=== PATIENT | female | born 1950 | race Caucasian/White ===

== ENCOUNTER → 2018-03-06 10:09 | Outpatient (CLI) | payer OTHER, SELFPAY ==
--- NOTE | 2018-03-06 | DI.RAD.S_ITS ---
This blank DEXA report has been sent in error by the PACS system. The correct and complete report will be forthcoming in 1-2 days. Thank you for your patience and understanding. Dictated by: Renetta Astudillo MD, PhD on 03/06/2018 at 12:45 Approved by: Renetta Astudillo MD, PhD on 03/06/2018 at 12:45
== END ==
PROVIDERS: PCP Family Medicine; Visit Provider Family Medicine
DX: M85.88 Other specified disorders of bone density and structure, other site (principal); Z78.0 Asymptomatic menopausal state; Z85.3 Personal history of malignant neoplasm of breast
CPT/HCPCS: 77080

== ENCOUNTER 2019-01-23 13:37 | Day surgery (SDC) | payer OTHER, SELFPAY ==
--- NOTE | 2019-01-23 | PATH_ITS ---
[facility] Accession Number: [id number] . 01 Material submitted: . PART A: colon - POLYP ASCENDING COLON X2 PART B: colon - TRANSVERSE COLON POLYP . 02 Diagnosis: A. Ascending Colon, Polyps x2, Biopsies: Tubular adenomas. . B. Transverse Colon, Polyp, Biopsy: Tubular adenoma. MRV/01/26/2019 . 02 Electronically signed: . Tejal Garcia MD, Pathologist NPI- [id number] . 01 Gross description: . Part A: POLYP ASCENDING COLON X2: Received in formalin are multiple fragment(s) of brooke, soft tissue measuring 1.5 x 0.8 x 0.5 cm in aggregate submitted entirely in 1 cassette(s) Part B: TRANSVERSE COLON POLYP: Received in formalin is 1 fragment(s) of brooke, soft tissue measuring 0.5 x 0.4 x 0.4 cm submitted entirely in 1 cassette(s) /CKI /CKI . 02 Pathologist provided ICD-10: D12.2, D12.3 . 02 CPT . 975226, [id number] Performed at: 01 [facility] [address], [place], [place] [id number] MD Geronimo Keller MD Phone: [phone] Performed at: 02 [facility] [address] [place], [place] [id number] MD Tejal Garcia MD Phone: [phone]
[2019-01-23] MEDS: HYOSCYAMINE 0.125 MG TABLET PO (14:03)
[2019-01-23 14:04] VITALS: BP 105/58; PULSE 73; RESP 17; TEMP 36.6; O2SAT 100; BMI 47.7
--- NOTE | 2019-01-23 15:00 | PM.OP.ENDO ---
Operative Date/Time/Diagnoses Date of procedure: 01/23/19 Time of procedure: 15:02 Pre-op diagnosis: 1. Screening for colon cancer 2. History of colon polyps 3. Diarrhea Post-op diagnosis: other (1. Ascending polyp x2, 2. Transverse polyp x1 ) Procedure & Clinicians Study performed: 1. Colonoscopy Same procedure as scheduled: Yes Indications: 1. Screening for colon cancer 2. History of colon polyps 3. Diarrhea Surgeon: Susu Conner Procedure Notes SCOAP/Timeout: 15:13 Procedure in detail: ENDOSCOPIST: Susu Conner MD ANESTHESIOLOGIST: Masoud Lora MD PROCEDURE: Colonoscopy with biopsy INDICATIONS: 1. Screening for colon cancer 2. Colon polyps, history of 3. Diarrhea MEDICATION: Levsin 0.125 mg sublingual, patient was then administered 2 mg of Versed and 50 mcg of fentanyl and became hypotensive, 90s/30s, 2 L of normal saline was bolused with little change in blood pressure. Dr. Lora was consulted and he graciously agreed to provide MD anesthesia. He gave 500 mcg of Lucio-Synephrine and 20 mg of ephedrine prior to start of procedure. Patient was sedated with a continuous infusion of propofol throughout, approximately 500 mg. ASA CLASS: 3 CECAL WITHDRAWAL TIME: 19 minutes TOTAL PROCEDURE TIME: 32 minutes COMPLICATIONS: None. EXTENT OF PROCEDURE: Cecum. QUALITY OF PREP: Good with portions of liquid stool. PROCEDURE: Prior to insertion of the colonoscope, a digital rectal examination was accomplished with circumferential palpation of the distal rectal mucosa without significant findings being noted. The high-definition pediatric colonoscope was passed into the rectum in the usual fashion and advanced over to the cecum without difficulty. The ileocecal valve, appendiceal stoma, and medial wall all could be inspected and no abnormalities were seen. ASCENDING COLON: As the colonoscope was withdrawn, care was taken to expose and inspect the haustral folds and 2 polyps were seen, the 1st was approximately 4 mm in size and removed with cold biopsy forceps. The 2nd was approximately 6-8 mm in size, lifted with methylene blue and removed with a 10 mm snare. Excellent hemostasis noted. HEPATIC FLEXURE: Normal no polyps, diverticula or other abnormalities. TRANSVERSE COLON: 2 mm polyp, removed with cold biopsy forceps. Otherwise, no diverticula or other abnormalities. DESCENDING COLON: Normal no polyps, diverticula or other abnormalities. SIGMOID COLON: Normal no polyps, diverticula or other abnormalities. RECTUM: Normal. J maneuver was produced. There was no significant perianal disease. The J maneuver was broken. The remainder of the rectum was inspected and there was no external hemorrhoid disease. The scope was withdrawn. IMPRESSION: 1. Ascending polyp x2, 4 mm, removed with cold biopsy forceps and 6-8 mm, lifted with methylene blue and removed with cold snare 2. Transverse polyp x1, 2 mm, removed with cold biopsy forceps PLAN: 1. Follow up in clinic status post pathology results. The possibility of a missed lesion including a malignancy has been discussed with the patient previously. Potential alarm symptoms have been discussed and should be reported immediately. Scope withdrawal time: 19 minutes Sedation minutes: 32 Findings: polyp Specimen(s): other Complications: none Impression: As above Recommendations: Will call with biopsy results Follow up: weeks (2) Disposition: PACU
[2019-01-23] MEDS: MIDAZOLAM 5 MG/5 ML VIAL IV (15:20)
[2019-01-23] MEDS: fentaNYL 250 MCG/5 ML INJ IV (15:50)
[2019-01-23] MEDS: SODIUM CHLORIDE 0.9% 1,000 ML 200 ML IV (15:51)
--- NOTE | 2019-01-23 16:14 | SUR.OPER ---
PROCEDURE CONVERTED TO MAC AT 1604.
[2019-01-23] MEDS: METHYLENE BLUE 50 MG/10 ML VIAL IV (16:34)
--- NOTE | 2019-01-23 16:45 | SUR.OPER ---
LEFT BUTTOCK , MIDDLE, BED SORE , QUARTER SIZE NOTED.
[2019-01-23 16:53] VITALS: BP 85/26; PULSE 90; RESP 16; TEMP 36.1; O2SAT 99
[2019-01-23 16:58] VITALS: BP 89/32; PULSE 84; RESP 14; O2SAT 100
[2019-01-23 17:04] VITALS: BP 88/51; PULSE 78; RESP 15; O2SAT 100
[2019-01-23 17:08] VITALS: BP 100/78; PULSE 80; RESP 14; O2SAT 100
[2019-01-23 17:12] VITALS: BP 112/51; PULSE 75; RESP 16; TEMP 35.7; O2SAT 100
== END 2019-01-23 17:35 | disposition home or self-care (01) ==
PROVIDERS: PCP Student in an Organized Health Care Education/Training Program; Visit Provider Student in an Organized Health Care Education/Training Program
PROC: 0DJD8ZZ Inspection of Lower Intestinal Tract, Via Natural or Artificial Opening Endoscopic (ICD-10-PCS; CPT 45378; principal; 2019-01-23 15:00)
DX: D12.2 Benign neoplasm of ascending colon (principal); D12.3 Benign neoplasm of transverse colon; Z86.010 Personal history of colon polyps; R19.7 Diarrhea, unspecified; J44.9 Chronic obstructive pulmonary disease, unspecified; E66.01 Morbid (severe) obesity due to excess calories; E78.5 Hyperlipidemia, unspecified; I50.9 Heart failure, unspecified; G47.33 Obstructive sleep apnea (adult) (pediatric); G89.29 Other chronic pain; F33.1 Major depressive disorder, recurrent, moderate; F41.0 Panic disorder [episodic paroxysmal anxiety]; Z68.42 Body mass index [BMI] 45.0-49.9, adult
CPT/HCPCS: 45385; 45381; 45380; J2250; J2704; J3010; Q9968

== ENCOUNTER → 2019-02-18 13:19 | Outpatient (CLI) | payer OTHER, SELFPAY ==
--- NOTE | 2019-02-18 | DI.RAD.S_ITS ---
PROCEDURE: XR CHEST 2V INDICATIONS: CHEST PAIN TECHNIQUE: 2 views of the chest were acquired. COMPARISON: [facility], , CHEST 2 VIEW, 03/14/2014, 10:52. FINDINGS: Surgical changes and devices: None. Lungs and pleura: Mild pulmonary vascular congestion is seen. No focal infiltrate. No pleural effusions or pneumothorax. Mediastinum: Mediastinal contours are normal. Heart size is enlarged. Bones and chest wall: No suspicious bony abnormalities. Soft tissues appear unremarkable. IMPRESSION: Cardiomegaly and mild congestion. No focal infiltrate. Dictated by: Isaias Hernandez M.D. on 02/18/2019 at 14:37 Approved by: Isaias Hernandez M.D. on 02/18/2019 at 14:40
== END ==
PROVIDERS: PCP Student in an Organized Health Care Education/Training Program; Visit Provider Student in an Organized Health Care Education/Training Program
DX: R07.9 Chest pain, unspecified (principal); I51.7 Cardiomegaly; R09.89 Other specified symptoms and signs involving the circulatory and respiratory systems
CPT/HCPCS: 71046

== ENCOUNTER → 2019-04-02 13:51 | Outpatient (CLI) | payer OTHER, SELFPAY ==
--- NOTE | 2019-04-02 | DI.NM.S_ITS ---
PROCEDURE: NM SKY PERF SPECT R&S PHARM Rest and pharmacological stress myocardial perfusion SPECT with gated imaging and ejection fraction RADIOPHARMACEUTICAL: 25.7 mCi Tc-99m tetrafosmin IV at rest and 24.8 mCi Tc-99m tetrafosmin IV at peak effect of pharmacological stress. Aup-[id number]-[id number] was performed. INDICATIONS: OTHER CHEST PAIN TECHNIQUE: Radiopharmaceutical was injected at peak stress test, and also at rest. SPECT images were obtained. SPECT myocardial perfusion images were displayed in short axis, horizontal long axis, and vertical long axis views. Gated images were reviewed using The RealReal software. COMPARISON: None. CARDIAC STRESS: A pharmacologic stress test was performed under the supervision of an attending staff, using an infusion of lexiscan 0.4 mg IV X1. Hemodynamic data: There is normal blood pressure and heart rate response to pharmacologic stress. Symptoms: The patient denied anginal chest pain. Aminophylline: none EKG: Resting ECG shows sinus rhythm with non-specific T wave changes. No diagnostic changes of ischemia with lexiscan; no ectopy. FINDINGS: Raw data: There is good myocardial uptake of radiotracer. No significant motion artifacts. Ohwc-fc-ydkpl ratio is 0.33 (normal is less than 0.38 for tetrafosmin tracer). Left ventricle function: Gated images demonstrate normal left ventricular wall thickening. No segmental wall motion abnormalities. No transient ischemic dilation; TID is 0.67 (normal less than 1.3). Left ventricle resting end diastolic volume is 91 mL. Left ventricle stress ejection fraction is 67%; normal range is above 45%. Myocardial perfusion: There is a fixed moderately intense inferior wall defect that could be prior non-transmural infarction or diaphragmatic attenuation. No ischemia. Prone images not done as the patient is unable to lay prone physically. 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 No ischemia. 1) Abnormal perfusion images. There is a fixed moderately intense inferior wall defect that could be prior non-transmural infarction or diaphragmatic attenuation. No ischemia. Prone images not done as the patient is unable to lay prone physically. 2) Normal left ventricular size, wall motion, and systolic function (EF post stress 67%). 3) No ECG evidence of ischemia with lexiscan. 4) No angina during the study. 5) No prior nuclear stress test available for comparison. Dictated by: Akiko Webb MD on 04/03/2019 at 15:21 Approved by: Akiko Webb MD on 04/03/2019 at 15:25
--- NOTE | 2019-04-02 14:58 | PM.TREADMILL ---
Cardiac Stress Test Report Referral & Results Date Patient Seen: 04/02/19 Requesting provider: Susu Conner Indication: Chest discomfort Rest ECG: Unremarkable Procedure Note: After both written and verbal informed consent the patient had an IV started by the diagnostic imaging RN, and then was hooked up to the treadmill monitoring system. The Lexiscan material, and then the Cardiolite tracer, were administered sequentially. An additional 3 min was spent monitoring the patient while supine on the gurney. The patient had a normal response to all infused materials. Impression: Normal response to infuse materials as above, please see perfusion imaging report for details regarding possible ischemia Please note: Actual ECG tracings can be found in the PACS system.
== END ==
PROVIDERS: PCP Student in an Organized Health Care Education/Training Program; Visit Provider Student in an Organized Health Care Education/Training Program
DX: R07.89 Other chest pain (principal); R94.39 Abnormal result of other cardiovascular function study
CPT/HCPCS: 78452; 93016; 93017; 93018; A9502; J2785

== ENCOUNTER → 2019-06-23 09:02 | Outpatient (CLI) | payer OTHER, SELFPAY ==
--- NOTE | 2019-06-23 | DI.ECHO.S_ITS ---
[facility] +---------+ : : [address] [place] [address] : : : : [id number] : : : : Phone: [phone]+ Echocardiogram Report + + :Name: KYLE ZAMORA Study Date: 06/23/2019 Height: 60 in : :[facility] Weight: 270 lb : : Gender: Female BSA: 2.1 m2 : :: 1950 Age: 69 yrs BP: 146/86 mmHg: :Reason For Study: Chest pain : :Ordering Physician: Kiah : :Pasquale Iqbal Performed By: Chad Romo : :Referring: KIAH GIORDANO : + + Interpretation Summary The study quality was technically difficult. The ejection fraction is estimated to be 60-65%. There is no significant valvular heart disease. Procedure: A two-dimensional transthoracic echocardiogram with color flow and Doppler was performed. The study quality was technically difficult. A contrast injection of Definity was performed to improve assessment of LV function. Prior echo performed on 03/08/17. The patient was in normal sinus rhythm during the exam. Left Ventricle: The left ventricle is normal in size. There is normal left ventricular wall thickness. Left ventricular systolic function is normal. The ejection fraction is estimated to be 60-65%. Left ventricular wall motion is normal. Right Ventricle: The right ventricle is not well visualized. Atria: The left atrium is not well visualized. Right atrium not well visualized. The interatrial septum is intact with no evidence for an atrial septal defect. Mitral Valve: The mitral valve is normal in structure and function. There is no mitral regurgitation noted. Aortic Valve: The aortic valve is trileaflet. The aortic valve opens well. No aortic regurgitation is present. Tricuspid Valve: The tricuspid valve is not well visualized. There is trace tricuspid regurgitation. Pulmonary artery pressures cannot be estimated because of the lack of a measurable TR jet velocity. Pulmonic Valve: The pulmonic valve is not well visualized. There is trace pulmonic regurgitation. Great Vessels: The aortic root is normal size. The dimensions of the ascending aorta are normal. The pulmonary artery is normal size. The inferior vena cava was not visualized. Pericardium/ Pleura There is no pericardial effusion. There is no pleural effusion. MMode/2D Measurements & Calculations LVIDd: 4.0 cm LVOT diam: 2.1 cm LVIDs: 3.0 cm Ao root diam: 3.4 cm FS: 22.9 % Aortic Jxn: 3.2 cm EPSS: 1.2 cm IVSd: 1.1 cm LVPWd: 0.88 cm LV singh. diameter/BSA (cm/m^2): 1.9 LV sys. diameter/BSA (cm/m^2): 1.4 Doppler Measurements & Calculations MV E max jermaine: 63.4 cm/sec MV A max jermaine: 84.3 cm/sec MV E/A: 0.75 Med Peak E' Jermaine: 4.7 cm/sec E/E' med: 13.3 Lat Peak E' Jermaine: 5.1 cm/sec E/E' lat: 12.4 E/e' average: 12.9 MV dec time: 0.26 sec Reading Physician:08:59 AM
== END ==
PROVIDERS: PCP Student in an Organized Health Care Education/Training Program; Visit Provider Internal Medicine Cardiovascular Disease
DX: R07.9 Chest pain, unspecified (principal)
CPT/HCPCS: 93306; Q9957

== ENCOUNTER → 2020-11-09 14:03 | Outpatient (CLI) | payer OTHER, SELFPAY ==
--- NOTE | 2020-11-09 14:04 | DI.MG.S_ITS ---
BILATERAL DIGITAL SCREENING MAMMOGRAM 3D/2D WITH CAD: 11/09/2020 CLINICAL: Routine screening. Comparison is made to exams dated: 01/29/2012 mammogram and 01/08/2005 mammogram - [facility]. The tissue of both breasts is heterogeneously dense. This may lower the sensitivity of mammography. Current study was also evaluated with a Computer Aided Detection (CAD) system. There is possible architectural distortion in the left breast central to the nipple in the retroareolar region. No other significant masses, calcifications, or other findings are seen in either breast. IMPRESSION: INCOMPLETE: NEEDS ADDITIONAL IMAGING EVALUATION The possible architectural distortion in the left breast is indeterminate. Additional views with possible ultrasound are recommended. This exam was interpreted at Station ID: [id number]. NOTE: For mammograms, a report in lay terms will be sent to the patient. Approximately 15% of breast malignancies will not be visualized mammographically. In the management of a palpable breast mass, a negative mammogram must not discourage biopsy of a clinically suspicious lesion. Electronically Signed By: Salo villasenor/carlos:11/09/2020 15:11:47 letter sent: Additional Imaging Needed ACR BI-RADS Category 0: Incomplete [id number]
== END ==
PROVIDERS: PCP Student in an Organized Health Care Education/Training Program; Referring Provider Student in an Organized Health Care Education/Training Program; Visit Provider Student in an Organized Health Care Education/Training Program
DX: Z12.31 Encounter for screening mammogram for malignant neoplasm of breast (principal)
CPT/HCPCS: 77063; 77067

== ENCOUNTER 2021-01-03 11:56 | Emergency (ER) | payer OTHER, SELFPAY ==
[2021-01-03] VITALS (19 sets, daily range): BP systolic 117–129; BP diastolic 51–76; PULSE 56–72; RESP 18–50; TEMP 36.9; O2SAT 93–100; BMI 50.4
[2021-01-03 13:48] LABS: Add Manual Diff / Slide Review NO; Basophils Absolute Auto 100 /uL (0-100); Basophils Percent Auto 0.7 % (0-2); Eosinophils Absolute Auto 100 /uL (0-450); Eosinophils Percent Auto 0.7 % (2-4); Hematocrit 38.2 % (36-46); Hemoglobin 12.6 g/dL (12.0-16.0); Lymphocytes Absolute Auto 1000 /uL (1100-4500); Lymphocytes Percent Auto 12.4 % (25-40); Mean Corpuscular HGB Conc 32.9 % (30-36); Mean Corpuscular Hemoglobin 29.8 PG (26-34); Mean Corpuscular Volume 90.4 fL (80-100); Monocytes Absolute Auto 300 /uL (0-900); Monocytes Percent Auto 3.6 % (3-14); Neutrophils Absolute Auto 6700 /uL (1500-7000); Neutrophils Percent Auto 82.6 % (50-75); Platelet Count 109 X10^3/uL (150-400); Red Blood Cell Count 4.23 X10^6/uL (4.0-5.2); Red Cell Distribution Width 14.6 % (11.6-14.8); White Blood Cell Count 8.1 X10^3/uL (4.5-11.0)
[2021-01-03] MEDS: ONDANSETRON 4 MG/2 ML INJ IV (13:49)
[2021-01-03] MEDS: KETOROLAC 30 MG/ML VIAL 15 MG IV (13:49)
[2021-01-03 14:00] LABS: Alanine Aminotransferase 18 IU/L (<35); Albumin 3.7 g/dL (3.5-5.0); Albumin Globulin Ratio 1.2 (1.0-2.8); Alkaline Phosphatase 140 U/L (38-126); Aspartate Aminotransferase 30 IU/L (14-36); BUN Creatinine Ratio 17.4 (6-22); Bilirubin Total 0.4 mg/dL (0.2-1.3); Blood Urea Nitrogen 19 mg/dL (7-17); Calcium 9.3 mg/dL (8.4-10.2); Carbon Dioxide 33 mmol/L (22-32); Chloride 99 mmol/L (98-107); Estimated Glomerular Filt Rate 49.8 mL/min (>60); Globulin 3.1 g/dL (1.7-4.1); Glucose 134 mg/dL (80-110); HEMOLYSIS < 15 (0-50); Lipase 60 U/L (23-300); Potassium 4.6 mmol/L (3.4-5.1); Sodium 137 mmol/L (137-145); Total Protein 6.8 g/dL (6.3-8.2)
--- NOTE | 2021-01-03 14:25 | DI.CT.S_ITS ---
PROCEDURE: CT KIDNEY URETER BLADDER (KUB) INDICATIONS: right flank pain TECHNIQUE: Axial sections were acquired from the lung bases to the pubic symphysis. Coronal and sagittal reformats were performed. For radiation dose reduction, the following was used: automated exposure control, adjustment of mA and/or kV according to patient size. COMPARISON:[facility], CR, XR CHEST 2V, 02/18/2019, 13:27. FINDINGS: Image quality: Excellent. Lung bases: Mild infiltrates or atelectasis at lung bases. Heart: Heart size is mildly increased. No pericardial effusion. URINARY: Right Kidney: There is moderate hydronephrosis and mild perinephric stranding. No stones. Right Ureter: There is a 0.8 cm stone in the proximal right ureter. Mild hydroureter proximal to the stone. Left Kidney: No stones or hydronephrosis. Left Ureter: No hydroureter. Bladder: Normal wall thickness. No stones. ABDOMEN: Liver: Unremarkable. Gallbladder: Surgically absent Biliary ducts: Unremarkable. Pancreas: Unremarkable. Spleen: Unremarkable. Adrenal Glands: Unremarkable. Stomach and Bowel: Stomach, small bowel loops, and colon are unremarkable. There is moderate amount of stool in colon. Appendix is not visualized no CT findings to suggest acute appendicitis. Peritoneum: No abnormal intraperitoneal fluid. No free air. Ventral Wall: Small fat containing umbilical hernia. Abdominal Nodes: No enlarged retroperitoneal or mesenteric lymph nodes. Vessels: Aorta and inferior vena cava are normal in size. PELVIS: Pelvic Organs: Unremarkable. Pelvic Nodes: Unremarkable. Miscellaneous: No inguinal hernias are seen. Bones: Mild scoliosis. Moderate degenerative changes in lumbar spine. Is sclerotic lesion in the left sacral ala, most likely a bone island. IMPRESSION: 1. A 0.8 cm stone is present in the proximal right ureter, causing moderate right hydronephrosis. 2. No other urinary stones are identified. 3. Bilateral lower lobe infiltrates or atelectasis. 4. Mild cardiomegaly. Dictated by: Melanie Canada M.D. on 01/03/2021 at 15:51 Approved by: Melanie Canada M.D. on 01/03/2021 at 16:04
--- NOTE | 2021-01-03 15:34 | PC.NURSE ---
cloudy urine collected from straight cath. Renetta BUCIO assisted.
[2021-01-03 15:45] LABS: Appearance Urine UA SL CLOUDY; Bilirubin Urine UA NEGATIVE (NEGATIVE); Color Urine UA YELLOW; Glucose Urine UA NEGATIVE (Negative); Ketones Urine UA TRACE (NEGATIVE); Leukocyte Esterase Urine UA 2+ (NEGATIVE); Nitrite Urine UA POSITIVE (Negative); Occult Blood Urine UA 3+ (Negative); Protein Urine UA 2+ (Negative); Urobilinogen Urine UA 0.2 E.U./dL (0.2)
[2021-01-03 15:48] LABS: Bacteria Urine Many (>30); Culture Indicated Urine Specimen Cultured; RBC Urine 30-100/HPF (0-5/HPF); Squamous Epithelial Cell Urine 0-1 /HPF (0-5/HPF); WBC Urine 30-100/HPF (0-5/HPF); pH Urine UA 8.5 (4.5-8.0)
--- NOTE | 2021-01-03 16:04 | ED_ITS ---
HPI - Female Genitourinary General Chief complaint: Urogenital-Female Stated complaint: ABD Flank pain Time Seen by Provider: 01/03/21 13:42 Source: patient Mode of arrival: EMS Limitations: no limitations History of Present Illness HPI Narrative: This is a 70-year-old female comes with complaint of right-sided flank pain that was fairly sudden onset. Patient woke up this morning and pain and then had significant increase in pain suddenly on the right flank that hit her like a ?boom?. Patient has not had fevers or chills. She has not been actively vomiting. She denies chest pain or new shortness of breath. She is normally on 2 L nasal cannula at home. She has had major changes to bowel movements. She has chronic urinary incontinence, she was having some difficulty with urine output earlier today. Patient does have a cardiac history with heart attack many years ago but ever since then has had a fair amount of debility and has minimal exercise capacity, she is on 2 L nasal cannula typically and states she does have some chronic kidney disease she does not know her baseline creatinine. Related Data Home Medications Medication Instructions Recorded Confirmed albuterol sulfate 0.63 mg/3 mL 0.63 mg INHALATION BID 01/23/19 01/23/19 solution for nebulization albuterol sulfate 90 mcg/actuation 2 puff INHALATION Q4-6H PRN 01/23/19 01/23/19 aerosol inhaler (Ventolin HFA) atorvastatin 10 mg tablet 10 mg PO DAILY 01/23/19 01/23/19 beclomethasone dipropionate 80 2 puff INHALATION BID 01/23/19 01/23/19 mcg/actuation HFA breath activated aerosol (Qvar RediHaler) furosemide 40 mg tablet 20 mg PO BID 01/23/19 01/23/19 potassium chloride 10 mEq 20 meq PO DAILY 01/23/19 01/23/19 capsule,extended release sertraline 25 mg tablet 10 mg PO DAILY 01/23/19 01/23/19 tiotropium bromide 18 mcg capsule 1 cap INHALATION DAILY 01/23/19 01/23/19 with inhalation device (Spiriva with HandiHaler) trospium 20 mg tablet 20 mg PO BID 01/23/19 01/23/19 Previous Rx's Medication Instructions Recorded oxycodone 5 mg tablet 5 mg PO Q6H PRN #10 tab 01/03/21 sulfamethoxazole 800 1 tab PO Q12H #20 tab 01/03/21 mg-trimethoprim 160 mg tablet (Bactrim DS) tamsulosin 0.4 mg capsule (Flomax) 0.4 mg PO DAILY #7 cap 01/03/21 Allergies Allergy/AdvReac Type Severity Reaction Status Date / Time promethazine Allergy Unknown HALLUCINATI Verified 01/23/19 14:01 ONS Review of Systems Review of Systems ROS Unobtainable: All systems reviewed & are unremarkable except as noted in HPI and below Exam Narrative Exam Narrative: GENERAL: Alert and oriented x three, female in mild distress on 2 L nasal cannula. HEENT: Head normocephalic, atraumatic, EOMI, pupils reactive, face symmetric, moist mucous membranes NECK: Supple, full range of motion CARDIOVASCULAR: Regular rate and rhythm without murmurs, rubs or gallops. RESPIRATORY: Breath sounds equal bilaterally, no wheezes rales or rhonchi. ABDOMEN: Soft, nontender. Nondistended. Normoactive bowel sounds all 4 quadrants. No guarding or rebound, rigidity, no mass : No CVA tenderness EXTREMITIES: Normal range of motion, no clubbing or edema. Neurovascularly intact NEUROLOGICAL: Cranial nerves II through XII grossly intact. Moving all extremities SKIN: Warm, dry, no petechiae, no rashes or lesions. Initial Vital Signs Initial Vital Signs: Vital Signs Temperature 98.4 F 01/03/21 12:09 Pulse Rate 59 L 01/03/21 12:09 Respiratory Rate 18 01/03/21 12:09 Blood Pressure 126/76 01/03/21 12:09 Pulse Oximetry 98 01/03/21 12:09 Course Orders Ordered: ED Orders 01/03/21 13:40 Complete Blood Count AUTO DIFF Stat Comprehensive Metabolic Panel Stat Lipase Stat 01/03/21 14:25 CT kidney ureter bladder (KUB) Stat 01/03/21 15:30 Urinalysis and Microscopic Stat Urine Culture Stat 01/03/21 16:24 COVID19 - ADMIT ([employer] swab/PCR) Stat 01/03/21 17:23 XR KUB Stat Discontinued Medications Ceftriaxone Sodium 2,000 mg/ (Sodium Chloride) 100 mls @ 200 mls/hr IV NOW ONE Stop: 01/03/21 16:05 Last Infusion: 01/03/21 17:57 Dose: 0 mls/hr Documented by: Admin: 01/03/21 16:45 Dose: 200 mls/hr Documented by: PATRICK Ketorolac Tromethamine (Ketorolac 30 Mg/Ml Vial) 15 mg IV NOW ONE Stop: 01/03/21 13:36 Last Admin: 01/03/21 13:49 Dose: 15 mg Documented by: KARISHMA Ondansetron HCl (Ondansetron 4 Mg/2 Ml Inj) 4 mg IV NOW ONE Stop: 01/03/21 13:20 Last Admin: 01/03/21 13:49 Dose: 4 mg Documented by: KARISHMA Tamsulosin HCl (Tamsulosin 0.4 Mg Capsule) 0.4 mg PO NOW ONE Stop: 01/03/21 17:39 Last Admin: 01/03/21 17:48 Dose: 0.4 mg Documented by: PATRICK Trimethoprim/Sulfamethoxazole (Trimeth/Sulfa 160/800 (Ds) Tablet) 1 tab PO NOW ONE Stop: 01/03/21 17:24 Last Admin: 01/03/21 17:48 Dose: 1 tab Documented by: PATRICK Consultations Consultation #1: Rosetta, will likely need intervention but does not need to be emergent at this time if renal function is at baseline, patient's pain is controlled and she does not appear to be septic. If discharged recommends Breanne CALERO by ID. And would appreciate follow-up with primary care for cardiac clearance. Patient is taking more than 81 mg aspirin daily he would ask her to stop her anticoagulation. And would find a KUB flat plate helpful for planning. Consultation #2: Dr. Conner, is happy to help facilitate short-term follow-up and cardiac clearance with the patient. 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 She states her normal creatinine is 1.1 at baseline, we also discussed that she does take an aspirin 81 mg daily but no stronger anticoagulants and this would be acceptable per Dr. Sargent. She is aware that the goal is for cardiac clearance for lithotripsy is patient is unlikely to pass her stone. Vital Signs Vital signs: Vital Signs - 8 hr 01/03/21 12:09 01/03/21 12:28 01/03/21 12:30 Temperature 98.4 F Pulse Rate 59 L 65 65 Respiratory Rate 18 Blood Pressure 126/76 Pulse Oximetry 98 99 99 01/03/21 13:00 01/03/21 13:32 01/03/21 13:52 Temperature Pulse Rate 60 59 L 60 Respiratory Rate Blood Pressure 117/57 L Pulse Oximetry 98 98 99 01/03/21 14:00 01/03/21 14:30 01/03/21 14:31 Temperature Pulse Rate 60 67 68 Respiratory Rate Blood Pressure 123/57 L 118/59 L Pulse Oximetry 99 99 100 01/03/21 15:00 01/03/21 15:01 01/03/21 15:30 Temperature Pulse Rate 70 69 64 Respiratory Rate Blood Pressure 129/58 L Pulse Oximetry 100 93 99 01/03/21 16:00 01/03/21 16:01 01/03/21 16:30 Temperature Pulse Rate 60 60 56 L Respiratory Rate 28 H 26 H 21 Blood Pressure 123/60 Pulse Oximetry 100 100 100 01/03/21 16:31 01/03/21 17:00 01/03/21 17:30 Temperature Pulse Rate 57 L 59 L 62 Respiratory Rate 22 26 H Blood Pressure 117/51 L Pulse Oximetry 100 100 100 01/03/21 18:09 Temperature Pulse Rate 72 Respiratory Rate 50 H Blood Pressure Pulse Oximetry 93 MDM - Female Genitourinary Lab Data Result diagrams: 01/03/21 13:40 01/03/21 13:40 Labs: Lab Results 01/03/21 01/03/21 01/03/21 Range/Units 13:40 13:40 15:30 WBC 8.1 (4.5-11.0) X10^3/uL RBC 4.23 (4.0-5.2) X10^6/uL Hgb 12.6 (12.0-16.0) g/dL Hct 38.2 (36-46) % MCV 90.4 (80-100) fL MCH 29.8 (26-34) PG MCHC 32.9 (30-36) % RDW 14.6 (11.6-14.8) % Plt Count 109 L (150-400) X10^3/uL Neut % (Auto) 82.6 H (50-75) % Lymph % (Auto) 12.4 L (25-40) % [place] % (Auto) 3.6 (3-14) % Eos % (Auto) 0.7 L (2-4) % Baso % (Auto) 0.7 (0-2) % Neut # (Auto) 6700 (3371-0007) /uL Lymph # (Auto) 1000 L (8281-3324) /uL [place] # (Auto) 300 (0-900) /uL Eos # (Auto) 100 (0-450) /uL Baso # (Auto) 100 (0-100) /uL Sodium 137 (137-145) mmol/L Potassium 4.6 (3.4-5.1) mmol/L Chloride 99 (98-107) mmol/L Carbon Dioxide 33 H (22-32) mmol/L BUN 19 H (7-17) mg/dL Creatinine 1.09 H (0.52-1.04) mg/dL Estimated GFR 49.8 L (>60) mL/min BUN/Creatinine Ratio 17.4 (6-22) Glucose 134 H (80-110) mg/dL Calcium 9.3 (8.4-10.2) mg/dL Total Bilirubin 0.4 (0.2-1.3) mg/dL AST 30 (14-36) IU/L ALT 18 (<35) IU/L Alkaline Phosphatase 140 H (38-126) U/L Total Protein 6.8 (6.3-8.2) g/dL Albumin 3.7 (3.5-5.0) g/dL Globulin 3.1 (1.7-4.1) g/dL Albumin/Globulin Ratio 1.2 (1.0-2.8) Lipase 60 (23-300) U/L Urine Color Yellow Urine Appearance Sl cloudy Urine pH 8.5 H (4.5-8.0) Ur Specific [place] 1.010 (1.000-1.035) Urine Protein 2+ H (Negative) Urine Glucose (UA) Negative (Negative) g/dL Urine Ketones Trace H (NEGATIVE) Urine Occult Blood 3+ H (Negative) Urine Nitrate Positive H (Negative) Urine Bilirubin Negative (NEGATIVE) Urine Urobilinogen 0.2 (0.2) E.U./dL Ur Leukocyte Esterase 2+ H (NEGATIVE) Urine RBC 30-100/hpf H (0-5/HPF) Urine WBC 30-100/hpf H (0-5/HPF) Ur Squamous Epith Cells 0-1 /hpf (0-5/HPF) Urine Bacteria Many (>30) H (None) Ur Culture Indicated? Specimen cultured SARS-CoV-2 (PCR) (Negative) 01/03/21 Range/Units 16:24 WBC (4.5-11.0) X10^3/uL RBC (4.0-5.2) X10^6/uL Hgb (12.0-16.0) g/dL Hct (36-46) % MCV (80-100) fL MCH (26-34) PG MCHC (30-36) % RDW (11.6-14.8) % Plt Count (150-400) X10^3/uL Neut % (Auto) (50-75) % Lymph % (Auto) (25-40) % [place] % (Auto) (3-14) % Eos % (Auto) (2-4) % Baso % (Auto) (0-2) % Neut # (Auto) (5021-5513) /uL Lymph # (Auto) (3514-9557) /uL [place] # (Auto) (0-900) /uL Eos # (Auto) (0-450) /uL Baso # (Auto) (0-100) /uL Sodium (137-145) mmol/L Potassium (3.4-5.1) mmol/L Chloride (98-107) mmol/L Carbon Dioxide (22-32) mmol/L BUN (7-17) mg/dL Creatinine (0.52-1.04) mg/dL Estimated GFR (>60) mL/min BUN/Creatinine Ratio (6-22) Glucose (80-110) mg/dL Calcium (8.4-10.2) mg/dL Total Bilirubin (0.2-1.3) mg/dL AST (14-36) IU/L ALT (<35) IU/L Alkaline Phosphatase (38-126) U/L Total Protein (6.3-8.2) g/dL Albumin (3.5-5.0) g/dL Globulin (1.7-4.1) g/dL Albumin/Globulin Ratio (1.0-2.8) Lipase (23-300) U/L Urine Color Urine Appearance Urine pH (4.5-8.0) Ur Specific [place] (1.000-1.035) Urine Protein (Negative) Urine Glucose (UA) (Negative) g/dL Urine Ketones (NEGATIVE) Urine Occult Blood (Negative) Urine Nitrate (Negative) Urine Bilirubin (NEGATIVE) Urine Urobilinogen (0.2) E.U./dL Ur Leukocyte Esterase (NEGATIVE) Urine RBC (0-5/HPF) Urine WBC (0-5/HPF) Ur Squamous Epith Cells (0-5/HPF) Urine Bacteria (None) Ur Culture Indicated? SARS-CoV-2 (PCR) Negative (Negative) Imaging Data CT scan - abdomen/pelvis: Radiologist's Impression: [address] [id number] Scan ReportSigned Patient: Maribel Narayanan [facility]#: [id number]: 1950cct:[id number]/Sex: 70 / FDate of Service: 01/03/21Loc: EDAccession Number: [id number] Procedure: CT kidney ureter bladder (KUB) Ordering Provider: Dyan Alston D.O. PROCEDURE: CT KIDNEY URETER BLADDER (KUB) INDICATIONS: right flank pain TECHNIQUE: Axial sections were acquired from the lung bases to the pubic symphysis. Coronal and sagittal reformats were performed. For radiation dose reduction, the following was used: automated exposure control, adjustment of mA and/or kV according to patient size. COMPARISON:[facility], [place], XR CHEST 2V, 02/18/2019, 13:27. FINDINGS: Image quality: Excellent. Lung bases: Mild infiltrates or atelectasis at lung bases. Heart: Heart size is mildly increased. No pericardial effusion. URINARY: Right Kidney: There is moderate hydronephrosis and mild perinephric stranding. No stones. Right Ureter: There is a 0.8 cm stone in the proximal right ureter. Mild hydroureter proximal to the stone. Left Kidney: No stones or hydronephrosis. Left Ureter: No hydroureter. Bladder: Normal wall thickness. No stones. ABDOMEN: Liver: Unremarkable. Gallbladder: Surgically absent Biliary ducts: Unremarkable. Pancreas: Unremarkable. Spleen: Unremarkable. Adrenal Glands: Unremarkable. Stomach and Bowel: Stomach, small bowel loops, and colon are unremarkable. There is moderate amount of stool in colon. Appendix is not visualized no CT findings to suggest acute appendicitis. Peritoneum: No abnormal intraperitoneal fluid. No free air. Ventral Wall: Small fat containing umbilical hernia. Abdominal Nodes: No enlarged retroperitoneal or mesenteric lymph nodes. Vessels: Aorta and inferior vena cava are normal in size. PELVIS: Pelvic Organs: Unremarkable. Pelvic Nodes: Unremarkable. Miscellaneous: No inguinal hernias are seen. Bones: Mild scoliosis. Moderate degenerative changes in lumbar spine. Is sclerotic lesion in the left sacral ala, most likely a bone island. IMPRESSION: 1. A 0.8 cm stone is present in the proximal right ureter, causing moderate right hydronephrosis. 2. No other urinary stones are identified. 3. Bilateral lower lobe infiltrates or atelectasis. 4. Mild cardiomegaly. Dictated by: Melanie Canada M.D. on 01/03/2021 at 15:51 Approved by: Melanie Canada M.D. on 01/03/2021 at 16:04 MDM Narrative Medical decision making narrative: Female comes in with symptoms that seem consistent with kidney stone. Patient is does have a chronic urinary incontinence, catheterized urine was obtained and does show UTI with nitrates as well as significant white blood cells and red blood cells. Patient has an 8 mm proximal kidney stone on the right. Patient's labs are somewhat reassuring as well as her vitals. Her pain was easily controlled with single dose of Toradol. After discussion with her primary care physician her renal function is at baseline with a creatinine 1.1 normally. Patient does multiple medical issues including O2 via nasal cannula regularly. After discussion with Urology they feel it would be most appropriate to help patient get cardiac clearance before lithotripsy particularly if she does not appears septic, and her pain is well controlled and her renal function is at baseline. Breanne CALERO b.i.d. was recommended, patient can continue with aspirin daily and they ask for assistance to get patient cardiac clearance. Dr. Conner patient's primary care physician is happy to assist with this and is in the process of helping the patient see Cardiology. Patient and daughter and I discussed that some patients can become septic if they have obstructive kidney stones with UTIs and so very strict return precautions with patient to come back to us if she is having worsening symptoms, fevers, intractable pain, vomiting or she is feeling generally more more unwell. Patient was given 1st dose of oral medication as well as Flomax here in the department with a plan for that prescription to go to skilled more, and pain medication for this [facility] Patient and daughter both at bedside for the entire conversation and return precautions as well as all questions were answered. Discharge Plan Departure Patient Disposition: Home Clinical Impression: Kidney stone on right side, Acute UTI Instructions: DI for Kidney Stones, DI for Urinary Tract Infection (UTI) Activity Restrictions/Additional Instructions: Follow up with Dr. Conner tomorrow. She is going to help facilitate cardiac clearance for a likely lithotripsy of your kidney stone. Your renal function today is at baseline after review of your labs and findings today with Dr. Conner. I also spoke with Dr. Sargent with urology, he would like to see you shortly. And is going to follow-up with you in regarding your kidney stone. You may continue your home medications as prescribed. Take antibiotics twice daily until gone. Take Flomax once daily until gone. May take Tylenol up to a 1000 mg every 8 hours as needed for pain. If this is an adequate you may take narcotic pain medication with it. You may take pain medication as prescribed. This medication can make you sleepy do not drive, perform hazardous activities or make any major decisions while taking it. This medication will make you constipated please take a stool softener once to twice daily until stools are soft and regular. Prescription sent to [place] for Flomax and Bactrim. He received her 1st dose of Bactrim here [facility]. [facility] Please return for fevers, rapidly worsening symptoms, persistent vomiting, wor sening back or flank pain, abdominal pain, if you are unable to urinate or other new or concerning symptoms. Prescriptions: New tamsulosin [Flomax] 0.4 mg capsule 0.4 mg PO DAILY Qty: 7 RF: 0 sulfamethoxazole-trimethoprim [Bactrim DS] 800-160 mg tablet 1 tab PO Q12H Qty: 20 RF: 0 oxycodone 5 mg tablet 5 mg PO Q6H PRN (Reason: pain) Qty: 10 RF: 0 No Action furosemide 40 mg Tablet 20 mg PO BID RF: 0 albuterol sulfate 0.63 mg/3 mL Solution For Nebulization 0.63 mg INHALATION BID RF: 0 potassium chloride 10 mEq Capsule, Extended Release 20 meq PO DAILY RF: 0 atorvastatin 10 mg Tablet 10 mg PO DAILY RF: 0 sertraline 25 mg Tablet 10 mg PO DAILY RF: 0 albuterol sulfate [Ventolin HFA] 90 mcg/actuation Hfa Aerosol Inhaler 2 puff INHALATION Q4-6H PRN (Reason: copd) RF: 0 Spiriva with HandiHaler 18 mcg Capsule, W/Inhalation Device 1 cap INHALATION DAILY RF: 0 trospium 20 mg Tablet 20 mg PO BID RF: 0 Qvar RediHaler 80 mcg/actuation Hfa Aerosol Breath Activated 2 puff INHALATION BID RF: 0 Referrals: Susu Conner MD [Primary Care Provider] - Shayna Sargent MD [Physician] -
[2021-01-03] MEDS: cefTRIAXone 2,000 MG in SODIUM CHLORIDE 0.9% 100 ML 200 ML IV (16:45)
--- NOTE | 2021-01-03 17:23 | DI.RAD.S_ITS ---
PROCEDURE: XR KUB INDICATIONS: dr. corona requested. TECHNIQUE: One view of the abdomen acquired. COMPARISON: [facility], CT, CT KIDNEY URETER BLADDER (KUB), 01/03/2021, 15:18. FINDINGS: Image quality limited secondary artifact related to multiple device leads. Surgical changes and devices: None. Bowel: Bowel gas pattern is normal. Soft tissues: 1.3 by 0.6 centimeter calcification projects over the right mid abdomen which may correspond to right ureteral stone.. Visualized solid organ contours appear normal in size. Bones: No suspicious bony lesions. IMPRESSION: 1.3 x 0.6 centimeter calcification projecting over the right mid abdomen possibly reflective of known right ureteral stone. Dictated by: Renetta Astudillo MD, PhD on 01/03/2021 at 18:02 Approved by: Renetta Astudillo MD, PhD on 01/03/2021 at 18:04
[2021-01-03 17:24] LABS: COVID19 - ADMIT (NP swab/PCR) Negative (Negative)
[2021-01-03] MEDS: TAMSULOSIN 0.4 MG CAPSULE PO (17:48)
[2021-01-03] MEDS: TRIMETH/SULFA 160/800 (DS) TABLET 1 TAB PO (17:48)
== END 2021-01-03 18:27 | disposition home or self-care (01) ==
PROVIDERS: Emergency Provider Emergency Medicine; PCP Student in an Organized Health Care Education/Training Program
DX: N20.0 Calculus of kidney (principal); N39.0 Urinary tract infection, site not specified; Z20.822 Contact with and (suspected) exposure to COVID-19
CPT/HCPCS: 36415; 51701; 74018; 74176; 80053; 81001; 83690; 85025; 87077; 87086; 87186; 87635; 96365; 96375; 99284; C9803; J0696; J1885; J2405

== ENCOUNTER 2021-01-09 18:06 | Inpatient (IN) | payer OTHER, SELFPAY ==
[2021-01-09] VITALS (12 sets, daily range): BP systolic 109–124; BP diastolic 53–80; PULSE 63–80; RESP 18; TEMP 36.2; O2SAT 97–100; BMI 52.0
--- NOTE | 2021-01-09 18:30 | ED_ITS ---
HPI - Altered Mental Status General Chief Complaint: Urogenital-Female Stated Complaint: Poss UTI/Hallucinations Time Seen by Provider: 01/09/21 18:08 History of Present Illness HPI narrative: This is a 70-year-old female on home oxygen 2 L, hypertension, hyperlipidemia presents with reports of hallucinations, altered mental status and generalized weakness with an inability to ambulate over the past few days. Patient diagnosed recently with an 8 mm proximal right ureter stone which then developed a urinary tract infection. She was initially placed on Bactrim but the culture and sensitivity returns suggesting resistance. The patient was called at home and a new prescription for Augmentin was called in which the patient had been taking. Per family the symptoms started after Augmentin was initiated. Patient is a very poor historian and is unclear why she is here. She denies any dizziness or lightheadedness. She denies chest pain or shortness of breath. She denies abdominal pain but does admit to some chills Related Data Home Medications Medication Instructions Recorded Confirmed albuterol sulfate 0.63 mg/3 mL 0.63 mg INHALATION BID 01/23/19 01/23/19 solution for nebulization albuterol sulfate 90 mcg/actuation 2 puff INHALATION Q4-6H PRN 01/23/19 01/23/19 aerosol inhaler (Ventolin HFA) atorvastatin 10 mg tablet 10 mg PO DAILY 01/23/19 01/10/21 beclomethasone dipropionate 80 2 puff INHALATION BID 01/23/19 01/23/19 mcg/actuation HFA breath activated aerosol (Qvar RediHaler) furosemide 40 mg tablet 20 mg PO BID 01/23/19 01/23/19 potassium chloride 10 mEq 20 meq PO DAILY 01/23/19 01/23/19 capsule,extended release sertraline 25 mg tablet 10 mg PO DAILY 01/23/19 01/23/19 tiotropium bromide 18 mcg capsule 1 cap INHALATION DAILY 01/23/19 01/23/19 with inhalation device (Spiriva with HandiHaler) trospium 20 mg tablet 20 mg PO BID 01/23/19 01/23/19 Previous Rx's Medication Instructions Recorded oxycodone 5 mg tablet 5 mg PO Q6H PRN #10 tab 01/03/21 sulfamethoxazole 800 1 tab PO Q12H #20 tab 01/03/21 mg-trimethoprim 160 mg tablet (Bactrim DS) tamsulosin 0.4 mg capsule (Flomax) 0.4 mg PO DAILY #7 cap 01/03/21 amoxicillin 875 mg-potassium 1 tab PO BID #20 tab 01/06/21 clavulanate 125 mg tablet (Augmentin) Allergies Allergy/AdvReac Type Severity Reaction Status Date / Time promethazine Allergy Unknown HALLUCINATI Verified 01/23/19 14:01 ONS Review of Systems Review of Systems Narrative: GENERAL: See HPI HEENT: Denies sinus pain, ear pain, sore throat, difficulty swallowing, dizziness. RESPIRATORY: Denies dyspnea, cough, wheezing, hemoptysis, sputum. CARDIOVASCULAR: Denies chest pain, palpitations, orthopnea, edema, GASTROINTESTINAL: Denies nausea, vomiting, abdominal pain, diarrhea, constipation, melena. : Denies dysuria, frequency, incontinence, hematuria, urinary retention. MUSCULOSKELETAL: See HPI SKIN: Denies rash, skin lesions, or other NEUROLOGIC: See HPI PSYCHIATRIC: No concerning psychosocial issues. 12 point review of systems is negative except for those stated above Patient History Medical History (Updated 01/10/21 @ 01:08 by Shannon Chang RN) Heart attack (~2013) Social History household members: spouse and friend(s) Smoking Status: Former smoker alcohol intake: never Exam Narrative Exam Narrative: GENERAL: [70] year old patient appears stated age. Well-d eveloped patient, in mild distress. Poor historian, GCS 14 (confusion) HEAD: Atraumatic. Normocephalic. EYES: Pupils equal round and reactive. Extraocular motions intact. No scleral icterus. No injection or drainage. ENT: Nose without bleeding, purulent drainage. Throat without erythema, tonsilla r hypertrophy or exudate. Airway patent. NECK: Trachea midline. Non tender CARDIOVASCULAR: Regular rate and rhythm without murmurs, gallops, or rubs. RESPIRATORY: Clear to auscultation. Breath sounds equal bilaterally. No wheezes, rales, or rhonchi. GASTROINTESTINAL: Abdomen soft, non-tender, nondistended. EXTREMITIES: No edema or joint tenderness. BACK: Nontender without deformity or crepitance. No flank tenderness. NEURO: AOx3. SKIN: No rash or erythema of visible areas Initial Vital Signs Initial Vital Signs: Vital Signs Temperature 97.2 F L 01/09/21 18:10 Pulse Rate 80 01/09/21 18:10 Respiratory Rate 18 01/09/21 18:10 Blood Pressure 124/80 01/09/21 18:10 Pulse Oximetry 98 01/09/21 18:10 Course Orders Ordered: ED Orders 01/09/21 19:01 Complete Blood Count AUTO DIFF Stat Comprehensive Metabolic Panel Stat Lactate (Lactic Acid) Stat Lipase Stat Partial Thromboplastin Time Stat Procalcitonin Stat Prothrombin Time INR Stat 01/09/21 19:11 Blood Culture Stat 01/09/21 20:48 CT kidney ureter bladder (KUB) Stat 01/09/21 22:25 Urinalysis and Microscopic Stat Urine Culture Stat Albuterol (Albuterol 1.25 Mg/3 Ml Neb (Pediatric)) 0.63 mg INH RTBID DARLENE Atorvastatin Calcium (Atorvastatin 20 Mg Tablet) 10 mg PO DAILY DARLENE Budesonide (Budesonide 0.5 Mg/2 Ml Neb) 0.5 mg INH RTBID DARLENE Sodium Chloride (Normal Saline 0.9%) 1,000 mls @ 125 mls/hr IV CONT DARLENE Ipratropium Terrell (Ipratropium 0.5 Mg/2.5 Ml Neb) 0.5 mg INH [id number] DARLENE Ipratropium Terrell (Ipratropium 0.5 Mg/2.5 Ml Neb) 0.5 mg INH Q2HR PRN PRN Reason: Shortness Of Breath Non-Formulary Medication (Sertraline) 10 mg PO DAILY DARLENE Oxycodone HCl (Oxycodone Ir 5 Mg Tablet) 5 mg PO Q6H PRN PRN Reason: pain Pantoprazole Sodium (Pantoprazole 40 Mg Vial) 20 mg IV DAILY DARLENE Discontinued Medications Sodium Chloride (Normal Saline 0.9%) 1,000 mls @ 1,000 mls/hr IV BOLUS ONE Stop: 01/09/21 23:52 Last Infusion: 01/10/21 00:07 Dose: 1,000 mls/hr Documented by: Admin: 01/09/21 23:01 Dose: 1,000 mls/hr Documented by: BLANK Ceftriaxone Sodium 2,000 mg/ (Sodium Chloride) 100 mls @ 200 mls/hr IV NOW ONE Stop: 01/09/21 23:09 Last Infusion: 01/10/21 03:05 Dose: 0 mls/hr Documented by: Infusion: 01/09/21 23:36 Dose: 200 mls/hr Documented by: Admin: 01/09/21 23:35 Dose: 200 mls/hr Documented by: BLANK Consultations Consultation #1: Dr. Sargent will see patient tomorrow, requests we keep her NPO, admit to medicine Consultation #2: Dr. Maria happy to have on her service Vital Signs Vital signs: Vital Signs - 8 hr 01/09/21 20:00 01/09/21 20:30 01/09/21 21:05 Pulse Rate 65 63 Blood Pressure 109/60 115/53 L Pulse Oximetry 98 98 99 MDM - Altered Mental Status Lab Data Result diagrams: 01/09/21 19:01 01/09/21 19:01 Labs: Lab Results 01/09/21 01/09/21 01/09/21 Range/Units 19:01 19:01 19:01 WBC 9.9 (4.5-11.0) X10^3/uL RBC 3.72 L (4.0-5.2) X10^6/uL Hgb 11.1 L (12.0-16.0) g/dL Hct 32.9 L (36-46) % MCV 88.5 (80-100) fL MCH 29.8 (26-34) PG MCHC 33.6 (30-36) % RDW 14.4 (11.6-14.8) % Plt Count 80 L (150-400) X10^3/uL Neut % (Auto) Not Reportable Lymph % (Auto) Not Reportable [place] % (Auto) Not Reportable Eos % (Auto) Not Reportable Baso % (Auto) Not Reportable Lymph # (Auto) Not Reportable [place] # (Auto) Not Reportable Baso # (Auto) Not Reportable Total Counted 100 Seg Neutrophils % 67.0 (38-70) % Lymphocytes % (Manual) 19.0 L (25-45) % Monocytes % (Manual) 11.0 (2-11) % Eosinophils % (Manual) 3.0 (2-4) % Neutrophils # (Manual) 6633 H (4167-8124) /uL Smudge Cells 1+ H RBC Morphology See below PT 10.9 (10.1-12.7) SECONDS INR 1.0 (0.9-1.3) APTT 28 (26.4-36.2) SECONDS Sodium 130 L (137-145) mmol/L Potassium 4.1 (3.4-5.1) mmol/L Chloride 92 L (98-107) mmol/L Carbon Dioxide 31 (22-32) mmol/L BUN 31 H (7-17) mg/dL Creatinine 2.12 H (0.52-1.04) mg/dL Estimated GFR 23.1 L (>60) mL/min BUN/Creatinine Ratio 14.6 (6-22) Glucose 104 (80-110) mg/dL Lactate (0.7-2.1) mmol/L Calcium 8.8 (8.4-10.2) mg/dL Total Bilirubin 0.6 (0.2-1.3) mg/dL AST 42 H (14-36) IU/L ALT 30 (<35) IU/L Alkaline Phosphatase 299 H D (38-126) U/L Total Protein 6.5 (6.3-8.2) g/dL Albumin 3.4 L (3.5-5.0) g/dL Globulin 3.1 (1.7-4.1) g/dL Albumin/Globulin Ratio 1.1 (1.0-2.8) Lipase 43 (23-300) U/L Procalcitonin 71.1 H (<0.5) ng/mL Urine Color Urine Appearance Urine pH (4.5-8.0) Ur Specific [place] (1.000-1.035) Urine Protein (Negative) Urine Glucose (UA) (Negative) g/dL Urine Ketones (NEGATIVE) Urine Occult Blood (Negative) Urine Nitrate (Negative) Urine Bilirubin (NEGATIVE) Urine Urobilinogen (0.2) E.U./dL Ur Leukocyte Esterase (NEGATIVE) Urine RBC (0-5/HPF) Urine WBC (0-5/HPF) Ur Squamous Epith Cells (0-5/HPF) Amorphous Sediment Urine Bacteria (None) Ur Culture Indicated? 01/09/21 01/09/21 Range/Units 19:01 22:25 WBC (4.5-11.0) X10^3/uL RBC (4.0-5.2) X10^6/uL Hgb (12.0-16.0) g/dL Hct (36-46) % MCV (80-100) fL MCH (26-34) PG MCHC (30-36) % RDW (11.6-14.8) % Plt Count (150-400) X10^3/uL Neut % (Auto) Lymph % (Auto) [place] % (Auto) Eos % (Auto) Baso % (Auto) Lymph # (Auto) [place] # (Auto) Baso # (Auto) Total Counted Seg Neutrophils % (38-70) % Lymphocytes % (Manual) (25-45) % Monocytes % (Manual) (2-11) % Eosinophils % (Manual) (2-4) % Neutrophils # (Manual) (8452-8671) /uL Smudge Cells RBC Morphology PT (10.1-12.7) SECONDS INR (0.9-1.3) APTT (26.4-36.2) SECONDS Sodium (137-145) mmol/L Potassium (3.4-5.1) mmol/L Chloride (98-107) mmol/L Carbon Dioxide (22-32) mmol/L BUN (7-17) mg/dL Creatinine (0.52-1.04) mg/dL Estimated GFR (>60) mL/min BUN/Creatinine Ratio (6-22) Glucose (80-110) mg/dL Lactate 1.0 (0.7-2.1) mmol/L Calcium (8.4-10.2) mg/dL Total Bilirubin (0.2-1.3) mg/dL AST (14-36) IU/L ALT (<35) IU/L Alkaline Phosphatase (38-126) U/L Total Protein (6.3-8.2) g/dL Albumin (3.5-5.0) g/dL Globulin (1.7-4.1) g/dL Albumin/Globulin Ratio (1.0-2.8) Lipase (23-300) U/L Procalcitonin (<0.5) ng/mL Urine Color Yellow Urine Appearance Clear Urine pH 5.5 (4.5-8.0) Ur Specific [place] <=1.005 (1.000-1.035) Urine Protein Negative (Negative) Urine Glucose (UA) Negative (Negative) g/dL Urine Ketones Negative (NEGATIVE) Urine Occult Blood 3+ H (Negative) Urine Nitrate Negative (Negative) Urine Bilirubin Negative (NEGATIVE) Urine Urobilinogen 0.2 (0.2) E.U./dL Ur Leukocyte Esterase 3+ H (NEGATIVE) Urine RBC 0-1/hpf D (0-5/HPF) Urine WBC 5-10/hpf H (0-5/HPF) Ur Squamous Epith Cells 0-1 /hpf (0-5/HPF) Amorphous Sediment 1+ Urine Bacteria Few (2-10) H (None) Ur Culture Indicated? Specimen cultured Imaging Data CT scan - abdomen/pelvis: Radiologist's Impression: Maribel Narayanan S 70 F [address] [address]YC Scan ReportSigned Patient: Maribel Narayanan SMR#: [id number]: 1950cct:[id number]/Sex: 70 / FDate of Service: 01/09/21Loc: EDAccession Number: [id number] Procedure: CT kidney ureter bladder (KUB) Ordering Provider: Eamon Dias D.O. PROCEDURE: CT KIDNEY URETER BLADDER (KUB) INDICATIONS: UTI, obstructing stone, renal failure TECHNIQUE: Axial sections were acquired from the lung bases to the pubic symphysis. Coronal and sagittal reformats were performed. For radiation dose reduction, the following was used: automated exposure control, adjustment of mA and/or kV according to patient size. COMPARISON:[facility], CT, CT KIDNEY URETER BLADDER (KUB), 01/03/2021, 15:18. FINDINGS: Image quality: Excellent. Lung bases: Mild dependent atelectasis. No pleural effusion.. Heart: No significant findings. URINARY: Right Kidney: No additional kidney stones. Mild hydronephrosis. Right Ureter: Moderate hydroureter, increased. Obstructing calculus in the distal right ureter near the UVJ measuring 0.8 x 0.6 cm, (). This stone has moved distally compared to 01/03/2021 where was located in the proximal ureter. Left Kidney: No stones or hydronephrosis. Left Ureter: No hydroureter. Bladder: Normal wall thickness. No stones. ABDOMEN: Liver: Unremarkable. Gallbladder: Surgically absent. Biliary ducts: Unremarkable. Pancreas: Unremarkable. Spleen: Unremarkable. Adrenal Glands: Unremarkable. Stomach and Bowel: Stomach, small bowel loops, and colon are unremarkable. Appendix is not seen. Peritoneum: No abnormal intraperitoneal fluid. No free air. Ventral Wall: Umbilical hernia. A small portion of transverse colon is herniated into the hernia sac. Abdominal Nodes: No enlarged retroperitoneal or mesenteric lymph nodes. Vessels: Aorta and inferior vena cava are normal in size. PELVIS: Pelvic Organs: Uterus is absent. Pelvic Nodes: Unremarkable. Miscellaneous: No inguinal hernias are seen. Bones: Mild scoliosis. DDD. IMPRESSION: 1. Obstructing calculus in the distal right ureter measuring at 0.8 x 0.6 cm has moved distally. There is mild to moderate right hydroureteronephrosis which is slightly increased. 2. No additional kidney stones. 3. Small umbilical hernia which now contains a small portion of transverse colon. Dictated by: Arturo Clark M.D. on 01/09/2021 at 21:38 Approved by: Arturo Clark M.D. on 01/09/2021 at 21:44 Discharge Plan Departure Patient Disposition: Admitted As Inpatient Clinical Impression: Acute unilateral obstructive uropathy, Acute UTI Acute renal failure Qualifiers: Acute renal failure type: unspecified Qualified Code(s): N17.9 - Acute kidney failure, unspecified Admit Date/Time: 01/09/21 23:08 Admit Provider: Susu Conner
--- NOTE | 2021-01-09 18:39 | DI.RAD.S_ITS ---
PROCEDURE: XR CHEST 1V INDICATIONS: suspected sepsis... TECHNIQUE: One view of the chest was acquired. COMPARISON: [facility], CT, CT KIDNEY URETER BLADDER (KUB), 01/03/2021, 15:18. [facility], CR, XR CHEST 2V, 02/18/2019, 13:27. FINDINGS: Patient is rotated. Surgical changes and devices: None. Lungs and pleura: No consolidation identified. No pleural effusions or pneumothorax. Mediastinum: Mediastinal contours are grossly normal. Heart size is within normal limits. Bones and chest wall: No suspicious bony lesions. Overlying soft tissues appear unremarkable. IMPRESSION: No consolidation identified. Dictated by: Arturo Clark M.D. on 01/09/2021 at 19:21 Approved by: Arturo Clark M.D. on 01/09/2021 at 19:22
--- NOTE | 2021-01-09 19:07 | PC.NURSE ---
Patient currently being treated for UTI, reports new hallucinations and increase weakness.
[2021-01-09 19:28] LABS: Hematocrit 32.9 % (36-46); Hemoglobin 11.1 g/dL (12.0-16.0); Mean Corpuscular HGB Conc 33.6 % (30-36); Mean Corpuscular Hemoglobin 29.8 PG (26-34); Mean Corpuscular Volume 88.5 fL (80-100); Platelet Count 80 X10^3/uL (150-400); Red Blood Cell Count 3.72 X10^6/uL (4.0-5.2); Red Cell Distribution Width 14.4 % (11.6-14.8); White Blood Cell Count 9.9 X10^3/uL (4.5-11.0)
[2021-01-09 19:31] LABS: Add Manual Diff / Slide Review YES
[2021-01-09 19:35] LABS: Prothrombin Time 10.9 SECONDS (10.1-12.7)
[2021-01-09 19:38] LABS: PTT Partial Thromboplastin Tim 28 SECONDS (26.4-36.2)
[2021-01-09 19:46] LABS: Alanine Aminotransferase 30 IU/L (<35); Albumin 3.4 g/dL (3.5-5.0); Albumin Globulin Ratio 1.1 (1.0-2.8); Alkaline Phosphatase 299 U/L (38-126); Aspartate Aminotransferase 42 IU/L (14-36); BUN Creatinine Ratio 14.6 (6-22); Bilirubin Total 0.6 mg/dL (0.2-1.3); Blood Urea Nitrogen 31 mg/dL (7-17); Calcium 8.8 mg/dL (8.4-10.2); Carbon Dioxide 31 mmol/L (22-32); Chloride 92 mmol/L (98-107); Estimated Glomerular Filt Rate 23.1 mL/min (>60); Globulin 3.1 g/dL (1.7-4.1); Glucose 104 mg/dL (80-110); HEMOLYSIS < 15 (0-50); Lipase 43 U/L (23-300); Potassium 4.1 mmol/L (3.4-5.1); Sodium 130 mmol/L (137-145); Total Protein 6.5 g/dL (6.3-8.2)
[2021-01-09 20:02] LABS: Procalcitonin 71.1 ng/mL (<0.5)
[2021-01-09 20:07] LABS: Neutrophils Absolute Manual 6633 /uL (3000-5900); Total Cells Counted 100
[2021-01-09 20:08] LABS: Smudge Cells 1+
--- NOTE | 2021-01-09 20:48 | DI.CT.S_ITS ---
PROCEDURE: CT KIDNEY URETER BLADDER (KUB) INDICATIONS: UTI, obstructing stone, renal failure TECHNIQUE: Axial sections were acquired from the lung bases to the pubic symphysis. Coronal and sagittal reformats were performed. For radiation dose reduction, the following was used: automated exposure control, adjustment of mA and/or kV according to patient size. COMPARISON:[facility], CT, CT KIDNEY URETER BLADDER (KUB), 01/03/2021, 15:18. FINDINGS: Image quality: Excellent. Lung bases: Mild dependent atelectasis. No pleural effusion.. Heart: No significant findings. URINARY: Right Kidney: No additional kidney stones. Mild hydronephrosis. Right Ureter: Moderate hydroureter, increased. Obstructing calculus in the distal right ureter near the UVJ measuring 0.8 x 0.6 cm, (). This stone has moved distally compared to 01/03/2021 where was located in the proximal ureter. Left Kidney: No stones or hydronephrosis. Left Ureter: No hydroureter. Bladder: Normal wall thickness. No stones. ABDOMEN: Liver: Unremarkable. Gallbladder: Surgically absent. Biliary ducts: Unremarkable. Pancreas: Unremarkable. Spleen: Unremarkable. Adrenal Glands: Unremarkable. Stomach and Bowel: Stomach, small bowel loops, and colon are unremarkable. Appendix is not seen. Peritoneum: No abnormal intraperitoneal fluid. No free air. Ventral Wall: Umbilical hernia. A small portion of transverse colon is herniated into the hernia sac. Abdominal Nodes: No enlarged retroperitoneal or mesenteric lymph nodes. Vessels: Aorta and inferior vena cava are normal in size. PELVIS: Pelvic Organs: Uterus is absent. Pelvic Nodes: Unremarkable. Miscellaneous: No inguinal hernias are seen. Bones: Mild scoliosis. DDD. IMPRESSION: 1. Obstructing calculus in the distal right ureter measuring at 0.8 x 0.6 cm has moved distally. There is mild to moderate right hydroureteronephrosis which is slightly increased. 2. No additional kidney stones. 3. Small umbilical hernia which now contains a small portion of transverse colon. Dictated by: Arturo Clark M.D. on 01/09/2021 at 21:38 Approved by: Arturo Clark M.D. on 01/09/2021 at 21:44
[2021-01-09 22:27] LABS: Appearance Urine UA CLEAR; Bilirubin Urine UA NEGATIVE (NEGATIVE); Color Urine UA YELLOW; Glucose Urine UA NEGATIVE (Negative); Ketones Urine UA NEGATIVE (NEGATIVE); Leukocyte Esterase Urine UA 3+ (NEGATIVE); Nitrite Urine UA NEGATIVE (Negative); Occult Blood Urine UA 3+ (Negative); Protein Urine UA NEGATIVE (Negative); Specific Gravity Urine UA <=1.005 (1.000-1.035); Urobilinogen Urine UA 0.2 E.U./dL (0.2)
[2021-01-09 22:37] LABS: RBC Urine 0-1/HPF (0-5/HPF); pH Urine UA 5.5 (4.5-8.0)
[2021-01-09 22:38] LABS: Amorphous Sediment Urine 1+; Bacteria Urine Few (2-10); WBC Urine 5-10/HPF (0-5/HPF)
[2021-01-09 22:39] LABS: Culture Indicated Urine Specimen Cultured; Squamous Epithelial Cell Urine 0-1 /HPF (0-5/HPF)
[2021-01-09] MEDS: SODIUM CHLORIDE 0.9% 1,000 ML 1000 ML IV (23:01)
[2021-01-09] MEDS: cefTRIAXone 2,000 MG in SODIUM CHLORIDE 0.9% 100 ML 200 ML IV (23:35)
[2021-01-10] VITALS (17 sets, daily range): BP systolic 110–135; BP diastolic 47–70; PULSE 61–85; RESP 14–18; TEMP 35.6–37.1; O2SAT 92–100; BMI 52.2
--- NOTE | 2021-01-10 | DI.RAD.S_ITS ---
PROCEDURE: XR ABDOMEN 1V INDICATIONS: CYSTOSCOPY RIGHT URETER TECHNIQUE: One view of the abdomen acquired. COMPARISON: [facility], CT, CT KIDNEY URETER BLADDER (KUB), 01/09/2021, 20:50. [facility], CR, ABDOMEN 2 VIEW, 09/23/2014, 20:31. FINDINGS: Single spot intra-procedural fluoroscopic image demonstrates contrast opacification of the right distal ureter. A short segment of focal narrowing is seen in the distal ureter. IMPRESSION: Opacification of the right distal ureter with contrast material. A short segment of narrowing is seen that is nonspecific and may be related to peristalsis, external compression, inflammation, chronic stenosis, or neoplasm, among other etiologies. Dictated by: Salo Harden M.D. on 01/10/2021 at 20:09 Approved by: Salo Harden M.D. on 01/10/2021 at 20:11
--- NOTE | 2021-01-10 01:29 | PC.NURSE ---
Pt to room 206 via stretcher from ER. Transferred Pt to bed via slider board-Pt's daughter is with her and states she has been chair/bed bound. Pt denies pain, nausea, or shortness of breath. IVF infusing as ordered. Pt is oriented x 3 and able to answer questions but is also aware that she is hallucinating. Daughter is rooming in and is seated beside the bed to assist with admission assessment. Pt reportedly wears hearing aids but does not have them with her. She does have her glasses. Skin is not in very good shape with redness, rashes, soft heels and balls of feet which the balls are white and spongy. Daughter states that Pt has been minimally mobile-a few steps from chair to bathroom to chair (Pt sleeps in her chair) and completely immobile since last week. Pt lives in an apartment [place] the [place] from the hospital with her Alessio. Daughter lives a few blocks away. Oriented Pt and daughter to room, call light, tv controls, and bed controls. Heels floated. Bed alarm on for safety. Pt agrees to call for assistance as needed and to not try to get up without assistance.
[2021-01-10] MEDS: SODIUM CHLORIDE 0.9% 1,000 ML 125 ML IV (04:43)
[2021-01-10 07:21] LABS: COVID19 -Nasal RAPID Negative (Negative)
--- NOTE | 2021-01-10 07:38 | PM.CN ---
History of Present Illness Consult details Date Patient Seen: 01/10/21 Time Patient Seen: 07:38 Chief complaint: Poss UTI/Hallucinations Requesting provider: Eamon Dias Narrative: Patient is a 70-year-old female presenting to the [facility] ED late last night with complain mental status changes and difficulty ambulating. She had presented to the [facility] ED on 01/03/2021 with complaint of acute onset of right flank and abdominal pain. CT KUB demonstrated a mild to moderately obstructing right proximal ureteral calculus. Pain was readily controlled with usual ED measures. Urinalysis showed no bacteria. Subsequent culture however, grew Proteus mirabilis. She had been prescribed Septra in the ED. The organism was resistant to the agent. She was re-contacted in was then prescribed amoxicillin. Last evening family members noted her to have mental status changes and difficulty ambulating. She presented again to the [facility] ED. Repeat CT KUB demonstrated interval migration of the stone and the distal right ureter. She had been referred to the urology clinic after her 1st presentation. Because of her cardiac history of having had previous MT preoperative cardiac clearance and office visit in the Urology Clinic or in progress. However, because of change in her clinical situation she was brought back to the ED last night. She is admitted for management of medical comorbidities and acute evaluation management of the obstructing, now distal right ureteral calculus. Meds Home Medications and Allergies Home Medications Medication Instructions Recorded Confirmed Type albuterol sulfate 0.63 mg/3 mL 0.63 mg INHALATION BID 01/23/19 01/23/19 History solution for nebulization albuterol sulfate 90 mcg/actuation 2 puff INHALATION Q4-6H PRN 01/23/19 01/23/19 History aerosol inhaler (Ventolin HFA) atorvastatin 10 mg tablet 10 mg PO DAILY 01/23/19 01/10/21 History beclomethasone dipropionate 80 2 puff INHALATION BID 01/23/19 01/23/19 History mcg/actuation HFA breath activated aerosol (Qvar RediHaler) furosemide 40 mg tablet 20 mg PO BID 01/23/19 01/23/19 History potassium chloride 10 mEq 20 meq PO DAILY 01/23/19 01/23/19 History capsule,extended release sertraline 25 mg tablet 10 mg PO DAILY 01/23/19 01/23/19 History tiotropium bromide 18 mcg capsule 1 cap INHALATION DAILY 01/23/19 01/23/19 History with inhalation device (Spiriva with HandiHaler) trospium 20 mg tablet 20 mg PO BID 01/23/19 01/23/19 History oxycodone 5 mg tablet 5 mg PO Q6H PRN #10 tab 01/03/21 Rx sulfamethoxazole 800 1 tab PO Q12H #20 tab 01/03/21 Rx mg-trimethoprim 160 mg tablet (Bactrim DS) tamsulosin 0.4 mg capsule (Flomax) 0.4 mg PO DAILY #7 cap 01/03/21 01/10/21 Rx amoxicillin 875 mg-potassium 1 tab PO BID #20 tab 01/06/21 Rx clavulanate 125 mg tablet (Augmentin) Allergies Allergy/AdvReac Type Severity Reaction Status Date / Time promethazine Allergy Unknown HALLUCINATI Verified 01/23/19 14:01 ONS Review of Systems Review of Systems ROS: Yes All systems reviewed with the patient and are negative except as otherwise documented Exam Vital Signs (past 8 hours): - 01/10/21 00:17 Temperature 97.4 F L Pulse Rate 66 Respiratory Rate 16 Blood Pressure 110/53 L Pulse Oximetry 99 Oxygen Delivery Method Room Air Oxygen Flow Rate 2 Narrative Exam Narrative: Well-developed, morbidly obese female currently resting comfortably in bed. Head/neck-sclera clear and pupils are round and equal bilaterally. No visible evidence of adenopathy or JVD. Chest-equal and unlabored expansion bilaterally. Heart-normal sinus rhythm. Abdomen obese rounded protuberant. There is a reducible and nontender umbilical hernia. Bowel tones are normal. Objective Labs Result Diagrams: 01/09/21 19:01 01/09/21 19:01 Labs: Laboratory Results - last 24 hr 01/09/21 01/09/21 01/09/21 19: 19: 19:01 WBC 9.9 RBC 3.72 L Hgb 11.1 L Hct 32.9 L MCV 88.5 MCH 29.8 MCHC 33.6 RDW 14.4 Plt Count 80 L Neut % (Auto) Not Reportable Lymph % (Auto) Not Reportable [place] % (Auto) Not Reportable Eos % (Auto) Not Reportable Baso % (Auto) Not Reportable Lymph # (Auto) Not Reportable [place] # (Auto) Not Reportable Baso # (Auto) Not Reportable Total Counted 100 Seg Neutrophils % 67.0 Lymphocytes % (Manual) 19.0 L Monocytes % (Manual) 11.0 Eosinophils % (Manual) 3.0 Neutrophils # (Manual) 6633 H Smudge Cells 1+ H RBC Morphology See below PT 10.9 INR 1.0 APTT 28 Sodium 130 L Potassium 4.1 Chloride 92 L Carbon Dioxide 31 BUN 31 H Creatinine 2.12 H Estimated GFR 23.1 L BUN/Creatinine Ratio 14.6 Glucose 104 Lactate Calcium 8.8 Total Bilirubin 0.6 AST 42 H ALT 30 Alkaline Phosphatase 299 H D Total Protein 6.5 Albumin 3.4 L Globulin 3.1 Albumin/Globulin Ratio 1.1 Lipase 43 Procalcitonin 71.1 H Urine Color Urine Appearance Urine pH Ur Specific [place] Urine Protein Urine Glucose (UA) Urine Ketones Urine Occult Blood Urine Nitrate Urine Bilirubin Urine Urobilinogen Ur Leukocyte Esterase Urine RBC Urine WBC Ur Squamous Epith Cells Amorphous Sediment Urine Bacteria Ur Culture Indicated? SARS-CoV-2 (PCR) 01/09/21 01/09/21 01/10/21 19:01 22:25 07:04 WBC RBC Hgb Hct MCV MCH MCHC RDW Plt Count Neut % (Auto) Lymph % (Auto) [place] % (Auto) Eos % (Auto) Baso % (Auto) Lymph # (Auto) [place] # (Auto) Baso # (Auto) Total Counted Seg Neutrophils % Lymphocytes % (Manual) Monocytes % (Manual) Eosinophils % (Manual) Neutrophils # (Manual) Smudge Cells RBC Morphology PT INR APTT Sodium Potassium Chloride Carbon Dioxide BUN Creatinine Estimated GFR BUN/Creatinine Ratio Glucose Lactate 1.0 Calcium Total Bilirubin AST ALT Alkaline Phosphatase Total Protein Albumin Globulin Albumin/Globulin Ratio Lipase Procalcitonin Urine Color Yellow Urine Appearance Clear Urine pH 5.5 Ur Specific [place] <=1.005 Urine Protein Negative Urine Glucose (UA) Negative Urine Ketones Negative Urine Occult Blood 3+ H Urine Nitrate Negative Urine Bilirubin Negative Urine Urobilinogen 0.2 Ur Leukocyte Esterase 3+ H Urine RBC 0-1/hpf D Urine WBC 5-10/hpf H Ur Squamous Epith Cells 0-1 /hpf Amorphous Sediment 1+ Urine Bacteria Few (2-10) H Ur Culture Indicated? Specimen cultured SARS-CoV-2 (PCR) Negative Assessment & Plan Assessment & Plan narrative: Assessment: 1. Obstructing 8 mm right distal ureteral calculus. 2. Positive urine culture for Proteus mirabilis. Plan: 1. Informed consent and scheduling for CYSTOSCOPY/PLACEMENT RIGHT URETERAL STENT. Reviewed findings and discussed impression. Explained rationale for temporizing measure of placing a stent until definitive therapy of underlying urinary tract infection completed. Explained the common side effects, possible complications, perioperative limitations/restrictions, and reasonable expectations of outcomes and recovery. She understands that a 2nd stage return to OR for laser lithotripsy will be planned and scheduled following stent placement and current hospitalization.
--- NOTE | 2021-01-10 07:45 | P.HP_ITS ---
History of Present Illness History of Present Illness Date Patient Seen: 01/10/21 Time Patient Seen: 07:45 Chief complaint: Poss UTI/Hallucinations Narrative: 70-year-old female is admitted from the ED secondary to obstructing 8 mm proximal right ureter stone in setting of acute urinary tract infection and acute renal failure. This is patient's 2nd visit to the emergency room for this same complaint in 1 week. Initially, she presented with right-sided flank pain that awoke her from sleep. CT KUB showed an 8 mm stone in the proximal right ureter with moderate right hydronephrosis. UA showed UTI. Creatinine was noted to be at her baseline, 1.09 and she was discharged to home on Bactrim 1 tab p.o. b.i.d., Flomax, and oxycodone. Strict return precautions for urosepis were given while preoperative cardiology clearance was sought for lithotripsy. Three days later, preliminary urine culture showed resistance to Bactrim and patient was switched to Augmentin. Yesterday evening, patient again presented with hallucinations, altered mental status, generalized weakness, and chills. Repeat CT KUB showed that the stone had moved and was obstructing the distal right ureter. Hydronephrosis was slightly increased, mild to moderate, and creatinine had essentially doubled to 2.12. Other remarkable labs included platelets of 80, hemoglobin/ hematocrit of 11.1/32.9, and 1+ smudge cells (new). She also had slightly elevated AST at 42 and an elevated alkaline phosphatase at 299. Notably, she is not febrile and does not have a white count but procalcitonin is elevated at 71.1. Vital signs upon admission to the emergency department included temperature of 97.2?, pulse 80, respirations 124/80, and O2 saturation 98% on room air. She was given 1 L of normal saline, 2 g of Rocephin and pain control. She was made NPO and has had an uneventful night, fluids are at 25 cc/hour. Denies any pain or nausea this morning, no longer confused. Bazan in place. Plan is to proceed with lithotripsy later today. Dr. Sargent, consulting. Past Medical History: Acute, severe renal failure, 2013 Elevated troponin of unclear cause, 2013 Traumatic hematoma of left foot HYPERLIPIDEMIA CONGESTIVE HEART FAILURE, systolic EDEMA, DEPENDENT HYPOKALEMIA COPD SLEEP APNEA, OBSTRUCTIVE SEIZURE CHRONIC PAIN INCONTINENCE, STRESS, FEMALE DEPRESSION, MAJOR, RECURRENT, MODERATE PANIC DISORDER ALOPECIA, UNSPECIFIED ALLERGIC RHINITIS VERTIGO, BENIGN PAROXYSMAL OSTEOPENIA OBESITY, MORBID (BMI 40+) COLON POLYPS, ADENOMATOUS, HX OF Past Surgical History: Tonsillectomy and Adenoidectomy (1954) Hysterectomy (1982) Appendectomy (1957) Family History: Father: age 63 - Heart Attack Mother: age 68 - Heart Attack Social History: Marital Status: - 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 (1941) - 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 Occupation: [employer] Patient History Medical History Heart attack (~2013) Family & Social History Social History: household members spouse,friend(s) Prior Living Arrangements Apartment/Condo Safety & Behavioral: Feels Safe in Current Yes Environment Been Physically Hurt or No Threatened By a Person Suicidal Ideation Description None Suicide Plan Description No Plan Tobacco & Substance use: Tobacco type cigarettes Smoking Status Former smoker alcohol intake never Substance Use Type does not use Meds Home Medications and Allergies Home Medications Medication Instructions Recorded Confirmed Type albuterol sulfate 0.63 mg/3 mL 0.63 mg INHALATION BID 01/23/19 01/23/19 History solution for nebulization albuterol sulfate 90 mcg/actuation 2 puff INHALATION Q4-6H PRN 01/23/19 01/23/19 History aerosol inhaler (Ventolin HFA) atorvastatin 10 mg tablet 10 mg PO DAILY 01/23/19 01/10/21 History beclomethasone dipropionate 80 2 puff INHALATION BID 01/23/19 01/23/19 History mcg/actuation HFA breath activated aerosol (Qvar RediHaler) furosemide 40 mg tablet 20 mg PO BID 01/23/19 01/23/19 History potassium chloride 10 mEq 20 meq PO DAILY 01/23/19 01/23/19 History capsule,extended release sertraline 25 mg tablet 100 mg PO DAILY 01/23/19 01/23/19 History tiotropium bromide 18 mcg capsule 1 cap INHALATION DAILY 01/23/19 01/23/19 History with inhalation device (Spiriva with HandiHaler) trospium 20 mg tablet 20 mg PO BID 01/23/19 01/23/19 History oxycodone 5 mg tablet 5 mg PO Q6H PRN #10 tab 01/03/21 Rx sulfamethoxazole 800 1 tab PO Q12H #20 tab 01/03/21 Rx mg-trimethoprim 160 mg tablet (Bactrim DS) tamsulosin 0.4 mg capsule (Flomax) 0.4 mg PO DAILY #7 cap 01/03/21 01/10/21 Rx amoxicillin 875 mg-potassium 1 tab PO BID #20 tab 01/06/21 Rx clavulanate 125 mg tablet (Augmentin) Allergies Allergy/AdvReac Type Severity Reaction Status Date / Time promethazine Allergy Unknown HALLUCINATI Verified 01/10/21 17:41 ONS Review of Systems Review of Systems Narrative: Please see HPI. Exam Vital Signs (past 8 hours): - 01/10/21 00:17 Temperature 97.4 F L Pulse Rate 66 Respiratory Rate 16 Blood Pressure 110/53 L Pulse Oximetry 99 Oxygen Delivery Method Room Air Oxygen Flow Rate 2 Narrative Exam Narrative: GENERAL: Alert and oriented, appearing stated age and in no acute distress. HEENT: Head normocephalic/atraumatic. LUNGS: Diminished inspiratory effort, oxygen cannula in place, no audibl wheezes, rhonchi or rales. CV: Normal S1 and S2 with regular rate and rhythm, no audible murmurs, rubs or gallops. ABDOMEN: Soft, non-tender, non-distended, no organomegaly. Positive bowel sounds. Denies CVA tenderness. EXTREMITIES: 1+ nonpitting edema to the level of bilateral knees. NEURO: Cranial nerves II through XII grossly intact, no focal deficits. PSYCH: Alert and oriented x 3. SKIN: No concerning lesions. Objective Labs Result Diagrams: 01/09/21 19:01 01/09/21 19:01 Labs: Laboratory Results - last 24 hr 01/09/21 01/09/21 01/09/21 19: 19:01 19:01 WBC 9.9 RBC 3.72 L Hgb 11.1 L Hct 32.9 L MCV 88.5 MCH 29.8 MCHC 33.6 RDW 14.4 Plt Count 80 L Neut % (Auto) Not Reportable Lymph % (Auto) Not Reportable [place] % (Auto) Not Reportable Eos % (Auto) Not Reportable Baso % (Auto) Not Reportable Lymph # (Auto) Not Reportable [place] # (Auto) Not Reportable Baso # (Auto) Not Reportable Total Counted 100 Seg Neutrophils % 67.0 Lymphocytes % (Manual) 19.0 L Monocytes % (Manual) 11.0 Eosinophils % (Manual) 3.0 Neutrophils # (Manual) 6633 H Smudge Cells 1+ H RBC Morphology See below PT 10.9 INR 1.0 APTT 28 Sodium 130 L Potassium 4.1 Chloride 92 L Carbon Dioxide 31 BUN 31 H Creatinine 2.12 H Estimated GFR 23.1 L BUN/Creatinine Ratio 14.6 Glucose 104 Lactate Calcium 8.8 Total Bilirubin 0.6 AST 42 H ALT 30 Alkaline Phosphatase 299 H D Total Protein 6.5 Albumin 3.4 L Globulin 3.1 Albumin/Globulin Ratio 1.1 Lipase 43 Procalcitonin 71.1 H Urine Color Urine Appearance Urine pH Ur Specific [place] Urine Protein Urine Glucose (UA) Urine Ketones Urine Occult Blood Urine Nitrate Urine Bilirubin Urine Urobilinogen Ur Leukocyte Esterase Urine RBC Urine WBC Ur Squamous Epith Cells Amorphous Sediment Urine Bacteria Ur Culture Indicated? SARS-CoV-2 (PCR) 01/09/21 01/09/21 01/10/21 19:01 22:25 07:04 WBC RBC Hgb Hct MCV MCH MCHC RDW Plt Count Neut % (Auto) Lymph % (Auto) [place] % (Auto) Eos % (Auto) Baso % (Auto) Lymph # (Auto) [place] # (Auto) Baso # (Auto) Total Counted Seg Neutrophils % Lymphocytes % (Manual) Monocytes % (Manual) Eosinophils % (Manual) Neutrophils # (Manual) Smudge Cells RBC Morphology PT INR APTT Sodium Potassium Chloride Carbon Dioxide BUN Creatinine Estimated GFR BUN/Creatinine Ratio Glucose Lactate 1.0 Calcium Total Bilirubin AST ALT Alkaline Phosphatase Total Protein Albumin Globulin Albumin/Globulin Ratio Lipase Procalcitonin Urine Color Yellow Urine Appearance Clear Urine pH 5.5 Ur Specific [place] <=1.005 Urine Protein Negative Urine Glucose (UA) Negative Urine Ketones Negative Urine Occult Blood 3+ H Urine Nitrate Negative Urine Bilirubin Negative Urine Urobilinogen 0.2 Ur Leukocyte Esterase 3+ H Urine RBC 0-1/hpf D Urine WBC 5-10/hpf H Ur Squamous Epith Cells 0-1 /hpf Amorphous Sediment 1+ Urine Bacteria Few (2-10) H Ur Culture Indicated? Specimen cultured SARS-CoV-2 (PCR) Negative Assessment & Plan Assessment & Plan narrative: 1. Acute unilateral obstructive uropathy, right Plan: Dr. Sargent consulting, plan for lithotripsy later this afternoon. 2. Urinary tract infection, acute, Proteus mirabilis Plan: Continue ceftriaxone 2 g IV q.day. will trend labs and watch clinical status closely, risk for urosepsis. 3. Acute renal failure Plan: Gentle rehydration in setting of obstructing urinary stone. Bazan is in place, will watch urine output closely. Trending labs. 4. Acute infectious encephalopathy Plan: Treating underlying urinary tract infection. 5. Anemia, thrombocytopenia, elevated ALP, and smudge cells, new Plan: Concerning for CLL, outpatient oncology consult. 6. Hyponatremia and hypochloremia, acute Plan: Will adjust maintenance fluids to help restore electrolytes to baseline. 7. Acute protein malnutrition Plan: Patient currently NPO, dietary consult thereafter. 8. COPD, oxygen dependent Plan: Continue home medications and oxygen per nasal cannula to maintain saturations between 88% and 94%. 9. Congestive heart failure, systolic, chronic Plan: Holding lasix for now as patient is on flomax. Holding metoprolol and imdur as blood pressures low. Will watch lower extremity edema and signs of pulmonary congestion closely and restart home meds when taking orals again. 10. Hypokalemia, chronic Plan: Secondary to Lasix, will replete as needed in IV fluids and transition to oral tablets when taking orals. 11. Stress incontinence, urinary, chronic Plan: Bazan. 12. Chronic pain syndrome Plan: Covered by IV pain medication for kidney stone. Will transition back to home oxycodone prior to discharge. 13. Hyperlipidemia, chronic Plan: Holding home atorvastatin, will restart when taking orals. 14. Depression/panic disorder, chronic Plan: Will restart sertraline when taking orals. 15. Obstructive sleep apnea, chronic Plan: Supportive therapy only. patient previously unable to tolerate sleep study, does not desire CPAP. 16. Obesity, BMI greater than 40 Plan: Patient is at increased risk of delayed and poor healing. Nutrition consult. Physical therapy consult. DVT prophylaxis: SCDs Code: Full COVID: Negative Disposition: Anticipate 2 nights. Quality VTE Deep Vein Thrombosis/Pulmonary Embolism Present on Admission: No
[2021-01-10] MEDS: IPRATROPIUM 0.5 MG/2.5 ML NEB INH ×3 (08:49→16:43)
[2021-01-10] MEDS: BUDESONIDE 0.5 MG/2 ML NEB INH (08:49)
[2021-01-10] MEDS: ALBUTEROL 1.25 MG/3 ML NEB (PEDIATRIC) 0.63 MG INH (08:52)
[2021-01-10] MEDS: PANTOPRAZOLE 40 MG VIAL 20 MG IV (09:55)
[2021-01-10] MEDS: LACTATED RINGERS 500 ML 25 ML IV (10:00)
--- NOTE | 2021-01-10 11:25 | PT.IIE ---
Surgery Performed Operation Date: 01/10/21 17:30 <No data on this case meets the specified criteria> Medical History (Last Reviewed 01/10/21 @ 07:42 by Shayna Sargent MD) Heart attack (~2013) Physical Therapy Inpatient Evaluation/Re-Eval M1 PT/OT-IP Prior Functional Status Start: 01/10/21 12:53 Freq: NEEDED Status: Active Protocol: Document 01/10/21 11:25 AB (Rec: 01/10/21 13:04 AB [email or web address]) Medical Review Prior Functional Status Medical History Reviewed Yes Communication able to make needs known Mobility and Gait pt stated that she is modified independent with all mobilities and ambulation using 4WW; uses O2 at 2L/min 24/7 at home Activities of Daily Living and IADL's stated that spouse assists her with her back for showers Social History Household Members spouse Living Arrangements Apartment/Condo Number of Floors (Floors) One Floor Number of Stairs To Enter/Railing? ramp to enter Home Environment High Toilet,Tub/Shower,Ramp Home Equipment Four Wheel Walker,Tub Transfer Bench,Hand Held Shower,Lift Recliner,Grab Bars Near Toilet ,Grab Bars In Shower Additional Social History Comment pt sleeps on a lift recliner M2 PT-IP Current Condition Start: 01/10/21 12:53 Freq: NEEDED Status: Active Protocol: Document 01/10/21 11:25 AB (Rec: 01/10/21 13:04 AB [email or web address]) Physical Therapy Current Condition Current Condition Evaluation Date 01/10/21 Treatment Diagnosis UTI; urethral calculus; difficulty in walking Onset Date 01/09/21 Precautions Other Precautions falls M3 PT-IP Subjective Start: 01/10/21 12:53 Freq: NEEDED Status: Active Protocol: Document 01/10/21 11:25 AB (Rec: 01/10/21 13:04 AB [email or web address]) Subjective Physical Therapy Visit Type Type Initial Evaluation Visit Start Time 11:25 Visit Stop Time 12:05 Total Visit Minutes 40 Number of DATA SYSTEMS MANAGER Visits 0 Physical Therapy Visit Comments Patient Comments agreeable to do PT M4 PT-IP Mobility and Gait Start: 01/10/21 12:53 Freq: NEEDED Status: Active Protocol: Document 01/10/21 11:25 AB (Rec: 01/10/21 13:04 AB [email or web address]) PT-Bed Mobility Assessment Supine to Sit Supine to Sit Maximum Assistance,1 Person Assistance,2 Person Assistance ,Bedrails Scooting Scooting to Edge of Bed Maximum Assistance PT-Transfer Assessment Sit to and From Stand Sit to and from Stand Maximum Assistance,1 Person Assistance,2 Person Assistance ,Use of Upper Extremities Equipment Transfer Assistive Device Front Wheeled Walker Transfers Transfer Destination Chair Transfer Technique Stand Step Pivot Transfer Ability Level of Assist Maximum Assistance,1 Person Assistance,2 Person Assistance ,Use of Upper Extremities Comments Mobility Comments pt completed supine to sit max A x 1-2 with HOB elevated. pt was able to sit on EOB min A with cues not to lean posteriorly. required max A x 1-2 for scooting to EOB. pt completed sit to stand from EOB max A x 1-2 and max cues. completed step transfer using FWW max A x 1-2 and max cues. pt refused ambulation and further activities but agreed to stay up on chair. positioned on chair. call light and table placed within reach. PT-Balance Assessment Sitting Balance and Reactions Static Sitting Balance Ability Fair Dynamic Sitting Balance Ability Poor Standing Balance and Reactions Static Standing Balance Ability Poor Dynamic Standing Balance Ability Poor Device Used FWW M5 PT-IP Objective Assessments Start: 01/10/21 12:53 Freq: NEEDED Status: Active Protocol: Document 01/10/21 11:25 AB (Rec: 01/10/21 13:04 [email or web address]) Orientation Orientation/Cognition Level of Alertness Confusional State Orientation Name,Month,Date Safety Awareness Decreased Safety Awareness Memory Description Short Term Impaired Comments pt is not consistent with answering questions Gross Range of Motion Lower Extremity ROM Assessment Within Functional Limits Strength Lower Extremity Strength Assessment Bilaterally Impaired Hip 3+/5 Knee 3+/5 Ankle 3+/5 Muscle Tone Muscle Tone WNL Yes M6 PT-IP Treatment Start: 01/10/21 12:53 Freq: NEEDED Status: Active Protocol: Document 01/10/21 11:25 AB (Rec: 01/10/21 13:04 [email or web address]) Physical Therapy Treatment Education Education Provided Safety M7 PT-IP Assessment and Plan Start: 01/10/21 12:53 Freq: NEEDED Status: Active Protocol: Document 01/10/21 11:25 AB (Rec: 01/10/21 13:04 [email or web address]) PT Summary Assessment and Plan Potential Rehabilitation Potential Fair Status of Condition at Evaluation Evolving Summary Impairments Pain,ROM,Strength,Balance, Coordination,Sensation,Tone, Cognition,Bed Mobility, Transfers,Gait,Activity Tolerance Assessment Summary per nurse: pt is scheduled for surgery later today for stent placement. pt currently requiring max A x 1-2 for mobility and did not tolerate much activity. pt also with confusion and not consistent with answering questing and following directions. will continue to assess progress but at this time, pt may require SNF rehab. Goals Bed Mobility Goal Standby Assistance Transfer Goal Standby Assistance,Front Wheeled Walker Gait Goal Standby Assistance,Front Wheel Walker Gait Distance 150 Other Goals improve ambulation using 4WW SBA 200 ft Days to Meet Goals 10 Frequency of Treatment Frequency Of Treatment Once a Day Treatment Plan Physical Therapy Treatment Plan Bed Mobility Training,Transfer Training,Gait Training, Therapeutic Exercise,Balance Retraining,Discharge Planning, Hot or Cold Pack,Neuromuscular Re-ed,Coordination Retraining Precautions Other Precautions falls Recommendations To Nursing Amount of Assist Needed 2 Person Assist Discharge Recommendations PT Discharge Recommendations SNF Rehab Transportation Needs at Discharge Wheelchair/Cabulance
--- NOTE | 2021-01-10 13:26 | CM.DANOTE ---
DCP/Brief Assessment: Reviewed chart. Patient is a 70yr old female admitted to [facility] for possible UTI. PCP listed is Dr. Conner. Primary payor is 1)[facility]. Reviewed chart. Attempted to meet with patient this AM briefly explained CM role. PT at bedside at time of visit. Patient reports that she is going for surgery today. Patient currently with obstructing kidney stone requiring attention. At this time CM team will follow closely and plan to f/u with patient after procedure. P: Pending d/c planning needs. KJS Discharge Planning/Care Management Advanced directive, confirm from FAMILY Start: 01/10/21 00:59 Freq: Q24H Status: Active Protocol: Document 01/10/21 00:59 CM (Rec: 01/10/21 00:59 CM [id number]) Advance Directive, confirm on record Time 00:59 Person contacted pt Copy received No CM Discharge Assessment Start: 01/10/21 12:20 Freq: Status: Active Protocol: Document 01/10/21 13:20 KJS (Rec: 01/10/21 13:26 KJS [id number]) Discharge Planning Assessment Assigned Chief Solution Architect BRISEYDA Saul Contact Information Tessy Ornelas (daughter) ph# [phone] Advance Directives? No Advance Directives on File No History Provided By Patient,Medical Record Prior Living Arrangements Apartment/Condo Household Members spouse Type of transporation used prior to Relies on Others admit Independent with ADL's Currently unknown Caregiver for Another No DME Already Rented / Owned Oxygen Comment 02 at night Barriers to Discharge No Transportation Arrangement Family to provide transport. Additional Comment Pending needs at time of d/c. PT evaluation ordered. Review Status In Process Next Review Type Continued Stay Review
[2021-01-10] MEDS: DEXTROSE 5%-0.45NS W/KCL 20MEQ 1,000 ML 100 MEQ IV (14:00)
[2021-01-10] MEDS: AMPICILLIN/SULBACTAM 3 GM 3 GM in SODIUM CHLORIDE 0.9% 100 ML IV (15:48)
--- NOTE | 2021-01-10 17:32 | PM.PREOP ---
Pre-operative Note Interval Note History & Physical reviewed/Exam performed by Physician: Yes Changes to H&P: No
[2021-01-10] MEDS: GENTAMICIN 160 MG in SODIUM CHLORIDE 0.9% 100 ML 104 ML IV (17:36)
[2021-01-10] MEDS: LACTATED RINGERS 1,000 ML 42 ML IV (17:37)
--- NOTE | 2021-01-10 18:18 | SUR.OPER ---
Lithotomy on padded OR bed, head on gel donut, torso on padded wedge, arms secured on padded arm boards at <90 degrees abduction. Legs secured in padded yellow fins stirrups.
[2021-01-10] MEDS: IOPAMIDOL 15 ML VIAL INJ (18:27)
--- NOTE | 2021-01-10 19:06 | P.OP_ITS ---
Operative Date/Time/Diagnoses Date of procedure: 01/10/21 Time of procedure: 19:06 Pre-op diagnosis: 1. Obstructing 8 mm distal right ureteral calculus. 2. Proteus mirabilis UTI Post-op diagnosis: same Procedure & Clinicians Procedure: 1. Cystoscopy/right retrograde pyelogram. 2. Cystoscopy right ureteroscopy./ Same procedure as scheduled: No (Could not negotiate ureteral guidewire proximal to stone) Indications: 1. Obstructing 8 mm right distal ureteral calculus. 2. Proteus mirabilis UTI. Surgeon: Shayna Sargent Click Yes if Unassisted: Yes Anesthesia Type: General Operative Notes Findings: 1. Bladder-mildly hyperemic. No significant dependent debris. Ureteral orifices in normal position bilaterally. Closure Type: not applicable Specimen(s): none sent Applied: catheter Estimated Blood Loss (mL): 0 Procedure in detail: Patient was positioned supine was administered general anesthesia. He was then repositioned semi lithotomy and the lower abdomen, genitalia, and groin were prepped and draped in sterile fashion. Twenty-two Mauritian panendoscope was then passed lower urinary tract with the findings as described above. A 0.45 hybrid guidewire was then advanced through the panendoscope within the lumen of a 5 Mauritian pollock catheter. The tip was then passed into the right ureteral orifice and hybrid guidewire was advanced proximally under direct and fluoroscopic guidance. He could not negotiated beyond the stone. Several attempts were made with coiling of the wire. The wire was then backloaded on the [place] catheter and retrograde pyelogram identified a extremely narrowed segment, perhaps ureteral spasm in the vicinity of the calculus. Some contrast did pass proximally and demonstrated a dilated proximal ureter. The [place] catheter was then advanced to the level of the calculus and 0.45 hybrid wire was advanced through the [place] and again careful manipulations and attempts were conducted, all failed. The hybrid guidewire was then positioned in the distal right ureter. Over this a 12 Mauritian by 6 cm balloon dilating catheter was positioned over to cross the right ureterovesical junction. The balloon is inflated 18 atmospheres for 5 minutes after which the stabilizing wire and balloon were removed. Now the semi rigid ureteral scope was introduced in lower urinary tract and then into the right ureteral orifice and advanced directly up to the index calculus. There was a great deal of surrounding edema and erythema. Under direct visualization, multiple attempts were made to negotiate the calculus in advanced the wire proximally for placement of ureteral stent. However a clear pathway could not be identified. The tip of the hybrid guidewire continually deflected and various directions without ability to access the dilated ureter on the opposite side of the calculus. Not wanting to run pressurized fluid on necessarily decision was made to abort further attempts. Ureteral scope was then removed. The patient was then repositioned and cyst supine. The patient was then awakened, transferred to [facility], and transferred to recovery in stable condition. Complications: none Post-operative Condition: stable Disposition: PACU Plan for aftercare: 1. Admit to acute care. 2. Patient will require transfer to nearby facility with interventional radiology capabilities and staff for right percutaneous ureteral stent placement. 3. Discussed case and intraoperative findings and recommended plan with her PCP, Dr. Conner.
[2021-01-10] MEDS: DEXTROSE 5%-0.9% NS 1,000 ML 125 ML IV (21:45)
--- NOTE | 2021-01-10 22:57 | PM.EVENT ---
Event Note Date Patient Seen: 01/10/21 Time Patient Seen: 22:57 Event Note: Coordinated care with Dr. Sargent after difficult right retrograde pyelogram and ureteroscopy. Dr. Sargent was unable to negotiate the ureteral guidewire proximal to the stone, recommended transfer to tertiary care center for IR placement of stent or nephrostomy tube. Risk of urosepsis in setting of obstructed stone. Greater than 3 hours and 22 minutes was spent in physician prolonged services from 19:11 to 22:37 attempting to find a transfer facility. Calls were made to [facility], [facility], [facility], [facility], [facility], [facility], and the [facility]. Due to the COVID pandemic, there are no beds in the [facility] and there may be none available for 24-48 hours, [facility] has a critical shortage. Patient is unable to be transferred. Will attempt to transport patient to/from regional facility with IR support via ambulance in the morning for an add-on, outpatient stent or nephrostomy tube placement. Will continue inpatient and urology care here in the meantime. Dr. Sargent updated and is in agreement with plan. Patient currently clinically stable, afebrile with normotension. Pain controlled. Will get 24 hour dose of rocephin tonight. IFV inufsing gently, urine output good.
[2021-01-11] VITALS (15 sets, daily range): BP systolic 100–136; BP diastolic 45–89; PULSE 67–87; RESP 16–20; TEMP 35.9–36.6; O2SAT 94–100
[2021-01-11] MEDS: cefTRIAXone 2,000 MG in SODIUM CHLORIDE 0.9% 100 ML 200 ML IV ×2 (00:21→22:39)
[2021-01-11] MEDS: DEXTROSE 5%-NS W/KCL 20MEQ 1,000 ML 50 MEQ IV (00:22)
[2021-01-11] MEDS: MORPHINE 2 MG/ML INJ IV (01:29)
--- NOTE | 2021-01-11 02:25 | PC.NURSE ---
Addendum entered by Moraima Brock R.N. 01/11/21 05:25: Waffle cushion placed under pt's buttocks with most recent turning and repositioning. Urine remains tea colored per woodard. No concerns or complaints verbalized by pt. Addendum entered by Moraima Brock R.N. 01/11/21 03:13: Pt reports pain has resolved. Reports able to sleep. Urine is cloudy when in graduate with small alan of clot; tea colored. Original Note: Mostly sleeping, but rouses easily to voice. Turned in bed side to side utilizing turning option. Allevyn gentle border dressing intact to buttocks. Buttocks is deep red in color and pt was turned onto left side. Foam heel boots in place BL. Inspected skin to posterior heels and skin is intact. Noted odor of yeast and visualized erythema under folds. Pt admits to RLQ pain 3/10 following repositioning in bed. Administered morphine as per emar. Woodard to gravity. 02 2L per NC with continuous monitor in place 96%. Pt able to make needs and wants known to staff members.
--- NOTE | 2021-01-11 06:52 | P.PN_ITS ---
Subjective Subjective Date Patient Seen: 01/11/21 Time Patient Seen: 06:52 Interval history: Patient had uneventful night. Denies pain this morning. Remains NPO and has an appetite. No nausea or vomiting. Bazan in place. Afebrile. Nursing reports no overnight concerns. Exam Vital Signs (past 8 hours): - 01/11/21 00:00 01/11/21 05:00 Temperature 97.2 F L 97.6 F Pulse Rate 67 69 Respiratory Rate 16 16 Blood Pressure 130/58 L 125/60 Pulse Oximetry 98 99 Oxygen Delivery Method Nasal Cannula Oxygen Flow Rate 2 Narrative Exam Narrative: GENERAL: Alert and oriented, appearing stated age and in no acute distress. HEENT: Head normocephalic/atraumatic. LUNGS: Diminished inspiratory effort, oxygen cannula in place, no audibl wheezes, rhonchi or rales. CV: Normal S1 and S2 with regular rate and rhythm, no audible murmurs, rubs or gallops. ABDOMEN: Soft, non-tender, non-distended, no organomegaly. Positive bowel sounds. Denies CVA tenderness. EXTREMITIES: 1+ nonpitting edema to the level of bilateral knees. NEURO: Cranial nerves II through XII grossly intact, no focal deficits. PSYCH: Alert and oriented x 3. SKIN: No concerning lesions. Objective Labs Result Diagrams: 01/11/21 06:49 01/11/21 06:49 Labs: Laboratory Results - last 24 hr 01/10/21 07:04 SARS-CoV-2 (PCR) Negative [facility] Medical History Heart attack (~2013) Social History household members: spouse Smoking Status: Former smoker alcohol intake: never Assessment & Plan Assessment & Plan narrative: 1. Acute unilateral obstructive uropathy, right Plan: Dr. Sargent consulting. Status post difficult right retrograde pyelogram and ureteroscopy yesterday evening. Dr. Sargent was unable to negotiate the ureteral guidewire proximal to the stone, recommended transfer to [facility] for IR placement of stent or nephrostomy tube. Unable to find placement due to statewide bed shortage due to pandemic. Will attempt ambulance transport to/from [facility] facility for IR stent placement or nephrostomy tube today. Patient will remain NPO this morning in anticipation of procedure, if unable to coordinate today, will allow for regular diet today. 2. Urinary tract infection, acute, Proteus mirabilis Plan: Continue ceftriaxone 2 g IV q.day. will trend labs and watch clinical status closely. At risk for urosepsis, currently afebrile with stable vital signs. Slight increase in platelets, positive trend but picture overall still worrisome. 3. Acute renal failure, improving -Cr: 2.12 --> 1.44 Plan: Continue gentle rehydration in setting of obstructing urinary stone. Bazan is in place, will watch urine output closely. Trending labs. 4. Acute infectious encephalopathy, improving Plan: Treating underlying urinary tract infection. 5. Anemia, thrombocytopenia, elevated ALP, and smudge cells, new Plan: Concerning for CLL, outpatient oncology consult. 6. Hyponatremia and hypochloremia, acute, resolved. 7. Acute protein malnutrition Plan: Patient currently NPO, dietary consult thereafter. Please see #1. 8. COPD, oxygen dependent Plan: Continue home medications and oxygen per nasal cannula to maintain saturations between 88% and 94%. 9. Congestive heart failure, systolic, chronic Plan: Holding lasix and flomax now due to obstructing stone and risk of worsening her hydronephrosis. Watching I/O carefully. Not clinically fluid overloaded, peripheral edema at baseline and lungs are not congested. Holding metoprolol and imdur as blood pressures low. Will watch lower extremity edema and signs of pulmonary congestion closely and restart home meds when taking orals again and stone has been removed. 10. Hypokalemia, chronic, secondary to lasix Plan: Will replete as needed with IV fluids and transition to PO tablets when taking orals. 11. Stress incontinence, urinary, chronic Plan: Bazan. 12. Chronic pain syndrome Plan: Covered by IV pain medication for kidney stone. Will transition back to home oxycodone prior to discharge. 13. Hyperlipidemia, chronic Plan: Holding home atorvastatin, will restart when taking orals. 14. Depression/panic disorder, chronic Plan: Will restart sertraline when taking orals. 15. Obstructive sleep apnea, chronic Plan: Supportive therapy only. Patient previously unable to tolerate sleep study, does not desire CPAP. 16. Obesity, BMI greater than 40 Plan: Patient is at increased risk of delayed and poor healing. Nutrition consult. Physical therapy consult. DVT prophylaxis: SCDs Code: Full COVID: Negative Quality VTE Deep Vein Thrombosis/Pulmonary Embolism Present on Admission: No
[2021-01-11 07:15] LABS: Add Manual Diff / Slide Review NO; Basophils Absolute Auto 100 /uL (0-100); Basophils Percent Auto 0.8 % (0-2); Eosinophils Absolute Auto 0 /uL (0-450); Eosinophils Percent Auto 0.1 % (2-4); Hematocrit 33.1 % (36-46); Hemoglobin 10.9 g/dL (12.0-16.0); Lymphocytes Absolute Auto 800 /uL (1100-4500); Lymphocytes Percent Auto 10.4 % (25-40); Mean Corpuscular HGB Conc 33.1 % (30-36); Mean Corpuscular Hemoglobin 29.6 PG (26-34); Mean Corpuscular Volume 89.5 fL (80-100); Monocytes Absolute Auto 300 /uL (0-900); Monocytes Percent Auto 4.1 % (3-14); Neutrophils Absolute Auto 6100 /uL (1500-7000); Neutrophils Percent Auto 84.6 % (50-75); Platelet Count 88 X10^3/uL (150-400); Red Cell Distribution Width 14.3 % (11.6-14.8); White Blood Cell Count 7.2 X10^3/uL (4.5-11.0)
[2021-01-11 07:27] LABS: BUN Creatinine Ratio 14.6 (6-22); Blood Urea Nitrogen 21 mg/dL (7-17); Calcium 8.3 mg/dL (8.4-10.2); Carbon Dioxide 29 mmol/L (22-32); Chloride 101 mmol/L (98-107); Estimated Glomerular Filt Rate 36.1 mL/min (>60); Glucose 146 mg/dL (80-110); HEMOLYSIS < 15 (0-50); Sodium 139 mmol/L (137-145)
--- NOTE | 2021-01-11 08:10 | P.PN_ITS ---
Subjective Subjective Date Patient Seen: 01/11/21 Time Patient Seen: 08:10 Interval history: Postoperative day 1. Status post cystoscopy and attempted right ureteral stent placement. See operative report for intraoperative findings and details. I spoke personally with Dr. Conner and summarized findings and challenges intraoperatively. Tentative plan is for ambulance transfer to local facility equipped for IR for placement of right percutaneous ureteral stent. Exam Vital Signs (past 8 hours): - 01/11/21 05:00 01/11/21 07:27 Temperature 97.6 F 97.0 F L Pulse Rate 69 77 Respiratory Rate 16 18 Blood Pressure 125/60 136/54 L Pulse Oximetry 99 98 Oxygen Delivery Method Nasal Cannula Oxygen Flow Rate 2 Narrative Exam Narrative: Lying in bed in no distress. Abdomen is obese, soft, and nontender. Objective Labs Result Diagrams: 01/11/21 06:49 01/11/21 06:49 Labs: Laboratory Results - last 24 hr 01/11/21 01/11/21 06:49 06:49 WBC 7.2 RBC 3.70 L Hgb 10.9 L Hct 33.1 L MCV 89.5 MCH 29.6 MCHC 33.1 RDW 14.3 Plt Count 88 L Neut % (Auto) 84.6 H Lymph % (Auto) 10.4 L Bailey % (Auto) 4.1 Eos % (Auto) 0.1 L Baso % (Auto) 0.8 Neut # (Auto) 6100 Lymph # (Auto) 800 L Bailey # (Auto) 300 Eos # (Auto) 0 Baso # (Auto) 100 Sodium 139 Potassium 4.0 Chloride 101 Carbon Dioxide 29 BUN 21 H Creatinine 1.44 H Estimated GFR 36.1 L BUN/Creatinine Ratio 14.6 Glucose 146 H Calcium 8.3 L PFSH Medical History Heart attack (~2013) Social History household members: spouse Smoking Status: Former smoker alcohol intake: never Assessment & Plan Assessment & Plan narrative: Assessment: 1. Stable postop day 1. Status post failed attempt at retrograde placement of ureteral stent for obstructing 8 mm right distal ureteral calculus. 2. Proteus mirabilis UTI. Plan: 1. Anticipate coordination for outside placement right percutaneous antegrade ureteral stent. 2. Agree with continued choice for antibiotic. Quality VTE Deep Vein Thrombosis/Pulmonary Embolism Present on Admission: No
--- NOTE | 2021-01-11 10:48 | PT.IPTN ---
Current Diagnoses Acute kidney failure, unspecified (01/09/21) Surgery Performed Operation Date: 01/10/21 17:30 Actual Procedures p Cystoscopy w/right ureteroscopy(Right) - Shayna Sargent MD Physical Therapy Treatment Note M2 PT-IP Current Condition Start: 01/10/21 12:53 Freq: NEEDED Status: Active Protocol: Document 01/10/21 11:25 AB (Rec: 01/10/21 13:04 AB [id number]) Physical Therapy Current Condition Current Condition Evaluation Date 01/10/21 Treatment Diagnosis UTI; urethral calculus; difficulty in walking Onset Date 01/09/21 Precautions Other Precautions falls M3 PT-IP Subjective Start: 01/10/21 12:53 Freq: NEEDED Status: Active Protocol: Document 01/11/21 10:48 AB (Rec: 01/11/21 12:10 AB [id number]) Subjective Physical Therapy Visit Type Type Treatment Note Visit Start Time 10:48 Visit Stop Time 11:15 Total Visit Minutes 27 Number of ELECTRICIAN Visits 0 Physical Therapy Visit Comments Patient Comments pt is agreeable to do PT M4 PT-IP Mobility and Gait Start: 01/10/21 12:53 Freq: NEEDED Status: Active Protocol: Document 01/11/21 10:48 AB (Rec: 01/11/21 12:10 AB [id number]) PT-Bed Mobility Assessment Supine to Sit Supine to Sit Maximum Assistance,Head of Bed Elevated,Bedrails Scooting Scooting to Edge of Bed Dependent PT-Transfer Assessment Sit to and From Stand Sit to and from Stand Maximum Assistance,1 Person Assistance,2 Person Assistance ,Use of Upper Extremities Equipment Transfer Assistive Device Gait Belt,Front Wheeled Walker Orthotic/Prosthetic Devices or Brace: No Transfers Transfer Destination Chair Transfer Technique Stand Step Pivot Transfer Ability Level of Assist Moderate Assistance,Maximum Assistance,1 Person Assistance ,Use of Upper Extremities Comments Mobility Comments completed supine to sit HOB elevated max A and max cues. pt sat on EOB max A for initial sitting with posterior trunk lean and cued for positioning and then requiring min to mod A afterward. completed sit to stand max A x 1-2 and step transfer to chair mod to max A and max cues. pt rested and agreed to ambulate. completed sit to stand from the chair max A x 1 -2 and max cues x 2 attempts. ambulated ~ 3 ft using FWW mod to max A and cues. positioned on chair. call light and table placed within reach. Gait Assessment Gait Gait Assistance Required: Moderate Assistance,Maximum Assistance,1 Person Assist Distance (Feet) 3 Assistive Devices Assistive Device Gait Belt,Front Wheeled Walker Orthotic/Prosthetic Devices or Brace: No Gait Deviations General Gait Pattern Decreased Stride Length, Decreased Feet Clearance,Step- to Gait Factors Limiting Gait Function Factors Limiting Gait Function Decreased Activity Tolerance, Decreased Strength,Difficulty Following Directions,Poor Balance,Poor Safety Awareness M5 PT-IP Objective Assessments Start: 01/10/21 12:53 Freq: NEEDED Status: Active Protocol: Document 01/10/21 11:25 AB (Rec: 01/10/21 13:04 AB [id number]) Orientation Orientation/Cognition Level of Alertness Confusional State Orientation Name,Month,Date Safety Awareness Decreased Safety Awareness Memory Description Short Term Impaired Comments pt is not consistent with answering questions Gross Range of Motion Lower Extremity ROM Assessment Within Functional Limits Strength Lower Extremity Strength Assessment Bilaterally Impaired Hip 3+/5 Knee 3+/5 Ankle 3+/5 Muscle Tone Muscle Tone WNL Yes M6 PT-IP Treatment Start: 01/10/21 12:53 Freq: NEEDED Status: Active Protocol: Document 01/11/21 10:48 AB (Rec: 01/11/21 12:10 AB [id number]) Physical Therapy Treatment Education Education Provided Safety M7 PT-IP Assessment and Plan Start: 01/10/21 12:53 Freq: NEEDED Status: Active Protocol: Document 01/11/21 10:48 AB (Rec: 01/11/21 12:10 AB [id number]) PT Summary Assessment and Plan Potential Rehabilitation Potential Fair Summary Impairments Pain,ROM,Strength,Balance, Cognition,Bed Mobility, Transfers,Gait,Activity Tolerance Progress Towards Goals Slow Progress due to Activity Tolerance,Slow Progress - Other Assessment Summary pt requiring max A x 1-2 with transfers and only able to ambulate ~ 3 ft using FWW mod to max A and max cues. pt will require SNF rehab to improve strength and mobility independence. Goals Bed Mobility Goal Standby Assistance Transfer Goal Standby Assistance,Front Wheeled Walker Gait Goal Standby Assistance,Front Wheel Walker Gait Distance 150 Other Goals improve ambulation using 4WW SBA 200 ft Days to Meet Goals 10 Frequency of Treatment Frequency Of Treatment Once a Day Treatment Plan Physical Therapy Treatment Plan Bed Mobility Training,Transfer Training,Gait Training, Therapeutic Exercise,Balance Retraining,Discharge Planning, Hot or Cold Pack,Neuromuscular Re-ed,Coordination Retraining Precautions Other Precautions falls Recommendations To Nursing Amount of Assist Needed 2 Person Assist Discharge Recommendations PT Discharge Recommendations SNF Rehab Transportation Needs at Discharge Wheelchair/Cabulance
--- NOTE | 2021-01-11 13:10 | CM.DPC ---
DCP/continued: Reviewed chart. Patient underwent cystocopy and right uretal stent placement on 01-10-21. Provider unable to place right ureteral stent. Therefore, current request is that patient be transferred to facility equipped for IR for proper placement of stent. RN/coordinator Catherine requesting CM team assistance with [place] transfer. Placed call to [facility] transfer and pumphouse operator Demetria Hernandez. VM left for [place] to call [facility] coordinator with next steps. Received call from RN/Catherine whom indicates that current plan is for patient to transfer to [facility] this afternoon to have procedure and return once completed. P: CM team following for d/c planning. BRISEYDA Saul
--- NOTE | 2021-01-11 13:13 | PC.NURSE ---
Medication list. I obtained a medication list from [facility] this AM. I went over the list with pt and updated her chart to reflect as so. She was taking amox/f clav at home and had about 6 more days remaining on the prescription.
[2021-01-11] MEDS: NYSTATIN POWDER 15GM 1 APPLIC TOP (13:54)
--- NOTE | 2021-01-11 14:45 | PC.NURSE ---
Pt transferred to [facility] with slider board with assistance as ambulance personnel and out to ambulance for transfer to [facility] with plans to return to [facility] post procedure.
--- NOTE | 2021-01-11 22:39 | PC.NURSE ---
pt arrived 191, nephrostomy had some bloody drainage, was last flushed around 1800. drain needs to be flushed q8hr with 10cc of saline for 24 hrs. dressing has gauze and tegader and will need to be change weekly. discharge instruction for her nephrostomy are in the yellow folder from [facility]. notified Dr. Conner. pt denies any pain. woodard has bright red talavera output. pt is now SL. pt had some pudding and crackers tonight.
[2021-01-12] VITALS (8 sets, daily range): BP systolic 114–152; BP diastolic 49–69; PULSE 75–90; RESP 16–17; TEMP 36.1–36.8; O2SAT 92–99
--- NOTE | 2021-01-12 07:19 | PM.PN.1 ---
Subjective Subjective Date Patient Seen: 01/12/21 Time Patient Seen: 07:19 Interval history: Patient is cheerful this morning, night was uneventful. Received her nephrostomy tube yesterday at [facility], procedure went well. Denies any pain. Nursing reports that they have been flushing her nephrostomy tube. There is blood in her Bazan bag. She has remained afebrile and normotensive. She has not required any blood pressure medications to date. Exam Vital Signs (past 8 hours): - 01/11/21 23:54 01/12/21 05:56 Temperature 97.2 F L 98.1 F Pulse Rate 80 82 Respiratory Rate 16 16 Blood Pressure 122/55 L 132/49 L Pulse Oximetry 96 92 Oxygen Delivery Method Nasal Cannula Oxygen Flow Rate 2 Narrative Exam Narrative: GENERAL: Alert and oriented, appearing stated age and in no acute distress. HEENT: Head normocephalic/atraumatic. LUNGS: Good inspiratory effort, oxygen cannula in place, no audible wheezes, rhonchi or rales. CV: Normal S1 and S2 with regular rate and rhythm, no audible murmurs, rubs or gallops. ABDOMEN: Soft, non-tender, non-distended, no organomegaly. Positive bowel sounds. Denies CVA tenderness. EXTREMITIES: 1+ nonpitting edema to the level of bilateral knees. NEURO: Cranial nerves II through XII grossly intact, no focal deficits. PSYCH: Alert and oriented x 3. SKIN: No concerning lesions. Objective Labs Result Diagrams: 01/12/21 07:06 01/12/21 07:06 Labs: Laboratory Results - last 24 hr 01/11/21 01/11/21 06:49 06:49 WBC 7.2 RBC 3.70 L Hgb 10.9 L Hct 33.1 L MCV 89.5 MCH 29.6 MCHC 33.1 RDW 14.3 Plt Count 88 L Neut % (Auto) 84.6 H Lymph % (Auto) 10.4 L Barton % (Auto) 4.1 Eos % (Auto) 0.1 L Baso % (Auto) 0.8 Neut # (Auto) 6100 Lymph # (Auto) 800 L Barton # (Auto) 300 Eos # (Auto) 0 Baso # (Auto) 100 Sodium 139 Potassium 4.0 Chloride 101 Carbon Dioxide 29 BUN 21 H Creatinine 1.44 H Estimated GFR 36.1 L BUN/Creatinine Ratio 14.6 Glucose 146 H Calcium 8.3 L [facility] Medical History Heart attack (~2013) Social History household members: spouse Smoking Status: Former smoker alcohol intake: never Assessment & Plan Assessment & Plan narrative: HD #2 1. Acute unilateral obstructive uropathy, right Plan: Dr. Sargent consulting. -01/11/12: Difficult right retrograde pyelogram and ureteroscopy, Dr. Sargent unable to negotiate the ureteral guidewire proximal to the stone, recommended transfer to tertiary care center for IR placement of stent or nephrostomy tube. -01/12/12: Right nephrostomy tube placement by IR at [facility]. Plan: Will await Dr. Sargent's recommendations. 2. Urinary tract infection, acute, complicated, Proteus mirabilis Plan: Continue ceftriaxone 2 g IV q.day. will trend labs and watch clinical status closely. 3. Acute renal failure, improving -Cr: 2.12 --> 1.44 --> 1.12 Plan: Now taking orals, IV TKO. Bazan is in place, will watch urine output closely. Trending labs. 4. Acute infectious encephalopathy, improving Plan: Treating underlying urinary tract infection. 5. Anemia, thrombocytopenia, elevated ALP, and smudge cells, new Plan: Concerning for CLL, outpatient oncology consult. 6. Hypokalemia, acute Plan: Will replete with 40 meq potassium and restart home potassium supplement. Will trend labs. 7. Acute protein malnutrition Plan: Have advanced diet. Nutrition consult. 8. COPD, oxygen dependent Plan: Continue home medications and oxygen per nasal cannula to maintain saturations between 88% and 94%. 9. Congestive heart failure, systolic, chronic Plan: Holding lasix and flomax now due to obstructing stone and risk of worsening her hydronephrosis. Watching I/O carefully. Not clinically fluid overloaded, peripheral edema at baseline and lungs are not congested. Holding metoprolol and imdur as blood pressures low. Will watch lower extremity edema and signs of pulmonary congestion closely and restart home meds when taking orals again and stone has been removed. 10. Stress incontinence, urinary, chronic Plan: Bazan. 11. Chronic pain syndrome Plan: Home oxycodone as needed. 12. Hyperlipidemia, chronic Plan: Will restart home atorvastatin. 13. Depression/panic disorder, chronic Plan: Will restart sertraline. 14. Obstructive sleep apnea, chronic Plan: Supportive therapy only. Patient previously unable to tolerate sleep study, does not desire CPAP. 15. Obesity, BMI greater than 40 Plan: Patient is at increased risk of delayed and poor healing. Nutrition/PT consulting. Quality VTE Deep Vein Thrombosis/Pulmonary Embolism Present on Admission: No
[2021-01-12] MEDS: IPRATROPIUM 0.5 MG/2.5 ML NEB INH (07:35)
[2021-01-12] MEDS: BUDESONIDE 0.5 MG/2 ML NEB INH ×2 (07:35→18:44)
--- NOTE | 2021-01-12 07:42 | P.PN_ITS ---
Subjective Subjective Date Patient Seen: 01/12/21 Time Patient Seen: 07:43 Interval history: The patient is postop day 2. Status post attempted retrograde placement right ureteral stent for obstructing 8 mm right distal ureteral calculus and Proteus mirabilis UTI/pyelonephritis. She is now postprocedural day 1. Status post right percutaneous nephrostomy. She denies complaints of pain following the procedure. Explain circumstances and overall treatment plan. Her questions were answered to her satisfaction at the bedside encountered today. Exam Vital Signs (past 8 hours): - 01/11/21 23:54 01/12/21 05:56 Temperature 97.2 F L 98.1 F Pulse Rate 80 82 Respiratory Rate 16 16 Blood Pressure 122/55 L 132/49 L Pulse Oximetry 96 92 Oxygen Delivery Method Nasal Cannula Oxygen Flow Rate 2 Narrative Exam Narrative: She is resting comfortably in bed in no acute distress. Abdomen-obese and soft. Nontender. Right flank-nephrostomy site is intact. Output is blood tinged without clots. Output last shift was 350 cc. Objective Labs Result Diagrams: 01/11/21 06:49 01/11/21 06:49 [facility] Medical History Heart attack (~2013) Social History household members: spouse Smoking Status: Former smoker alcohol intake: never Assessment & Plan Assessment & Plan narrative: Assessment: 1. Stable postoperative day 2. And procedure day 1. 2. Obstructing 8 mm right distal ureteral calculus. Stone is radiolucent and likely struvite composition. 3. Proteus mirabilis UTI/pyelonephritis. Plan: 1. Will discuss with Dr. Conner the need for return to IR for placement percutaneous right ureteral stent. May require ambulance transfer to nearby facility with IR capability verses making arrangements as outpatient. Ideally successful placement of percutaneous right ureteral stent would be preferred prior to current hospitalization discharge. 2. Patient will require 2 full weeks of appropriate antibiotic coverage for UTI. 3. Plan will then be to bring the patient back to [facility] for outpatient cystoscopy and right ureteroscopic laser lithotripsy. Quality VTE Deep Vein Thrombosis/Pulmonary Embolism Present on Admission: No
[2021-01-12 07:44] LABS: Hematocrit 33.3 % (36-46); Hemoglobin 11.3 g/dL (12.0-16.0); Mean Corpuscular Hemoglobin 30.1 PG (26-34); Mean Corpuscular Volume 88.6 fL (80-100); Platelet Count 89 X10^3/uL (150-400); Red Blood Cell Count 3.76 X10^6/uL (4.0-5.2); Red Cell Distribution Width 14.3 % (11.6-14.8); White Blood Cell Count 6.2 X10^3/uL (4.5-11.0)
[2021-01-12 07:47] LABS: Add Manual Diff / Slide Review YES
[2021-01-12 07:52] LABS: Alanine Aminotransferase 21 IU/L (<35); Albumin 2.8 g/dL (3.5-5.0); Albumin Globulin Ratio 0.9 (1.0-2.8); Alkaline Phosphatase 196 U/L (38-126); Aspartate Aminotransferase 35 IU/L (14-36); BUN Creatinine Ratio 12.5 (6-22); Bilirubin Total 0.3 mg/dL (0.2-1.3); Blood Urea Nitrogen 14 mg/dL (7-17); Calcium 8.5 mg/dL (8.4-10.2); Carbon Dioxide 33 mmol/L (22-32); Chloride 98 mmol/L (98-107); Estimated Glomerular Filt Rate 48.2 mL/min (>60); Globulin 3.1 g/dL (1.7-4.1); Glucose 105 mg/dL (80-110); HEMOLYSIS < 15 (0-50); Potassium 3.2 mmol/L (3.4-5.1); Sodium 137 mmol/L (137-145); Total Protein 5.9 g/dL (6.3-8.2)
[2021-01-12 08:12] LABS: Neutrophils Absolute Manual 4340 /uL (3000-5900); Total Cells Counted 100
[2021-01-12 08:13] LABS: RBC Morphology Normal Morphology
--- NOTE | 2021-01-12 08:48 | PT.IPTN ---
Current Diagnoses Acute kidney failure, unspecified (01/09/21) Surgery Performed Operation Date: 01/10/21 17:30 Actual Procedures p Cystoscopy w/right ureteroscopy(Right) - Shayna Sargent MD Physical Therapy Treatment Note M2 PT-IP Current Condition Start: 01/10/21 12:53 Freq: NEEDED Status: Active Protocol: Document 01/10/21 11:25 AB (Rec: 01/10/21 13:04 AB [id number]) Physical Therapy Current Condition Current Condition Evaluation Date 01/10/21 Treatment Diagnosis UTI; urethral calculus; difficulty in walking Onset Date 01/09/21 Precautions Other Precautions falls M3 PT-IP Subjective Start: 01/10/21 12:53 Freq: NEEDED Status: Active Protocol: Document 01/12/21 11:29 SP (Rec: 01/12/21 11:50 SP [id number]) Subjective Physical Therapy Visit Type Type Treatment Note Visit Start Time 08:15 Visit Stop Time 08:48 Total Visit Minutes 33 Notes PT aide assisted with 2nd person as needed during tx. Dr Conner arrived during tx to assess pt in supine. Vitals taken: supine: BP 152/ 56 HR 86. 96% on 2L seated at EOB: 123/ 65 HR 113 97% on 2L post transfer: 113/65 HR 147, + SOB ed slow relaxing breath After 3 min rest seated gait in room post: 165/75 HR 104 95 % on 2L. Number of BREWERY CELLAR WORKER Visits 1 Physical Therapy Visit Comments Patient Comments Pt willing to work with therapy. I want to move more , know will be tiring. Therapy Pain Assessment Pain Present Pain Present Pain Reported Location Left Shoulder Intensity 3 Scale Used Numeric (0 - 10) Description Aching Pain Behaviors Facial Grimacing Pain Management Techniques Re-positioning,Timing of Activity with Medications M4 PT-IP Mobility and Gait Start: 01/10/21 12:53 Freq: NEEDED Status: Active Protocol: Document 01/12/21 11:29 SP (Rec: 01/12/21 11:50 SP [id number]) PT-Bed Mobility Assessment Rolling Type of Rolling Log Rolling,Roll to Left Level of Assist Maximal Assistance,1 Person Assistance Supine to Sit Supine to Sit Minimal Assistance,Maximum Assistance,2 Person Assistance ,Head of Bed Elevated,Bedrails Scooting Scooting to Edge of Bed Minimal Assistance,Maximum Assistance PT-Transfer Assessment Sit to and From Stand Sit to and from Stand Contact Guard Assistance, Moderate Assistance,2 Person Assistance,Use of Upper Extremities Equipment Transfer Assistive Device Gait Belt,Front Wheeled Walker Orthotic/Prosthetic Devices or Brace: No Transfers Transfer Destination Chair Transfer Technique ambulated using FWW Transfer Ability Level of Assist Minimal Assistance,1 Person Assistance,Use of Upper Extremities Comments Mobility Comments LR L using L BR LUE, pull from therapist hand RUE, Max A x1 and Min A 2nd person to right trunk and scoot to EOB. Pt was able to sit at EOB w/ just BUE support. Assessed vitals throughout, see notes. Sit> Stand Mod A x1, CGA 2nd person for safety, SPT Min A x1 bed> chair with self fWW repositioning, cued for proper hand placement throughout tx, Min A x2 for slow descent into chair. Pt rested 3 min then agree to stand and walk further in room Min A to stand , using fWW ambulated 10 ft forward then pivot back to chair, totatl 20 ft CG-Min A step to patterning, BREWERY CELLAR WORKER managed O2 tubing. Pt returned to chair Min A to sit. BREWERY CELLAR WORKER elevated BLEs in chair per pt request and had call light, chair armed and all needs in reach before left. Gait Assessment Gait Gait Assistance Required: Minimum Assistance,1 Person Assist Distance (Feet) 20 Able to Maintain Weight Bearing Status Yes During Gait Assistive Devices Assistive Device Gait Belt,Front Wheeled Walker Orthotic/Prosthetic Devices or Brace: No Gait Deviations General Gait Pattern Antalgic,Decreased Stride Length,Decreased Feet Clearance,Lateral Trunk Lean, Step-to Gait Factors Limiting Gait Function Factors Limiting Gait Function Decreased Activity Tolerance, Decreased Strength,Difficulty Following Directions,Pain,Poor Balance,Poor Safety Awareness Comments Gait Comments see mobility comments Stair Climbing Assessment Comments Stair Climbing Comments not need to assess, has ramp to enter home and no stairs inside to assess. PT-Balance Assessment Sitting Balance and Reactions Static Sitting Balance Ability Good Dynamic Sitting Balance Ability Fair Standing Balance and Reactions Static Standing Balance Ability Fair Dynamic Standing Balance Ability Poor Device Used FWW M5 PT-IP Objective Assessments Start: 01/10/21 12:53 Freq: NEEDED Status: Active Protocol: Document 01/10/21 11:25 AB (Rec: 01/10/21 13:04 AB [id number]) Orientation Orientation/Cognition Level of Alertness Confusional State Orientation Name,Month,Date Safety Awareness Decreased Safety Awareness Memory Description Short Term Impaired Comments pt is not consistent with answering questions Gross Range of Motion Lower Extremity ROM Assessment Within Functional Limits Strength Lower Extremity Strength Assessment Bilaterally Impaired Hip 3+/5 Knee 3+/5 Ankle 3+/5 Muscle Tone Muscle Tone WNL Yes M6 PT-IP Treatment Start: 01/10/21 12:53 Freq: NEEDED Status: Active Protocol: Document 01/12/21 11:29 SP (Rec: 01/12/21 11:50 SP [id number]) Physical Therapy Treatment Education Education Provided Weight Bearing Status,Safety M7 PT-IP Assessment and Plan Start: 01/10/21 12:53 Freq: NEEDED Status: Active Protocol: Document 01/12/21 11:29 SP (Rec: 01/12/21 11:50 SP [id number]) PT Summary Assessment and Plan Potential Rehabilitation Potential Fair Status of Condition at Evaluation Evolving Summary Impairments Pain,ROM,Strength,Balance, Cognition,Bed Mobility, Transfers,Gait,Activity Tolerance Progress Towards Goals Progressing Toward Goals,Slow Progress due to Activity Tolerance,Slow Progress - Other Assessment Summary pt requiring max A x 1-2 with bed mobility, Min A x1 during transfers and gait in room 20 ft using fWW. pt recommending HHPT vs SNF rehab to improve strength and mobility independence. Will continue to assess progress. Goals Bed Mobility Goal Standby Assistance Transfer Goal Standby Assistance,Front Wheeled Walker Gait Goal Standby Assistance,Front Wheel Walker Gait Distance 150 Other Goals improve ambulation using 4WW SBA 200 ft Days to Meet Goals 10 Frequency of Treatment Frequency Of Treatment Once a Day Treatment Plan Physical Therapy Treatment Plan Bed Mobility Training,Transfer Training,Gait Training, Therapeutic Exercise,Balance Retraining,Discharge Planning, Hot or Cold Pack,Neuromuscular Re-ed,Coordination Retraining Other Recommendations and Next Treatment bed mob, transfers, gait FWW. Focus Precautions Other Precautions falls Recommendations To Nursing Amount of Assist Needed 2 Person Assist Discharge Recommendations PT Discharge Recommendations Home with 24/12 Assist Available,Home Health,SNF Rehab,Home vs SNF Other Discharge Recommendations FWW if unsafe with 4WW. Transportation Needs at Discharge Wheelchair/Cabulance
--- NOTE | 2021-01-12 14:28 | DIET.PN ---
Dietary Progress Note RD Note: Pt admitted c obstructing ureter stone referred to nutrition for poor skin integrity. Pt has BMI 52.2 c weight history showing 114-125kg weight over the past 3y. Kitchen sending ONS Tj bid for nutrient needs to support healthy skin tissue.
[2021-01-12] MEDS: POTASSIUM CHLORIDE 20 MEQ TAB 40 MEQ PO (16:29)
[2021-01-12] MEDS: cefTRIAXone 2,000 MG in SODIUM CHLORIDE 0.9% 100 ML 200 ML IV (22:47)
[2021-01-13] VITALS (33 sets, daily range): BP systolic 94–136; BP diastolic 43–69; PULSE 58–160; RESP 14–36; TEMP 36–37.3; O2SAT 95–99
--- NOTE | 2021-01-13 | DI.ECHO.S_ITS ---
[place] [facility]---------+ [facility] +---------+ : : [address] : : : : [id number] : : : : Phone: [phone]+ Echocardiogram Report + + :Name: KYLE ZAMORA Study Date: 01/13/2021 Height: 61 in : :[facility] ReadingLocation: Weight: 276 lb: : Gender: Female BSA: 2.2 m2 : :: 1950 Age: 70 yrs BP: 98/58 mmHg: :Reason For Study: SOB : :Ordering Physician: YO, : :AASHISH Performed By: Owen Rush : :Referring: AASHISH RAM : + + Interpretation Summary A. fib with controlled rate. Normal LV size; mild concentric LVH. There is mild global hypokinesis with mildly reduced LV systolic function. Ejection fraction is estimated at 45-50%. No significant valvular abnormalities. Compared to prior study June 23, 2019 cardiomyopathy is new and A. fib is new. Procedure: A two-dimensional transthoracic echocardiogram with color flow and Doppler was performed. The study quality was technically adequate. Comparison is made with the echocardiogram of 06/23/2019. The patient was in atrial fibrillation with heart rates between 101-143 bpm during the exam. Left Ventricle: The left ventricle is normal in size. There is mild concentric left ventricular hypertrophy. The ejection fraction is estimated to be 45-50%. There are no focal wall motion abnormalities. Diastolic function could not be accurately assessed due to atrial fibrillation. Right Ventricle: The right ventricle is normal in size and function. Atria: The left atrium is not well visualized. The right atrium grossly appears normal in size. Mitral Valve: The mitral valve is normal in structure and function. There is mild mitral regurgitation. Aortic Valve: The aortic valve is normal in structure and function. No aortic regurgitation is present. Tricuspid Valve: The tricuspid valve is normal in structure and function. There is mild tricuspid regurgitation. Right ventricular systolic pressure is estimated to be 41 mmHg plus the clinically estimated CVP which cannot be estimated on this exam. Pulmonic Valve: The pulmonic valve is normal in structure and function. There is trace pulmonic regurgitation. Great Vessels: The aortic root is normal size. The inferior vena cava was not visualized. Pericardium/ Pleura There is no pericardial effusion. MMode/2D Measurements & Calculations LVIDd: 4.8 cm LVOT diam: 2.1 cm LVIDs: 3.5 cm Ao root diam: 3.4 cm FS: 27.6 % IVSd: 1.1 cm LVPWd: 1.1 cm LV singh. diameter/BSA (cm/m^2): 2.2 LV sys. diameter/BSA (cm/m^2): 1.6 LA A4 area: 24.1 cm2 RA long axis: 3.8 cm LA length (vol): 6.0 cm RA area: 8.6 cm2 RA vol: 16.5 ml RA : 7.6 ml/m2 TAPSE: 1.8 cm Doppler Measurements & Calculations Ao V2 max: 92.1 cm/sec LVOT Max Jermaine: 79.5 cm/sec Ao V2 mean: 65.7 cm/sec LV V1 max P.5 mmHg Ao max P.4 mmHg LV V1 VTI: 11.8 cm Ao mean P.9 mmHg BETTY(I,D): 3.3 cm2 Ao V2 VTI: 12.6 cm BETTY(V,D): 3.1 cm2 sev ratio: 0.93 BETTY indexed to BSA (cm^2/m^2): 1.5 TR max jermaine: 318.8 cm/sec SV(LVOT): 41.8 ml TR max P.7 mmHg Electronically signed by: Sabine Garcia M.D. on Reading Physician:01/13/2021 03:13 PM
[2021-01-13] MEDS: SODIUM CHLORIDE 0.9% 500 ML 250 ML IV (05:48)
[2021-01-13 06:02] LABS: Hematocrit 36.3 % (36-46); Hemoglobin 11.9 g/dL (12.0-16.0); Mean Corpuscular HGB Conc 32.8 % (30-36); Mean Corpuscular Hemoglobin 29.4 PG (26-34); Mean Corpuscular Volume 89.8 fL (80-100); Platelet Count 85 X10^3/uL (150-400); Red Blood Cell Count 4.05 X10^6/uL (4.0-5.2); Red Cell Distribution Width 14.6 % (11.6-14.8); White Blood Cell Count 7.8 X10^3/uL (4.5-11.0)
[2021-01-13 06:04] LABS: Add Manual Diff / Slide Review YES
[2021-01-13] MEDS: ASPIRIN 325 MG TABLET PO (06:09)
[2021-01-13 06:19] LABS: Alanine Aminotransferase 21 IU/L (<35); Albumin 2.9 g/dL (3.5-5.0); Albumin Globulin Ratio 0.9 (1.0-2.8); Alkaline Phosphatase 186 U/L (38-126); Aspartate Aminotransferase 35 IU/L (14-36); BUN Creatinine Ratio 11.9 (6-22); Bilirubin Total 0.4 mg/dL (0.2-1.3); Blood Urea Nitrogen 13 mg/dL (7-17); Calcium 8.7 mg/dL (8.4-10.2); Carbon Dioxide 34 mmol/L (22-32); Chloride 96 mmol/L (98-107); Estimated Glomerular Filt Rate 49.8 mL/min (>60); Globulin 3.1 g/dL (1.7-4.1); Glucose 100 mg/dL (80-110); HEMOLYSIS < 15 (0-50); Potassium 3.9 mmol/L (3.4-5.1); Sodium 136 mmol/L (137-145)
[2021-01-13 06:20] LABS: Creatine Kinase 73 U/L (30-135); Magnesium 1.8 mg/dL (1.6-2.3); Phosphorous 3.3 mg/dL (2.8-4.1)
[2021-01-13 06:30] LABS: Troponin I 0.026 ng/mL (0.01-0.034)
[2021-01-13] MEDS: ASPIRIN 81 MG CHEW TAB 162 MG PO (06:35)
--- NOTE | 2021-01-13 06:45 | PM.PN.1 ---
Subjective Subjective Date Patient Seen: 01/13/21 Time Patient Seen: 06:46 Interval history: Nursing called this morning at 05:26 reporting new onset atrial fibrillation with RVR. [address] abnormality in the inferior leads. Patient was asymptomatic at the time with a HR in the 140s and a BP of 105/56. Patient denied chest pain or change in dyspnea, she remains on 2 L of oxygen for her COPD. Urine output in the last 6 hours was appoximately 205 cc from the woodard and 175 cc from the nephrostomy tube. Aspirin administered, diltiazem bolus infusing now. Stat labs showed normal troponin, potassium (3.9), magnesium (1.8), and phosphorus (3.3). Echo reviewed from 06/23/19 which showed an EF of 60-65%, no valvular abnormalities. Left atrium was not well visualized. She has had a 500 cc bolus of NS. At the bedside, patient is feeling at baseline, denies any SOB or chest pain. Reports that she slept well overnight. No nausea or vomiting. No diaphoresis. No abdominal pain. Has appetite. Exam Vital Signs (past 8 hours): - 01/12/21 23:45 01/13/21 05:29 Temperature 98.2 F 99.1 F Pulse Rate 83 115 H Respiratory Rate 16 16 Blood Pressure 114/53 L 105/56 L Pulse Oximetry 98 98 Oxygen Delivery Method Nasal Cannula Oxygen Flow Rate 2 Narrative Exam Narrative: GENERAL: Alert and oriented, appearing stated age and in no acute distress. HEENT: Head normocephalic/atraumatic. LUNGS: Good inspiratory effort, oxygen cannula in place, no audible wheezes, rhonchi or rales. CV: Normal S1 and S2 with regular rate and rhythm, no audible murmurs, rubs or gallops. ABDOMEN: Soft, non-tender, non-distended, no organomegaly. Positive bowel sounds. Denies CVA tenderness. EXTREMITIES: 1+ nonpitting edema to the level of bilateral knees. NEURO: Cranial nerves II through XII grossly intact, no focal deficits. PSYCH: Alert and oriented x 3. SKIN: Some bruising, upper arms. Objective Labs Result Diagrams: 01/13/21 12:13 01/13/21 05:45 Labs: Laboratory Results - last 24 hr 01/12/21 01/12/21 01/13/21 07:06 07:06 05:45 WBC 6.2 RBC 3.76 L Hgb 11.3 L Hct 33.3 L MCV 88.6 MCH 30.1 MCHC 34.0 RDW 14.3 Plt Count 89 L Neut % (Auto) Not Reportable Lymph % (Auto) Not Reportable [place] % (Auto) Not Reportable Eos % (Auto) Not Reportable Baso % (Auto) Not Reportable Lymph # (Auto) Not Reportable [place] # (Auto) Not Reportable Baso # (Auto) Not Reportable Total Counted 100 Seg Neutrophils % 68.0 Band Neutrophils % 2.0 L Lymphocytes % (Manual) 19.0 L Atypical Lymphs % 2.0 H Monocytes % (Manual) 8.0 Eosinophils % (Manual) 1.0 L Neutrophils # (Manual) 4340 RBC Morphology Normal morphology Sodium 137 Potassium 3.2 L Chloride 98 Carbon Dioxide 33 H BUN 14 Creatinine 1.12 H Estimated GFR 48.2 L BUN/Creatinine Ratio 12.5 Glucose 105 Calcium 8.5 Phosphorus 3.3 Magnesium 1.8 Total Bilirubin 0.3 AST 35 ALT 21 Alkaline Phosphatase 196 H Total Creatine Kinase CK-MB (CK-2) CK-MB (CK-2) Rel Index Troponin I Total Protein 5.9 L Albumin 2.8 L Globulin 3.1 Albumin/Globulin Ratio 0.9 L 01/13/21 01/13/21 01/13/21 05:45 05:45 05:45 WBC 7.8 RBC 4.05 Hgb 11.9 L Hct 36.3 MCV 89.8 MCH 29.4 MCHC 32.8 RDW 14.6 Plt Count 85 L Neut % (Auto) Not Reportable Lymph % (Auto) Not Reportable [place] % (Auto) Not Reportable Eos % (Auto) Not Reportable Baso % (Auto) Not Reportable Lymph # (Auto) Not Reportable [place] # (Auto) Not Reportable Baso # (Auto) Not Reportable Total Counted Seg Neutrophils % Band Neutrophils % Lymphocytes % (Manual) Atypical Lymphs % Monocytes % (Manual) Eosinophils % (Manual) Neutrophils # (Manual) RBC Morphology Sodium 136 L Potassium 3.9 Chloride 96 L Carbon Dioxide 34 H BUN 13 Creatinine 1.09 H Estimated GFR 49.8 L BUN/Creatinine Ratio 11.9 Glucose 100 Calcium 8.7 Phosphorus Magnesium Total Bilirubin 0.4 AST 35 ALT 21 Alkaline Phosphatase 186 H Total Creatine Kinase 73 CK-MB (CK-2) TNP CK-MB (CK-2) Rel Index TNP Troponin I 0.026 Total Protein 6.0 L Albumin 2.9 L Globulin 3.1 Albumin/Globulin Ratio 0.9 L [facility] Medical History Heart attack (~2013) Social History household members: spouse Smoking Status: Former smoker alcohol intake: never Assessment & Plan Assessment & Plan narrative: 1. Atrial fibrillation with RVR, new Plan: Dr. Barker consulted. Patient now has a controlled rate but is still in fibrillation. Dr. Barker recommended attempting cardioversion with amiodarone infusion followed by drip and heparin infusion/drip, both ordered. Patient does have new-onset thrombocytopenia during this admission, hovering in the 80s. Risk of HIT discussed with Pharmacy; plan will be to proceed with heparin drip with close monitoring of platelets. Will also give 2 g of magnesium and 40 meq of potassium to keep magnesium greater than 2 and potassium greater than 4. 2. ST abnormality, inferior leads, rule out AL, new Plan: Initial troponin normal, will continue to trend cardiac enzymes. Per cardiology, patient is not a candidate for a cardiac stent. Plan as noted in #1. Patient does have a history previous AL. Will update echo. 3. Acute unilateral obstructive uropathy, right Plan: Dr. Sargent consulting. -01/11/12: Difficult right retrograde pyelogram and ureteroscopy, Dr. Sargent unable to negotiate the ureteral guidewire proximal to the stone, recommended transfer to tertiary [facility] center for IR placement of stent or nephrostomy tube. -01/12/12: Right nephrostomy tube placement by IR at [facility]. Plan: Have consulted with Dr. Sargent this morning. He recommends 14 days of antibiotics and stent placement prior to re-attempting lithotripsy. Nephrostomy tube draining well at this point, Dr. Sargent managing orders for tube. If patient remains inpatient due to cardiac instability, she will need repeat ambulance transport to/from [facility] for IR placement of ureteral stent prior to lithotripsy. Dr. Sargent has kindly agreed to manage that transport if needed as an inpatient. 4. Urinary tract infection, acute, complicated, Proteus mirabilis Plan: Continue ceftriaxone 2 g IV q.day, on day 3/14. will trend labs and watch clinical status closely. 5. Acute renal failure, resolved -Cr: 2.12 --> 1.44 --> 1.12 --> 1.09 Plan: Now taking orals, IV TKO. Woodard is in place, will watch urine output closely. Trending labs. 6. Acute infectious encephalopathy, resolved Plan: Treating underlying urinary tract infection. 7. Anemia, thrombocytopenia, elevated ALP, and smudge cells, new Plan: Concerning for CLL, outpatient oncology consult. 8. Hypokalemia, improved Plan: Will continue to replete and trend labs. Please see #1. 9. Acute protein malnutrition Plan: Have advanced diet. Nutrition consult. 10. COPD, oxygen dependent Plan: Continue home medications and oxygen per nasal cannula to maintain saturations between 88% and 94%. 11. Congestive heart failure, systolic, chronic Plan: Updating echo today and checking BNP. Watching I/O carefully. Not clinically fluid overloaded, peripheral edema at baseline and lungs are not congested. Holding metoprolol and imdur as patient will now be on amiodorone and heparin. If successfully cardioverted, will transition back to home medications. 12. Stress incontinence, urinary, chronic Plan: Woodard. 13. Chronic pain syndrome Plan: Home oxycodone as needed. 14. Hyperlipidemia, chronic Plan: Continue home atorvastatin. 15. Depression/panic disorder, chronic Plan: Continue home sertraline. 16. Obstructive sleep apnea, chronic Plan: Supportive therapy only. Patient previously unable to tolerate sleep study, does not desire CPAP. 17. Obesity, BMI greater than 40 Plan: Patient is at increased risk of delayed and poor healing. Nutrition/PT consulting. Greater than 120 minutes was spent in physician prolonged services from 07:43 to 09:46. This included evaluating the status of the patient, communicating with the patient, consulting with specialists, and directing the team attending the patient. Quality VTE Deep Vein Thrombosis/Pulmonary Embolism Present on Admission: No
[2021-01-13] MEDS: dilTIAZem 5 MG/ML SDV 25 MG IV (06:52)
--- NOTE | 2021-01-13 06:57 | DI.US.S_ITS ---
PROCEDURE: US RENAL COMPLETE INDICATIONS: RIGHT HYDRONEPHROSIS TECHNIQUE: Real-time scanning was performed of the kidneys and bladder, with image documentation. COMPARISON: [facility], CT, CT KIDNEY URETER BLADDER (KUB), 01/09/2021, 20:50. FINDINGS: Kidneys: Kidneys are normal in size. Right kidney measures 10.8 cm long; left kidney measures 10.7 cm long. Right renal cortical thickness is 1.2 cm; left renal cortical thickness is 0.9 cm. Renal cortical echotexture is normal. Mild right-sided hydronephrosis noted. No left-sided hydronephrosis. Bladder: Decompressed by Bazan catheter. Miscellaneous: No free pelvic fluid. IMPRESSION: 1. Mild right-sided hydronephrosis likely related to distal right ureteral stone identified by prior CT KUB obtained January 09, 2021. Dictated by: Renetta Astudillo MD, PhD on 01/13/2021 at 11:56 Approved by: Renetta Astudillo MD, PhD on 01/13/2021 at 11:59
[2021-01-13 07:23] LABS: NT-proBNP (BNP-Adult 18+) 3990 pg/mL (<125)
[2021-01-13 07:28] LABS: Neutrophils Absolute Manual 4524 /uL (3000-5900); RBC Morphology Normal Morphology; Total Cells Counted 100
--- NOTE | 2021-01-13 07:44 | PC.NURSE ---
At approx 0530, this RN noted pt had elevated HR on pulse ox that was irregular. Pt assessed- asymptomatic, no complaints of headache, chest pain, chest tightness, nausea, dizziness. Patient not diaphoretic & skin pink in coloration. Pt AOx4. Pt on 2L NC (baseline home O2) sats 97%. Heart rhythm auscultated and palpated as irregular. Breaths equal even unlabored. RT called for 12 lead EKG. BP low 105/56, HR between 90s and 130s. Lower output in nephrostomy and woodard cath (205 and 175 mL respectively over 8 hour period, tinged with blood). Provider financial services professional contacted. Ordered EKG and 500 cc NS bolus at 250 mL/hr, 325 mg aspirin, morning labs drawn stat. EKG returned abnormal afib rvr @ 143. Provider contacted again, pt placed on tele, given 162 mg chewable aspirin, additional labs ordered, and diltiazem (25 mg final order) administered carefully monitoring BP. Hypotensive and tachycardic. Post diltiazem administration, BP remain low (10 min after diltiazem completion but continues to rise, HR afib between 80-120.
[2021-01-13] MEDS: BUDESONIDE 0.5 MG/2 ML NEB INH ×2 (08:27→18:16)
[2021-01-13] MEDS: IPRATROPIUM 0.5 MG/2.5 ML NEB INH ×2 (08:27→18:16)
[2021-01-13] MEDS: HEPARIN 5,000 UNIT/ML VIAL 5000 UNIT IV (09:33)
[2021-01-13] MEDS: PANTOPRAZOLE DR 20 MG TABLET PO (09:33)
[2021-01-13] MEDS: ATORVASTATIN 20 MG TABLET 10 MG PO (09:34)
[2021-01-13] MEDS: MAGNESIUM SULFATE 2 GM/50 ML PIGGYBACK IV (10:08)
[2021-01-13] MEDS: POTASSIUM CHLORIDE 20 MEQ/15 ML UDC 40 MEQ PO (10:08)
[2021-01-13 10:39] LABS: PTT Partial Thromboplastin Tim 185 SECONDS (26.4-36.2)
[2021-01-13] MEDS: AMIODARONE 150 MG/100 ML PIGGYBACK 600 MG IV (10:44)
--- NOTE | 2021-01-13 11:01 | CM.DPC ---
DCP Cont: Per MD, pt on IV-Abx for gallstone and infection with possible plan of surgical intervention for gallstone in a couple days. Per RN, pt with AFIB and abnormal EKG so moving to ICU status for hep drip today. Per PT, recommending SNF vs HH pending progress. SW met bedside with pt and explained role and pt states that MD discussed pt likely being in the hospital for IV-abx and surgery through early next week. SW discussed possible d/c recommendations and she confirms that her spouse is home and retired but almost 10 years older than herself with some back pain issues so limited with physical assist but pt anticipates progressing prior to d/c for safe plan of home (no steps) with HH. Pt has no hx of HH and SW discussed HH services and frequency and provided HH Choice list. Pt has no preference for HH so SW made HH referral based on Vendor Calendar to [facility] to review but unclear if SNF vs HH needed at d/c therefore F2F for HH completed but placed in pt chart for MD to sign closer to d/c pending pt progress. Pt also discussed that her Dtr has been encouraging them to begin the process of getting a PP CG in the home soon for likely ongoing care needs and pt has been considering this for more prison assist. Plan: SW to follow closely for pt progress towards determining d/c planning needs of SNF vs home with HH. No SNF referrals made yet at this time. BRISEYDA Arenas
[2021-01-13 11:21] LABS: PTT Partial Thromboplastin Tim 104 SECONDS (26.4-36.2)
[2021-01-13] MEDS: AMIODARONE 360 MG/200 ML PIGGYBACK 33.333 MG IV (11:51)
--- NOTE | 2021-01-13 12:36 | PT-IP ANOTE ---
Pt moved to ICU due to Afib. Nurse recommends holding on PT for today until more tests are completed and pt is feeling better.
[2021-01-13 12:39] LABS: Add Manual Diff / Slide Review NO; Basophils Absolute Auto 100 /uL (0-100); Basophils Percent Auto 1.1 % (0-2); Eosinophils Absolute Auto 100 /uL (0-450); Eosinophils Percent Auto 1.4 % (2-4); Hematocrit 37.4 % (36-46); Hemoglobin 12.2 g/dL (12.0-16.0); Lymphocytes Absolute Auto 2200 /uL (1100-4500); Lymphocytes Percent Auto 24.3 % (25-40); Mean Corpuscular HGB Conc 32.5 % (30-36); Mean Corpuscular Hemoglobin 29.2 PG (26-34); Mean Corpuscular Volume 89.7 fL (80-100); Monocytes Absolute Auto 400 /uL (0-900); Monocytes Percent Auto 4.9 % (3-14); Neutrophils Absolute Auto 6100 /uL (1500-7000); Neutrophils Percent Auto 68.3 % (50-75); Platelet Count 98 X10^3/uL (150-400); Red Blood Cell Count 4.17 X10^6/uL (4.0-5.2); Red Cell Distribution Width 14.4 % (11.6-14.8)
[2021-01-13 12:48] LABS: INR 1.2 (0.9-1.3); Prothrombin Time 13.3 SECONDS (10.1-12.7)
[2021-01-13 12:49] LABS: Fibrinogen 446 mg/dL (211-428)
[2021-01-13] MEDS: METOPROLOL IR 25 MG TABLET PO ×2 (12:49→19:26)
--- NOTE | 2021-01-13 12:58 | CM.MNRNOTE ---
Addendum entered by Mally Mejia R.N. 01/13/21 14:03: 1334-Pt has converted to NSR. HR is in the 90's. Pt notices no changes Original Note: Pt arrived from room 206, transfer started on Amioderone prior to arriving in room 229 HR sustaining at 150's, Pt reports no s/sx, no chest pain no dizziness, no SOB. Pt unaware of HR until updated by this RN. Pt requesting to use BSC. Explained rationale for bedrest and bedpan with current HR. Pt is frustrated by this but understands. Mag infusing, amioderone infusing at 33.3mls/hr. 2L of o2 in place for spo2 98% Call light in reach. Denies needs at present. 1230-Call from Dr Conner stop heparin, restart Metprolol PO q6 Update on current HR. Update to Pt.
[2021-01-13 12:59] LABS: D Dimer 876 ng/mL (<230)
--- NOTE | 2021-01-13 13:30 | P.PN_ITS ---
Subjective Subjective Date Patient Seen: 01/13/21 Time Patient Seen: 13:30 Interval history: Postop day 3. Status post cystoscopy and attempted right ureteral stent placement and procedure day 2. Status post successful placement of right percutaneous nephrostomy. She denies interval complaints. She denies pain. Earlier this morning she developed apparent AFib with rapid ventricular response. Labs and studies are pending. I spoke with her PCP and we had a lengthy discussion regarding coordination care in management of her chronic and current issues. The patient is temporized currently with the right nephrostomy pending further cardiac evaluation and interventions as indicated. Exam Vital Signs (past 8 hours): - 01/13/21 06:52 01/13/21 07:06 01/13/21 07:10 Temperature Pulse Rate 147 H Respiratory Rate Blood Pressure 116/61 94/63 105/56 L Pulse Oximetry 01/13/21 07:15 01/13/21 07:23 01/13/21 07:25 Temperature Pulse Rate 88 Respiratory Rate Blood Pressure 135/60 107/55 L 107/55 L Pulse Oximetry 01/13/21 07:30 01/13/21 07:38 01/13/21 08:07 Temperature Pulse Rate Respiratory Rate Blood Pressure 108/45 L 121/53 L 98/58 L Pulse Oximetry 01/13/21 08:22 01/13/21 08:35 01/13/21 11:41 Temperature 97.0 F L 97.2 F L Pulse Rate 58 L 89 106 H Respiratory Rate 16 16 20 Blood Pressure 133/69 106/43 L Pulse Oximetry 95 99 98 01/13/21 12:00 01/13/21 13:00 Temperature 98.0 F 97.7 F Pulse Rate 160 H 128 H Respiratory Rate 21 20 Blood Pressure 132/64 136/58 L Pulse Oximetry 98 96 Oxygen Delivery Method Nasal Cannula Oxygen Flow Rate 2 Narrative Exam Narrative: She is sitting comfortably upright in bed no acute distress chatting with a family member under phone. Abdomen is soft bowel tones are normal and his no tenderness. Right nephrostomy intact with blood-tinged urine and no clots. Bazan indwelling also with blind blood-tinged urine without clot. Objective Labs Result Diagrams: 01/13/21 12:13 01/13/21 05:45 Labs: Laboratory Results - last 24 hr 01/13/21 01/13/21 01/13/21 05:45 05:45 05:45 WBC 7.8 RBC 4.05 Hgb 11.9 L Hct 36.3 MCV 89.8 MCH 29.4 MCHC 32.8 RDW 14.6 Plt Count 85 L Neut % (Auto) Not Reportable Lymph % (Auto) Not Reportable [place] % (Auto) Not Reportable Eos % (Auto) Not Reportable Baso % (Auto) Not Reportable Neut # (Auto) Lymph # (Auto) Not Reportable [place] # (Auto) Not Reportable Eos # (Auto) Baso # (Auto) Not Reportable Total Counted 100 Seg Neutrophils % 57.0 Band Neutrophils % 1.0 L Lymphocytes % (Manual) 29.0 Atypical Lymphs % 4.0 H Monocytes % (Manual) 4.0 Eosinophils % (Manual) 4.0 Metamyelocytes % 1.0 H Neutrophils # (Manual) 4524 RBC Morphology Normal morphology PT INR APTT Fibrinogen D-Dimer Sodium 136 L Potassium 3.9 Chloride 96 L Carbon Dioxide 34 H BUN 13 Creatinine 1.09 H Estimated GFR 49.8 L BUN/Creatinine Ratio 11.9 Glucose 100 Calcium 8.7 Phosphorus 3.3 Magnesium 1.8 Total Bilirubin 0.4 AST 35 ALT 21 Alkaline Phosphatase 186 H Total Creatine Kinase CK-MB (CK-2) CK-MB (CK-2) Rel Index Troponin I NT-Pro-B Natriuret Pep Total Protein 6.0 L Albumin 2.9 L Globulin 3.1 Albumin/Globulin Ratio 0.9 L TSH 01/13/21 01/13/21 01/13/21 05:45 05:45 05:45 WBC RBC Hgb Hct MCV MCH MCHC RDW Plt Count Neut % (Auto) Lymph % (Auto) [place] % (Auto) Eos % (Auto) Baso % (Auto) Neut # (Auto) Lymph # (Auto) [place] # (Auto) Eos # (Auto) Baso # (Auto) Total Counted Seg Neutrophils % Band Neutrophils % Lymphocytes % (Manual) Atypical Lymphs % Monocytes % (Manual) Eosinophils % (Manual) Metamyelocytes % Neutrophils # (Manual) RBC Morphology PT INR APTT Fibrinogen D-Dimer Sodium Potassium Chloride Carbon Dioxide BUN Creatinine Estimated GFR BUN/Creatinine Ratio Glucose Calcium Phosphorus Magnesium Total Bilirubin AST ALT Alkaline Phosphatase Total Creatine Kinase 73 CK-MB (CK-2) TNP CK-MB (CK-2) Rel Index TNP Troponin I 0.026 NT-Pro-B Natriuret Pep 3990 H Total Protein Albumin Globulin Albumin/Globulin Ratio TSH 4.90 H 01/13/21 01/13/21 01/13/21 10:05 11:00 12:13 WBC RBC Hgb Hct MCV MCH MCHC RDW Plt Count Neut % (Auto) Lymph % (Auto) [place] % (Auto) Eos % (Auto) Baso % (Auto) Neut # (Auto) Lymph # (Auto) [place] # (Auto) Eos # (Auto) Baso # (Auto) Total Counted Seg Neutrophils % Band Neutrophils % Lymphocytes % (Manual) Atypical Lymphs % Monocytes % (Manual) Eosinophils % (Manual) Metamyelocytes % Neutrophils # (Manual) RBC Morphology PT 13.3 H INR 1.2 APTT 185 H* D 104 H* D Fibrinogen D-Dimer 876 H Sodium Potassium Chloride Carbon Dioxide BUN Creatinine Estimated GFR BUN/Creatinine Ratio Glucose Calcium Phosphorus Magnesium Total Bilirubin AST ALT Alkaline Phosphatase Total Creatine Kinase CK-MB (CK-2) CK-MB (CK-2) Rel Index Troponin I NT-Pro-B Natriuret Pep Total Protein Albumin Globulin Albumin/Globulin Ratio TSH 01/13/21 01/13/21 12:13 12:13 WBC 9.0 RBC 4.17 Hgb 12.2 Hct 37.4 MCV 89.7 MCH 29.2 MCHC 32.5 RDW 14.4 Plt Count 98 L Neut % (Auto) 68.3 Lymph % (Auto) 24.3 L [place] % (Auto) 4.9 Eos % (Auto) 1.4 L Baso % (Auto) 1.1 Neut # (Auto) 6100 Lymph # (Auto) 2200 [place] # (Auto) 400 Eos # (Auto) 100 Baso # (Auto) 100 Total Counted Seg Neutrophils % Band Neutrophils % Lymphocytes % (Manual) Atypical Lymphs % Monocytes % (Manual) Eosinophils % (Manual) Metamyelocytes % Neutrophils # (Manual) RBC Morphology PT INR APTT Fibrinogen 446 H D-Dimer Sodium Potassium Chloride Carbon Dioxide BUN Creatinine Estimated GFR BUN/Creatinine Ratio Glucose Calcium Phosphorus Magnesium Total Bilirubin AST ALT Alkaline Phosphatase Total Creatine Kinase CK-MB (CK-2) CK-MB (CK-2) Rel Index Troponin I NT-Pro-B Natriuret Pep Total Protein Albumin Globulin Albumin/Globulin Ratio TSH [facility] Medical History Heart attack (~2013) Social History household members: spouse Smoking Status: Former smoker alcohol intake: never Assessment & Plan Assessment & Plan narrative: Assessment: 1. Stable postop day 3. And procedural day 2. For obstructing, 8 mm right distal ureteral calculus. 2. Right percutaneous nephrostomy. 3. Proteus mirabilis UTI/right pyelonephritis. Plan: 1. Patient will require conversion to right ureteral stent (see previous progress notes), either as inpatient or as outpatient. 2. Recommend 2 full weeks of appropriate antibiotic coverage for Proteus mirabilis. 3. We will schedule future cystoscopy and right ureteroscopic laser lithotripsy after above and after cardiac evaluation interventions in clearance provided. Quality VTE Deep Vein Thrombosis/Pulmonary Embolism Present on Admission: No
[2021-01-13 15:26] LABS: Troponin I 0.051 ng/mL (0.01-0.034)
[2021-01-13] MEDS: SODIUM CHLORIDE 0.9% 1,000 ML 120 ML IV (21:03)
--- NOTE | 2021-01-13 22:22 | PC.NURSE ---
Nephrostomy draining blood tinged urine, Bazan not draining urine. Bladder scan done, 1ml in bladder, Dr. Rosen notified, orders received for NS 120ml/hr x 12 hr. Pt denies pain or discomfort, monitor continues to show NSR rate 60-70s.
[2021-01-14] VITALS (9 sets, daily range): BP systolic 108–168; BP diastolic 53–72; PULSE 59–76; RESP 16–25; TEMP 36.1–37.1; O2SAT 97–100
[2021-01-14] MEDS: cefTRIAXone 2,000 MG in SODIUM CHLORIDE 0.9% 100 ML 200 ML IV ×2 (00:06→22:48)
[2021-01-14] MEDS: METOPROLOL IR 25 MG TABLET PO ×2 (00:06→11:51)
[2021-01-14 04:49] LABS: Hematocrit 32.9 % (36-46); Hemoglobin 10.8 g/dL (12.0-16.0); Mean Corpuscular HGB Conc 32.7 % (30-36); Mean Corpuscular Hemoglobin 29.5 PG (26-34); Mean Corpuscular Volume 90.2 fL (80-100); Platelet Count 89 X10^3/uL (150-400); Red Blood Cell Count 3.65 X10^6/uL (4.0-5.2); Red Cell Distribution Width 14.5 % (11.6-14.8); White Blood Cell Count 8.9 X10^3/uL (4.5-11.0)
[2021-01-14 04:51] LABS: Add Manual Diff / Slide Review YES
[2021-01-14 04:52] LABS: INR 1.1 (0.9-1.3); Prothrombin Time 12.4 SECONDS (10.1-12.7)
[2021-01-14 04:55] LABS: D Dimer 742 ng/mL (<230); PTT Partial Thromboplastin Tim 35 SECONDS (26.4-36.2)
[2021-01-14 05:04] LABS: Fibrinogen 426 mg/dL (211-428)
[2021-01-14 05:15] LABS: Alanine Aminotransferase 19 IU/L (<35); Albumin 2.6 g/dL (3.5-5.0); Alkaline Phosphatase 141 U/L (38-126); Aspartate Aminotransferase 31 IU/L (14-36); BUN Creatinine Ratio 14.4 (6-22); Bilirubin Total 0.2 mg/dL (0.2-1.3); Blood Urea Nitrogen 15 mg/dL (7-17); Calcium 8.3 mg/dL (8.4-10.2); Carbon Dioxide 32 mmol/L (22-32); Chloride 100 mmol/L (98-107); Estimated Glomerular Filt Rate 52.5 mL/min (>60); Globulin 2.7 g/dL (1.7-4.1); Glucose 109 mg/dL (80-110); HEMOLYSIS < 15 (0-50); Potassium 3.7 mmol/L (3.4-5.1); Sodium 135 mmol/L (137-145); Total Protein 5.3 g/dL (6.3-8.2)
[2021-01-14 05:16] LABS: Magnesium 2.2 mg/dL (1.6-2.3); Phosphorous 3.7 mg/dL (2.8-4.1)
[2021-01-14 05:23] LABS: Troponin I 0.042 ng/mL (0.01-0.034)
[2021-01-14] MEDS: SODIUM CHLORIDE 0.9% 1,000 ML 120 ML IV (05:49)
[2021-01-14 06:05] LABS: Neutrophils Absolute Manual 5251 /uL (3000-5900); RBC Morphology Normal Morphology; Total Cells Counted 100
--- NOTE | 2021-01-14 07:26 | P.PN_ITS ---
Subjective Subjective Date Patient Seen: 01/14/21 Time Patient Seen: 07:26 Interval history: Patient doing well this morning no complaints of pain. Vital signs are stable afebrile. Patient has had no further episodes of atrial fibrillation. Some mild bradycardia. Blood pressures are low but not significantly hypotensive. There is decreased output from her Bazan catheter. Good output from the nephrostomy receiving some gentle IV fluids yesterday evening. Exam Vital Signs (past 8 hours): - 01/13/21 23:35 01/14/21 04:45 Temperature 97.9 F 98.7 F Pulse Rate 74 68 Respiratory Rate 24 21 Blood Pressure 114/57 L 128/61 Pulse Oximetry 96 97 Oxygen Delivery Method Nasal Cannula Oxygen Flow Rate 2 Narrative Exam Narrative: Gen.: Alert good historian no apparent distress HEENT: Pupils equal round and reactive or mucosa is moist neck is supple Cardio: S1-S2 regular rate and rhythm Respiratory: Lungs are clear no wheezes or crackles Abdomen: Soft nontender. No rebound or guarding Extremities: Full range of motion some edema Drains: Bazan catheter in place. Right nephrostomy in place both draining Objective Labs Result Diagrams: 01/14/21 04:30 01/14/21 04:30 Labs: Laboratory Results - last 24 hr 01/13/21 01/13/21 01/13/21 05:45 10:05 11:00 WBC RBC Hgb Hct MCV MCH MCHC RDW Plt Count Neut % (Auto) Lymph % (Auto) [place] % (Auto) Eos % (Auto) Baso % (Auto) Neut # (Auto) Lymph # (Auto) [place] # (Auto) Eos # (Auto) Baso # (Auto) Total Counted 100 Seg Neutrophils % 57.0 Band Neutrophils % 1.0 L Lymphocytes % (Manual) 29.0 Atypical Lymphs % 4.0 H Monocytes % (Manual) 4.0 Eosinophils % (Manual) 4.0 Metamyelocytes % 1.0 H Myelocytes % Neutrophils # (Manual) 4524 RBC Morphology Normal morphology PT INR APTT 185 H* D 104 H* D Fibrinogen D-Dimer Sodium Potassium Chloride Carbon Dioxide BUN Creatinine Estimated GFR BUN/Creatinine Ratio Glucose Calcium Phosphorus Magnesium Total Bilirubin AST ALT Alkaline Phosphatase Troponin I Total Protein Albumin Globulin Albumin/Globulin Ratio Nasal Screen MRSA (PCR) 01/13/21 01/13/21 01/13/21 12:05 12:13 12:13 WBC RBC Hgb Hct MCV MCH MCHC RDW Plt Count Neut % (Auto) Lymph % (Auto) [place] % (Auto) Eos % (Auto) Baso % (Auto) Neut # (Auto) Lymph # (Auto) [place] # (Auto) Eos # (Auto) Baso # (Auto) Total Counted Seg Neutrophils % Band Neutrophils % Lymphocytes % (Manual) Atypical Lymphs % Monocytes % (Manual) Eosinophils % (Manual) Metamyelocytes % Myelocytes % Neutrophils # (Manual) RBC Morphology PT 13.3 H INR 1.2 APTT Fibrinogen 446 H D-Dimer 876 H Sodium Potassium Chloride Carbon Dioxide BUN Creatinine Estimated GFR BUN/Creatinine Ratio Glucose Calcium Phosphorus Magnesium Total Bilirubin AST ALT Alkaline Phosphatase Troponin I Total Protein Albumin Globulin Albumin/Globulin Ratio Nasal Screen MRSA (PCR) Negative for mrsa 01/13/21 01/13/21 01/14/21 12:13 14:45 04:30 WBC 9.0 RBC 4.17 Hgb 12.2 Hct 37.4 MCV 89.7 MCH 29.2 MCHC 32.5 RDW 14.4 Plt Count 98 L Neut % (Auto) 68.3 Lymph % (Auto) 24.3 L [place] % (Auto) 4.9 Eos % (Auto) 1.4 L Baso % (Auto) 1.1 Neut # (Auto) 6100 Lymph # (Auto) 2200 [place] # (Auto) 400 Eos # (Auto) 100 Baso # (Auto) 100 Total Counted Seg Neutrophils % Band Neutrophils % Lymphocytes % (Manual) Atypical Lymphs % Monocytes % (Manual) Eosinophils % (Manual) Metamyelocytes % Myelocytes % Neutrophils # (Manual) RBC Morphology PT INR APTT Fibrinogen D-Dimer Sodium Potassium Chloride Carbon Dioxide BUN Creatinine Estimated GFR BUN/Creatinine Ratio Glucose Calcium Phosphorus 3.7 Magnesium 2.2 Total Bilirubin AST ALT Alkaline Phosphatase Troponin I 0.051 H Total Protein Albumin Globulin Albumin/Globulin Ratio Nasal Screen MRSA (PCR) 01/14/21 01/14/21 01/14/21 04:30 04:30 04:30 WBC RBC Hgb Hct MCV MCH MCHC RDW Plt Count Neut % (Auto) Lymph % (Auto) [place] % (Auto) Eos % (Auto) Baso % (Auto) Neut # (Auto) Lymph # (Auto) [place] # (Auto) Eos # (Auto) Baso # (Auto) Total Counted Seg Neutrophils % Band Neutrophils % Lymphocytes % (Manual) Atypical Lymphs % Monocytes % (Manual) Eosinophils % (Manual) Metamyelocytes % Myelocytes % Neutrophils # (Manual) RBC Morphology PT 12.4 INR 1.1 APTT 35 D Fibrinogen 426 D-Dimer 742 H Sodium Potassium Chloride Carbon Dioxide BUN Creatinine Estimated GFR BUN/Creatinine Ratio Glucose Calcium Phosphorus Magnesium Total Bilirubin AST ALT Alkaline Phosphatase Troponin I 0.042 H Total Protein Albumin Globulin Albumin/Globulin Ratio Nasal Screen MRSA (PCR) 01/14/21 01/14/21 04:30 04:30 WBC 8.9 RBC 3.65 L Hgb 10.8 L Hct 32.9 L MCV 90.2 MCH 29.5 MCHC 32.7 RDW 14.5 Plt Count 89 L Neut % (Auto) Not Reportable Lymph % (Auto) Not Reportable [place] % (Auto) Not Reportable Eos % (Auto) Not Reportable Baso % (Auto) Not Reportable Neut # (Auto) Lymph # (Auto) Not Reportable [place] # (Auto) Not Reportable Eos # (Auto) Baso # (Auto) Not Reportable Total Counted 100 Seg Neutrophils % 55.0 Band Neutrophils % 4.0 Lymphocytes % (Manual) 38.0 Atypical Lymphs % Monocytes % (Manual) 2.0 Eosinophils % (Manual) Metamyelocytes % Myelocytes % 1.0 H Neutrophils # (Manual) 5251 RBC Morphology Normal morphology PT INR APTT Fibrinogen D-Dimer Sodium 135 L Potassium 3.7 Chloride 100 Carbon Dioxide 32 BUN 15 Creatinine 1.04 Estimated GFR 52.5 L BUN/Creatinine Ratio 14.4 Glucose 109 Calcium 8.3 L Phosphorus Magnesium Total Bilirubin 0.2 AST 31 ALT 19 Alkaline Phosphatase 141 H Troponin I Total Protein 5.3 L Albumin 2.6 L Globulin 2.7 Albumin/Globulin Ratio 1.0 Nasal Screen MRSA (PCR) [facility] Medical History Heart attack (~2013) Social History household members: spouse Smoking Status: Former smoker alcohol intake: never Assessment & Plan Assessment & Plan narrative: Right unilateral obstructive uropathy due to 8 mm kidney stone. Being managed by Dr. Sargent urology. Unsuccessful removal of stone with lithotripsy and or stenting. Patient transferred to [facility] where she underwent right-sided paracutaneous nephrostomy tube placement. Will need further surgical/interventional procedures for removal of stone. This will be arranged by Dr. Sargent. Atrial fibrillation with rapid ventricular response patient now in normal sinus rhythm. Patient's pulse is a little bit low at times she is running some mildly low blood pressures. Will make arrangements to adjust her beta-gabriella for good heart rate control prevention of Reoccurrence of atrial fibrillation. Not a good candidate for anticoagulation at this time due to ongoing surgical intervention procedures as well as concern with the elevated PT INR and low platelets. Type [address] myocardial [address] with ST abnormalities during episode of AFib with rapid ventricular response cardiac troponin elevated and is now starting to trend down. Continue with beta-gabriella as per Cardiology not a candidate for interventional procedures on heart at this time and we will proceed with continue medical management. Sepsis due to Pyelonephritis urinary tract infection and infected kidney stone continue with the current antibiotic orders cultures growing Proteus susceptible to the Rocephin which she is on. White blood cell count stable afebrile. Acute kidney injury with resolution monitor closely electrolytes. Creatinine is stable Encephalopathy due to underlying infection resolved Anemia thrombocytopenia. Question infectious etiology versus myeloproliferative disorder. COPD chronic and stable patient is oxygen dependent at home. Obstructive sleep apnea Obesity BMI greater than 40 Quality VTE Deep Vein Thrombosis/Pulmonary Embolism Present on Admission: No
[2021-01-14] MEDS: BUDESONIDE 0.5 MG/2 ML NEB INH ×2 (07:55→19:25)
[2021-01-14] MEDS: IPRATROPIUM 0.5 MG/2.5 ML NEB INH ×2 (07:55→19:25)
[2021-01-14] MEDS: ATORVASTATIN 20 MG TABLET 10 MG PO (09:30)
[2021-01-14] MEDS: PANTOPRAZOLE DR 20 MG TABLET PO (09:30)
--- NOTE | 2021-01-14 11:31 | RT ---
Patient currently wears 2L oxygen all the time at home her provider is Na[facility]
--- NOTE | 2021-01-14 11:44 | PT.IPTN ---
Current Diagnoses Acute kidney failure, unspecified (01/09/21) Surgery Performed Operation Date: 01/10/21 17:30 Actual Procedures p Cystoscopy w/right ureteroscopy(Right) - Shayna Sargent MD Physical Therapy Treatment Note M2 PT-IP Current Condition Start: 01/10/21 12:53 Freq: NEEDED Status: Active Protocol: Document 01/10/21 11:25 AB (Rec: 01/10/21 13:04 AB [id number]) Physical Therapy Current Condition Current Condition Evaluation Date 01/10/21 Treatment Diagnosis UTI; urethral calculus; difficulty in walking Onset Date 01/09/21 Precautions Other Precautions falls M3 PT-IP Subjective Start: 01/10/21 12:53 Freq: NEEDED Status: Active Protocol: Document 01/14/21 11:04 SP (Rec: 01/14/21 13:45 SP [id number]) Subjective Physical Therapy Visit Type Type Treatment Note Visit Start Time 11:04 Visit Stop Time 11:44 Total Visit Minutes 40 Notes Vitals taken: elevated supine: BP 154/68, HR 67, SaO2 99% on 2L. seated at EOB: 159/98 HR mid 70s, SaO2 89-96% on 2L, improved with cues for breath. ANIMAL ECOLOGIST in room intermittently changing bedding. Number of FIRMWARE ENGINEER Visits 2 Physical Therapy Visit Comments Patient Comments Pt motivated to working with therapy. Therapy Pain Assessment Pain Present Pain Present Denied Pain M4 PT-IP Mobility and Gait Start: 01/10/21 12:53 Freq: NEEDED Status: Active Protocol: Document 01/14/21 11:04 SP (Rec: 01/14/21 13:45 SP [id number]) PT-Bed Mobility Assessment Supine to Sit Supine to Sit Moderate Assistance,1 Person Assistance,Head of Bed Elevated,Bedrails Scooting Scooting to Edge of Bed Moderate Assistance PT-Transfer Assessment Sit to and From Stand Sit to and from Stand Minimal Assistance,1 Person Assistance,Use of Upper Extremities Equipment Transfer Assistive Device Gait Belt,Front Wheeled Walker Orthotic/Prosthetic Devices or Brace: No Transfers Transfer Destination Chair Transfer Technique Stand Step Pivot Transfer Ability Level of Assist Minimal Assistance,1 Person Assistance,Use of Upper Extremities Comments Mobility Comments Pt completed elevated supine to sitting, scoot to EOB with use of R bed rail and therapist hand to pull from, Mod A x1. Sit>stand Min A x1, SPT bed>chair and slow descent using BUE CGA using fWW. rested in chair for 3 min sit> stand, ambulated 20 ft using FWW CGA with FIRMWARE ENGINEER managing O2 and cardiac tubing, catheter and nephrostomy bag secured on FWW. Pt returned to chair CGA . Pt had call light and all needs in reach before left. Gait Assessment Gait Gait Assistance Required: Contact Guard Assist,1 Person Assist Distance (Feet) 20 Able to Maintain Weight Bearing Status Yes During Gait Assistive Devices Assistive Device Gait Belt,Front Wheeled Walker Orthotic/Prosthetic Devices or Brace: No Gait Deviations General Gait Pattern Antalgic,Decreased Stride Length,Decreased Feet Clearance Factors Limiting Gait Function Factors Limiting Gait Function Decreased Activity Tolerance, Decreased Strength,Pain,Poor Balance Comments Gait Comments See mobility comments. Stair Climbing Assessment Comments Stair Climbing Comments not need to assess, has ramp to enter home and no stairs inside to assess. PT-Balance Assessment Sitting Balance and Reactions Static Sitting Balance Ability Good Dynamic Sitting Balance Ability Good Standing Balance and Reactions Static Standing Balance Ability Good Dynamic Standing Balance Ability Fair Device Used FWW M5 PT-IP Objective Assessments Start: 01/10/21 12:53 Freq: NEEDED Status: Active Protocol: Document 01/10/21 11:25 AB (Rec: 01/10/21 13:04 AB [email or web address]) Orientation Orientation/Cognition Level of Alertness Confusional State Orientation Name,Month,Date Safety Awareness Decreased Safety Awareness Memory Description Short Term Impaired Comments pt is not consistent with answering questions Gross Range of Motion Lower Extremity ROM Assessment Within Functional Limits Strength Lower Extremity Strength Assessment Bilaterally Impaired Hip 3+/5 Knee 3+/5 Ankle 3+/5 Muscle Tone Muscle Tone WNL Yes M6 PT-IP Treatment Start: 01/10/21 12:53 Freq: NEEDED Status: Active Protocol: Document 01/14/21 11:04 SP (Rec: 01/14/21 13:45 SP [id number]) Physical Therapy Treatment Education Education Provided Weight Bearing Status,Safety Other Treatments Other Treatment Performed Reviewed breath for O2 absorption with improvement in saturation during mobiltiy. Education provided for elevated recliner at home only find height need get in/ out and leave alone to allow UE/ LE strength sit<> stands with verbalized understanding. M7 PT-IP Assessment and Plan Start: 01/10/21 12:53 Freq: NEEDED Status: Active Protocol: Document 01/14/21 11:04 SP (Rec: 01/14/21 13:45 SP [id number]) PT Summary Assessment and Plan Potential Rehabilitation Potential Fair Status of Condition at Evaluation Evolving Summary Impairments Pain,ROM,Strength,Balance, Cognition,Bed Mobility, Transfers,Gait,Activity Tolerance Progress Towards Goals Progressing Toward Goals,Slow Progress due to Medical Issues ,Slow Progress due to Activity Tolerance Assessment Summary Pt improving in mobility, Mod A x1 for bed mob, Min A x1 sit <>stand, CGA during short distance gait 20 ft thus far. Pt would benefit from continued acute PT to progress strength and functional independence. Will continue to assess progress. Goals Bed Mobility Goal Standby Assistance Transfer Goal Standby Assistance,Front Wheeled Walker Gait Goal Standby Assistance,Front Wheel Walker Gait Distance 150 Other Goals improve ambulation using 4WW SBA 200 ft Days to Meet Goals 10 Frequency of Treatment Frequency Of Treatment Once a Day Treatment Plan Physical Therapy Treatment Plan Bed Mobility Training,Transfer Training,Gait Training, Therapeutic Exercise,Balance Retraining,Discharge Planning, Hot or Cold Pack,Neuromuscular Re-ed,Coordination Retraining Other Recommendations and Next Treatment bed mob, transfers, gait fww Focus vs 4WW, caregiver training with spouse when closer to [place] if safe to go home vs SNF. Precautions Other Precautions falls Recommendations To Nursing Amount of Assist Needed 1 Person Assist Discharge Recommendations PT Discharge Recommendations Home with / Assist Available,Home Health,SNF Rehab,Home vs SNF Other Discharge Recommendations FWW if unsafe with 4WW. Transportation Needs at Discharge Wheelchair/Cabulance
[2021-01-14] MEDS: POTASSIUM CHLORIDE 10 MEQ TAB 20 MEQ PO (11:50)
--- NOTE | 2021-01-14 12:01 | PC.NURSE ---
pt up in chair with 1 person assist with gait belt and pt using walker. pt now floor care with Tele. pt denies pain. nephostomy tube flushed with 5ml NS. 2 saline locks, both flushed.
--- NOTE | 2021-01-14 13:42 | CM.DPC ---
DCP Home vs SNF planning: Per Urologist, still recommending surgical intervention for removal of her large stone but will need higher level of care for the surgery and unclear at this time if pt will require hospital transfer for procedure or scheduled as outpt. Recommendation for 2 weeks of appropriate antibiotics for pt's Proteus mirabilis, but unclear with RN and SW if this could be oral or needs to be IV-Abx. Pt currently on IV Ceftriaxone Q24. SW attempted to contact the rounding MD today and left msg regarding antibiotics needs at d/c. Per HARDWARE DEVELOPER, pt improved today and ambulated mostly CGA and anticipate she will continue to progress for safe d/c home with HH. [facility] referral made yesterday and F2F completed but still needs MD signature and copy in the chart for MD to sign as well. Per RN, pt has converted to sinus rhythm and now can be moved out of ICU to acute care floor status. SW met bedside with pt and explained role again and discussed possible plan of home with HH and spouse in [place] (pt states she lives in the [facility] [place] dept) and she is very agreeable with this plan. SW also discussed possible need for IV-Abx at d/c and possible options of home infusion vs SNF. SW provided the SNF Choice list to review and pt states her preference would be home if possible but agreeable if SNF is the option needed. Plan: SW to follow closely with either Urologist or rounding tomorrow towards determining orals vs IV-Abx to finalize discharge plan of home with HH vs home infusion vs SNF. Pt has [facility] and would have coverage but if SNF then auth would be needed. BRISEYDA Arenas
[2021-01-14] MEDS: METOPROLOL ER 50 MG TABLET PO (20:52)
[2021-01-15] VITALS (10 sets, daily range): BP systolic 106–122; BP diastolic 51–63; PULSE 65–78; RESP 16–20; TEMP 36.2–36.5; O2SAT 96–99
[2021-01-15 04:44] LABS: Hematocrit 31.1 % (36-46); Hemoglobin 10.3 g/dL (12.0-16.0); Mean Corpuscular Hemoglobin 29.6 PG (26-34); Mean Corpuscular Volume 89.7 fL (80-100); Platelet Count 100 X10^3/uL (150-400); Red Blood Cell Count 3.47 X10^6/uL (4.0-5.2); Red Cell Distribution Width 14.6 % (11.6-14.8); White Blood Cell Count 8.6 X10^3/uL (4.5-11.0)
[2021-01-15 04:46] LABS: Add Manual Diff / Slide Review YES
[2021-01-15 05:02] LABS: Magnesium 1.9 mg/dL (1.6-2.3); Phosphorous 3.2 mg/dL (2.8-4.1)
[2021-01-15 05:03] LABS: Alanine Aminotransferase 18 IU/L (<35); Albumin 2.5 g/dL (3.5-5.0); Albumin Globulin Ratio 0.9 (1.0-2.8); Alkaline Phosphatase 123 U/L (38-126); Aspartate Aminotransferase 29 IU/L (14-36); BUN Creatinine Ratio 19.4 (6-22); Bilirubin Total < 0.1 mg/dL (0.2-1.3); Blood Urea Nitrogen 18 mg/dL (7-17); Calcium 8.5 mg/dL (8.4-10.2); Carbon Dioxide 32 mmol/L (22-32); Chloride 100 mmol/L (98-107); Estimated Glomerular Filt Rate 59.8 mL/min (>60); Globulin 2.7 g/dL (1.7-4.1); Glucose 100 mg/dL (80-110); HEMOLYSIS 17 (0-50); Potassium 3.8 mmol/L (3.4-5.1); Sodium 135 mmol/L (137-145); Total Protein 5.2 g/dL (6.3-8.2)
[2021-01-15 08:09] LABS: Neutrophils Absolute Manual 5418 /uL (3000-5900); Total Cells Counted 100
[2021-01-15] MEDS: SODIUM CHLORIDE 0.9% FLUSH 10 ML IV ×2 (08:42→21:14)
[2021-01-15] MEDS: PANTOPRAZOLE DR 20 MG TABLET PO (08:42)
[2021-01-15] MEDS: POTASSIUM CHLORIDE 10 MEQ TAB 20 MEQ PO (08:42)
[2021-01-15] MEDS: METOPROLOL ER 50 MG TABLET PO ×2 (08:42→21:13)
[2021-01-15] MEDS: BUDESONIDE 0.5 MG/2 ML NEB INH ×2 (09:18→23:16)
[2021-01-15] MEDS: IPRATROPIUM 0.5 MG/2.5 ML NEB INH ×2 (09:19→23:16)
--- NOTE | 2021-01-15 09:48 | PT.IPTN ---
Current Diagnoses Acute kidney failure, unspecified (01/09/21) Surgery Performed Operation Date: 01/10/21 17:30 Actual Procedures p Cystoscopy w/right ureteroscopy(Right) - Shayna Sargent MD Physical Therapy Treatment Note M2 PT-IP Current Condition Start: 01/10/21 12:53 Freq: NEEDED Status: Active Protocol: Document 01/10/21 11:25 AB (Rec: 01/10/21 13:04 AB [email or web address]) Physical Therapy Current Condition Current Condition Evaluation Date 01/10/21 Treatment Diagnosis UTI; urethral calculus; difficulty in walking Onset Date 01/09/21 Precautions Other Precautions falls M3 PT-IP Subjective Start: 01/10/21 12:53 Freq: NEEDED Status: Active Protocol: Document 01/15/21 09:22 SP (Rec: 01/15/21 13:14 SP [id number]) Subjective Physical Therapy Visit Type Type Treatment Note Visit Start Time 09:22 Visit Stop Time 09:48 Total Visit Minutes 26 Notes Vital taken during tx: supine: BP 138/64 HR SaO2 mid 90s on 2L, Post mobility seated in chair: BP 147/66, HR 67, SaO2 93%on 2L quickly recovered 98% in seconds with breath Number of CHEESE PANCAKE ROLLER Visits 3 Physical Therapy Visit Comments Patient Comments Pt motivated to working with therapy. Therapy Pain Assessment Pain Present Pain Present Denied Pain M4 PT-IP Mobility and Gait Start: 01/10/21 12:53 Freq: NEEDED Status: Active Protocol: Document 01/15/21 09:22 SP (Rec: 01/15/21 13:14 SP [id number]) PT-Bed Mobility Assessment Rolling Type of Rolling Log Rolling,Roll to Right Level of Assist Moderate Assistance,1 Person Assistance Supine to Sit Supine to Sit Maximum Assistance,1 Person Assistance,Head of Bed Elevated,Bedrails Scooting Scooting to Edge of Bed Moderate Assistance PT-Transfer Assessment Sit to and From Stand Sit to and from Stand Contact Guard Assistance, Minimal Assistance,1 Person Assistance,Use of Upper Extremities Equipment Transfer Assistive Device Gait Belt,Front Wheeled Walker Orthotic/Prosthetic Devices or Brace: No Transfers Transfer Destination Chair Transfer Technique Stand Step Pivot Transfer Ability Level of Assist Contact Guard Assistance,1 Person Assistance,Use of Upper Extremities Comments Mobility Comments Pt completed LR R Mod A w/ use of bed rail, 20% elevated supine>sit Max A x1, Mod A for scoot to EOB with support each pelvis/ LE repositioning with R bed rail and L bed handle self assist. Sit>Stand Min 15% A cued 1 UE push from bed to stand. SPT using fWW CGA, CHEESE PANCAKE ROLLER managed cardiac and O2 tubing. 5% A slow descent into chair usign BUE self support on chair arms. Sit> stand walked 2x 10 ft laps to chair and sink total 40 ft total using FWW CGA. CGA to sit back in chair, noted +SOB but maintained >90 % on 2L. See vital assessment. Pt had call light and all needs in reach before left. Gait Assessment Gait Gait Assistance Required: Contact Guard Assist,1 Person Assist Distance (Feet) 40 Able to Maintain Weight Bearing Status Yes During Gait Assistive Devices Assistive Device Gait Belt,Front Wheeled Walker Orthotic/Prosthetic Devices or Brace: No Gait Deviations General Gait Pattern Antalgic,Decreased Stride Length,Decreased Feet Clearance Factors Limiting Gait Function Factors Limiting Gait Function Decreased Activity Tolerance, Decreased Strength,Poor Balance,Poor Safety Awareness, Respiratory Distress Comments Gait Comments See mobility comments Stair Climbing Assessment Comments Stair Climbing Comments not need to assess, has ramp to enter home and no stairs inside to assess. PT-Balance Assessment Sitting Balance and Reactions Static Sitting Balance Ability Good Dynamic Sitting Balance Ability Good Standing Balance and Reactions Static Standing Balance Ability Good Dynamic Standing Balance Ability Fair Device Used FWW M5 PT-IP Objective Assessments Start: 01/10/21 12:53 Freq: NEEDED Status: Active Protocol: Document 01/10/21 11:25 AB (Rec: 01/10/21 13:04 AB [email or web address]) Orientation Orientation/Cognition Level of Alertness Confusional State Orientation Name,Month,Date Safety Awareness Decreased Safety Awareness Memory Description Short Term Impaired Comments pt is not consistent with answering questions Gross Range of Motion Lower Extremity ROM Assessment Within Functional Limits Strength Lower Extremity Strength Assessment Bilaterally Impaired Hip 3+/5 Knee 3+/5 Ankle 3+/5 Muscle Tone Muscle Tone WNL Yes M6 PT-IP Treatment Start: 01/10/21 12:53 Freq: NEEDED Status: Active Protocol: Document 01/15/21 09:22 SP (Rec: 01/15/21 13:14 SP [id number]) Physical Therapy Treatment Education Education Provided Weight Bearing Status,Safety Other Treatments Other Treatment Performed Reviewed breath for O2 absorption with improvement in saturation during mobiltiy. M7 PT-IP Assessment and Plan Start: 01/10/21 12:53 Freq: NEEDED Status: Active Protocol: Document 01/15/21 09:22 SP (Rec: 01/15/21 13:14 SP [id number]) PT Summary Assessment and Plan Potential Rehabilitation Potential Fair Status of Condition at Evaluation Evolving Summary Impairments Pain,ROM,Strength,Balance, Cognition,Bed Mobility, Transfers,Gait,Activity Tolerance Progress Towards Goals Progressing Toward Goals,Slow Progress due to Activity Tolerance Assessment Summary Pt improving in mobility, Mod A x1 for bed mob, CG-Min A x1 sit<>stand, CGA during short distance gait 40 ft in room chair to sink and back 2 laps. Pt would benefit from continued acute PT to progress strength and functional independence. Will continue to assess progress. Goals Bed Mobility Goal Standby Assistance Transfer Goal Standby Assistance,Front Wheeled Walker Gait Goal Standby Assistance,Front Wheel Walker Gait Distance 150 Other Goals improve ambulation using 4WW SBA 200 ft Days to Meet Goals 10 Frequency of Treatment Frequency Of Treatment Once a Day Treatment Plan Physical Therapy Treatment Plan Bed Mobility Training,Transfer Training,Gait Training, Therapeutic Exercise,Balance Retraining,Discharge Planning, Hot or Cold Pack,Neuromuscular Re-ed,Coordination Retraining Other Recommendations and Next Treatment bed mob, transfers, gait fww Focus vs 4WW, caregiver training with spouse when closer to [place] if safe to go home vs SNF. Precautions Other Precautions falls Recommendations To Nursing Amount of Assist Needed 1 Person Assist Discharge Recommendations PT Discharge Recommendations Home with 24/7 Assist Available,Home Health,SNF Rehab,Home vs SNF Other Discharge Recommendations FWW if unsafe with 4WW. Transportation Needs at Discharge Wheelchair/Cabulance
--- NOTE | 2021-01-15 10:30 | P.PN_ITS ---
Subjective Subjective Date Patient Seen: 01/15/21 Time Patient Seen: 10:30 Interval history: Patient states feeling much better today. Up ambulating out of bed which is great. With assistance. Eating better. Vital signs have been stable. A little bit hypotensive. No further episodes of atrial fibrillation on telemetry monitoring.. No chest pain. No kidney or flank pain. Urine output is adequate. Will DC IV fluids continue with IV antibiotics. Anticipate IV antibiotics for a number of days will need PICC line. Exam Vital Signs (past 8 hours): - 01/15/21 04:34 01/15/21 08:30 01/15/21 09:25 Temperature 97.7 F 97.2 F L Pulse Rate 65 69 Respiratory Rate 17 20 16 Blood Pressure 113/51 L 122/57 L Pulse Oximetry 98 99 96 Oxygen Delivery Method Nasal Cannula Oxygen Flow Rate 2 Narrative Exam Narrative: Gen.: Alert good historian. HEENT: Pupils equal round reactive or mucosa is moist Cardio: S1-S2 regular rate and rhythm Respiratory: Lungs are clear to auscultation no wheezes or crackles normal respiratory effort. Abdomen: Soft obese nontender Extremities: Full range of motion Neurologic: Grossly intact. Objective Labs Result Diagrams: 01/15/21 04:15 01/15/21 04:15 Labs: Laboratory Results - last 24 hr 01/15/21 01/15/21 01/15/21 04:15 04:15 04:15 WBC 8.6 RBC 3.47 L Hgb 10.3 L Hct 31.1 L MCV 89.7 MCH 29.6 MCHC 33.0 RDW 14.6 Plt Count 100 L Neut % (Auto) Not Reportable Lymph % (Auto) Not Reportable [place] % (Auto) Not Reportable Eos % (Auto) Not Reportable Baso % (Auto) Not Reportable Lymph # (Auto) Not Reportable [place] # (Auto) Not Reportable Baso # (Auto) Not Reportable Total Counted 100 Seg Neutrophils % 57.0 Band Neutrophils % 6.0 Lymphocytes % (Manual) 30.0 Atypical Lymphs % 3.0 H Monocytes % (Manual) 3.0 Eosinophils % (Manual) 1.0 L Neutrophils # (Manual) 5418 RBC Morphology Not Reportable Sodium 135 L Potassium 3.8 Chloride 100 Carbon Dioxide 32 BUN 18 H Creatinine 0.93 Estimated GFR 59.8 L BUN/Creatinine Ratio 19.4 Glucose 100 Calcium 8.5 Phosphorus 3.2 Magnesium 1.9 Total Bilirubin < 0.1 L AST 29 ALT 18 Alkaline Phosphatase 123 Total Protein 5.2 L Albumin 2.5 L Globulin 2.7 Albumin/Globulin Ratio 0.9 L [facility] Medical History Heart attack (~2014) Social History household members: spouse Smoking Status: Former smoker alcohol intake: never Assessment & Plan Assessment & Plan narrative: Right unilateral obstructive uropathy due to 8 mm kidney stone. Being managed by Dr. Sargent urology. Unsuccessful removal of stone with lithotripsy and or stenting. Patient transferred to [facility] where she underwent right-sided paracutaneous nephrostomy tube placement. Will need further surgical/interventional procedures for removal of stone. This will be arranged by Dr. Sargent. Atrial fibrillation with rapid ventricular response patient now in normal sinus rhythm. Patient now on twice a day stented release metoprolol. No atrial for fibrillation on telemetry monitoring. Echocardiogram shows cardiomyopathy with decreased ejection fraction. Possibly due to underlying infection stress and myocardial ischemia. Type [address] with [address] abnormalities during episode of AFib with rapid ventricular response cardiac troponin elevated and is now starting to trend down. Continue with beta-gabriella as per Cardiology not a candidate for interventional procedures on heart at this time and we will proceed with continue medical management. Sepsis due to Pyelonephritis urinary tract infection and infected kidney stone due to Proteus. Continue with Rocephin Acute kidney injury with resolution monitor closely electrolytes. Creatinine is improved and stabilized at this point Encephalopathy due to underlying infection resolved Anemia thrombocytopenia. Possible infectious etiology. Laboratory testing has improved and stable at this point. COPD chronic and stable patient is oxygen dependent at home. Obstructive sleep apnea Obesity BMI greater than 40 Disposition and plan. Medically patient is improving. Next steps are in regards to removal of impacted stone. Quality VTE Deep Vein Thrombosis/Pulmonary Embolism Present on Admission: No
--- NOTE | 2021-01-15 14:18 | DI.RAD.S_ITS ---
PROCEDURE: XR CHEST FOR PICC 1V INDICATIONS: verify PICC placement COMPARISON: [facility], CR, XR CHEST 2V, 02/18/2019, 13:27. [facility], CR, XR CHEST 1V, 01/09/2021, 18:47. FINDINGS: PICC was placed by the intravenous therapy team from the left side. Fluoroscopic spot film demonstrates the tip of PICC projecting to the mid to inferior aspect of the superior vena cava, approximately 1.5 cm above the cavoatrial junction. There is [id number] cardiomegaly. Mild generalized interstitial prominence can be seen. Cholecystectomy clips are seen. Age-appropriate bony degenerative changes are seen. IMPRESSION: Tip of PICC projects to the area of mid to inferior aspect of the superior vena cava. Dictated by: Larry Sandy M.D. on 01/15/2021 at 14:16 Approved by: Larry Sandy M.D. on 01/15/2021 at 14:17
--- NOTE | 2021-01-15 14:21 | PC.NURSE ---
Pt has been in hospital for some time. Has had numerous IV sticks. Also has an elevated body mass and veins are hard to find, she has multi bruises on the lower and upper arms. One IV has and the other IV is positional and sluggish. made aware of pt's limited options for IV access. PIC line is in the process of being placed.
[2021-01-15] MEDS: ATORVASTATIN 20 MG TABLET 10 MG PO (21:13)
[2021-01-15] MEDS: cefTRIAXone 2,000 MG in SODIUM CHLORIDE 0.9% 100 ML 200 ML IV (22:46)
[2021-01-16] VITALS (10 sets, daily range): BP systolic 92–132; BP diastolic 42–58; PULSE 63–99; RESP 16–20; TEMP 35.9–36.4; O2SAT 96–99
--- NOTE | 2021-01-16 05:34 | PC.NURSE ---
Addendum entered by Shabnam Leyva R.N. 01/16/21 06:49: Spoke with Dr. Maria at 0629 and okay was given for PRN Heparin. Labs drawn at 0640. Original Note: Patient has 0500 labs ordered which need to be drawn from the PICC. Patient did not have Heparin ordered but Platelets are low at 100. This RN will verify with the doctor at 0600 if Heparin can be ordered to flush.
[2021-01-16] MEDS: IPRATROPIUM 0.5 MG/2.5 ML NEB INH ×2 (06:23→21:40)
[2021-01-16] MEDS: BUDESONIDE 0.5 MG/2 ML NEB INH ×2 (06:23→21:40)
[2021-01-16 07:07] LABS: Magnesium 1.8 mg/dL (1.6-2.3); Phosphorous 3.7 mg/dL (2.8-4.1)
[2021-01-16 07:08] LABS: Alanine Aminotransferase 20 IU/L (<35); Albumin 2.6 g/dL (3.5-5.0); Alkaline Phosphatase 119 U/L (38-126); Aspartate Aminotransferase 33 IU/L (14-36); BUN Creatinine Ratio 14.5 (6-22); Blood Urea Nitrogen 12 mg/dL (7-17); Calcium 8.5 mg/dL (8.4-10.2); Carbon Dioxide 35 mmol/L (22-32); Chloride 101 mmol/L (98-107); Estimated Glomerular Filt Rate > 60.0 mL/min (>60); Globulin 2.7 g/dL (1.7-4.1); Glucose 113 mg/dL (80-110); HEMOLYSIS < 15 (0-50); Potassium 3.9 mmol/L (3.4-5.1); Sodium 135 mmol/L (137-145); Total Protein 5.3 g/dL (6.3-8.2)
[2021-01-16 07:13] LABS: Bilirubin Total < 0.1 mg/dL (0.2-1.3)
[2021-01-16 07:14] LABS: Add Manual Diff / Slide Review YES; Hematocrit 31.6 % (36-46); Hemoglobin 10.3 g/dL (12.0-16.0); Mean Corpuscular HGB Conc 32.8 % (30-36); Mean Corpuscular Hemoglobin 29.5 PG (26-34); Mean Corpuscular Volume 89.9 fL (80-100); Platelet Count 107 X10^3/uL (150-400); Red Blood Cell Count 3.51 X10^6/uL (4.0-5.2); Red Cell Distribution Width 14.9 % (11.6-14.8); White Blood Cell Count 7.9 X10^3/uL (4.5-11.0)
[2021-01-16 07:53] LABS: Neutrophils Absolute Manual 5214 /uL (3000-5900); Total Cells Counted 100
[2021-01-16 07:54] LABS: Anisocytosis 1+
--- NOTE | 2021-01-16 08:15 | PT.IPTN ---
Current Diagnoses Acute kidney failure, unspecified (01/09/21) Surgery Performed Operation Date: 01/10/21 17:30 Actual Procedures p Cystoscopy w/right ureteroscopy(Right) - Shayna Sargent MD Physical Therapy Treatment Note M2 PT-IP Current Condition Start: 01/10/21 12:53 Freq: NEEDED Status: Active Protocol: Document 01/10/21 11:25 AB (Rec: 01/10/21 13:04 AB [id number]) Physical Therapy Current Condition Current Condition Evaluation Date 01/10/21 Treatment Diagnosis UTI; urethral calculus; difficulty in walking Onset Date 01/09/21 Precautions Other Precautions falls M3 PT-IP Subjective Start: 01/10/21 12:53 Freq: NEEDED Status: Active Protocol: Document 01/16/21 07:37 SP (Rec: 01/16/21 12:18 SP [id number]) Subjective Physical Therapy Visit Type Type Treatment Note Visit Start Time 07:37 Visit Stop Time 08:15 Total Visit Minutes 38 Notes Vitals taken during tx: elevated supine: BP 132/58, HR 69, SaO2 99% on 2L seated EOB: 106/67 HR 86, 100% on 2L (non-symptomatic) post gait to toilet: 64/47 HR 86, 99% 2L seated on toilet 5 min: 99/52 HR 89 post gait seated in chair: 50/ 40 HR 73 3 min rest in chair feet reclined: 112/58 HR 70 (all mobility non symptomatic, felt find, little tired) Physical Therapy Visit Comments Patient Comments Pt motivated to working with therapy. Patient Goals Use the toilet Therapy Pain Assessment Pain Present Pain Present Denied Pain M4 PT-IP Mobility and Gait Start: 01/10/21 12:53 Freq: NEEDED Status: Active Protocol: Document 01/16/21 07:37 SP (Rec: 01/16/21 12:18 SP [id number]) PT-Bed Mobility Assessment Supine to Sit Supine to Sit Moderate Assistance,1 Person Assistance,Head of Bed Elevated,Bedrails Scooting Scooting to Edge of Bed Moderate Assistance PT-Transfer Assessment Sit to and From Stand Sit to and from Stand Contact Guard Assistance, Minimal Assistance,1 Person Assistance,Use of Upper Extremities Equipment Transfer Assistive Device Gait Belt,Front Wheeled Walker Orthotic/Prosthetic Devices or Brace: No Transfers Transfer Destination Chair,Toilet Transfer Technique ambulated w/ FWW Transfer Ability Level of Assist Contact Guard Assistance,1 Person Assistance,Use of Upper Extremities Comments Mobility Comments Elevated (44deg) Supine >sit self LE repositioning using gait belt INJECTION MOLDING MACHINE SETTER place on foot for self locomotion, Min A for trunk righting using R HR and pulling from therapist hand, scoot each Le to EOB Mod A. Sit>stand CGA, ambulated to toilet approx 15 ft using fWW , INJECTION MOLDING MACHINE SETTER managed O2 tubing, SPT and Min Afor slow descent to toilet. Pt fluating BP, maintained >90% 2L O2, stated felt fine. SBA seated on toilet, total assist for BM pericare, SitS>stand usuing grab bar Min A, ambualted to chair 12 ft CGA using FWW, SBA descent into chair. STRUCTURAL METAL WORKER took over care. Pt had call light and all needs in reach with LEs reclined in chair when left. Gait Assessment Gait Gait Assistance Required: Contact Guard Assist,1 Person Assist Distance (Feet) 15 Able to Maintain Weight Bearing Status Yes During Gait Assistive Devices Assistive Device Gait Belt,Front Wheeled Walker Orthotic/Prosthetic Devices or Brace: No Gait Deviations General Gait Pattern Antalgic,Decreased Stride Length,Decreased Feet Clearance Factors Limiting Gait Function Factors Limiting Gait Function Decreased Activity Tolerance, Decreased Strength,Poor Balance,Poor Safety Awareness, Respiratory Distress Comments Gait Comments see mobility comments Stair Climbing Assessment Comments Stair Climbing Comments not need to assess, has ramp to enter home and no stairs inside to assess. PT-Balance Assessment Sitting Balance and Reactions Static Sitting Balance Ability Good Dynamic Sitting Balance Ability Good Standing Balance and Reactions Static Standing Balance Ability Good Dynamic Standing Balance Ability Fair Device Used FWW M5 PT-IP Objective Assessments Start: 01/10/21 12:53 Freq: NEEDED Status: Active Protocol: Document 01/10/21 11:25 AB (Rec: 01/10/21 13:04 AB [id number]) Orientation Orientation/Cognition Level of Alertness Confusional State Orientation Name,Month,Date Safety Awareness Decreased Safety Awareness Memory Description Short Term Impaired Comments pt is not consistent with answering questions Gross Range of Motion Lower Extremity ROM Assessment Within Functional Limits Strength Lower Extremity Strength Assessment Bilaterally Impaired Hip 3+/5 Knee 3+/5 Ankle 3+/5 Muscle Tone Muscle Tone WNL Yes M6 PT-IP Treatment Start: 01/10/21 12:53 Freq: NEEDED Status: Active Protocol: Document 01/16/21 07:37 SP (Rec: 01/16/21 12:18 SP [id number]) Physical Therapy Treatment Education Education Provided Weight Bearing Status,Safety M7 PT-IP Assessment and Plan Start: 01/10/21 12:53 Freq: NEEDED Status: Active Protocol: Document 01/16/21 07:37 SP (Rec: 01/16/21 12:18 SP [id number]) PT Summary Assessment and Plan Potential Rehabilitation Potential Fair Status of Condition at Evaluation Evolving Summary Impairments Pain,ROM,Strength,Balance, Cognition,Bed Mobility, Transfers,Gait,Activity Tolerance Progress Towards Goals Progressing Toward Goals,Slow Progress due to Activity Tolerance Assessment Summary Pt improving in mobility, min- Mod A x1 for bed mob, CG-Min A x1 sit<>stand, CGA gait 15 ft to/from bathroom. Pt would benefit from continued acute PT to progress strength and functional independence. Will continue to assess progress. Goals Bed Mobility Goal Standby Assistance Transfer Goal Standby Assistance,Front Wheeled Walker Gait Goal Standby Assistance,Front Wheel Walker Gait Distance 150 Other Goals improve ambulation using 4WW SBA 200 ft Days to Meet Goals 10 Frequency of Treatment Frequency Of Treatment Once a Day Treatment Plan Physical Therapy Treatment Plan Bed Mobility Training,Transfer Training,Gait Training, Therapeutic Exercise,Balance Retraining,Discharge Planning, Hot or Cold Pack,Neuromuscular Re-ed,Coordination Retraining Other Recommendations and Next Treatment bed mob, transfers, gait fww Focus vs 4WW, caregiver training with spouse when closer to [place] if safe to go home vs SNF. Precautions Other Precautions falls Recommendations To Nursing Amount of Assist Needed 1 Person Assist Discharge Recommendations PT Discharge Recommendations Home with 24/7 Assist Available,Home Health,SNF Rehab,Home vs SNF Other Discharge Recommendations FWW if unsafe with 4WW. Transportation Needs at Discharge Wheelchair/Cabulance
--- NOTE | 2021-01-16 08:33 | P.PN_ITS ---
Subjective Subjective Date Patient Seen: 01/16/21 Time Patient Seen: 08:33 Interval history: Reviewed patient's chart and met with patient discussed with nursing. Patient had episode of hypotension today when she got up to have a bowel movement but she denies any symptoms. She is feeling well without any other concerns. She is not having any pain. She is not having any shortness of breath. She is on chronic oxygen at home for believe COPD secondary to 2nd hand smoke, likely complicated by obesity Over the weekend she has maintained a normal sinus rhythm but did have new onset atrial fibrillation with rapid ventricular rate. She was treated with IV amiod arone. Currently is on metoprolol 50 mg twice daily and this was increased I believe yesterday. From 50 mg once a day. Patient is having bowel movements daily She denies any abdominal pain 900 cc out of her nephrostomy tube today and 50 cc in her Bazan catheter Exam Vital Signs (past 8 hours): - 01/16/21 04:00 01/16/21 06:29 01/16/21 06:34 Temperature 97.6 F Pulse Rate 73 73 67 Respiratory Rate 18 18 17 Blood Pressure 116/46 L Pulse Oximetry 98 96 96 Oxygen Delivery Method Nasal Cannula Oxygen Flow Rate 2 Narrative Exam Narrative: Patient is afebrile vital signs are stable Patient appears older than stated age HEENT shows mucous membranes moist and pink, poor dentition Neck: Supple Chest: Clear to auscultation without wheezes rhonchi or crackles but decreased breath sounds bilateral bases Cor: Distant S1-S2 but regular rate and rhythm with a well-controlled rate Abdomen: Obese, positive bowel sounds Extremities: No edema, pulses intact Objective Labs Result Diagrams: 01/16/21 06:40 01/16/21 06:40 Labs: Laboratory Results - last 24 hr 01/16/21 01/16/21 01/16/21 06:40 06:40 06:40 WBC 7.9 RBC 3.51 L Hgb 10.3 L Hct 31.6 L MCV 89.9 MCH 29.5 MCHC 32.8 RDW 14.9 H Plt Count 107 L Neut % (Auto) Not Reportable Lymph % (Auto) Not Reportable [place] % (Auto) Not Reportable Eos % (Auto) Not Reportable Baso % (Auto) Not Reportable Lymph # (Auto) Not Reportable [place] # (Auto) Not Reportable Baso # (Auto) Not Reportable Total Counted 100 Seg Neutrophils % 66.0 Lymphocytes % (Manual) 23.0 L Atypical Lymphs % 1.0 H Monocytes % (Manual) 6.0 Eosinophils % (Manual) 2.0 Myelocytes % 2.0 H Neutrophils # (Manual) 5214 RBC Morphology See below Anisocytosis 1+ H Sodium 135 L Potassium 3.9 Chloride 101 Carbon Dioxide 35 H BUN 12 Creatinine 0.83 Estimated GFR > 60.0 BUN/Creatinine Ratio 14.5 Glucose 113 H Calcium 8.5 Phosphorus 3.7 Magnesium 1.8 Total Bilirubin < 0.1 L AST 33 ALT 20 Alkaline Phosphatase 119 Total Protein 5.3 L Albumin 2.6 L Globulin 2.7 Albumin/Globulin Ratio 1.0 PFSH Medical History Heart attack (~2013) Social History household members: spouse Smoking Status: Former smoker alcohol intake: never Assessment & Plan Assessment & Plan narrative: 70-year-old female Assessment 1. Pyelonephritis with impacted kidney stone that they were unable to stent now with functioning nephrostomy tube. Reviewed Dr. Sargent is notes. Plan is to have patient treated for 2 weeks with antibiotics appropriate for Proteus mirabilis organism. Patient is on Rocephin. We will continue the same. Patient seems to be responding clinically. Will discuss with Dr. Sargent. Assessment 2. Atrial fibrillation with rapid ventricular rate now in sinus with some withdrawal controlled rate Plan: Will continue with metoprolol 50 mg twice daily. This may end up pain too much metoprolol we may need to decrease back down to 50 mg. We will continue to monitor. We will get an echo We will recheck coags is these were elevated there was concern for DIC At this point anticoagulation contraindicated due to thrombocytopenia and coagulopathy Assessment 3. COPD currently stable on chronic oxygen at home Plan: Continue the same Assessment 4. Elevated CK and troponin previously suspect multifactorial and rate related ischemia possible Plan: Will re check enzymes Will do an echo Pending these results will discuss with Cardiology and need for stress testing Assessment 5. Obesity Assessment 6. GI prophylaxis Plan: Continue on a PPI Quality VTE Deep Vein Thrombosis/Pulmonary Embolism Present on Admission: No
[2021-01-16] MEDS: PANTOPRAZOLE DR 20 MG TABLET PO (08:42)
[2021-01-16] MEDS: POTASSIUM CHLORIDE 10 MEQ TAB 20 MEQ PO (08:42)
[2021-01-16] MEDS: SODIUM CHLORIDE 0.9% FLUSH 10 ML IV ×2 (08:42→21:27)
[2021-01-16 08:57] LABS: Creatine Kinase 75 U/L (30-135)
[2021-01-16 09:10] LABS: Troponin I 0.023 ng/mL (0.01-0.034)
--- NOTE | 2021-01-16 10:53 | DIET.PN ---
Dietary Progress Note RD Note: Pts POs 75-100% Heart Healthy meals including ONS Tj to support skin breakdown on coccyx this hospital stay.
--- NOTE | 2021-01-16 15:25 | PC.NURSE ---
A&Ox4. BP low today, 92/50. Held BP meds. Bazan patent but only drained 35 cc this shift, nephrostomy draining 285cc pink urine. Called Dr. Maria to alert her of this. Bladder scan found only 45 cc. Denies pain. Up in her chair for meals and most of this shift. Call light within reach, bed low.
[2021-01-16] MEDS: ATORVASTATIN 20 MG TABLET 10 MG PO (21:26)
[2021-01-16] MEDS: cefTRIAXone 2,000 MG in SODIUM CHLORIDE 0.9% 100 ML 200 ML IV (22:49)
[2021-01-17] VITALS (12 sets, daily range): BP systolic 91–119; BP diastolic 45–72; PULSE 68–83; RESP 14–20; TEMP 36.2–36.4; O2SAT 96–100
[2021-01-17 05:00] LABS: Add Manual Diff / Slide Review NO; Basophils Absolute Auto 100 /uL (0-100); Basophils Percent Auto 0.9 % (0-2); Eosinophils Absolute Auto 200 /uL (0-450); Eosinophils Percent Auto 3.1 % (2-4); Hemoglobin 9.8 g/dL (12.0-16.0); Lymphocytes Absolute Auto 1900 /uL (1100-4500); Lymphocytes Percent Auto 25.4 % (25-40); Mean Corpuscular HGB Conc 32.8 % (30-36); Mean Corpuscular Hemoglobin 29.4 PG (26-34); Mean Corpuscular Volume 89.5 fL (80-100); Monocytes Absolute Auto 400 /uL (0-900); Monocytes Percent Auto 5.8 % (3-14); Neutrophils Absolute Auto 4800 /uL (1500-7000); Neutrophils Percent Auto 64.8 % (50-75); Platelet Count 107 X10^3/uL (150-400); Red Blood Cell Count 3.35 X10^6/uL (4.0-5.2); Red Cell Distribution Width 14.3 % (11.6-14.8); White Blood Cell Count 7.3 X10^3/uL (4.5-11.0)
[2021-01-17 05:04] LABS: Prothrombin Time 11.1 SECONDS (10.1-12.7)
[2021-01-17 05:06] LABS: PTT Partial Thromboplastin Tim 29 SECONDS (26.4-36.2)
[2021-01-17 05:09] LABS: Alanine Aminotransferase 23 IU/L (<35); Albumin 2.6 g/dL (3.5-5.0); Alkaline Phosphatase 116 U/L (38-126); Aspartate Aminotransferase 37 IU/L (14-36); BUN Creatinine Ratio 12.3 (6-22); Bilirubin Total 0.1 mg/dL (0.2-1.3); Blood Urea Nitrogen 10 mg/dL (7-17); Calcium 8.5 mg/dL (8.4-10.2); Carbon Dioxide 35 mmol/L (22-32); Chloride 99 mmol/L (98-107); Estimated Glomerular Filt Rate > 60.0 mL/min (>60); Globulin 2.6 g/dL (1.7-4.1); Glucose 109 mg/dL (80-110); HEMOLYSIS < 15 (0-50); Sodium 136 mmol/L (137-145); Total Protein 5.2 g/dL (6.3-8.2)
[2021-01-17 05:22] LABS: Magnesium 1.7 mg/dL (1.6-2.3); Phosphorous 3.6 mg/dL (2.8-4.1)
[2021-01-17] MEDS: SODIUM CHLORIDE 0.9% FLUSH 10 ML IV ×2 (07:49→21:07)
[2021-01-17] MEDS: POTASSIUM CHLORIDE 10 MEQ TAB 20 MEQ PO (07:50)
[2021-01-17] MEDS: PANTOPRAZOLE DR 20 MG TABLET PO (07:50)
[2021-01-17] MEDS: METOPROLOL ER 50 MG TABLET PO (07:50)
--- NOTE | 2021-01-17 07:55 | PM.PN.1 ---
Subjective Subjective Date Patient Seen: 01/17/21 Time Patient Seen: 07:55 Interval history: Patient is the post operative day 7. Status post attempted right ureteral stent placement and postprocedural day 6. Status post placement right antegrade nephroureteral stent. The patient denies new complaints. As expected most of her urine output is via the right nephrostomy. She has remained afebrile, is having bowel is, is tolerating p.o. diet. Exam Vital Signs (past 8 hours): - 01/17/21 04:40 01/17/21 07:50 Temperature 97.1 F L Pulse Rate 83 81 Respiratory Rate 20 Blood Pressure 112/51 L 116/59 L Pulse Oximetry 100 Oxygen Delivery Method Nasal Cannula Oxygen Flow Rate 2 Narrative Exam Narrative: Laying comfortably event no acute distress. Chest-equal and unlabored expansion bilaterally. Abdomen soft and obese and nontender. Right nephrostomy intact with nearly clear urine. No clots. Objective Labs Result Diagrams: 01/17/21 04:46 01/17/21 04:46 Labs: Laboratory Results - last 24 hr 01/16/21 01/17/21 01/17/21 06:40 04:46 04:46 WBC 7.3 RBC 3.35 L Hgb 9.8 L Hct 30.0 L MCV 89.5 MCH 29.4 MCHC 32.8 RDW 14.3 Plt Count 107 L Neut % (Auto) 64.8 Lymph % (Auto) 25.4 [place] % (Auto) 5.8 Eos % (Auto) 3.1 Baso % (Auto) 0.9 Neut # (Auto) 4800 Lymph # (Auto) 1900 [place] # (Auto) 400 Eos # (Auto) 200 Baso # (Auto) 100 PT INR APTT Sodium Potassium Chloride Carbon Dioxide BUN Creatinine Estimated GFR BUN/Creatinine Ratio Glucose Calcium Phosphorus 3.6 Magnesium 1.7 Total Bilirubin AST ALT Alkaline Phosphatase Total Creatine Kinase 75 CK-MB (CK-2) TNP CK-MB (CK-2) Rel Index TNP Troponin I 0.023 Total Protein Albumin Globulin Albumin/Globulin Ratio 01/17/21 01/17/21 04:46 04:46 WBC RBC Hgb Hct MCV MCH MCHC RDW Plt Count Neut % (Auto) Lymph % (Auto) [place] % (Auto) Eos % (Auto) Baso % (Auto) Neut # (Auto) Lymph # (Auto) [place] # (Auto) Eos # (Auto) Baso # (Auto) PT 11.1 INR 1.0 APTT 29 D Sodium 136 L Potassium 4.0 Chloride 99 Carbon Dioxide 35 H BUN 10 Creatinine 0.81 Estimated GFR > 60.0 BUN/Creatinine Ratio 12.3 Glucose 109 Calcium 8.5 Phosphorus Magnesium Total Bilirubin 0.1 L AST 37 H ALT 23 Alkaline Phosphatase 116 Total Creatine Kinase CK-MB (CK-2) CK-MB (CK-2) Rel Index Troponin I Total Protein 5.2 L Albumin 2.6 L Globulin 2.6 Albumin/Globulin Ratio 1.0 PFSH Medical History Heart attack (~2013) Social History household members: spouse Smoking Status: Former smoker alcohol intake: never Assessment & Plan Assessment & Plan narrative: Assessment: 1. Stable status post successful antegrade drainage for 8 mm obstructing right distal ureteral calculus and Proteus mirabilis UTI/right pyelonephritis. Plan: 1. Patient is stable for discharge from standpoint. 2. Will coordinate scheduling for follow-up in Urology Clinic within the week. 3. Will coordinate and schedule definitive laser lithotripsy for likely struvite calculus in the coming 1-2 weeks. Quality VTE Deep Vein Thrombosis/Pulmonary Embolism Present on Admission: No
[2021-01-17] MEDS: BUDESONIDE 0.5 MG/2 ML NEB INH ×2 (08:46→21:30)
[2021-01-17] MEDS: IPRATROPIUM 0.5 MG/2.5 ML NEB INH ×2 (08:46→21:30)
--- NOTE | 2021-01-17 08:59 | P.PN_ITS ---
Subjective Subjective Date Patient Seen: 01/17/21 Time Patient Seen: 08:59 Interval history: Patient had an uneventful night. Continues to deny pain. Oxygen cannula in place, 2 L, denies shortness of breath. No chest pain. Nursing reports that her nephrostomy tube is now draining more than her Woodard catheter. She is due for a dressing change tomorrow of her nephrostomy placement dressing. Compliant with physical therapy. Tolerating full diet, no nausea or vomiting. Exam Vital Signs (past 8 hours): - 01/17/21 04:40 01/17/21 07:50 01/17/21 08:52 Temperature 97.1 F L Pulse Rate 83 81 72 Respiratory Rate 20 16 Blood Pressure 112/51 L 116/59 L Pulse Oximetry 100 99 Oxygen Delivery Method Nasal Cannula Oxygen Flow Rate 2 Narrative Exam Narrative: GENERAL: Alert and oriented, appearing stated age and in no acute distress. HEENT: Head normocephalic/atraumatic. LUNGS: Clear to ausculation bilaterally, no wheezes, rhonchi or rales. CV: Normal S1 and S2 with regular rate and rhythm, no audible murmurs, rubs or gallops. ABDOMEN: Soft, non-tender, non-distended, no organomegaly. Positive bowel sounds. EXTREMITIES: 1+ nonpitting edema to level of bilateral knees. NEURO: Cranial nerves II through XII grossly intact, no focal deficits. PSYCH: Alert and oriented x 3. SKIN: Contusion, violaceous, right upper extremity. Objective Labs Result Diagrams: 01/17/21 04:46 01/17/21 04:46 Labs: Laboratory Results - last 24 hr 01/16/21 01/17/21 01/17/21 06:40 04:46 04:46 WBC 7.3 RBC 3.35 L Hgb 9.8 L Hct 30.0 L MCV 89.5 MCH 29.4 MCHC 32.8 RDW 14.3 Plt Count 107 L Neut % (Auto) 64.8 Lymph % (Auto) 25.4 [place] % (Auto) 5.8 Eos % (Auto) 3.1 Baso % (Auto) 0.9 Neut # (Auto) 4800 Lymph # (Auto) 1900 [place] # (Auto) 400 Eos # (Auto) 200 Baso # (Auto) 100 PT INR APTT Sodium Potassium Chloride Carbon Dioxide BUN Creatinine Estimated GFR BUN/Creatinine Ratio Glucose Calcium Phosphorus 3.6 Magnesium 1.7 Total Bilirubin AST ALT Alkaline Phosphatase Troponin I 0.023 Total Protein Albumin Globulin Albumin/Globulin Ratio 01/17/21 01/17/21 04:46 04:46 WBC RBC Hgb Hct MCV MCH MCHC RDW Plt Count Neut % (Auto) Lymph % (Auto) [place] % (Auto) Eos % (Auto) Baso % (Auto) Neut # (Auto) Lymph # (Auto) [place] # (Auto) Eos # (Auto) Baso # (Auto) PT 11.1 INR 1.0 APTT 29 D Sodium 136 L Potassium 4.0 Chloride 99 Carbon Dioxide 35 H BUN 10 Creatinine 0.81 Estimated GFR > 60.0 BUN/Creatinine Ratio 12.3 Glucose 109 Calcium 8.5 Phosphorus Magnesium Total Bilirubin 0.1 L AST 37 H ALT 23 Alkaline Phosphatase 116 Troponin I Total Protein 5.2 L Albumin 2.6 L Globulin 2.6 Albumin/Globulin Ratio 1.0 [facility] Medical History Heart attack (~2013) Social History household members: spouse Smoking Status: Former smoker alcohol intake: never Assessment & Plan Assessment and plan (1) Acute unilateral obstructive uropathy: Status: Acute Assessment & Plan narrative: 1. Acute unilateral obstructive uropathy, right -01/11/12: Difficult right retrograde pyelogram and ureteroscopy, Dr. Sargent unable to negotiate the ureteral guidewire proximal to the stone, recommended transfer to tertiary care center for IR placement of stent or nephrostomy tube. -01/12/12: Right nephrostomy tube placement by IR at [facility]. Plan: Dr. Sargent consulting. He has recommended 14 days of antibiotics and stent placement prior to re-attempting lithotripsy. Patient on day 7/14 of antibiotics, PICC line in place. Plan will be for discharge to SNF with close follow up with Dr. Sargent this week in outpatient clinic. Definitive lith otripsy in the next 1-2 weeks. Will need to clarify if stent is needed prior to lithotripsy. 2. Urosepsis secondary to Proteus mirabilis, acute, resolving Plan: Continue ceftriaxone 2 g IV q.day, on day 7/14. will continue to trend labs and watch clinical status closely. 3. Atrial fibrillation with RVR, resolved -Status post successful medical cardioversion with diltiazem and metoprolol. -Not a candidate for anticoagulation secondary to thrombocytopenia. Plan: Dr. Barker consulting. Patient has been hypotensive and rate-controlled over the weekend, will transition back to home metoprol 50 mg ER PO qd, imdur 60 mg PO BID, and lasix 20 mg PO BID. Will keep magnesium greater than 2 and potassium greater than 4. 4. IL, type 2, during episode of atrial fibrillation with RVR -Echo on 01/13/21 showed EF of 40-45%, new cardiomyopathy and atrial fibrillation. Plan: Cardiac enzymes have returned to normal. Will continue with medical managment as patient is not a candidate for a cardiac stent. Plan as noted in #3. Will keep magnesium greater than 2 and potassium greater than 4. Per conversation between Dr. Maria and Dr. Barker, patient will not require stress test prior to lithotripsy. 5. Acute renal failure, resolved -Cr: 2.12 --> 1.44 --> 1.12 --> 1.09 --> 0.81 Plan: Continue nephrostomy tube and woodard. 6. Acute infectious encephalopathy, resolved Plan: Treating underlying urosepsis. 7. Anemia, thrombocytopenia, elevated ALP, and smudge cells, new Plan: Concerning for CLL, outpatient oncology consult. 8. Hypokalemia, resolved Plan: Will continue to replete and trend labs. Please see #1. 9. Acute protein malnutrition Plan: Have advanced diet. Nutrition consult. 10. COPD, oxygen dependent Plan: Continue home medications and oxygen per nasal cannula to maintain saturations between 88% and 94%. 11. Congestive heart failure, systolic, chronic Plan: Will transition back to home medications today including metoprolol, imdur, and lasix. 12. Stress incontinence, urinary, chronic Plan: Woodard. 13. Chronic pain syndrome Plan: Home oxycodone as needed. 14. Hyperlipidemia, chronic Plan: Continue home atorvastatin. 15. Depression/panic disorder, chronic Plan: Continue home sertraline. 16. Obstructive sleep apnea, chronic Plan: Supportive therapy only. Patient previously unable to tolerate sleep study, does not desire CPAP. 17. Obesity, BMI greater than 40 Plan: Patient is at increased risk of delayed and poor healing. Nutrition/PT consulting. Disposition: Will arrange discharge to SNF; hopefully tomorrow, if transition back to oral home medications goes well. Quality VTE Deep Vein Thrombosis/Pulmonary Embolism Present on Admission: No
--- NOTE | 2021-01-17 10:20 | PT.IPTN ---
Current Diagnoses Acute kidney failure, unspecified (01/09/21) Surgery Performed Operation Date: 01/10/21 17:30 Actual Procedures p Cystoscopy w/right ureteroscopy(Right) - Shayna Sargent MD Physical Therapy Treatment Note M2 PT-IP Current Condition Start: 01/10/21 12:53 Freq: NEEDED Status: Active Protocol: Document 01/10/21 11:25 AB (Rec: 01/10/21 13:04 AB [id number]) Physical Therapy Current Condition Current Condition Evaluation Date 01/10/21 Treatment Diagnosis UTI; urethral calculus; difficulty in walking Onset Date 01/09/21 Precautions Other Precautions falls M3 PT-IP Subjective Start: 01/10/21 12:53 Freq: NEEDED Status: Active Protocol: Document 01/17/21 10:20 AB (Rec: 01/17/21 12:13 AB [id number]) Subjective Physical Therapy Visit Type Type Treatment Note Visit Start Time 10:20 Visit Stop Time 11:00 Total Visit Minutes 40 Number of PHARMACOVIGILANCE SPECIALIST Visits 0 Physical Therapy Visit Comments Patient Comments pt is agreeable to do PT M4 PT-IP Mobility and Gait Start: 01/10/21 12:53 Freq: NEEDED Status: Active Protocol: Document 01/17/21 10:20 AB (Rec: 01/17/21 12:13 AB [id number]) PT-Bed Mobility Assessment Supine to Sit Supine to Sit Maximum Assistance,Bedrails PT-Transfer Assessment Sit to and From Stand Sit to and from Stand Contact Guard Assistance,1 Person Assistance,Use of Upper Extremities Equipment Transfer Assistive Device Gait Belt,Front Wheeled Walker Orthotic/Prosthetic Devices or Brace: No Transfers Transfer Destination Chair Transfer Technique ambulated using fWW Transfer Ability Level of Assist Contact Guard Assistance,1 Person Assistance,Use of Upper Extremities Comments Mobility Comments pt requiring max A with bed mobility supine to sit x 2 attempts and pt used bed rail to assist. pt tends to lean posteriorly and cued and assisted to keep trunk forwards. completed sit to stand CGA and cues and ambulated ~ 20 ft using FWW CGA and cues. c/o feeling tired and stated that she just wants to rest. encouraged to sit up and chair and agreed. completed sit to stand from EOB CGA and ambulated towards the chair ~ 12 ft using FWW CGA. positioned pt on chair. call light and table placed within reach. daughter in room during PT session and stated that her dad is the main person that will assist pt at home. educated pt regarding d/c plans and that pt is making slow progress but at this time , may still need to go to SNF due to decrease activity tolerance and unable to do much more after only 20 ft of ambulation. Pt and daughter understood. O2 during tx session: 94-96% with O2 on Gait Assessment Gait Gait Assistance Required: Contact Guard Assist Distance (Feet) 20 Able to Maintain Weight Bearing Status Yes During Gait Assistive Devices Assistive Device Gait Belt,Front Wheeled Walker Orthotic/Prosthetic Devices or Brace: No Gait Deviations General Gait Pattern Antalgic,Decreased Stride Length,Decreased Feet Clearance,Flexed Trunk,Step-to Gait Factors Limiting Gait Function Factors Limiting Gait Function Decreased Activity Tolerance, Decreased Strength,Difficulty Following Directions,Poor Balance,Respiratory Distress M5 PT-IP Objective Assessments Start: 01/10/21 12:53 Freq: NEEDED Status: Active Protocol: Document 01/10/21 11:25 AB (Rec: 01/10/21 13:04 AB [id number]) Orientation Orientation/Cognition Level of Alertness Confusional State Orientation Name,Month,Date Safety Awareness Decreased Safety Awareness Memory Description Short Term Impaired Comments pt is not consistent with answering questions Gross Range of Motion Lower Extremity ROM Assessment Within Functional Limits Strength Lower Extremity Strength Assessment Bilaterally Impaired Hip 3+/5 Knee 3+/5 Ankle 3+/5 Muscle Tone Muscle Tone WNL Yes M6 PT-IP Treatment Start: 01/10/21 12:53 Freq: NEEDED Status: Active Protocol: Document 01/17/21 10:20 AB (Rec: 01/17/21 12:13 AB [email or web address]) Physical Therapy Treatment Education Education Provided Safety M7 PT-IP Assessment and Plan Start: 01/10/21 12:53 Freq: NEEDED Status: Active Protocol: Document 01/17/21 10:20 AB (Rec: 01/17/21 12:13 AB [email or web address]) PT Summary Assessment and Plan Potential Rehabilitation Potential Good Summary Impairments Pain,ROM,Strength,Balance, Coordination,Sensation,Tone, Cognition,Bed Mobility, Transfers,Gait,Activity Tolerance Progress Towards Goals Slow Progress due to Activity Tolerance Assessment Summary pt requiring CGA with transfers and ambulation using fWW but was only able to tolerate 20 ft of ambulation using FWW and c/o fatigue afterwards. at this time, pt may require SNF rehab to improve overall strength and activity tolerance to improve mobility independent and safety. If pt goes home, will require HHPT. will continue to assess progress. Goals Bed Mobility Goal Standby Assistance Transfer Goal Independent,Front Wheeled Walker Gait Goal Independent,Front Wheel Walker Gait Distance 150 Other Goals improve ambulation using 4WW SBA 200 ft Days to Meet Goals 10 Frequency of Treatment Frequency Of Treatment Once a Day Treatment Plan Physical Therapy Treatment Plan Bed Mobility Training,Transfer Training,Gait Training, Therapeutic Exercise,Balance Retraining,Discharge Planning, Hot or Cold Pack,Neuromuscular Re-ed,Coordination Retraining Precautions Other Precautions falls Recommendations To Nursing Amount of Assist Needed 1 Person Assist Discharge Recommendations PT Discharge Recommendations Home with / Assist Available,Home Health,SNF Rehab,Home vs SNF Other Discharge Recommendations FWW if unsafe with 4WW. Transportation Needs at Discharge Wheelchair/Cabulance
--- NOTE | 2021-01-17 15:07 | CM.DPC ---
DCP Cont: DEYVI called MD back on for today Dr. Conner (Pt's PCP) to inquire about POC and Dr. Conner awaiting consultation and recommendations from Urologist Dr. Sargent to determine if outpt vs inpt needed for pt's stone and nephrostomy tube and then Dr. Conner plans to meet bedside with pt around lunch time. Per Dr. Sargent prog note, pt is stable for d/c per Urology stand point and outpt follow up with in the next week for ongoing urology needs and procedure. DEYVI called Dr. Conner and discussed above and that F2F for [facility] on chart and needs signature and she is agreeable and plans to sign when she rounds on pt this evening after clinic. SW discussed [facility] for one more week of IV-Abx and she is agreeable and states that she also needs to consult with Cardiology as pt may need stress test and Dr. Conner feels best for pt to d/c tomorrow after discussion with Cardiology and her colleagues who rounded on pt the last 3 days to confirm all set up for successful d/c with reduced risk of re-admit. DEYVI called [facility] and [facility] and updated on likely plan of d/c home tomorrow. Plan: SW to follow for MD to sign F2F for HH and write orders for home IV-Abx and faxing PICC insertion note and final d/c orders to [facility] and [facility]. Jaqueline Dickey, CLINICAL DOCUMENTATION MANAGER
[2021-01-17] MEDS: OXYCODONE/ACETAMINOPHEN 5/325 TABLET 1 TAB PO (15:48)
[2021-01-17] MEDS: MAGNESIUM SULFATE 2 GM/50 ML PIGGYBACK IV (21:06)
[2021-01-17] MEDS: FUROSEMIDE 40 MG TABLET 20 MG PO (21:06)
[2021-01-17] MEDS: ATORVASTATIN 20 MG TABLET 10 MG PO (21:07)
[2021-01-17] MEDS: ISOSORBIDE MONONITRATE ER 30 MG TABLET 60 MG PO (21:07)
[2021-01-17] MEDS: NYSTATIN POWDER 15GM 1 APPLIC TOP (21:17)
[2021-01-17] MEDS: cefTRIAXone 2,000 MG in SODIUM CHLORIDE 0.9% 100 ML 200 ML IV (23:22)
--- NOTE | 2021-01-17 23:22 | PC.NURSE ---
flushed pt's nephrostomy around 1830.
[2021-01-18 04:29] VITALS: BP 110/44; PULSE 79; RESP 20; TEMP 36.6; O2SAT 100
[2021-01-18] MEDS: SODIUM CHLORIDE 0.9% FLUSH 10 ML IV ×2 (06:12→07:59)
[2021-01-18 06:24] LABS: Add Manual Diff / Slide Review NO; Basophils Absolute Auto 100 /uL (0-100); Basophils Percent Auto 1.1 % (0-2); Eosinophils Absolute Auto 200 /uL (0-450); Eosinophils Percent Auto 2.8 % (2-4); Hematocrit 29.6 % (36-46); Hemoglobin 9.8 g/dL (12.0-16.0); Lymphocytes Absolute Auto 1800 /uL (1100-4500); Lymphocytes Percent Auto 23.4 % (25-40); Mean Corpuscular HGB Conc 33.1 % (30-36); Mean Corpuscular Hemoglobin 29.6 PG (26-34); Mean Corpuscular Volume 89.6 fL (80-100); Monocytes Absolute Auto 500 /uL (0-900); Monocytes Percent Auto 6.5 % (3-14); Neutrophils Absolute Auto 5100 /uL (1500-7000); Neutrophils Percent Auto 66.2 % (50-75); Platelet Count 113 X10^3/uL (150-400); Red Cell Distribution Width 14.4 % (11.6-14.8); White Blood Cell Count 7.7 X10^3/uL (4.5-11.0)
[2021-01-18 06:29] LABS: Alanine Aminotransferase 25 IU/L (<35); Albumin 2.7 g/dL (3.5-5.0); Alkaline Phosphatase 120 U/L (38-126); Aspartate Aminotransferase 38 IU/L (14-36); BUN Creatinine Ratio 14.7 (6-22); Bilirubin Total 0.1 mg/dL (0.2-1.3); Blood Urea Nitrogen 14 mg/dL (7-17); Calcium 8.4 mg/dL (8.4-10.2); Carbon Dioxide 38 mmol/L (22-32); Chloride 98 mmol/L (98-107); Estimated Glomerular Filt Rate 58.3 mL/min (>60); Globulin 2.7 g/dL (1.7-4.1); Glucose 117 mg/dL (80-110); HEMOLYSIS < 15 (0-50); Magnesium 2.3 mg/dL (1.6-2.3); Phosphorous 4.8 mg/dL (2.8-4.1); Sodium 136 mmol/L (137-145); Total Protein 5.4 g/dL (6.3-8.2)
[2021-01-18] MEDS: BUDESONIDE 0.5 MG/2 ML NEB INH (07:41)
[2021-01-18] MEDS: IPRATROPIUM 0.5 MG/2.5 ML NEB INH (07:41)
[2021-01-18 07:42] VITALS: PULSE 70; RESP 18; O2SAT 98
[2021-01-18 07:46] VITALS: PULSE 72; RESP 18; O2SAT 98
[2021-01-18] MEDS: FUROSEMIDE 40 MG TABLET 20 MG PO (07:59)
[2021-01-18] MEDS: PANTOPRAZOLE DR 20 MG TABLET PO (07:59)
[2021-01-18] MEDS: ISOSORBIDE MONONITRATE ER 30 MG TABLET 60 MG PO (07:59)
[2021-01-18 08:00] VITALS: BP 110/50; PULSE 74; RESP 17; TEMP 36.1; O2SAT 100
[2021-01-18] MEDS: POTASSIUM CHLORIDE 10 MEQ TAB 20 MEQ PO (08:00)
[2021-01-18] MEDS: METOPROLOL ER 50 MG TABLET PO (08:01)
--- NOTE | 2021-01-18 08:45 | CM.DPNOTE ---
DCP Cont Call from Dr Conner; asking about SNF option? Patient and family agreeable, request [facility] (local option). Patient medically stable today, will attempt SNF option, patient has [facility], needs approx 6 addtl. days of IV abx, will DC w/nephrostomy tube and woodard cath according to physician. JADE
--- NOTE | 2021-01-18 08:58 | CM.DPNOTE ---
Faxed referral packet to [facility] on 01/18/21 at Ambar's request. Received fax conf. Ana Gee CM Asst.
--- NOTE | 2021-01-18 11:52 | OT.IP.EVAL ---
Current Diagnoses Obstructive and reflux uropathy, unspecified (01/09/21) Acute kidney failure, unspecified (01/09/21) Surgery Performed Operation Date: 01/10/21 17:30 Actual Procedures p Cystoscopy w/right ureteroscopy(Right) - Shayna Sargent MD Past Medical History (Last Reviewed 01/13/21 @ 13:33 by Shayna Sargent MD) Heart attack (~2013) Occupational Therapy Inpatient Evaluation/Re-Eval M1 PT/OT-IP Prior Functional Status Start: 01/10/21 12:53 Freq: NEEDED Status: Active Protocol: Document 01/18/21 10:25 [facility] (Rec: 01/18/21 13:01 [facility] [id number]) Medical Review Prior Functional Status Medical History Reviewed Yes Communication able to make needs known Mobility and Gait pt stated that she is modified independent with all mobilities and ambulation using 4WW; uses O2 at 2L/min 24/7 at home Activities of Daily Living and IADL's stated that spouse assists her with her back for showers. Pt states prior was independent for ADl's , paid the bills and took her own medications. Social History Household Members spouse Living Arrangements Apartment/Condo Number of Floors (Floors) One Floor Number of Stairs To Enter/Railing? ramp to enter Home Environment High Toilet Home Equipment Tub Transfer Bench,Lift Recliner,Grab Bars Near Toilet ,Grab Bars In Shower M2 OT-IP Current Condition Start: 01/18/21 12:30 Freq: Status: Active Protocol: Document 01/18/21 10:25 [facility] (Rec: 01/18/21 13:01 [facility] [id number]) Occupational Therapy Current Condition Current Condition Evaluation Date 01/18/21 Treatment Diagnosis UTI, urethra calculus, WI type 2, weakness Diagnosis Onset Date 01/09/21 Post Operative Precautions Abdominal Surgery Precautions Log Roll,Lifting Restrictions, Gait Belt above Incisional Area M3 OT- IP Subjective and Pain Start: 01/18/21 12:30 Freq: Status: Active Protocol: Document 01/18/21 10:25 [facility] (Rec: 01/18/21 13:01 [facility] [id number]) OT- Subjective Occupational Therapy Visit Comments Patient Comments Pt agreed to work with OT and wanting to use the BSC. Patient/Caregiver Goals To go home. OT Pain Assessment Pain When Pain Assessed At Rest Pain Present Pain Present Denied Pain M4 OT- IP ADL's Start: 01/18/21 12:30 Freq: Status: Active Protocol: Document 01/18/21 10:25 [facility] (Rec: 01/18/21 13:01 [facility] [id number]) OT ADL-Grooming Comments OT Grooming Comments NOt performed. OT ADL-Oral Care Comments Oral Care Comments NOt performed. OT ADL-Dressing General Eval Lower Body Dressing Ability Standby Assistance,Maximum Assistance Comments OT Dressing Comments Due to recent surgery pt needing assist for all LB dressing needs. Pt issued LB dressing equipment and now able to do more for herself. Pt's and friend to assist as needed. OT ADL-Toileting General Evaluation Areas Needing Assistance Manage Clothing,Perform Perineal Hygiene Comments OT Toileting Comments MODA for completeness. Educated on information for toilet paper aid or bidet to help increase her independence with hygiene needs. OT ADL-Bathing Comments OT Bathing Comments Pt states showered yesterday, M5 OT- IP IADL's Start: 01/18/21 12:30 Freq: Status: Active Protocol: Document 01/18/21 10:25 [facility] (Rec: 01/18/21 13:01 [facility] [id number]) OT-Instrumental Activities of Daily Living Home Safety Awareness Home Safety Comments Pt a bit confused and having difficulty with short term memory and problem solving at this time. Medication Management Medication Management Comments Pt would benefit from assist at this time due to safety concerns. Money Management Money Management Comments Pt would benefit from assist at this time due to safety concerns. Meal Preparation Meal Preparation Comments Pt would benefit from assist at this time due to safety concerns. Adult Psychiatrist Adult Psychiatrist Comments Pt would benefit from assist at this time due to safety concerns. M6 OT- IP Functional Cognition Start: 01/18/21 12:30 Freq: Status: Active Protocol: Document 01/18/21 10:25 [facility] (Rec: 01/18/21 13:01 [facility] [id number]) Cognitive Factors Limiting Selfcare Function Cognitive Ability Level of Alertness Alert,Confusional State Patient Orientation Name,Age,Birthday,Month,Date, Year,Day of Week,Place, Situation Attention Span Ability Capable of Focused Attention, Capable of Sustained Attention Ability to Follow Commands Able to Follow One Step Commands with Increased Time, Able to Follow One Step Commands with Repetition Memory Description Short Term Impaired,Working Impaired Problem Solving Ability Unable to Identify Errors, Needs Assist to Identify Solutions Executive Function Ability Unable to Filter Distractions, Unable to Make Plans,Unable to Organize Plans,Unable to Remember Details Cognitive Tests SLUMS Pt scored 18/30 which implies cognitive deficits. Pt not able to subtract 23 from 100, able to recall 4/5 objects after time passed, and not able to recall any of the information after paragraph read to be able to answer any of the 4 questions correctly. Pt states has noticed in the past month on at times having difficulty to recall if she had taken the right medicaitions even though she uses a pill organizer. Cognitive Comments Cognitive Assessment Comments Pt has UTI which may also affect her thinking abilities. Continue to assess cognitive needs while here in the hospital. OT- Vision and Hearing OT- Hearing Assessment OT- Hearing Assessment Hearing Impaired OT- Vision Assessment Visual Acuity Glasses All The Time Occular Pursuits WFL Visual Lopez Impaired Vision Assessment Comments Pt left eye lid droops down which affect her peripheral vision to the left. M7 OT- IP Mobility and Balance Start: 01/18/21 12:30 Freq: Status: Active Protocol: Document 01/18/21 10:25 [facility] (Rec: 01/18/21 13:01 [facility] [id number]) OT- Bed Mobility Assessment Supine to Sit Supine to Sit Assist Maximum Assistance,Head of Bed Elevated,Bedrails OT-Transfer Assessment Sit to and From Stand Sit to and from Stand Minimal Assistance,Moderate Assistance Transfers Transfer Ability Contact Guard Assistance Technique Transfer Destination Bed,Bedside Commode,Chair Transfer Technique Stand Step Pivot Devices Transfer Assistive Devices Gait Belt,Front Wheeled Walker Comments Mobility Comments Pt usually sleeps in her lift chair, therefore MAXA to help with her legs heavy use of green pad to get to the edge of the bed. ISABELLA to MODA x1 to stand pending on level of surface standing from . CGA for transfer. OT- Balance Assessment Sitting Balance and Reactions Static Sitting Balance Ability Good Dynamic Sitting Balance Ability Fair Standing Balance and Reactions Static Standing Balance Ability Poor M8 OT- IP Objective Assessments Start: 01/18/21 12:30 Freq: Status: Active Protocol: Document 01/18/21 10:25 [facility] (Rec: 01/18/21 13:01 [facility] [id number]) OT Gross Range of Motion Upper Extremity Range of Motion Assessment Left Impaired OT Strength Upper Extremity Strength Assessment Left Impaired Comments Strength Comments LUE form proxiaml to distal 3- /5 to 3+/5. Pt states has been week for the past month. OT- Coordination Assessment Comments Coordination Comments Increased time for left hand finger to nose. OT-Muscle Tone Assessment Muscle Tone WNL Yes OT Sensation Assessment Comments Summary Comments Pt states having more difficulty to feel on left side for light touch. Pt also having a harder time to tell for proprioception and kinesthesia for left side as well. M9 OT- IP Assessment and Plan Start: 01/18/21 12:30 Freq: Status: Active Protocol: Document 01/18/21 10:25 [facility] (Rec: 01/18/21 13:01 [facility] [id number]) OT Summary Assessment and Plan Potential Rehabilitation Potential Good Analytic Complexity at Evaluation High Summary OT Impairments Range of Motion,Strength, Balance,Functional Cognition, Functional Mobility,Grooming, Dressing,Toileting,Bathing, Toilet Transfers,Shower Transfers,Activity Tolerance Progress Towards Goals Slow Progress due to Medical Issues,Slow Progress due to Activity Tolerance,Slow Progress due to Cognition Assessment Summary Pt MAX complexity and main barriers are decreased activity tolerance, decreased independence with ADl needs, decreased STM and problem solving and if going home would be best to have 24/7 assist. Pt also havinf LUE weakness and some decreased sensation for LUE. Pt has a UTI which may also be affecting her thinking skills. Otherwise pt would greatly benefit form skilled rehab stay. Pt however does present with left UE weakness, decreased vision of left side and decreased sensation for LUE. Nursing notified. Goals Grooming Goal Independent Dressing Goal Independent Toileting Goal Independent Bathing Goal Minimal Assistance Toilet Transfer Goal Independent Shower Transfer Goal Independent Days to Meet Goals 15 Frequency of Treatment Frequency Of Treatment Once a Day Treatment Plan OT Treatment Plan ADL Training,Functional Cognition Training,Functional Mobility,Vision Retraining, Patient/Family Education, Discharge Planning Other Treatment Recommendations and Next shower Treatment Focus Discharge Recommendations OT Discharge Recommendations Home with 24/7 Assist Available,Home Health,SNF Rehab,Home vs SNF Transportation Needs at Discharge Private Vehicle
[2021-01-18 12:00] VITALS: BP 104/53; PULSE 84; RESP 18; TEMP 36.4; O2SAT 95
--- NOTE | 2021-01-18 12:41 | P.DS_ITS ---
History of Present Illness History of Present Illness Date Patient Seen: 01/18/21 Time Patient Seen: 12:41 Chief complaint: Poss UTI/Hallucinations Narrative: 70-year-old female is admitted from the ED secondary to an obstructing 8 mm proximal right ureter stone in setting of acute urinary tract infection and acute renal failure. This is patient's 2nd visit to the emergency room for this same complaint in 1 week. Initially, she presented with right-sided flank pain that awoke her from sleep. CT KUB showed an 8 mm stone in the proximal right ureter with moderate right hydronephrosis. UA showed UTI. Creatinine was noted to be at her baseline, 1.09 and she was discharged to home on Bactrim 1 tab p.o. b.i.d., Flomax, and oxycodone. Strict return precautions for urosepis were given while preoperative cardiology clearance was sought for lithotripsy. Three days later, preliminary urine culture showed resistance to Bactrim and patient was switched to Augmentin. Yesterday evening, patient again presented with hallucinations, altered mental status, generalized weakness, and chills. Repeat CT KUB showed that the stone had moved and was obstructing the distal right ureter. Hydronephrosis was slightly increased, mild to moderate, and creatinine had essentially doubled to 2.12. Other remarkable labs included platelets of 80, hemoglobin/ hematocrit of 11.1/32.9, and 1+ smudge cells (new). She also had slightly elevated AST at 42 and an elevated alkaline phosphatase at 299. Notably, she is not febrile and does not have a white count but procalcitonin is elevated at 71.1. Vital signs upon admission to the emergency department included temperature of 97.2?, pulse 80, respirations 124/80, and O2 saturation 98% on room air. She was given 1 L of normal saline, 2 g of Rocephin and pain control. She was made NPO and has had an uneventful night, fluids are at 25 cc/hour. Denies any pain or nausea this morning, no longer confused. Woodard in place. Plan is to proceed with lithotripsy later today. Dr. Sargent, consulting. Discharge Providers Provider Date of admission: 01/09/21 23:08 Discharge Date: 01/18/21 Primary care physician: Susu Conner MD Consults: 01/10/21 00:17 Consult to Urology Routine Comment: Consulting Provider: Shayna Sargent Reason for consultation: obstructvie uropathy, kidney injury Has provider been notified: Yes 01/10/21 00:58 Consult to Dietitian, Adult Routine Comment: Reason For Exam: 17# weight loss over past 2 months, poor skin cond 01/10/21 07:52 Consult to Discharge Planning Routine Comment: Consult to Physical Therapy Evaluate & Treat Comment: Physician Instructions: Evaluate and Treat 01/18/21 08:42 Consult to Occupational Therapy Evaluate & Treat Comment: Physician Instructions: Need for SNF, [place] [employer] Discharge provider: Susu Conner MD Summary Hospital Course Discharge Diagnosis: 1. Acute unilateral obstructive uropathy, right 2. Urosepsis secondary to Proteus mirabilis, acute, resolving 3. Atrial fibrillation with RVR, resolved 4. KY, type 2, during episode of atrial fibrillation with RVR 5. Acute renal failure, resolved 6. Acute infectious encephalopathy, resolved 7. Anemia, thrombocytopenia, elevated ALP, and smudge cells, new 8. Hypokalemia, resolved 9. Acute protein malnutrition 10. COPD, oxygen dependent 11. Congestive heart failure, systolic, chronic 12. Stress incontinence, urinary, chronic 13. Chronic pain syndrome 14. Hyperlipidemia, chronic 15. Depression/panic disorder, chronic 16. Obstructive sleep apnea, chronic 17. Obesity, BMI greater than 40 Hospital Course: 01/11/12: Difficult right retrograde pyelogram and ureteroscopy, Dr. Sargent unable to negotiate the ureteral guidewire proximal to the stone, recommended transfer to tertiary care center for IR placement of stent or nephrostomy tube, not possible due to bed scarcity from pandemic. Urine culture showed Proteus mirabilis. Procalcitonin elevated at 77. Rocephin 2 g IV q.day started. 01/12/12: Right nephrostomy tube placement by IR at [facility], successful. 01/13/21: Patient developed new onset atrial fibrillation with rapid ventricular rate. Suffered completely asymptomatic type [address] abnormalities[address] Cardiology was consulted and patient was chemically cardioverted with diltiazem and metoprolol and remained rate controlled throughout the rest of her stay. Heparin drip held secondary to thrombocytopenia. Patient was not deemed to be a candidate for cardiac catheterization and was medically managed. Echo revealed an ejection fraction of 40-45% and new cardiomyopathy. Patient develops urosepsis and was transferred to ICU. 01/15/21: PICC line placed. 01/17/21: Dr. Sargent advised 14 day course of antibiotics prior to repeat trial of lithotripsy in 1-2 weeks. 01/18/21: On day of discharge, patient is afebrile with stable vital signs throughout. On day 8/14 of rocephin. Discharge with infusion therapy and home health has been arranged. Nursing has provided teaching to patient's regarding nephrostomy tube flushing and woodard/nephrostomy drainage. Infusion therapy has provided teaching on antibiotic administration. Follow up needed: 1. Dr. Sargent in 1 week. Goals for that visit: arrange lithotripsy (and stent if needed). 2. Dr. Conner in 1 week. Goals for that visit: recheck CBC to trend platelets, CMP to check potassium and Cr, and phosporus. Referral to hematology/oncolgy due to smudge cells. Repeat EKG to check rhythm. Check blood pressure, if low, lower lasix to 10 mg PO qd or just as needed. Ensure follow up with cardiology to review new onset atrial fibrillation and cardiomyopathy. Ensure follow up with urology/IR. Exam Vital Signs (past 8 hours): - 01/18/21 07:42 01/18/21 07:46 01/18/21 08:00 Temperature 97.0 F L Pulse Rate 70 72 74 Respiratory Rate 18 18 17 Blood Pressure 110/50 L Pulse Oximetry 98 98 100 01/18/21 12:00 Temperature 97.6 F Pulse Rate 84 Respiratory Rate 18 Blood Pressure 104/53 L Pulse Oximetry 95 Oxygen Delivery Method Nasal Cannula Oxygen Flow Rate 2 Narrative Exam Narrative: GENERAL: Alert and oriented, appearing stated age and in no acute distress. HEENT: Head normocephalic/atraumatic. LUNGS: Clear to ausculation bilaterally, no wheezes, rhonchi or rales. CV: Normal S1 and S2 with regular rate and rhythm, no audible murmurs, rubs or gallops. ABDOMEN: Soft, non-tender, non-distended, no organomegaly. Positive bowel sounds. EXTREMITIES: 1+ nonpitting edema to level of bilateral knees. NEURO: Cranial nerves II through XII grossly intact, no focal deficits. PSYCH: Alert and oriented x 3. SKIN: Contusion, violaceous, right upper extremity. Objective Labs Result Diagrams: 01/18/21 06:05 01/18/21 06:05 Labs: Laboratory Results - last 24 hr 01/18/21 01/18/21 06:05 06:05 WBC 7.7 RBC 3.30 L Hgb 9.8 L Hct 29.6 L MCV 89.6 MCH 29.6 MCHC 33.1 RDW 14.4 Plt Count 113 L Neut % (Auto) 66.2 Lymph % (Auto) 23.4 L [place] % (Auto) 6.5 Eos % (Auto) 2.8 Baso % (Auto) 1.1 Neut # (Auto) 5100 Lymph # (Auto) 1800 [place] # (Auto) 500 Eos # (Auto) 200 Baso # (Auto) 100 Sodium 136 L Potassium 4.0 Chloride 98 Carbon Dioxide 38 H BUN 14 Creatinine 0.95 Estimated GFR 58.3 L BUN/Creatinine Ratio 14.7 Glucose 117 H Calcium 8.4 Phosphorus 4.8 H D Magnesium 2.3 Total Bilirubin 0.1 L AST 38 H ALT 25 Alkaline Phosphatase 120 Total Protein 5.4 L Albumin 2.7 L Globulin 2.7 Albumin/Globulin Ratio 1.0 [facility] Medical History Heart attack (~2013) Social History household members: spouse Smoking Status: Former smoker alcohol intake: never Discharge Plan Discharge Plan Patient Disposition: Home Health Service Transfer to: [facility] Provider Discharge Comment: 1. Flush nephrostomy tube daily with 10 cc of sterile water. ICU nurse will teach you how to do this. Keep flushing tube until Dr. Sargent tells you to stop. 2. Empty woodard bag and nephrostomy bag 2x/day or as needed, record output. ICU nurse will teach you how to do this. 3. Inject antibiotic daily into PICC line for 6 more days. Infusion nurse will teach you how to do this. 4. Take medications as prescribed. 5. Call with any worsening fever, abdominal pain, surgical site infection, infusion difficulties, or any other concerns. 6. Home health will call you to set up appointments at home for therapy support. Discharge orders & Medications Prescriptions: New nitroglycerin [Nitrostat] 0.4 mg Tablet, Sublingual 0.4 mg sublingual [id number] PRN (Reason: Chest Pain) Qty: 10 RF: 3 ceftriaxone 2 gram Recon Soln 2,000 mg IV Q24H 6 Days Qty: 1200 RF: 0 sodium chloride 0.9 % (flush) [Normal Saline Flush] Syringe 10 ml IV BID 6 Days Qty: 120 RF: 1 water for injection, sterile [Sterile Water for Injection] Solution 10 ml .Route DAILY Qty: 250 RF: 1 Continued potassium chloride 10 mEq Capsule, Extended Release 20 meq PO DAILY RF: 0 atorvastatin 10 mg Tablet 10 mg PO DAILY RF: 0 sertraline 25 mg Tablet 100 mg PO DAILY RF: 0 albuterol sulfate [Ventolin HFA] 90 mcg/actuation Hfa Aerosol Inhaler 2 puff INHALATION Q4-6H PRN (Reason: copd) RF: 0 Alvesco 160 mcg/actuation HFA aerosol inhaler 160 mcg INHALATION BID RF: 0 isosorbide mononitrate 30 mg tablet extended release 24 hr 60 mg PO BID RF: 0 meclizine 25 mg tablet 25 mg PO Q8HR PRN (Reason: for dizziness) RF: 0 metoprolol succinate 50 mg tablet extended release 24 hr 50 mg PO DAILY RF: 0 omeprazole 20 mg capsule,delayed release(DR/EC) 20 mg PO DAILY RF: 0 oxycodone-acetaminophen 5-325 mg tablet 5 - 325 tab Q6-8H PRN (Reason: Pain, Moderate) RF: 0 Spiriva Respimat 2.5 mcg/actuation mist See Rx Instructions .ROUTE .COMPLEX RF: 0 Changed albuterol sulfate 0.63 mg/3 mL Solution For Nebulization 0.083 mg INHALATION BID PRN (Reason: dypsnea) Qty: 0 RF: 0 nystatin [Nyamyc] 100,000 unit/gram powder 100,000 applic TOPICAL BID PRN (Reason: rash) Qty: 0 RF: 0 furosemide 40 mg Tablet 20 mg PO DAILY Qty: 0 RF: 0 Discontinued Spiriva with HandiHaler 18 mcg Capsule, W/Inhalation Device 1 cap INHALATION DAILY RF: 0 tamsulosin [Flomax] 0.4 mg capsule 0.4 mg PO DAILY Qty: 7 RF: 0 amoxicillin-pot clavulanate [Augmentin] 875-125 mg tablet 1 tab PO BID Qty: 20 RF: 0 Follow up/Referrals: Susu Conner MD [Primary Care Provider] - 1 Week Shayna Sargent MD [Physician] - 01/19/21 Diet/Activity/Treatments Diet: Low-sodium Activity: Wheelchair/walker. Home health with PT/OT/retirement. Skin/Wound/Dressing Care Dressing: Nephrostomy dressing change once per week, next due 01/25/21. Visit Report/Discharge Packet Instructions: DI for Cystoscopy, DI for Nephrostomy Discharge Data Primary Care Provider: Susu Conner Quality VTE Deep Vein Thrombosis/Pulmonary Embolism Present on Admission: No
--- NOTE | 2021-01-18 13:20 | PT.IPTN ---
Current Diagnoses Obstructive and reflux uropathy, unspecified (01/09/21) Acute kidney failure, unspecified (01/09/21) Surgery Performed Operation Date: 01/10/21 17:30 Actual Procedures p Cystoscopy w/right ureteroscopy(Right) - Shayna Sargent MD Physical Therapy Treatment Note M2 PT-IP Current Condition Start: 01/10/21 12:53 Freq: NEEDED Status: Active Protocol: Document 01/10/21 11:25 AB (Rec: 01/10/21 13:04 AB [id number]) Physical Therapy Current Condition Current Condition Evaluation Date 01/10/21 Treatment Diagnosis UTI; urethral calculus; difficulty in walking Onset Date 01/09/21 Precautions Other Precautions falls M3 PT-IP Subjective Start: 01/10/21 12:53 Freq: NEEDED Status: Active Protocol: Document 01/18/21 12:10 SP (Rec: 01/18/21 16:24 SP [id number]) Subjective Physical Therapy Visit Type Type Treatment Note Visit Start Time 12:45 Visit Stop Time 13:20 Total Visit Minutes 45 Notes DIE GRINDER scheduled caregiver training at 1130, when returned OT working with pt and noted not in attendance. DIE GRINDER called spouse to come and attend if possible for him to assist pt at 1245, and willing to come in but was unsure is physically able. Pt required split treatment, need for other therapists and physician to see pt. [phone] , [phone]. Number of DIE GRINDER Visits 1 Physical Therapy Visit Comments Patient Comments pt is agreeable to do PT Patient Goals to get stronger to be able to return home with Therapy Pain Assessment Pain Present Pain Present Denied Pain M4 PT-IP Mobility and Gait Start: 01/10/21 12:53 Freq: NEEDED Status: Active Protocol: Document 01/18/21 12:10 SP (Rec: 01/18/21 16:24 SP [id number]) PT-Bed Mobility Assessment Sit to Supine Sit to Supine Minimal Assistance,1 Person Assistance Scooting Scooting Up and Down in Bed Contact Guard Assistance PT-Transfer Assessment Sit to and From Stand Sit to and from Stand Contact Guard Assistance,1 Person Assistance,Use of Upper Extremities Equipment Transfer Assistive Device Gait Belt,Front Wheeled Walker Orthotic/Prosthetic Devices or Brace: No Transfers Transfer Destination Chair Transfer Technique ambulated using fWW Transfer Ability Level of Assist Contact Guard Assistance,1 Person Assistance,Use of Upper Extremities Comments Mobility Comments stated didn't want to complete caregiver training but watch how mobilizes with therapy due to has own back problems and was very difficult to assist her in past, she was weak and had falls couldn't help her with. Pt stated didn't remember falling and didn't realize how much help he needed to give her. Sit>stand from chair CGA- 5% A, pt walked 2 laps across room and back approx 60 ft ( shorter than distance has to walk from car to sit inside appt including ramp) with 2nd lap increased Min BUE WB on FWW to Heavy UE on FWW with cues for increase foot clearance and breath due to noted increae breath rate SaO2 >90% on 2L. Pt side step EOB, cued for reaching back CGA to sit on EOB. Pt required Min A for donning gait belt to each LE for self repositioning into bed with added assist required. Pt was able to lateral scoot to center self in bed HOB flat, BLE bent wB on bed and use of bed rails. Pt was able to scoot up in bed with bed positioned into trendelenburg positioning and bed rail use. Pt had call light and all needs in reach with bed alarmed. Pt and both agreed she tires quickly and doesn't have the endurance to return home at this time, would prefer to go to skilled rehab facilitiy to improve strength and DIE GRINDER in agreement. DIE GRINDER discussed with nursing and case mgt our recommendation. Gait Assessment Gait Gait Assistance Required: Contact Guard Assist Distance (Feet) 60 Able to Maintain Weight Bearing Status Yes During Gait Assistive Devices Assistive Device Gait Belt,Front Wheeled Walker Orthotic/Prosthetic Devices or Brace: No Gait Deviations General Gait Pattern Antalgic,Decreased Stride Length,Decreased Feet Clearance,Flexed Trunk,Step-to Gait Factors Limiting Gait Function Factors Limiting Gait Function Decreased Activity Tolerance, Decreased Strength,Difficulty Following Directions,Poor Balance,Respiratory Distress Comments Gait Comments see mobility comments Stair Climbing Assessment Comments Stair Climbing Comments not need to assess, has ramp to enter home and no stairs inside to assess. PT-Balance Assessment Sitting Balance and Reactions Static Sitting Balance Ability Good Dynamic Sitting Balance Ability Fair Standing Balance and Reactions Static Standing Balance Ability Good Dynamic Standing Balance Ability Fair Device Used FWW M5 PT-IP Objective Assessments Start: 01/10/21 12:53 Freq: NEEDED Status: Active Protocol: Document 01/10/21 11:25 AB (Rec: 01/10/21 13:04 AB [id number]) Orientation Orientation/Cognition Level of Alertness Confusional State Orientation Name,Month,Date Safety Awareness Decreased Safety Awareness Memory Description Short Term Impaired Comments pt is not consistent with answering questions Gross Range of Motion Lower Extremity ROM Assessment Within Functional Limits Strength Lower Extremity Strength Assessment Bilaterally Impaired Hip 3+/5 Knee 3+/5 Ankle 3+/5 Muscle Tone Muscle Tone WNL Yes M6 PT-IP Treatment Start: 01/10/21 12:53 Freq: NEEDED Status: Active Protocol: Document 01/18/21 12:10 SP (Rec: 01/18/21 16:24 SP [id number]) Physical Therapy Treatment Education Education Provided Safety M7 PT-IP Assessment and Plan Start: 01/10/21 12:53 Freq: NEEDED Status: Active Protocol: Document 01/18/21 12:10 SP (Rec: 01/18/21 16:24 SP [id number]) PT Summary Assessment and Plan Potential Rehabilitation Potential Good Status of Condition at Evaluation Evolving Summary Impairments Pain,ROM,Strength,Balance, Coordination,Sensation,Tone, Cognition,Bed Mobility, Transfers,Gait,Activity Tolerance Progress Towards Goals Slow Progress due to Activity Tolerance Assessment Summary Pt required CGA with transfers and gait in room approx 60 ft ( 2laps in room) with increased BUE WB on FWW and decrease LE foot clearance. Pt stated even though will sleep in recliner she still feel to weak to go home and her to assist her once attended tx and stated still is tomuch for home to help at this time. Therapy recommending SNF for progression in strength and functional mobility for safe DC home. Goals Bed Mobility Goal Standby Assistance Transfer Goal Independent,Front Wheeled Walker Gait Goal Independent,Front Wheel Walker Gait Distance 150 Other Goals improve ambulation using 4WW SBA 200 ft Days to Meet Goals 10 Frequency of Treatment Frequency Of Treatment Once a Day Treatment Plan Physical Therapy Treatment Plan Bed Mobility Training,Transfer Training,Gait Training, Therapeutic Exercise,Balance Retraining,Discharge Planning, Hot or Cold Pack,Neuromuscular Re-ed,Coordination Retraining Other Recommendations and Next Treatment bed mob, transfers, gait. Focus Precautions Other Precautions falls Recommendations To Nursing Amount of Assist Needed 1 Person Assist Discharge Recommendations PT Discharge Recommendations SNF Rehab Other Discharge Recommendations FWW needed before DC home. Transportation Needs at Discharge Private Vehicle,Wheelchair/ Cabulance
--- NOTE | 2021-01-18 14:30 | CM.DPNOTE ---
Faxed HH referral packet to [facility] per Ambar on 01/18/21. Received fax conf. Called Crys to let her know fax is coming. She said their nurse could see them Saturday or no later than Saturday. I relayed this information to Ambar. Ana Gee CM Asst.
--- NOTE | 2021-01-18 14:37 | PC.NURSE ---
Discharge Teaching At bedside with pt and pt's Alessio along with Ambar RAIN to discuss discharge planning. At the time of this conversation orders have been entered by Dr. Conner to d/c pt to home. Some time spent with pt and pt's discussing the best options for discharge. Transport to be done by the who will bring pt's wheelchair to the hospital and will wheel her home across the street - this is preferred method of transport for pt and as has difficulty transferring pt in and out of car. agreeable to empty and record both nephrostomy and woodard catheter bags stating I can do that. Daily flushing of nephrostomy tube reviewed and pt did a return demonstration and states she will do this daily. [facility] to meet pt at their house tomorrow and pt to receive dose of ceftriaxone here at hospital prior to d/c. Ok to give at [address] Conner. called and made aware of d/c time and is agreeable to plan.
[2021-01-18 16:22] VITALS: BP 104/58; PULSE 74; RESP 18; TEMP 36.2; O2SAT 98
[2021-01-18] MEDS: cefTRIAXone 2,000 MG in SODIUM CHLORIDE 0.9% 100 ML 200 ML IV (16:29)
--- NOTE | 2021-01-18 19:43 | PC.NURSE ---
discharge instruction given by day shift nurse and reviewed again to patient by this RN. family brought their own wheelchair, pt dc home with their own oxygen tank.
--- NOTE | 2021-01-19 09:33 | CM.DPNOTE ---
Addendum entered by BRISEYDA Puente 01/19/21 11:08: Of note: Spouse Alessio working with [facility] to secure JONO care giving for patient, just not in place yet. Original Note: DC Note Late Entry Worked on DCP throughout the day yesterday. JORGE Perez, kindly faxed the clinical packet yesterday morning to [facility] for SNF auth request . Attempted multiple SNFs and unfortunately, this is a particularly challenging time to secure SNF beds d/t the COVID-19 pandemic and critically low staffing at many facilities, no bed secured. Updated Dr Conner and patient/spouse. Updated [facility], who had originally planned to see patient yesterday afternoon at but gave away the spot when team had decided to search for SNF option. Jeff Hardwick was able to reschedule an RN to complete the teaching at patient's home for today 01.19.21 for approx 1530. Patient/spouse aware and agreeable. Dr Conner had decided that home would be a viable DC plan if spouse could be taught to assist patient w/the care of the nephrostomy tube and woodard catheter...until patient followed up with Dr Sargent, Urology, to get these tubes removed. This [employer] entered room w/RN Marta yesterday. Reviewed DCP. Spouse Alessio was hesitant about managing patient's medical needs, however, with education from PABLO Lozano on emptying and measuring the nephrostomy bag and woodard bag, spouse's anxiousness appeared to diminish. In addition, patient was able to flush her own nephrostomy tube, which she understood had to be done daily. Patient was also agreeable to administering her own IV abx after the teaching could be done from [facility] 01.19.21. Spouse agreed to assist patient when needed when hooking up either the fluid for the daily flush and hooking up the IV abx every evening. Placed call to norberto DELANEY and Nancy explained an RN would not be available until next Saturday01.26.21. JORGE Perez, kindly agreed to place call to Crys at [facility], and was able to secure an RN start of care for 01.20.21, clinical and orders/F2F faxed; updated patient/spouse and they were agreeable to this. Plan: DC 01.18.21 home w/spouse via wheelchair (patient and spouse live across the [address] in the [facility]) [facility]/PT/OT (RN to assist w/care of tubes), [facility] to follow for home IV abx infusion and PICC dressing changes, Dr Conner available by phone to answer any questions from patient/spouse that might arise once home. New Rx sent to [facility] for spouse to p/u. Spoke w/ Nicolas at [facility]; requested he disregard the Rx for IV abx- placed in error from Dr Conner's clinic computer. BRISEYDA Hollis
== END 2021-01-18 19:40 | disposition home health service (06) | DRG 871 ==
LOC: ED 18:51 → AC 23:09 → ICU 01-13 12:02 → AC 01-15 18:09
PROVIDERS: Family Medicine; Specialist; Admitting Provider Student in an Organized Health Care Education/Training Program; Emergency Provider Emergency Medicine; PCP Student in an Organized Health Care Education/Training Program; Referring Provider Emergency Medicine; Visit Provider Student in an Organized Health Care Education/Training Program
PROC: 0TJ98ZZ Inspection of Ureter, Via Natural or Artificial Opening Endoscopic (ICD-10-PCS; principal; 2021-01-10 17:30)
DX: A41.59 Other Gram-negative sepsis (principal); I21.A1 Myocardial infarction type 2; N13.6 Pyonephrosis; N20.1 Calculus of ureter; Z68.43 Body mass index [BMI] 50.0-59.9, adult; I50.22 Chronic systolic (congestive) heart failure; G93.49 Other encephalopathy; E46 Unspecified protein-calorie malnutrition; N39.0 Urinary tract infection, site not specified; N17.9 Acute kidney failure, unspecified; R65.20 Severe sepsis without septic shock; E66.01 Morbid (severe) obesity due to excess calories; D69.6 Thrombocytopenia, unspecified; I48.91 Unspecified atrial fibrillation; D64.9 Anemia, unspecified; J44.9 Chronic obstructive pulmonary disease, unspecified; B96.4 Proteus (mirabilis) (morganii) as the cause of diseases classified elsewhere; I11.0 Hypertensive heart disease with heart failure; E78.5 Hyperlipidemia, unspecified; E87.8 Other disorders of electrolyte and fluid balance, not elsewhere classified; E87.6 Hypokalemia; G89.4 Chronic pain syndrome; G47.33 Obstructive sleep apnea (adult) (pediatric); Z99.81 Dependence on supplemental oxygen; Z20.822 Contact with and (suspected) exposure to COVID-19; Z87.891 Personal history of nicotine dependence; Z71.3 Dietary counseling and surveillance
CPT/HCPCS: 36415; 36569; 36592; 51702; 52330; 71045; 74018; 74176; 76000; 76770; 80048; 80053; 81001; 82550; 82962; 83605; 83690; 83735; 83880; 84100; 84145; 84443; 84484; 85007; 85025; 85379; 85384; 85610; 85730; 87040; 87086; 87635; 87797; 93005; 94640; 94760; 96361; 96365; 97116; 97162; 97167; 97530; 97535; 99231; 99232; 99233; 99284; C9803; A9270; C8929; C9113; J0282; J0295; J0696; J1100; J1642; J1644; J1815; J2270; J2405; J2704; J3010; J3475; J7613; Q9957

== ENCOUNTER 2021-01-22 19:42 | Emergency (ER) | payer OTHER, SELFPAY ==
[2021-01-20 14:57] VITALS: BMI 52.0
[2021-01-22] VITALS (9 sets, daily range): BP systolic 111–156; BP diastolic 50–67; PULSE 62–75; RESP 18–20; TEMP 36.1; O2SAT 94–100; BMI 49.8
--- NOTE | 2021-01-22 20:23 | ED_ITS ---
HPI - Female Genitourinary General Chief complaint: Urogenital-Female Stated complaint: No urine with catheter Time Seen by Provider: 01/22/21 19:49 Source: patient and EMS Mode of arrival: EMS Limitations: no limitations History of Present Illness HPI Narrative: Patient here for malfunction of indwelling Bazan catheter. Patient had surgery January 10, [address] Sargent, urologist. Has nephrostomy tubing drain as well as a Bazan catheter. Patient states no problems with nephrostomy tube. However 1045 this morning her original Bazan catheter bag was emptied at least half full. However since then has had very little output. Bladder scan showed 78 mL. No fever or chills. Patient is on antibiotics currently after procedure. No nausea vomiting or abdominal pain. Related Data Home Medications Medication Instructions Recorded Confirmed albuterol sulfate 90 mcg/actuation 2 puff INHALATION Q4-6H PRN 01/23/19 01/11/21 aerosol inhaler (Ventolin HFA) atorvastatin 10 mg tablet 10 mg PO DAILY 01/23/19 01/11/21 potassium chloride 10 mEq 20 meq PO DAILY 01/23/19 01/11/21 capsule,extended release sertraline 25 mg tablet 100 mg PO DAILY 01/23/19 01/11/21 ciclesonide 160 mcg/actuation 160 mcg INHALATION BID 01/11/21 01/11/21 aerosol inhaler (Alvesco) isosorbide mononitrate 30 mg 60 mg PO BID 01/11/21 01/11/21 tablet,extended release 24 hr meclizine 25 mg tablet 25 mg PO Q8HR PRN 01/11/21 01/11/21 metoprolol succinate 50 mg 50 mg PO DAILY 01/11/21 01/11/21 tablet,extended release 24 hr omeprazole 20 mg capsule,delayed 20 mg PO DAILY 01/11/21 01/11/21 release oxycodone-acetaminophen 5 mg-325 5 - 325 tab Q6-8H PRN 01/11/21 01/11/21 mg tablet tiotropium bromide 2.5 See Rx Instructions .ROUTE .COMPLEX 01/11/21 01/11/21 mcg/actuation mist for inhalation (Spiriva Respimat) Previous Rx's Medication Instructions Recorded albuterol sulfate 0.63 mg/3 mL 0.083 mg INHALATION BID PRN #0 ml 01/18/21 solution for nebulization ceftriaxone 2 gram solution for 2,000 mg IV Q24H 6 Days #1200 mg 01/18/21 injection furosemide 40 mg tablet 20 mg PO DAILY #0 tab 01/18/21 nitroglycerin 0.4 mg sublingual 0.4 mg SUBLINGUAL [id number] PRN #10 01/18/21 tablet (Nitrostat) tab nystatin 100,000 unit/gram topical 100,000 applic TOPICAL BID PRN #0 g 01/18/21 powder (Nyamyc) sodium chloride 0.9 % (flush) 10 ml IV BID 6 Days #120 ml 01/18/21 (Normal Saline Flush) water for injection, sterile 10 ml .ROUTE DAILY #250 ml 01/18/21 (Sterile Water for Injection) Allergies Allergy/AdvReac Type Severity Reaction Status Date / Time promethazine Allergy Unknown HALLUCINATI Verified 01/10/21 17:41 ONS Review of Systems Review of Systems Narrative: GENERAL: Denies chills, fatigue, malaise, fever, sweats. HEENT: Denies sinus pain, ear pain, sore throat RESPIRATORY: Denies dyspnea, cough CARDIOVASCULAR: Denies chest pain, palpitations GASTROINTESTINAL: Denies nausea, vomiting, abdominal pain : Denies dysuria, frequency, hematuria, complaints decreased urine output MUSCULOSKELETAL: denies muscle or bony pain SKIN: Denies rash, skin lesions NEUROLOGIC: Denies weakness, numbness ROS Unobtainable: All systems reviewed & are unremarkable except as noted in HPI and below Patient History Medical History Heart attack (~2013) Substance Use Type: does not use Exam Narrative Exam Narrative: GENERAL: in no distress, not toxic not dyspneic HEAD: Normocephalic. NECK: Trachea midline. CARDIOVASCULAR: Regular rate and rhythm without murmurs RESPIRATORY: Clear to auscultation. Breath sounds equal bilaterally. No wheezes, rales, or rhonchi. GASTROINTESTINAL: Abdomen soft, non-tender, no peritoneal signs, nephrostomy drain with serosanguineous fluid. Bazan catheter bag does show dark urine but small amount. Nurse at bedside to flush Bazan catheter with some return of normal saline. We will try to change out the original Bazan bag/catheter EXTREMITIES: No gross deformities. NEURO: AOx4. SKIN: Warm and dry PSYCH: Not anxious, is cooperative Initial Vital Signs Initial Vital Signs: Vital Signs Temperature 96.9 F L 01/22/21 19:45 Pulse Rate 68 01/22/21 19:45 Respiratory Rate 20 01/22/21 19:45 Blood Pressure 126/56 L 01/22/21 19:45 Pulse Oximetry 94 01/22/21 19:45 Course Course Course Narrative: No new issues during course of stay Orders Ordered: ED Orders 01/22/21 22:42 CT kidney ureter bladder (KUB) Stat 01/22/21 22:46 Complete Blood Count AUTO DIFF Stat Comprehensive Metabolic Panel Stat 01/22/21 23:20 COVID19 - ADMIT (PRODUCTION GENERALIST swab/PCR) Stat Discontinued Medications Furosemide (Furosemide 40 Mg/4 Ml Vial) 20 mg IV NOW ONE Stop: 01/23/21 00:44 Last Admin: 01/23/21 00:47 Dose: 20 mg Documented by: KGALLAG Sodium Chloride (Normal Saline 0.9%) 500 mls @ 1,000 mls/hr IV BOLUS ONE Stop: 01/22/21 21:04 Last Infusion: 01/22/21 21:21 Dose: 0 mls/hr Documented by: Admin: 01/22/21 20:40 Dose: 1,000 mls/hr Documented by: KGALLAG Sodium Chloride (Normal Saline 0.9%) 500 mls @ 1,000 mls/hr IV BOLUS ONE Stop: 01/23/21 00:20 Last Infusion: 01/23/21 00:42 Dose: 0 mls/hr Documented by: Admin: 01/23/21 00:03 Dose: 1,000 mls/hr Documented by: KGALLAG Sodium Chloride (Normal Saline 0.9%) 1,000 mls @ 1,000 mls/hr IV BOLUS ONE Stop: 01/23/21 02:25 Last Infusion: 01/23/21 02:32 Dose: 0 mls/hr Documented by: Admin: 01/23/21 01:29 Dose: 1,000 mls/hr Documented by: KGALLAG Reevaluation(s) Reevaluation #1: Reviewed results with patient and daughter at bedside. They agree with treatment plan here. Reevaluation #2: Patient did respond small amount of urine after Lasix. About 150 mL. At this time will give 1 more L of IV fluids. No history of CHF. Daughter at bedside and agrees with plan Time: 01:36 Reevaluation #3: 650 mL of urine in Bazan bag after total of 2 L of normal saline. Reviewed with daughter and agrees for discharge home and encouraging for oral hydration at home Time: 02:57 Consultations Consultation #1: Spoke with Dr. Donovan, urologist. Recommends giving more IV fluids. Likely pre renal/hypovolemia, give Lasix 20 mg IV if needed to stimulate kidneys. Time: 00:30 Vital Signs Vital signs: Vital Signs - 8 hr 01/22/21 19:45 01/22/21 19:59 01/22/21 20:00 Temperature 96.9 F L Pulse Rate 68 64 62 Respiratory Rate 20 Blood Pressure 126/56 L Pulse Oximetry 94 100 100 01/22/21 20:30 01/22/21 21:01 01/22/21 21:31 Temperature Pulse Rate 75 65 71 Respiratory Rate 20 20 Blood Pressure 116/50 L 156/67 H 127/65 Pulse Oximetry 99 100 99 01/22/21 22:30 01/22/21 23:05 01/22/21 23:30 Temperature Pulse Rate 68 69 68 Respiratory Rate 18 Blood Pressure 122/56 L 130/52 L 111/56 L Pulse Oximetry 99 97 99 01/23/21 00:00 01/23/21 00:30 01/23/21 01:00 Temperature Pulse Rate 69 75 58 L Respiratory Rate Blood Pressure 110/53 L 114/55 L 100/49 L Pulse Oximetry 98 97 97 01/23/21 01:30 Temperature Pulse Rate 71 Respiratory Rate 20 Blood Pressure 114/57 L Pulse Oximetry 96 MDM - Female Genitourinary Differential Diagnosis Differential diagnosis: Likely urinary tract infection, cystitis and other (Bazan catheter malfunction/urinary obstruction) Lab Data Result diagrams: 01/22/21 22:46 01/22/21 22:46 Labs: Lab Results 01/22/21 01/22/21 01/22/21 Range/Units 22:46 22:46 23:20 WBC 7.2 (4.5-11.0) X10^3/uL RBC 3.17 L (4.0-5.2) X10^6/uL Hgb 9.4 L (12.0-16.0) g/dL Hct 28.5 L (36-46) % MCV 89.9 (80-100) fL MCH 29.8 (26-34) PG MCHC 33.2 (30-36) % RDW 15.0 H (11.6-14.8) % Plt Count 115 L (150-400) X10^3/uL Neut % (Auto) 65.8 (50-75) % Lymph % (Auto) 25.0 (25-40) % [place] % (Auto) 4.4 (3-14) % Eos % (Auto) 3.0 (2-4) % Baso % (Auto) 1.8 (0-2) % Neut # (Auto) 4700 (1291-2174) /uL Lymph # (Auto) 1800 (7831-7462) /uL [place] # (Auto) 300 (0-900) /uL Eos # (Auto) 200 (0-450) /uL Baso # (Auto) 100 (0-100) /uL Sodium 131 L (137-145) mmol/L Potassium 3.7 (3.4-5.1) mmol/L Chloride 96 L (98-107) mmol/L Carbon Dioxide 31 (22-32) mmol/L BUN 13 (7-17) mg/dL Creatinine 1.16 H (0.52-1.04) mg/dL Estimated GFR 46.3 L (>60) mL/min BUN/Creatinine Ratio 11.2 (6-22) Glucose 98 (80-110) mg/dL Calcium 8.1 L (8.4-10.2) mg/dL Total Bilirubin 0.3 (0.2-1.3) mg/dL AST 36 (14-36) IU/L ALT 20 (<35) IU/L Alkaline Phosphatase 116 (38-126) U/L Total Protein 5.7 L (6.3-8.2) g/dL Albumin 2.9 L (3.5-5.0) g/dL Globulin 2.8 (1.7-4.1) g/dL Albumin/Globulin Ratio 1.0 (1.0-2.8) SARS-CoV-2 (PCR) Negative (Negative) Imaging Data CT scan - abdomen/pelvis: Radiologist's Impression: [address] [id number] Scan ReportSigned Patient: Maribel Narayanan [facility]#: [id number]: 1950cct:[id number]/Sex: 70 / FDate of Service: 01/22/21Loc: EDAccession Number: [id number] Procedure: CT kidney ureter bladder (KUB) Ordering Provider: Soham Hebert MD PROCEDURE: CT KIDNEY URETER BLADDER (KUB) INDICATIONS: flank pain TECHNIQUE: Axial sections were acquired from the lung bases to the pubic symphysis. Coronal and sagittal reformats were performed. For radiation dose reduction, the following was used: automated exposure control, adjustment of mA and/or kV according to patient size. COMPARISON:[facility], CT, CT KIDNEY URETER BLADDER (KUB), 01/09/2021, 20:50. [facility], CT, CT KIDNEY URETER BLADDER (KUB), 01/03/2021, 15:18. FINDINGS: Image quality: Excellent. Lung bases: Persistent patchy bibasilar opacities more pronounced on the left. Heart: Heart size is mildly enlarged as before. No pericardial effusion. URINARY: Right Kidney: Interval placement of percutaneous right nephrostomy tube with distal tip noted in the right renal pelvis. There is also interval placement of right sided ureteral stent with proximal and noted within the right renal pelvis and the distal end noted within the urinary bladder. Previously seen right hydroureteronephrosis has resolved. No significant periureteral or perinephric stranding. Right Ureter: No hydroureter. Previously described 8 mm distal right ureteral stone is again noted. It is situated adjacent to the ureteral stent. Left Kidney: No stones or hydronephrosis. Left Ureter: No hydroureter. Bladder: Urinary bladder is decompressed by Bazan catheter. A few locules of air in the anti dependent portions of the bladder likely related to Bazan catheter placement. No stones. ABDOMEN: Liver: Unremarkable. Gallbladder: Status post cholecystectomy. Biliary ducts: Unremarkable. Pancreas: Unremarkable. Spleen: Unremarkable. Adrenal Glands: Unremarkable. Stomach and Bowel: Stomach, small bowel loops, and colon are unremarkable. The appendix is not definitively visualized. However, no secondary findings of acute inflammation are noted in the right lower quadrant. Moderate amount of fecal material seen throughout the colon. Peritoneum: No abnormal intraperitoneal fluid. No free air. Ventral Wall: Fat containing umbilical hernia without acute inflammation. Abdominal Nodes: No enlarged retroperitoneal or mesenteric lymph nodes. Vessels: Scattered atherosclerotic calcifications of the abdominal aorta and iliac vessels without aneurysmal dilatation. Possible small splenic arterial aneurysm measuring approximately 14 mm in diameter (axial image 29, series 4). PELVIS: Pelvic Organs: Unremarkable. Pelvic Nodes: Unremarkable. Miscellaneous: No inguinal hernias are seen. Bones: No acute vertebral body compression fractures. Multilevel spondylitic changes throughout the imaged spine. No suspicious osseous lesions. Diffuse osteopenia. IMPRESSION: 1. Interval placement of right-sided percutaneous nephrostomy tube which appears adequate in positioning. Interval placement of right ureteral stent with interval resolution of right-sided hydroureteronephrosis. Previously described 8 mm distal right ureteral stone is again noted. 2. No left-sided hydronephrosis, hydroureter, or uroliths. 3. Redemonstration of patchy bibasilar opacities likely representing atelectasis. Developing airspace disease not excluded if clinically appropriate. 4. Mild cardiomegaly. 5. Atherosclerosis. Possible small 1.4 cm splenic artery aneurysm. Dictated by: Shakir Matias M.D. on 01/22/2021 at 23:28 Approved by: Shakir Matias M.D. on 01/22/2021 at 23:41 MDM Narrative Medical decision making narrative: Appropriate for discharge home. Patient able to provide urine in the Bazan bag. 650 mL. Required 2 L normal saline. Likely pre renal source of creatinine changes. Reviewed with urologist and agrees with treatment plan. Otherwise exam and imaging reassuring. Patient and daughter agree with treatment plan and return precautions reviewed with them Discharge Plan Departure Patient Disposition: Home Clinical Impression: Hypovolemia dehydration Instructions: DI for Dehydration -- Adult Activity Restrictions/Additional Instructions: Be sure to drink plenty of water/fluids. This with can be monitored by the urine output in the Bazan bag. Will need to increase oral hydration if you have decrease in urine output. See your urologist as scheduled. Return if worse if any questions or concerns. Continue home antibiotics and medications. Prescriptions: No Action potassium chloride 10 mEq Capsule, Extended Release 20 meq PO DAILY RF: 0 atorvastatin 10 mg Tablet 10 mg PO DAILY RF: 0 sertraline 25 mg Tablet 100 mg PO DAILY RF: 0 albuterol sulfate [Ventolin HFA] 90 mcg/actuation Hfa Aerosol Inhaler 2 puff INHALATION Q4-6H PRN (Reason: copd) RF: 0 Alvesco 160 mcg/actuation HFA aerosol inhaler 160 mcg INHALATION BID RF: 0 isosorbide mononitrate 30 mg tablet extended release 24 hr 60 mg PO BID RF: 0 meclizine 25 mg tablet 25 mg PO Q8HR PRN (Reason: for dizziness) RF: 0 metoprolol succinate 50 mg tablet extended release 24 hr 50 mg PO DAILY RF: 0 omeprazole 20 mg capsule,delayed release(DR/EC) 20 mg PO DAILY RF: 0 oxycodone-acetaminophen 5-325 mg tablet 5 - 325 tab Q6-8H PRN (Reason: Pain, Moderate) RF: 0 Spiriva Respimat 2.5 mcg/actuation mist See Rx Instructions .ROUTE .COMPLEX RF: 0 nitroglycerin [Nitrostat] 0.4 mg Tablet, Sublingual 0.4 mg sublingual [id number] PRN (Reason: Chest Pain) Qty: 10 RF: 3 ceftriaxone 2 gram Recon Soln 2,000 mg IV Q24H 6 Days Qty: 1200 RF: 0 sodium chloride 0.9 % (flush) [Normal Saline Flush] Syringe 10 ml IV BID 6 Days Qty: 120 RF: 1 water for injection, sterile [Sterile Water for Injection] Solution 10 ml .Route DAILY Qty: 250 RF: 1 albuterol sulfate 0.63 mg/3 mL Solution For Nebulization 0.083 mg INHALATION BID PRN (Reason: dypsnea) Qty: 0 RF: 0 nystatin [Nyamyc] 100,000 unit/gram powder 100,000 applic TOPICAL BID PRN (Reason: rash) Qty: 0 RF: 0 furosemide 40 mg Tablet 20 mg PO DAILY Qty: 0 RF: 0 Referrals: Susu Conner MD [Primary Care Provider] - Shayna Sargent MD [Physician] -
[2021-01-22] MEDS: SODIUM CHLORIDE 0.9% 500 ML 1000 ML IV (20:40)
--- NOTE | 2021-01-22 22:42 | DI.CT.S_ITS ---
PROCEDURE: CT KIDNEY URETER BLADDER (KUB) INDICATIONS: flank pain TECHNIQUE: Axial sections were acquired from the lung bases to the pubic symphysis. Coronal and sagittal reformats were performed. For radiation dose reduction, the following was used: automated exposure control, adjustment of mA and/or kV according to patient size. COMPARISON:[facility], CT, CT KIDNEY URETER BLADDER (KUB), 01/09/2021, 20:50. [facility], CT, CT KIDNEY URETER BLADDER (KUB), 01/03/2021, 15:18. FINDINGS: Image quality: Excellent. Lung bases: Persistent patchy bibasilar opacities more pronounced on the left. Heart: Heart size is mildly enlarged as before. No pericardial effusion. URINARY: Right Kidney: Interval placement of percutaneous right nephrostomy tube with distal tip noted in the right renal pelvis. There is also interval placement of right sided ureteral stent with proximal and noted within the right renal pelvis and the distal end noted within the urinary bladder. Previously seen right hydroureteronephrosis has resolved. No significant periureteral or perinephric stranding. Right Ureter: No hydroureter. Previously described 8 mm distal right ureteral stone is again noted. It is situated adjacent to the ureteral stent. Left Kidney: No stones or hydronephrosis. Left Ureter: No hydroureter. Bladder: Urinary bladder is decompressed by Bazan catheter. A few locules of air in the anti dependent portions of the bladder likely related to Bazan catheter placement. No stones. ABDOMEN: Liver: Unremarkable. Gallbladder: Status post cholecystectomy. Biliary ducts: Unremarkable. Pancreas: Unremarkable. Spleen: Unremarkable. Adrenal Glands: Unremarkable. Stomach and Bowel: Stomach, small bowel loops, and colon are unremarkable. The appendix is not definitively visualized. However, no secondary findings of acute inflammation are noted in the right lower quadrant. Moderate amount of fecal material seen throughout the colon. Peritoneum: No abnormal intraperitoneal fluid. No free air. Ventral Wall: Fat containing umbilical hernia without acute inflammation. Abdominal Nodes: No enlarged retroperitoneal or mesenteric lymph nodes. Vessels: Scattered atherosclerotic calcifications of the abdominal aorta and iliac vessels without aneurysmal dilatation. Possible small splenic arterial aneurysm measuring approximately 14 mm in diameter (axial image 29, series 4). PELVIS: Pelvic Organs: Unremarkable. Pelvic Nodes: Unremarkable. Miscellaneous: No inguinal hernias are seen. Bones: No acute vertebral body compression fractures. Multilevel spondylitic changes throughout the imaged spine. No suspicious osseous lesions. Diffuse osteopenia. IMPRESSION: 1. Interval placement of right-sided percutaneous nephrostomy tube which appears adequate in positioning. Interval placement of right ureteral stent with interval resolution of right-sided hydroureteronephrosis. Previously described 8 mm distal right ureteral stone is again noted. 2. No left-sided hydronephrosis, hydroureter, or uroliths. 3. Redemonstration of patchy bibasilar opacities likely representing atelectasis. Developing airspace disease not excluded if clinically appropriate. 4. Mild cardiomegaly. 5. Atherosclerosis. Possible small 1.4 cm splenic artery aneurysm. Dictated by: Shakir Matias M.D. on 01/22/2021 at 23:28 Approved by: Shakir Matias M.D. on 01/22/2021 at 23:41
[2021-01-22 22:59] LABS: Add Manual Diff / Slide Review NO; Basophils Absolute Auto 100 /uL (0-100); Basophils Percent Auto 1.8 % (0-2); Eosinophils Absolute Auto 200 /uL (0-450); Hematocrit 28.5 % (36-46); Hemoglobin 9.4 g/dL (12.0-16.0); Lymphocytes Absolute Auto 1800 /uL (1100-4500); Mean Corpuscular HGB Conc 33.2 % (30-36); Mean Corpuscular Hemoglobin 29.8 PG (26-34); Mean Corpuscular Volume 89.9 fL (80-100); Monocytes Absolute Auto 300 /uL (0-900); Monocytes Percent Auto 4.4 % (3-14); Neutrophils Absolute Auto 4700 /uL (1500-7000); Neutrophils Percent Auto 65.8 % (50-75); Platelet Count 115 X10^3/uL (150-400); Red Blood Cell Count 3.17 X10^6/uL (4.0-5.2); White Blood Cell Count 7.2 X10^3/uL (4.5-11.0)
[2021-01-22 23:07] LABS: Alanine Aminotransferase 20 IU/L (<35); Albumin 2.9 g/dL (3.5-5.0); Alkaline Phosphatase 116 U/L (38-126); Aspartate Aminotransferase 36 IU/L (14-36); BUN Creatinine Ratio 11.2 (6-22); Bilirubin Total 0.3 mg/dL (0.2-1.3); Blood Urea Nitrogen 13 mg/dL (7-17); Calcium 8.1 mg/dL (8.4-10.2); Carbon Dioxide 31 mmol/L (22-32); Chloride 96 mmol/L (98-107); Estimated Glomerular Filt Rate 46.3 mL/min (>60); Globulin 2.8 g/dL (1.7-4.1); Glucose 98 mg/dL (80-110); HEMOLYSIS < 15 (0-50); Potassium 3.7 mmol/L (3.4-5.1); Sodium 131 mmol/L (137-145); Total Protein 5.7 g/dL (6.3-8.2)
[2021-01-23] VITALS (7 sets, daily range): BP systolic 99–114; BP diastolic 49–59; PULSE 58–75; RESP 18–20; O2SAT 96–98
[2021-01-23] MEDS: SODIUM CHLORIDE 0.9% 500 ML 1000 ML IV (00:03)
[2021-01-23 00:37] LABS: COVID19 - ADMIT (NP swab/PCR) Negative (Negative)
[2021-01-23] MEDS: FUROSEMIDE 40 MG/4 ML VIAL 20 MG IV (00:47)
[2021-01-23] MEDS: SODIUM CHLORIDE 0.9% 1,000 ML 1000 ML IV (01:29)
== END 2021-01-23 03:36 | disposition home or self-care (01) ==
PROVIDERS: Emergency Provider Emergency Medicine; PCP Student in an Organized Health Care Education/Training Program
DX: E86.1 Hypovolemia (principal); E86.0 Dehydration; R10.9 Unspecified abdominal pain; Z20.822 Contact with and (suspected) exposure to COVID-19
CPT/HCPCS: 51702; 51798; 74176; 80053; 85025; 87635; 96361; 96374; 99285; C9803; J1940

== ENCOUNTER → 2021-01-23 14:06 | Outpatient (CLI) | payer OTHER, SELFPAY ==
[2021-01-20 14:57] VITALS: BMI 52.0
--- NOTE | 2021-01-23 14:07 | DI.RAD.S_ITS ---
PROCEDURE: XR KUB INDICATIONS: Kidney stone TECHNIQUE: One view of the abdomen acquired. COMPARISON: [facility], CR, XR KUB, 01/03/2021, 17:43. FINDINGS: Surgical changes and devices: Right-sided percutaneous nephrostomy and right ureteral stent is seen. Multiple surgical clips are also noted in right upper quadrant abdomen. Bowel: Bowel gas pattern is nonobstructive. No gross peritoneal free air is seen. Soft tissues: 1.5 x 0.7 cm calcification is noted in right pelvis near the right UVJ which may rep patient's known right distal ureteral stone.. Visualized solid organ contours appear normal in size. Bones: No suspicious bony lesions. IMPRESSION: Suggestion of a 1.5 x 0.7 cm right distal ureteral stone. Right-sided percutaneous nephrostomy tube and right-sided ureteral stent in place. No gross free air. Dictated by: Isaias Hernandez M.D. on 01/23/2021 at 15:04 Approved by: Isaias Hernandez M.D. on 01/23/2021 at 15:06
== END ==
PROVIDERS: PCP Student in an Organized Health Care Education/Training Program; Referring Provider Specialist; Visit Provider Specialist
DX: N20.1 Calculus of ureter (principal); Z93.6 Other artificial openings of urinary tract status
CPT/HCPCS: 74018

== ENCOUNTER 2021-01-27 07:42 | Day surgery (SDC) | payer OTHER, SELFPAY ==
[2021-01-20 14:57] VITALS: BMI 52.0
[2021-01-24 14:23] VITALS: BMI 50.1
--- NOTE | 2021-01-27 | DI.RAD.S_ITS ---
PROCEDURE: XR ABDOMEN MIN 2V INDICATIONS: RIGHT STENT PLACEMENT TECHNIQUE: 2 views of the abdomen were acquired. COMPARISON: [facility], , XR ABDOMEN 1V, 01/10/2021, 18:30. FINDINGS: 2 spot fluoroscopic intraoperative views demonstrating right ureteral stent. Dictated by: James Copeland M.D. on 01/27/2021 at 11:21 Approved by: James Copeland M.D. on 01/27/2021 at 11:21
[2021-01-27 08:15] LABS: COVID19 -Nasal RAPID Negative (Negative)
[2021-01-27 08:45] VITALS: BP 124/68; PULSE 71; RESP 22; TEMP 36.4; O2SAT 100; BMI 49.4
[2021-01-27] MEDS: LACTATED RINGERS 1,000 ML 42 ML IV (08:45)
--- NOTE | 2021-01-27 08:46 | PM.PREOP ---
Pre-operative Note Interval Note History & Physical reviewed/Exam performed by Physician: Yes Changes to H&P: No
[2021-01-27] MEDS: CEFAZOLIN 1 GM VIAL 3 GM IV (10:01)
--- NOTE | 2021-01-27 10:10 | SUR.OPER ---
Lithotomy on padded OR bed, head on pillow, arms secured on padded arm boards at <90 degrees abduction. Legs secured in padded yellow fins stirrups.
[2021-01-27] MEDS: BELLADONNA/OPIUM SUPPOSITORIES 1 EACH PR (10:44)
--- NOTE | 2021-01-27 10:45 | PM.OP.1 ---
Operative Date/Time/Diagnoses Date of procedure: 01/27/21 Time of procedure: 10:45 Pre-op diagnosis: 1. 8 mm obstructing right distal ureteral calculus 2. History of right pyelonephritis/sepsis (Proteus mirabilis) Post-op diagnosis: same Procedure & Clinicians Procedure: 1. Cystoscopy/right ureteroscopic laser lithotripsy. 2. Cystoscopy/ placement right ureteral stent (8 [place] by 22-32 cm multi-length). 3. Removal right percutaneous nephroureteral stent under fluoroscopic guidance. Same procedure as scheduled: Yes Indications: 1. Obstructing 8 mm right distal ureteral calculus. 2. History of Proteus mirabilis right pyelonephritis/sepsis. 3. Retained right nephroureteral stent. Surgeon: Shayna Sargent Click Yes if Unassisted: Yes Anesthesia Type: General Operative Notes Findings: 1. Urethra-patulous. No lesions. 2. Bladder-hyperemia in regions in contact with the distal coil of the ureteral stent, otherwise normal urothelium. 3. Right ureter-the index calculus was encountered as expected location. Closure Type: not applicable Specimen(s): none sent Applied: other (Eight [place]ian by 22-32 cm multi-length right ureteral stent) Estimated Blood Loss (mL): 0 Blood products transfused: none Procedure in detail: The patient was positioned in supine was administered general anesthesia. She was then repositioned semi lithotomy and the lower abdomen, genitalia, and groin were then prepped and draped in sterile fashion. The 22 [address] [place] panendoscope was then passed lower urinary tract with the findings as described above. Using a foreign body grasper the distal end of the indwelling right nephroureteral stent was engaged and brought out just beyond the urethral meatus. The scope was then repositioned in the bladder and a hybrid 0.35 guidewire was then advanced through the cystoscope and alongside the indwelling stent and advanced proximally under direct and fluoroscopic guidance. Next, a 18 [place] by 6 cm balloon dilating catheter was advanced over the hybrid guidewire. The balloon was then inflated to 18 atmospheres and held in position across the right ureterovesical junction for 5 minutes. The balloon was then deflated and backloaded off the guidewire. Now the semi rigid ureteral scope was prepared. The scope was then advanced and lower urinary tract and then into the right ureteral orifice and advanced proximally into the index calculus was encountered. A 365 micron laser fiber was then selected. The patient and operating room personnel were then fitted with laser safety eyewear. Laser lithotripsy was then commenced with excellent subsequent fragmentation and clearance of the soft likely struvite composition stone. The ureteral scope was then carefully withdrawn. Next attention was turned to the right flank where the dressing was taken down the skin suture was incised and the proximal coil of the nephroureteral stent was released at the hub of the device. Under fluoroscopic guidance the nephroureteral stent was then removed without incident. Now attention was again turned to the patient's perineum. This 0.35 hybrid guidewire was then backloaded into the 22 [address] [place] panendoscope. The scope was then advanced in the bladder. Next, a 8 [place] by 22-32 cm multi-length stent was selected and advanced over the hybrid guidewire under direct and fluoroscopic guidance. A RETRIEVAL LINE WAS LEFT ATTACHED. Bladder contents were then drained completely and the cystoscope was then removed. Patient was then repositioned in supine, was awakened, and then transported recovery awake and in stable condition. Complications: none Post-operative Condition: stable Plan for aftercare: Discharge home
[2021-01-27] MEDS: BACITRACIN OINT 0.9 GM PCKT 2 APPLIC TOP (10:47)
[2021-01-27 10:52] VITALS: BP 130/71; PULSE 78; RESP 11; TEMP 36.2; O2SAT 100
[2021-01-27 10:57] VITALS: BP 128/53; PULSE 78; RESP 15; O2SAT 99
[2021-01-27 11:03] VITALS: BP 115/92; PULSE 77; RESP 13; O2SAT 99
[2021-01-27 11:07] VITALS: BP 117/46; PULSE 76; RESP 13; O2SAT 100
[2021-01-27 11:22] VITALS: BP 135/64; PULSE 75; RESP 12; TEMP 36.3; O2SAT 99
--- NOTE | 2021-01-27 12:58 | SUR.OPER ---
Urinary catheter present prior to OR, removed per verbal order by Dr. Sargent. Pt was incontinent of bowel movement and had poor [place] hygiene. [place] care provided. Patient had open skin to right inner lower buttock near rectum, non draining. Multiple skin issues and bruises to in various areas of body. Hover yvette used for transfers. Bacitracin, gauze, and tegaderm placed over previous right Nephroureteral stent site per Dr. Sargent in PACU by this advertising writer.
== END 2021-01-27 11:55 | disposition home or self-care (01) ==
PROVIDERS: PCP Student in an Organized Health Care Education/Training Program; Referring Provider Specialist; Visit Provider Specialist
PROC: 0TF68ZZ Fragmentation in Right Ureter, Via Natural or Artificial Opening Endoscopic (ICD-10-PCS; CPT 52353; principal; 2021-01-27 09:15)
DX: N20.1 Calculus of ureter (principal); Z20.822 Contact with and (suspected) exposure to COVID-19; J44.9 Chronic obstructive pulmonary disease, unspecified; Z87.440 Personal history of urinary (tract) infections
CPT/HCPCS: 52356; 74019; 76000; 87635; 93005; 93010; J0690; J1100; J2405; J2704; J3010

== ENCOUNTER → 2021-02-08 09:06 | Outpatient (CLI) | payer OTHER, SELFPAY ==
[2021-01-20 14:57] VITALS: BMI 52.0
== END ==
PROVIDERS: PCP Student in an Organized Health Care Education/Training Program; Visit Provider Specialist
DX: N39.0 Urinary tract infection, site not specified (principal)
CPT/HCPCS: 87077; 87086

== ENCOUNTER → 2021-04-01 14:52 | Outpatient (CLI) | payer OTHER, SELFPAY ==
[2021-01-20 14:57] VITALS: BMI 52.0
--- NOTE | 2021-04-01 14:56 | DI.MRI.S_ITS ---
PROCEDURE: MR SHOULDER LT WO CON INDICATIONS: Pain in left shoulder TECHNIQUE: Noncontrast oblique coronal T2 fast spin echo with fat saturation, oblique sagittal T1 spin echo and T2 fast spin echo with fat saturation, axial T1 spin echo and T2 fast spin echo with fat saturation through the shoulder. COMPARISON: [facility], , SHOULDER MINIMUM 2 VIEW LEFT, 12/05/2015, 18:24. [facility], CR, XR SHOULDER MIN 2VW LT, 12/13/2015, 11:39. [facility], CR, XR SHOULDER MIN 2VW LT, 12/27/2015, 13:27. [facility], CR, XR SHOULDER MIN 2VW LT, 01/17/2016, 14:06. FINDINGS: Image quality: There are significant motion artifacts. Rotator cuff: There is full-thickness tear of the superior fibers of the subscapularis tendon with tendon retraction to the musculotendinous junction. The inferior fibers of the subscapularis tendon appears intact. There is high-grade partial-thickness tear of the supraspinatus tendon. There is also fzbp-wgspt-evxzcll-thickness tear of the infraspinatus tendon with severe tendinitis. There is moderate supraspinatus muscle atrophy and mild infraspinatus muscle atrophy. There is edema in the infraspinatus muscle. Bones and bursae: Old greater tuberosity fracture with deformity of the humeral head with deformity. There is pronounced bone marrow edema in the humeral head and neck, as well as glenoid. Severe glenohumeral joint degeneration with denudation of articular cartilage and large periarticular osteophytes. There is mild acromioclavicular joint degeneration. The acromion demonstrates conventional anatomy, without an os acromiale. There is moderate glenohumeral joint effusion. Capsule and soft tissues: There is inferior labral tear. Degenerative fraying of the superior labrum. There is chronic tear or scarring of the inferior glenohumeral ligament. The long head of the biceps tendon demonstrates normal location and morphology. The rotator interval appears normal, without fibrosis. The coracohumeral ligament is normal in thickness. IMPRESSION: 1. Full-thickness tear of the superior fibers of the subscapularis tendon. 2. High-grade partial thickness tear of the supraspinatus and infraspinatus tendons. There is moderate supraspinatus muscle atrophy and mild infraspinatus muscle atrophy. 3. Old humeral head fracture involving the greater tuberosity with deformity. There is bone marrow edema indicating contusions or microfractures of the humeral head and neck, as well as glenoid. 4. Severe glenohumeral joint degeneration. 5. Moderate glenohumeral joint effusion. 6. Inferior labral tear. 7. Degenerative fraying of the superior labrum. 8. Chronic tear/scarring of the inferior glenohumeral ligament. Dictated by: Melanie Canada M.D. on 04/03/2021 at 9:14 Approved by: Melanie Canada M.D. on 04/03/2021 at 9:42
== END ==
PROVIDERS: PCP Student in an Organized Health Care Education/Training Program; Referring Provider Student in an Organized Health Care Education/Training Program; Visit Provider Student in an Organized Health Care Education/Training Program
DX: M75.122 Complete rotator cuff tear or rupture of left shoulder, not specified as traumatic (principal); M25.512 Pain in left shoulder; M54.10 Radiculopathy, site unspecified; S43.492A Other sprain of left shoulder joint, initial encounter; M25.412 Effusion, left shoulder; M19.012 Primary osteoarthritis, left shoulder
CPT/HCPCS: 73221

== ENCOUNTER → 2021-06-23 14:07 | Outpatient (CLI) | payer OTHER, SELFPAY ==
[2021-01-20 14:57] VITALS: BMI 52.0
== END ==
PROVIDERS: PCP Student in an Organized Health Care Education/Training Program; Referring Provider Student in an Organized Health Care Education/Training Program; Visit Provider Student in an Organized Health Care Education/Training Program
DX: R92.2 Inconclusive mammogram (principal); Z53.8 Procedure and treatment not carried out for other reasons

== ENCOUNTER → 2021-10-02 12:08 | Outpatient (CLI) | payer OTHER, SELFPAY ==
[2021-01-20 14:57] VITALS: BMI 52.0
== END ==
PROVIDERS: PCP Student in an Organized Health Care Education/Training Program; Referring Provider Internal Medicine Hematology & Oncology; Visit Provider Internal Medicine Hematology & Oncology
DX: M85.89 Other specified disorders of bone density and structure, multiple sites (principal); Z78.0 Asymptomatic menopausal state; C50.812 Malignant neoplasm of overlapping sites of left female breast; Z17.0 Estrogen receptor positive status [ER+]
CPT/HCPCS: 77080

== ENCOUNTER 2022-04-02 19:56 | Inpatient (IN) | payer OTHER, MEDICAID, SELFPAY ==
[2021-01-20 14:57] VITALS: BMI 52.0
[2022-04-02] VITALS (7 sets, daily range): BP systolic 104–164; BP diastolic 59–103; PULSE 122–148; RESP 14–24; TEMP 36.5; O2SAT 91–99
--- NOTE | 2022-04-02 20:33 | DI.RAD.S_ITS ---
PROCEDURE: XR CHEST 1V INDICATIONS: confusion TECHNIQUE: One view of the chest was acquired. COMPARISON: [facility], CR, XR CHEST 2V, 02/18/2019, 13:27. [facility], CR, XR CHEST 1V, 01/09/2021, 18:47. [facility], CR, XR CHEST FOR PICC 1V, 01/15/2021, 14:40. FINDINGS: Surgical changes and devices: None. Lungs and pleura: Lungs demonstrate no acute consolidation. There is mild pulmonary vascular prominence suggestive of mild edema. No pleural effusions or pneumothorax. Mediastinum: Heart size is enlarged. The cardiac contours appear increased in size compared to the prior studies raising the possibility of a pericardial effusion. Bones and chest wall: No suspicious bony lesions. Overlying soft tissues appear unremarkable. IMPRESSION: 1.Cardiomegaly with enlargement of the cardiac contours raising the possibility of a pericardial effusion. 2. Mild pulmonary vascular prominence suggestive of mild pulmonary edema. Dictated by: Geronimo Cr M.D. on 04/02/2022 at 22:25 Approved by: Geronimo Cr M.D. on 04/02/2022 at 22:27
[2022-04-02 20:53] LABS: Add Manual Diff / Slide Review NO; Basophils Absolute Auto 0 /uL (0-100); Basophils Percent Auto 1.2 % (0-2); Eosinophils Absolute Auto 0 /uL (0-450); Eosinophils Percent Auto 0.9 % (2-4); Hematocrit 37.4 % (36-46); Lymphocytes Absolute Auto 1700 /uL (1100-4500); Lymphocytes Percent Auto 55.3 % (25-40); Mean Corpuscular Hemoglobin 30.6 PG (26-34); Mean Corpuscular Volume 95.6 fL (80-100); Monocytes Absolute Auto 100 /uL (0-900); Monocytes Percent Auto 3.2 % (3-14); Neutrophils Absolute Auto 1200 /uL (1500-7000); Neutrophils Percent Auto 39.4 % (50-75); Platelet Count 44 X10^3/uL (150-400); Red Blood Cell Count 3.91 X10^6/uL (4.0-5.2); Red Cell Distribution Width 19.7 % (11.6-14.8)
[2022-04-02 20:54] LABS: INR 1.2 (0.9-1.3)
[2022-04-02 20:57] LABS: PTT Partial Thromboplastin Tim 28 SECONDS (26-36)
[2022-04-02 21:01] LABS: Albumin 3.7 g/dL (3.5-5.0); Alkaline Phosphatase 220 U/L (38-126); Aspartate Aminotransferase 76 IU/L (14-36); BUN Creatinine Ratio 24.2 (6-22); Blood Urea Nitrogen 31 mg/dL (7-17); Calcium 8.8 mg/dL (8.4-10.2); Carbon Dioxide 29 mmol/L (22-32); Chloride 98 mmol/L (98-107); Estimated Glomerular Filt Rate 45 mL/min (>60); Globulin 3.6 g/dL (1.7-4.1); Glucose 153 mg/dL (80-110); HEMOLYSIS < 15 (0-50); Potassium 4.5 mmol/L (3.4-5.1); Total Protein 7.3 g/dL (6.3-8.2)
[2022-04-02 21:03] LABS: Alanine Aminotransferase 160 IU/L (<35); Sodium 138 mmol/L (137-145)
[2022-04-02] MEDS: SODIUM CHLORIDE 0.9% 1,000 ML 200 ML IV (21:03)
[2022-04-02 21:09] LABS: Creatine Kinase 88 U/L (30-135)
[2022-04-02 21:13] LABS: NT-proBNP (BNP-Adult 18+) 10400 pg/mL (<125); Troponin I 0.036 ng/mL (0.01-0.034)
[2022-04-02 21:16] LABS: COVID19 -Nasal RAPID Negative (Negative)
[2022-04-02 21:17] LABS: Procalcitonin 0.07 ng/mL (<0.5)
--- NOTE | 2022-04-02 21:20 | ED_ITS ---
HPI - Altered Mental Status General Chief Complaint: Altered Mental Status Stated Complaint: Confusion, Hallucinations, Not eating, Rash Time Seen by Provider: 04/02/22 20:23 Source: patient Mode of arrival: Ambulatory History of Present Illness HPI narrative: Patient is a 72-year-old female history of COPD on 2 L of oxygen, [place] congestive heart failure presenting today with confusion. Apparently she has been confused for the last 4 days. Seeing things and talking to people who are not there. She actually is not really able to give me any sort of history. She overall appears comfortable says that she fell at some point I do not see any evidence of trauma. She is not on anticoagulation but does take aspirin daily. According the she has been sleeping pretty continuous for the last 3 days. Hallucinations seem to be getting worse definitely seeing and talking to people that are not there. Related Data Home Medications Medication Instructions Recorded Confirmed albuterol sulfate 90 mcg/actuation 2 puff inhalation Q4-6H PRN copd 01/23/19 04/03/22 aerosol inhaler (Ventolin HFA) atorvastatin 10 mg tablet 10 mg PO DAILY infection 01/23/19 04/03/22 potassium chloride 10 mEq 20 meq PO DAILY 01/23/19 04/03/22 capsule,extended release sertraline 25 mg tablet 25 mg PO BID 01/23/19 04/03/22 ciclesonide 160 mcg/actuation 160 mcg inhalation BID resp 01/11/21 04/03/22 aerosol inhaler (Alvesco) isosorbide mononitrate 30 mg 60 mg PO BID 01/11/21 04/03/22 tablet,extended release 24 hr meclizine 25 mg tablet 25 mg PO Q8HR PRN for dizziness 01/11/21 04/03/22 metoprolol succinate 50 mg 50 mg PO DAILY 01/11/21 04/03/22 tablet,extended release 24 hr omeprazole 20 mg capsule,delayed 20 mg PO DAILY 01/11/21 04/03/22 release oxycodone-acetaminophen 5 mg-325 5 - 325 tab Q6-8H PRN Pain, 01/11/21 04/03/22 mg tablet Moderate tiotropium bromide 2.5 See Rx Instructions .Route .COMPLEX 01/11/21 04/03/22 mcg/actuation mist for inhalation (Spiriva Respimat) aspirin 81 mg tablet 81 mg PO DAILY 01/27/21 04/03/22 furosemide 40 mg tablet 20 mg PO Q OTHER DAY 01/27/21 04/03/22 Previous Rx's Medication Instructions Recorded albuterol sulfate 0.63 mg/3 mL 0.083 mg (0.3952 mL) inhalation 01/18/21 solution for nebulization BID PRN dypsnea #0 mL nitroglycerin 0.4 mg sublingual 0.4 mg sublingual [id number] PRN 01/18/21 tablet (Nitrostat) Chest Pain #10 tabs nystatin 100,000 unit/gram topical 100,000 applic topical BID PRN 01/18/21 powder (Nyamyc) rash #0 grams oxycodone 5 mg tablet 5 mg PO Q4H PRN pain #20 tabs 01/27/21 letrozole 2.5 mg tablet (Femara) 2.5 mg PO DAILY breast cancer 90 08/14/21 days #90 tabs palbociclib 125 mg tablet 125 mg PO DIRECTED #21 tabs 08/14/21 Allergies Allergy/AdvReac Type Severity Reaction Status Date / Time promethazine Allergy Unknown HALLUCINATI Verified 02/08/21 10:10 ONS Review of Systems Review of Systems ROS Unobtainable: Unobtainable due to medical condition Patient History Medical History Anemia Atrial fibrillation with RVR CHF (congestive heart failure) COPD (chronic obstructive pulmonary disease) Encephalopathy Heart attack (~2013) History of UTI HLD (hyperlipidemia) Hypokalemia Kidney stones Myocardial infarction (01/2021) Obesity, morbid, BMI 50 or higher SIDNEY (obstructive sleep apnea) Presence of device (01/15/21) Retained ureteral stent Right ureteral calculus Sepsis Thrombocytopenia Surgical History History of appendectomy History of breast biopsy History of cholecystectomy Hx of cystoscopy (01/10/21) Family History Mother Cancer Social History marital status: number of children: 2 household members: spouse Smoking Status: Former smoker alcohol intake: never substance use type: does not use caffeine: Yes Smoking Status: Former smoker Substance Use Type: does not use Exam Initial Vital Signs Initial Vital Signs: Vital Signs Temperature 97.7 F 04/02/22 20:14 Pulse Rate 148 H 04/02/22 20:14 Respiratory Rate 24 04/02/22 20:14 Blood Pressure 104/62 04/02/22 20:14 Pulse Oximetry 91 04/02/22 20:14 Oxygen Delivery Method 04/02/22 20:14 GENERAL: Alert 72-year-old confused female, BMI 51 HEENT: Head atraumatic,EOMI, pupils reactive, face symmetric, [moist] mucous membranes] CARDIOVASCULAR: Regular rate and rhythm without murmurs, rubs or gallops. RESPIRATORY: Breath sounds equal bilaterally, no wheezes rales or rhonchi. ABDOMEN: Soft, nontender. Normoactive bowel sounds all 4 quadrants. No g uarding or rebound. EXTREMITIES: Normal range of motion, no clubbing or edema. Neurovascularly inta ct NEUROLOGICAL: Alert oriented to name only moving all extremities no gross deficits SKIN: Yeast infection under breasts and pannus Course Orders Ordered: ED Orders 04/02/22 20:33 XR chest 1V Stat 04/02/22 20:35 Complete Blood Count AUTO DIFF Stat Comprehensive Metabolic Panel Stat Lactate (Lactic Acid) Stat NT-proBNP (BNP-Adult 18+) Stat Partial Thromboplastin Time Stat Procalcitonin Stat Prothrombin Time INR Stat Troponin & CK Cardiac Panel Stat 04/02/22 20:45 EKG-12 Lead Stat 04/02/22 20:53 COVID19 -Nasal RAPID/Pre-Proc Stat 04/02/22 21:18 Blood Culture Stat 04/02/22 22:30 Urinalysis and Microscopic Stat Urine Culture Stat 04/02/22 22:32 CT head/brain wo con Stat 04/02/22 23:39 Troponin & CK Cardiac Panel Stat Acetaminophen (Acetaminophen 325 Mg Tablet) 650 mg PO Q6H PRN PRN Reason: Fever/Mild Pain (1-3) Albuterol (Albuterol 2.5 Mg/3 Ml Neb (Adult)) 2.5 mg INH [id number] PRN PRN Reason: Shortness Of Breath Budesonide (Budesonide 0.5 Mg/2 Ml Neb) 0.5 mg INH RTBID DARLENE DILTIAZEM (Diltiazem 125 Mg/125 Ml-D5w) 125 mg in 125 mls @ 5 mls/hr IV TITRATE DARLENE; Protocol Last Titration: 04/03/22 02:44 Dose: 0 mg/hr, 0 mls/hr Documented By: Titration: 04/03/22 01:59 Dose: 5 mg/hr, 5 mls/hr Documented By: Titration: 04/03/22 00:03 Dose: 10 mg/hr, 10 mls/hr Documented By: Admin: 04/02/22 22:46 Dose: 5 mg/hr, 5 mls/hr Documented By: LILIAN Ipratropium [place] (Ipratropium 0.5 Mg/2.5 Ml Neb) 0.5 mg INH [id number] [facility] Oxycodone/Acetaminophen (Oxycodone/Acetaminophen 5/325 Tablet) 1 tab PO Q6HR PRN PRN Reason: Pain, Moderate (4-6) Discontinued Medications Diltiazem HCl (Diltiazem 5 Mg/Ml Sdv) 10 mg IV NOW ONE Stop: 04/02/22 21:21 Last Admin: 04/02/22 21:47 Dose: 10 mg Documented By: HUMBERTO Furosemide (Furosemide 40 Mg/4 Ml Vial) 40 mg IV NOW ONE Stop: 04/02/22 21:22 Last Admin: 04/02/22 21:47 Dose: 40 mg Documented By: HUMBERTO Sodium Chloride (Normal Saline 0.9%) 1,000 mls @ 200 mls/hr IV CONT DARLENE Last Infusion: 04/02/22 22:12 Dose: 0 mls/hr Documented By: Infusion: 04/02/22 21:57 Dose: 0 mls/hr Documented By: Admin: 04/02/22 21:03 Dose: 200 mls/hr Documented By: LILIAN Ceftriaxone Sodium 2,000 mg/ (Sodium Chloride) 100 mls @ 200 mls/hr IV NOW ONE Stop: 04/02/22 23:32 Last Infusion: 04/03/22 00:40 Dose: 0 mls/hr Documented By: Admin: 04/03/22 00:01 Dose: 200 mls/hr Documented By: LILIAN Metoprolol Succinate (Metoprolol Er 25 Mg Tablet) 25 mg PO NOW ONE Stop: 04/02/22 23:53 Last Admin: 04/03/22 00:27 Dose: 25 mg Documented By: LILIAN Metoprolol Tartrate (Metoprolol Tartrate 5 Mg/5 Ml Inj) 5 mg IV NOW ONE Stop: 04/02/22 23:32 Last Admin: 04/03/22 00:03 Dose: Not Given Documented By: LILIAN Vital Signs Vital signs: Vital Signs - 8 hr 04/02/22 21:00 04/02/22 21:47 04/02/22 22:32 Pulse Rate 144 H 145 H 122 H Respiratory Rate 16 14 Blood Pressure 164/103 H 109/84 123/59 L Pulse Oximetry 99 98 Oxygen Delivery Method Nasal Cannula Nasal Cannula Oxygen Flow Rate 2 2 04/02/22 22:49 04/03/22 00:27 04/03/22 00:33 Pulse Rate 131 H 83 Respiratory Rate 16 16 Blood Pressure 115/66 109/70 115/64 Pulse Oximetry 98 98 Oxygen Delivery Method Nasal Cannula Nasal Cannula Oxygen Flow Rate 2 2 04/02/22 23:51 04/03/22 00:00 04/03/22 00:29 Pulse Rate 125 H 110 H 100 H Respiratory Rate 23 16 28 H Blood Pressure Pulse Oximetry 94 100 100 Oxygen Delivery Method Oxygen Flow Rate 04/03/22 00:29 04/03/22 00:30 Pulse Rate 98 H Respiratory Rate 21 Blood Pressure 115/64 Pulse Oximetry 100 Oxygen Delivery Method Oxygen Flow Rate MDM - Altered Mental Status Lab Data Result diagrams: 04/02/22 20:35 04/02/22 20:35 Labs: Lab Results 04/02/22 04/02/22 04/02/22 Range/Units 20:35 20:35 20:35 WBC 3.0 L (4.5-11.0) X10^3/uL RBC 3.91 L (4.0-5.2) X10^6/uL Hgb 12.0 (12.0-16.0) g/dL Hct 37.4 (36-46) % MCV 95.6 (80-100) fL MCH 30.6 (26-34) PG MCHC 32.0 (30-36) % RDW 19.7 H (11.6-14.8) % Plt Count 44 L (150-400) X10^3/uL Neut % (Auto) 39.4 L (50-75) % Lymph % (Auto) 55.3 H (25-40) % Hernando % (Auto) 3.2 (3-14) % Eos % (Auto) 0.9 L (2-4) % Baso % (Auto) 1.2 (0-2) % Neut # (Auto) 1200 L (7332-9072) /uL Lymph # (Auto) 1700 (8199-7309) /uL Hernando # (Auto) 100 (0-900) /uL Eos # (Auto) 0 (0-450) /uL Baso # (Auto) 0 (0-100) /uL PT 14.0 H (10.1-12.7) SECONDS INR 1.2 (0.9-1.3) APTT 28 (26-36) SECONDS Sodium 138 (137-145) mmol/L Potassium 4.5 (3.4-5.1) mmol/L Chloride 98 (98-107) mmol/L Carbon Dioxide 29 (22-32) mmol/L BUN 31 H (7-17) mg/dL Creatinine 1.28 H (0.52-1.04) mg/dL Estimated GFR 45 L (>60) mL/min BUN/Creatinine Ratio 24.2 H (6-22) Glucose 153 H (80-110) mg/dL Lactate (0.7-2.1) mmol/L Calcium 8.8 (8.4-10.2) mg/dL Total Bilirubin 1.0 (0.2-1.3) mg/dL AST 76 H (14-36) IU/L ALT 160 H (<35) IU/L Alkaline Phosphatase 220 H (38-126) U/L Total Creatine Kinase 88 (30-135) U/L CK-MB (CK-2) TNP CK-MB (CK-2) Rel Index TNP Troponin I 0.036 H (0.01-0.034) ng/mL NT-Pro-B Natriuret Pep 47373 H (<125) pg/mL Total Protein 7.3 (6.3-8.2) g/dL Albumin 3.7 (3.5-5.0) g/dL Globulin 3.6 (1.7-4.1) g/dL Albumin/Globulin Ratio 1.0 (1.0-2.8) Procalcitonin 0.07 (<0.5) ng/mL Urine Color Urine Appearance Urine pH (4.5-8.0) Ur Specific Lawrence (1.000-1.035) Urine Protein (Negative) Urine Glucose (UA) (Negative) g/dL Urine Ketones (NEGATIVE) Urine Occult Blood (Negative) Urine Nitrate (Negative) Urine Bilirubin (NEGATIVE) Urine Urobilinogen (0.2) E.U./dL Ur Leukocyte Esterase (NEGATIVE) Urine RBC (0-5/HPF) Urine WBC (0-5/HPF) Ur Squamous Epith Cells (0-5/HPF) Urine Bacteria (None) Ur Culture Indicated? SARS-CoV-2 (PCR) (Negative) 04/02/22 04/02/22 04/02/22 Range/Units 20:35 20:53 22:30 WBC (4.5-11.0) X10^3/uL RBC (4.0-5.2) X10^6/uL Hgb (12.0-16.0) g/dL Hct (36-46) % MCV (80-100) fL MCH (26-34) PG MCHC (30-36) % RDW (11.6-14.8) % Plt Count (150-400) X10^3/uL Neut % (Auto) (50-75) % Lymph % (Auto) (25-40) % Hernando % (Auto) (3-14) % Eos % (Auto) (2-4) % Baso % (Auto) (0-2) % Neut # (Auto) (8553-1612) /uL Lymph # (Auto) (2267-4564) /uL Hernando # (Auto) (0-900) /uL Eos # (Auto) (0-450) /uL Baso # (Auto) (0-100) /uL PT (10.1-12.7) SECONDS INR (0.9-1.3) APTT (26-36) SECONDS Sodium (137-145) mmol/L Potassium (3.4-5.1) mmol/L Chloride (98-107) mmol/L Carbon Dioxide (22-32) mmol/L BUN (7-17) mg/dL Creatinine (0.52-1.04) mg/dL Estimated GFR (>60) mL/min BUN/Creatinine Ratio (6-22) Glucose (80-110) mg/dL Lactate 3.0 H (0.7-2.1) mmol/L Calcium (8.4-10.2) mg/dL Total Bilirubin (0.2-1.3) mg/dL AST (14-36) IU/L ALT (<35) IU/L Alkaline Phosphatase (38-126) U/L Total Creatine Kinase (30-135) U/L CK-MB (CK-2) CK-MB (CK-2) Rel Index Troponin I (0.01-0.034) ng/mL NT-Pro-B Natriuret Pep (<125) pg/mL Total Protein (6.3-8.2) g/dL Albumin (3.5-5.0) g/dL Globulin (1.7-4.1) g/dL Albumin/Globulin Ratio (1.0-2.8) Procalcitonin (<0.5) ng/mL Urine Color Yellow Urine Appearance Sl cloudy Urine pH 5.5 (4.5-8.0) Ur Specific Lawrence 1.025 (1.000-1.035) Urine Protein 2+ H (Negative) Urine Glucose (UA) Trace H (Negative) g/dL Urine Ketones Negative (NEGATIVE) Urine Occult Blood 3+ H (Negative) Urine Nitrate Positive H (Negative) Urine Bilirubin Negative (NEGATIVE) Urine Urobilinogen 0.2 (0.2) E.U./dL Ur Leukocyte Esterase Trace H (NEGATIVE) Urine RBC 10-30/hpf H (0-5/HPF) Urine WBC 5-10/hpf H (0-5/HPF) Ur Squamous Epith Cells 1-5 /hpf (0-5/HPF) Urine Bacteria Many (>30) H (None) Ur Culture Indicated? Specimen cultured SARS-CoV-2 (PCR) Negative (Negative) 04/02/22 04/02/22 Range/Units 22:58 23:39 WBC (4.5-11.0) X10^3/uL RBC (4.0-5.2) X10^6/uL Hgb (12.0-16.0) g/dL Hct (36-46) % MCV (80-100) fL MCH (26-34) PG MCHC (30-36) % RDW (11.6-14.8) % Plt Count (150-400) X10^3/uL Neut % (Auto) (50-75) % Lymph % (Auto) (25-40) % Hernando % (Auto) (3-14) % Eos % (Auto) (2-4) % Baso % (Auto) (0-2) % Neut # (Auto) (9138-1740) /uL Lymph # (Auto) (7707-5047) /uL Hernando # (Auto) (0-900) /uL Eos # (Auto) (0-450) /uL Baso # (Auto) (0-100) /uL PT (10.1-12.7) SECONDS INR (0.9-1.3) APTT (26-36) SECONDS Sodium (137-145) mmol/L Potassium (3.4-5.1) mmol/L Chloride (98-107) mmol/L Carbon Dioxide (22-32) mmol/L BUN (7-17) mg/dL Creatinine (0.52-1.04) mg/dL Estimated GFR (>60) mL/min BUN/Creatinine Ratio (6-22) Glucose (80-110) mg/dL Lactate 2.5 H (0.7-2.1) mmol/L Calcium (8.4-10.2) mg/dL Total Bilirubin (0.2-1.3) mg/dL AST (14-36) IU/L ALT (<35) IU/L Alkaline Phosphatase (38-126) U/L Total Creatine Kinase 74 (30-135) U/L CK-MB (CK-2) TNP CK-MB (CK-2) Rel Index TNP Troponin I 0.033 (0.01-0.034) ng/mL NT-Pro-B Natriuret Pep (<125) pg/mL Total Protein (6.3-8.2) g/dL Albumin (3.5-5.0) g/dL Globulin (1.7-4.1) g/dL Albumin/Globulin Ratio (1.0-2.8) Procalcitonin (<0.5) ng/mL Urine Color Urine Appearance Urine pH (4.5-8.0) Ur Specific Lawrence (1.000-1.035) Urine Protein (Negative) Urine Glucose (UA) (Negative) g/dL Urine Ketones (NEGATIVE) Urine Occult Blood (Negative) Urine Nitrate (Negative) Urine Bilirubin (NEGATIVE) Urine Urobilinogen (0.2) E.U./dL Ur Leukocyte Esterase (NEGATIVE) Urine RBC (0-5/HPF) Urine WBC (0-5/HPF) Ur Squamous Epith Cells (0-5/HPF) Urine Bacteria (None) Ur Culture Indicated? SARS-CoV-2 (PCR) (Negative) Imaging Data CT scan - head: Radiologist's Impression: ?Maribel Narayanan MR#: [id number] : 1950 Acct:[id number] Age/Sex: 72 / F Date of Service: 04/02/22 Loc: ED Accession Number: [id number] ?? Procedure: CT head/brain wo con Ordering Provider: Radha Melvin D.O. PROCEDURE:? CT HEAD/BRAIN WO CON ? INDICATIONS:? hallucinations ? TECHNIQUE:? Noncontrast 4.5 mm thick angled axial sections acquired from the foramen magnum to the vertex, with coronal and sagittal reformats.? For radiation dose reduction, the following was used:? automated exposure control, adjustment of mA and/or kV according to patient size.? ? COMPARISON:? [facility], CT, HEAD WITHOUT CONTRAST, 10/21/2012, 23:53. ? FINDINGS:? Image quality:? Excellent.? ? CSF spaces:? Basal cisterns are patent.? No extra-axial fluid collections.? There is moderate to severe cerebral volume loss, with resultant ventricular and sulcal prominence.? ? Brain:? No intracranial hemorrhage, mass, or mass effect.? There are subcortical, periventricular and deep white matter hypodensities consistent with mild chronic small vessel ischemic changes.? The clark-white matter junction appears preserved.? There is intracranial internal carotid artery atherosclerosis.? ? Skull and face:? Calvarium and visualized facial bones appear intact, without suspicious lesions.? ? Sinuses:? Visualized sinuses demonstrate partial mucosal opacification of the right maxillary sinus.? Mastoid air cells are clear.? ? IMPRESSION:? ? 1. No acute intracranial abnormality. ? 2. Moderate to severe cerebral volume loss and mild chronic white matter small vessel ischemic changes.? ? ? Dictated by: Geronimo Cr M.D. on 04/03/2022 at 0:11 ? ? Chest x-ray: Radiologist's Impression: XRay Report Signed Patient: Maribel Narayanan MR#: [id number] : 1950 Acct:[id number] Age/Sex: 72 / F Date of Service: 04/02/22 Loc: ED Accession Number: [id number] ?? Procedure: XR chest 1V Ordering Provider: Radha Melvin D.O. PROCEDURE:? XR CHEST 1V ? INDICATIONS:? confusion ? TECHNIQUE:? One view of the chest was acquired.? ? COMPARISON:? [facility], CR, XR CHEST 2V, 02/18/2019, 13:27.? [facility], CR, XR CHEST 1V, 01/09/2021, 18:47.? [facility], CR, XR CHEST FOR PICC 1V, 01/15/2021, 14:40. ? FINDINGS:? ? Surgical changes and devices:? None.? ? Lungs and pleura:? Lungs demonstrate no acute consolidation.? There is mild pulmonary vascular prominence suggestive of mild edema.? No pleural effusions or pneumothorax.? ? Mediastinum:? Heart size is enlarged.? The cardiac contours appear increased in size compared to the prior studies raising the possibility of a pericardial effusion. ? Bones and chest wall:? No suspicious bony lesions.? Overlying soft tissues appear unremarkable.? ? IMPRESSION:? ? 1.Cardiomegaly with enlargement of the cardiac contours raising the possibility of a pericardial effusion. ? 2. Mild pulmonary vascular prominence suggestive of mild pulmonary edema. ? Dictated by: Geronimo Cr M.D. on 04/02/2022 at 22:25? ECG Data Interpretation: Atrial flutter rate [address] changes previous EKG does show sinus rhythm MDM Narrative Medical decision making narrative: It appears that patient is in atrial flutter she does have a remote history of atrial fibrillation in 2020 when she was septic. Patient is extremely confused very difficult to get any history. He is have congestive heart failure with BNP of greater than 10,000. Heart rate initially responded to 10 mg of Cardizem however once placed on a diltiazem drip she actually did not respond. She is given Lasix she has urinated with that. Heart rate actually seems to be responding better to Lopressor. I suspect she has an atrial flutter secondary to sepsis and UTI. Recommend treating underlying condition. No indication for cardioversion is unknown how long she has been in this rhythm on there is likely an underlying condition. Lactate mildly elevated from 3-2.5 with a small amount normal saline and Lasix. She did put out quite of bit. She is responsive and awake but is obviously confused. No focal deficits. Head CT is negative. Dr. Maria updated patient's symptoms test results and accepts patient Discharge Plan Departure Patient Disposition: Admitted As Inpatient Clinical Impression: Acute UTI, Atrial flutter with rapid ventricular response Admit Date/Time: 04/03/22 00:45 Admit Provider: María Elena Maria
[2022-04-02] MEDS: FUROSEMIDE 40 MG/4 ML VIAL IV (21:47)
[2022-04-02] MEDS: dilTIAZem 5 MG/ML SDV 10 MG IV (21:47)
--- NOTE | 2022-04-02 22:32 | DI.CT.S_ITS ---
PROCEDURE: CT HEAD/BRAIN WO CON INDICATIONS: hallucinations TECHNIQUE: Noncontrast 4.5 mm thick angled axial sections acquired from the foramen magnum to the vertex, with coronal and sagittal reformats. For radiation dose reduction, the following was used: automated exposure control, adjustment of mA and/or kV according to patient size. COMPARISON: [facility], CT, HEAD WITHOUT CONTRAST, 10/21/2012, 23:53. FINDINGS: Image quality: Excellent. CSF spaces: Basal cisterns are patent. No extra-axial fluid collections. There is moderate to severe cerebral volume loss, with resultant ventricular and sulcal prominence. Brain: No intracranial hemorrhage, mass, or mass effect. There are subcortical, periventricular and deep white matter hypodensities consistent with mild chronic small vessel ischemic changes. The clark-white matter junction appears preserved. There is intracranial internal carotid artery atherosclerosis. Skull and face: Calvarium and visualized facial bones appear intact, without suspicious lesions. Sinuses: Visualized sinuses demonstrate partial mucosal opacification of the right maxillary sinus. Mastoid air cells are clear. IMPRESSION: 1. No acute intracranial abnormality. 2. Moderate to severe cerebral volume loss and mild chronic white matter small vessel ischemic changes. Dictated by: Geronimo Cr M.D. on 04/03/2022 at 0:11 Approved by: Geronimo Cr M.D. on 04/03/2022 at 0:14
[2022-04-02 22:36] LABS: Appearance Urine UA SL CLOUDY; Bilirubin Urine UA NEGATIVE (NEGATIVE); Color Urine UA YELLOW; Glucose Urine UA TRACE g/dL (Negative); Ketones Urine UA NEGATIVE (NEGATIVE); Leukocyte Esterase Urine UA TRACE (NEGATIVE); Nitrite Urine UA POSITIVE (Negative); Occult Blood Urine UA 3+ (Negative); Protein Urine UA 2+ (Negative); Specific Gravity Urine UA 1.025 (1.000-1.035); Urobilinogen Urine UA 0.2 E.U./dL (0.2)
[2022-04-02 22:41] LABS: pH Urine UA 5.5 (4.5-8.0)
[2022-04-02 22:42] LABS: Bacteria Urine Many (>30); Culture Indicated Urine Specimen Cultured; RBC Urine 10-30/HPF (0-5/HPF); Squamous Epithelial Cell Urine 1-5 /HPF (0-5/HPF); WBC Urine 5-10/HPF (0-5/HPF)
[2022-04-02 22:44] LABS: Reflexed Lactate in 2 Hours Y
[2022-04-02] MEDS: DILTIAZEM 125 MG/125 ML PIGGYBACK IV (22:46)
[2022-04-02 23:18] LABS: Lactate 2HR (Lactic Acid Rflx) 2.5 mmol/L (0.7-2.1)
[2022-04-03] VITALS (62 sets, daily range): BP systolic 79–132; BP diastolic 51–80; PULSE 61–138; RESP 15–45; TEMP 35.9–36.6; O2SAT 93–100; BMI 51.4
[2022-04-03] MEDS: cefTRIAXone 2,000 MG in SODIUM CHLORIDE 0.9% 100 ML 200 MG IV (00:01)
[2022-04-03 00:11] LABS: Creatine Kinase 74 U/L (30-135)
[2022-04-03 00:23] LABS: Troponin I 0.033 ng/mL (0.01-0.034)
[2022-04-03] MEDS: METOPROLOL ER 25 MG TABLET PO (00:27)
--- NOTE | 2022-04-03 01:30 | PC.NURSE ---
Patient admitted to ICU 230 for aflutter management. Patient arrived on a diltiazem ggt at 10 ml/hr, HR in 70's, was weaned to 5 ml/hr. Patient A&Ox3, able to answer most admission questions. She remains on 2L NC which is her baseline at home. She does endorse left shoulder pain from a previous fall she had. Rates it 4/10. Call light at bedside.
--- NOTE | 2022-04-03 02:13 | DI.ECHO.S_ITS ---
[facility] +---------+ : : [address] : : : : [id number] : : : : Phone: [phone]+ Echocardiogram Report + + :Name: KYLE ZAMORA Study Date: 04/03/2022 Height: 61 in : :[facility] ReadingLocation: Weight: 272 lb : : Gender: Female BSA: 2.2 m2 : :: 1950 Age: 72 yrs BP: 123/62 mmHg: :Reason For Study: ATRIAL FULTTER : :Ordering Physician: KARISSA, : :GIULIANO Performed By: Irma Em : :Referring: GIULIANO HANCOCK : + + Interpretation Summary The patient was in atrial flutter during the exam. The ejection fraction is estimated to be 25-30%. The left atrium is severely dilated. The interatrial septum bows toward left atrium consistent with elevated right atrial pressure. The right ventricle is not well visualized. In limited acoustic windows, the RV appears significantly dilated with decreased systolic function. There is a left pleural effusion. Procedure: A two-dimensional transthoracic echocardiogram with color flow and Doppler was performed in limited views only. The study quality was technically difficult. Comparison is made with the echocardiogram of 01/13/2021. A contrast injection of Definity was performed to improve assessment of LV function. The patient was in atrial flutter during the exam. Left Ventricle: The left ventricle is normal in size. Left ventricular wall thickness is at the upper limits of normal. The ejection fraction is estimated to be 25-30%. Right Ventricle: The right ventricle is not well visualized. In limited acoustic windows, the RV appears significantly dilated with decreased systolic function. Atria: The left atrium is severely dilated. Right atrium not well visualized. The interatrial septum bows toward left atrium consistent with elevated right atrial pressure. Mitral Valve: The mitral valve is normal. Pericardium/ Pleura There is no pericardial effusion. There is a left pleural effusion. MMode/2D Measurements & Calculations LVIDd: 4.3 cm LVIDs: 3.6 cm FS: 16.8 % EPSS: 1.3 cm IVSd: 1.0 cm LVPWd: 0.75 cm LV singh. diameter/BSA (cm/m^2): 2.0 LV sys. diameter/BSA (cm/m^2): 1.7 Reading Physician:03:08 PM
[2022-04-03 05:33] LABS: Add Manual Diff / Slide Review NO; Basophils Absolute Auto 0 /uL (0-100); Basophils Percent Auto 0.8 % (0-2); Eosinophils Absolute Auto 0 /uL (0-450); Eosinophils Percent Auto 1.5 % (2-4); Hematocrit 34.9 % (36-46); Hemoglobin 11.3 g/dL (12.0-16.0); Lymphocytes Absolute Auto 1500 /uL (1100-4500); Lymphocytes Percent Auto 54.2 % (25-40); Mean Corpuscular HGB Conc 32.4 % (30-36); Mean Corpuscular Volume 95.9 fL (80-100); Monocytes Absolute Auto 100 /uL (0-900); Monocytes Percent Auto 5.4 % (3-14); Neutrophils Absolute Auto 1000 /uL (1500-7000); Neutrophils Percent Auto 38.1 % (50-75); Red Blood Cell Count 3.64 X10^6/uL (4.0-5.2); Red Cell Distribution Width 19.7 % (11.6-14.8); White Blood Cell Count 2.7 X10^3/uL (4.5-11.0)
[2022-04-03 05:35] LABS: Alanine Aminotransferase 145 IU/L (<35); Albumin 3.4 g/dL (3.5-5.0); Albumin Globulin Ratio 1.1 (1.0-2.8); Alkaline Phosphatase 185 U/L (38-126); Aspartate Aminotransferase 61 IU/L (14-36); BUN Creatinine Ratio 22.6 (6-22); Bilirubin Total 0.7 mg/dL (0.2-1.3); Blood Urea Nitrogen 28 mg/dL (7-17); Calcium 8.7 mg/dL (8.4-10.2); Carbon Dioxide 35 mmol/L (22-32); Chloride 96 mmol/L (98-107); Creatine Kinase 63 U/L (30-135); Estimated Glomerular Filt Rate 47 mL/min (>60); Globulin 3.1 g/dL (1.7-4.1); Glucose 111 mg/dL (80-110); HEMOLYSIS < 15 (0-50); Magnesium 2.1 mg/dL (1.6-2.3); Sodium 140 mmol/L (137-145); Total Protein 6.5 g/dL (6.3-8.2)
[2022-04-03 05:46] LABS: Platelet Count 36 X10^3/uL (150-400)
[2022-04-03 05:47] LABS: NT-proBNP (BNP-Adult 18+) 9430 pg/mL (<125); Platelet Estimate Decreased on smear; RBC Morphology Normal Morphology; Troponin I 0.043 ng/mL (0.01-0.034)
[2022-04-03] MEDS: BUDESONIDE 0.5 MG/2 ML NEB INH ×2 (08:13→19:17)
[2022-04-03] MEDS: IPRATROPIUM 0.5 MG/2.5 ML NEB INH ×4 (08:13→22:20)
--- NOTE | 2022-04-03 08:58 | P.HP_ITS ---
History of Present Illness History of Present Illness Date Patient Seen: 04/03/22 Time Patient Seen: 08:58 Chief complaint: Confusion, Hallucinations, Not eating, Rash Narrative: 72-year-old female who was brought to the ER by her who is her caregiver with progressive decreased mentation and hallucinations. Patient is a very poor historian and the majority of history is obtained from ER physician and patient's . Patient has had decreased mobility. Patient overall has had a significant decline in her health with a diagnosis of metastatic cancer of unknown primary in June. Bone marrow pointed to breast or ovarian primary and so she is being treated by Dr. Copeland. During workup in the emergency department, Patient was found to have a flutter with RVR and metabolic encephalopathy secondary to UTI. Also noted to have acute kidney disease and suspected congestive heart failure exacerbation. She was admitted for the same. She was started on a diltiazem drip. She did convert to sinus rhythm in the ER but then returned to a flutter and is currently on 10 of a diltiazem drip in the ICU. She is a chronically ill patient with chronic oxygen dependence at 2 L nasal cannula an hour. She has systolic congestive heart failure, morbid obesity, chronic pain, seizure disorder, chronic kidney disease, COPD and nephrolithiasis. Patient also with a history of coronary artery disease and hypertension. Today patient feels she is doing better. Her states that she is mentating better. She was able to eat her food without difficulty. She is a Bazan catheter. She is complaining of left shoulder pain which has been a chronic issue. Past medical history: 1. Coronary artery disease 2. Systolic congestive heart failure 3. Chronic kidney disease, stage III 4. Morbid obesity 5. Thrombocytopenia 6. Metastatic carcinoma of unclear etiology with previous history of breast cancer in the 7. Hypokalemia 8. Hyperlipidemia 9. Obstructive sleep apnea 10. Depression 11. Panic disorder Allergies: Promethazine causes hallucinations Past surgical history: Patient is a very poor historian and the majority of history is obtained from ER physician 1. 1954 patient had a tonsillectomy 2. 1957 patient had appendectomy 3. 1982 patient had abdominal hysterectomy with bilateral salpingo-oophorectomy Family history: Paternal grandmother of bilateral breast cancer Mother had breast cancer Father of a heart attack at age 63 Mother of a heart attack at 68 Social history: Patient is and lives with her Alessio who is her caregiver. Health her to behavior: Patient does not drink alcohol and does not smoke Review of systems: No recent falls. No fevers or rashes or worsening breathing Patient is having left shoulder pain. This is unchanged. Has been chronic. Patient denies chest pain or palpitations or lightheadedness or dizziness Otherwise 12 point review of systems is negative Patient History Medical History Anemia Atrial fibrillation with RVR CHF (congestive heart failure) COPD (chronic obstructive pulmonary disease) Encephalopathy Heart attack (~2013) History of UTI HLD (hyperlipidemia) Hypokalemia Kidney stones Myocardial infarction (01/2021) Obesity, morbid, BMI 50 or higher SIDNEY (obstructive sleep apnea) Presence of device (01/15/21) Retained ureteral stent Right ureteral calculus Sepsis Thrombocytopenia Surgical History History of appendectomy History of breast biopsy History of cholecystectomy Hx of cystoscopy (01/10/21) Family & Social History Family History Mother Cancer Social History: household members spouse Prior Living Arrangements House Safety & Behavioral: Feels Safe in Current Yes Environment Been Physically Hurt or No Threatened By a Person Tobacco & Substance use: Tobacco type cigarettes Smoking Status Former smoker alcohol intake never Substance Use Type does not use Meds Home Medications and Allergies Home Medications Medication Instructions Recorded Confirmed Type albuterol sulfate 90 mcg/actuation 2 puff inhalation Q4-6H PRN copd 01/23/19 04/03/22 History aerosol inhaler (Ventolin HFA) atorvastatin 10 mg tablet 10 mg PO DAILY infection 01/23/19 04/03/22 History potassium chloride 10 mEq 20 meq PO DAILY 01/23/19 04/03/22 History capsule,extended release sertraline 25 mg tablet 25 mg PO BID 01/23/19 04/03/22 History ciclesonide 160 mcg/actuation 160 mcg inhalation BID resp 01/11/21 04/03/22 History aerosol inhaler (Alvesco) isosorbide mononitrate 30 mg 60 mg PO BID 01/11/21 04/03/22 History tablet,extended release 24 hr meclizine 25 mg tablet 25 mg PO Q8HR PRN for dizziness 01/11/21 04/03/22 History metoprolol succinate 50 mg 50 mg PO DAILY 01/11/21 04/03/22 History tablet,extended release 24 hr omeprazole 20 mg capsule,delayed 20 mg PO DAILY 01/11/21 04/03/22 History release oxycodone-acetaminophen 5 mg-325 5 - 325 tab Q6-8H PRN Pain, 01/11/21 04/03/22 History mg tablet Moderate tiotropium bromide 2.5 See Rx Instructions .Route .COMPLEX 01/11/21 04/03/22 History mcg/actuation mist for inhalation (Spiriva Respimat) albuterol sulfate 0.63 mg/3 mL 0.083 mg (0.3952 mL) inhalation 01/18/21 04/03/22 Rx solution for nebulization BID PRN dypsnea #0 mL nitroglycerin 0.4 mg sublingual 0.4 mg sublingual [id number] PRN 01/18/21 04/03/22 Rx tablet (Nitrostat) Chest Pain #10 tabs nystatin 100,000 unit/gram topical 100,000 applic topical BID PRN 01/18/21 04/03/22 Rx powder (Nyamyc) rash #0 grams aspirin 81 mg tablet 81 mg PO DAILY 01/27/21 04/03/22 History furosemide 40 mg tablet 20 mg PO Q OTHER DAY 01/27/21 04/03/22 History oxycodone 5 mg tablet 5 mg PO Q4H PRN pain #20 tabs 01/27/21 04/03/22 Rx letrozole 2.5 mg tablet (Femara) 2.5 mg PO DAILY breast cancer 90 08/14/21 04/03/22 Rx days #90 tabs palbociclib 125 mg tablet 125 mg PO DIRECTED #21 tabs 08/14/21 04/03/22 Rx Allergies Allergy/AdvReac Type Severity Reaction Status Date / Time promethazine Allergy Unknown HALLUCINATI Verified 02/08/21 10:10 ONS Exam Vital Signs (past 8 hours): - 04/03/22 01:04 04/03/22 01:30 04/03/22 01:58 Temperature Pulse Rate 84 Respiratory Rate 16 Blood Pressure 115/64 103/60 Pulse Oximetry 97 Oxygen Delivery Method Nasal Cannula Nasal Cannula Oxygen Flow Rate 04/03/22 01:00 04/03/22 01:23 04/03/22 01:23 Temperature Pulse Rate 94 H 73 Respiratory Rate 19 25 H Blood Pressure 103/60 Pulse Oximetry 100 Oxygen Delivery Method Oxygen Flow Rate 04/03/22 01:30 04/03/22 02:00 04/03/22 02:01 Temperature Pulse Rate 73 72 Respiratory Rate 21 27 H Blood Pressure 90/75 Pulse Oximetry 100 100 Oxygen Delivery Method Oxygen Flow Rate 04/03/22 01:15 04/03/22 02:01 04/03/22 02:30 Temperature 96.9 F L Pulse Rate 85 72 79 Respiratory Rate 29 H 34 H 31 H Blood Pressure 103/60 Pulse Oximetry 100 100 95 Oxygen Delivery Method Oxygen Flow Rate 0 04/03/22 02:34 04/03/22 02:34 04/03/22 02:39 Temperature Pulse Rate 72 Respiratory Rate 31 H Blood Pressure 89/52 L 79/55 L Pulse Oximetry 98 Oxygen Delivery Method Oxygen Flow Rate 04/03/22 02:39 04/03/22 02:41 04/03/22 02:41 Temperature Pulse Rate 72 74 Respiratory Rate 26 H 29 H Blood Pressure 121/66 Pulse Oximetry 100 98 Oxygen Delivery Method Oxygen Flow Rate 04/03/22 03:00 04/03/22 03:02 04/03/22 03:02 Temperature Pulse Rate 84 73 Respiratory Rate 36 H 18 Blood Pressure 107/56 L Pulse Oximetry 99 99 Oxygen Delivery Method Oxygen Flow Rate 04/03/22 03:30 04/03/22 04:00 04/03/22 04:00 Temperature Pulse Rate 81 84 Respiratory Rate 27 H 28 H Blood Pressure 116/78 Pulse Oximetry 99 99 Oxygen Delivery Method Oxygen Flow Rate 04/03/22 04:30 04/03/22 05:00 04/03/22 05:00 Temperature Pulse Rate 87 96 H Respiratory Rate 28 H 17 Blood Pressure 107/76 Pulse Oximetry 100 100 Oxygen Delivery Method Oxygen Flow Rate 04/03/22 05:30 04/03/22 06:00 04/03/22 06:00 Temperature Pulse Rate 89 96 H Respiratory Rate 18 17 Blood Pressure 117/57 L Pulse Oximetry 98 97 Oxygen Delivery Method Oxygen Flow Rate 04/03/22 06:30 04/03/22 07:00 04/03/22 07:00 Temperature Pulse Rate 96 H 120 H Respiratory Rate 19 19 Blood Pressure 125/75 Pulse Oximetry 100 97 Oxygen Delivery Method Oxygen Flow Rate 04/03/22 07:30 04/03/22 08:16 04/03/22 08:00 Temperature Pulse Rate 95 H Respiratory Rate 21 Blood Pressure 132/76 Pulse Oximetry 96 98 Oxygen Delivery Method Nasal Cannula Oxygen Flow Rate 2 04/03/22 08:00 04/03/22 08:30 Temperature Pulse Rate 84 73 Respiratory Rate 28 H 35 H Blood Pressure Pulse Oximetry 100 100 Oxygen Delivery Method Oxygen Flow Rate Oxygen Delivery Method Nasal Cannula Oxygen Flow Rate 2 Narrative Exam Narrative: Blood pressure in the 1 teens over 70s. Heart rate in the 80s with a flutter Patient is alert and oriented x4 and in no acute distress. Her O2 sat is 100% on 2 L nasal cannula. She is on 2 L nasal cannula at home. HEENT is remarkable for poor dentition and poor hygiene. There are no mucosal membrane abnormalities in the mouth. No lesions. No evidence of thrush. Neck is supple without adenopathy or thyromegaly, no clear jugular venous distention or bruits Chest: Shows crackles bibasilar with decreased breath sounds in the base. No wheezes or rhonchi and no egophony Cor: Irregularly irregular rhythm at a well-controlled rate currently but she does go up to the 120s 130s at times Abdomen: Positive bowel sounds, soft, nontender, obese Extremities: Chronic venous stasis changes with 1+ pitting edema which overall appears unchanged from when she was in the clinic. Skin: She has severe candidal infection under her left breast. This has been chronic. Diffusely excoriation and poor hygiene Neurologic exam shows no focal abnormalities Objective Labs Result Diagrams: 04/03/22 04:58 04/03/22 04:58 Labs: Laboratory Results - last 24 hr 04/02/22 04/02/22 04/02/22 20:35 20:35 20:35 WBC 3.0 L RBC 3.91 L Hgb 12.0 Hct 37.4 MCV 95.6 MCH 30.6 MCHC 32.0 RDW 19.7 H Plt Count 44 L Neut % (Auto) 39.4 L Lymph % (Auto) 55.3 H [place] % (Auto) 3.2 Eos % (Auto) 0.9 L Baso % (Auto) 1.2 Neut # (Auto) 1200 L Lymph # (Auto) 1700 [place] # (Auto) 100 Eos # (Auto) 0 Baso # (Auto) 0 Platelet Estimate RBC Morphology PT 14.0 H INR 1.2 APTT 28 Sodium 138 Potassium 4.5 Chloride 98 Carbon Dioxide 29 BUN 31 H Creatinine 1.28 H Estimated GFR 45 L BUN/Creatinine Ratio 24.2 H Glucose 153 H Lactate Calcium 8.8 Magnesium Total Bilirubin 1.0 AST 76 H ALT 160 H Alkaline Phosphatase 220 H Total Creatine Kinase 88 CK-MB (CK-2) TNP CK-MB (CK-2) Rel Index TNP Troponin I 0.036 H NT-Pro-B Natriuret Pep 23197 H Total Protein 7.3 Albumin 3.7 Globulin 3.6 Albumin/Globulin Ratio 1.0 Procalcitonin 0.07 Urine Color Urine Appearance Urine pH Ur Specific Shell Urine Protein Urine Glucose (UA) Urine Ketones Urine Occult Blood Urine Nitrate Urine Bilirubin Urine Urobilinogen Ur Leukocyte Esterase Urine RBC Urine WBC Ur Squamous Epith Cells Urine Bacteria Ur Culture Indicated? SARS-CoV-2 (PCR) 04/02/22 04/02/22 04/02/22 20:35 20:53 22:30 WBC RBC Hgb Hct MCV MCH MCHC RDW Plt Count Neut % (Auto) Lymph % (Auto) [place] % (Auto) Eos % (Auto) Baso % (Auto) Neut # (Auto) Lymph # (Auto) [place] # (Auto) Eos # (Auto) Baso # (Auto) Platelet Estimate RBC Morphology PT INR APTT Sodium Potassium Chloride Carbon Dioxide BUN Creatinine Estimated GFR BUN/Creatinine Ratio Glucose Lactate 3.0 H Calcium Magnesium Total Bilirubin AST ALT Alkaline Phosphatase Total Creatine Kinase CK-MB (CK-2) CK-MB (CK-2) Rel Index Troponin I NT-Pro-B Natriuret Pep Total Protein Albumin Globulin Albumin/Globulin Ratio Procalcitonin Urine Color Yellow Urine Appearance Sl cloudy Urine pH 5.5 Ur Specific Shell 1.025 Urine Protein 2+ H Urine Glucose (UA) Trace H Urine Ketones Negative Urine Occult Blood 3+ H Urine Nitrate Positive H Urine Bilirubin Negative Urine Urobilinogen 0.2 Ur Leukocyte Esterase Trace H Urine RBC 10-30/hpf H Urine WBC 5-10/hpf H Ur Squamous Epith Cells 1-5 /hpf Urine Bacteria Many (>30) H Ur Culture Indicated? Specimen cultured SARS-CoV-2 (PCR) Negative 04/02/22 04/02/22 04/03/22 22:58 23:39 04:58 WBC 2.7 L RBC 3.64 L Hgb 11.3 L Hct 34.9 L MCV 95.9 MCH 31.0 MCHC 32.4 RDW 19.7 H Plt Count 36 L* Neut % (Auto) 38.1 L Lymph % (Auto) 54.2 H [place] % (Auto) 5.4 Eos % (Auto) 1.5 L Baso % (Auto) 0.8 Neut # (Auto) 1000 L Lymph # (Auto) 1500 [place] # (Auto) 100 Eos # (Auto) 0 Baso # (Auto) 0 Platelet Estimate Decreased on smear RBC Morphology Normal morphology PT INR APTT Sodium Potassium Chloride Carbon Dioxide BUN Creatinine Estimated GFR BUN/Creatinine Ratio Glucose Lactate 2.5 H Calcium Magnesium Total Bilirubin AST ALT Alkaline Phosphatase Total Creatine Kinase 74 CK-MB (CK-2) TNP CK-MB (CK-2) Rel Index TNP Troponin I 0.033 NT-Pro-B Natriuret Pep Total Protein Albumin Globulin Albumin/Globulin Ratio Procalcitonin Urine Color Urine Appearance Urine pH Ur Specific Shell Urine Protein Urine Glucose (UA) Urine Ketones Urine Occult Blood Urine Nitrate Urine Bilirubin Urine Urobilinogen Ur Leukocyte Esterase Urine RBC Urine WBC Ur Squamous Epith Cells Urine Bacteria Ur Culture Indicated? SARS-CoV-2 (PCR) 04/03/22 04:58 WBC RBC Hgb Hct MCV MCH MCHC RDW Plt Count Neut % (Auto) Lymph % (Auto) [place] % (Auto) Eos % (Auto) Baso % (Auto) Neut # (Auto) Lymph # (Auto) [place] # (Auto) Eos # (Auto) Baso # (Auto) Platelet Estimate RBC Morphology PT INR APTT Sodium 140 Potassium 4.0 Chloride 96 L Carbon Dioxide 35 H BUN 28 H Creatinine 1.24 H Estimated GFR 47 L BUN/Creatinine Ratio 22.6 H Glucose 111 H Lactate Calcium 8.7 Magnesium 2.1 Total Bilirubin 0.7 AST 61 H ALT 145 H Alkaline Phosphatase 185 H Total Creatine Kinase 63 CK-MB (CK-2) TNP CK-MB (CK-2) Rel Index TNP Troponin I 0.043 H NT-Pro-B Natriuret Pep 9430 H Total Protein 6.5 Albumin 3.4 L Globulin 3.1 Albumin/Globulin Ratio 1.1 Procalcitonin Urine Color Urine Appearance Urine pH Ur Specific Shell Urine Protein Urine Glucose (UA) Urine Ketones Urine Occult Blood Urine Nitrate Urine Bilirubin Urine Urobilinogen Ur Leukocyte Esterase Urine RBC Urine WBC Ur Squamous Epith Cells Urine Bacteria Ur Culture Indicated? SARS-CoV-2 (PCR) Assessment & Plan Assessment & Plan narrative: 72-year-old female admitted to the hospital for metabolic encephalopathy secondary to UTI with sepsis and atrial flutter with rapid ventricular rate Assessment 1. Metabolic encephalopathy due to UTI. Patient seems to be improved. Plan: Will continue with Rocephin 1 g Q 24 hours until we receive urine cultures and blood cultures. Will consult PT and OT and discharge services. I think patient would benefit from skilled care facility on discharge but I am not sure she will be willing to do this. Assessment 2. Atrial flutter with rapid ventricular rate currently on diltiazem drip Plan: Due to multiple comorbidities I think it would be a bad idea and patient declines as well for anticoagulation. We will continue outpatient metoprolol 50 mg XL. We will continue with diltiazem drip and wean as we are able. We will add diltiazem immediate release 30 mg Q 6 hours. We will repeat echo. We will continue to trend CK and troponins. Suspect that she had this response due to her UTI and overall illness. Assessment 3. Acute on chronic kidney disease Plan: Will gently give IV fluids as we diurese and will continue to monitor. Will watch closely for fluid overload Assessment 4. Acute exacerbation of systolic heart failure Plan: Will give 40 mg of IV Lasix. Will reassess in a.m.. Oxygen level stable. Assessment 5. COPD on chronic oxygen without increased requirements Plan: Will continue the same. Continue Alvesco. Continue albuterol and RT is consulted. Assessment 6. Metastatic cancer of unknown primary Plan: Will hold her chemotherapy agents until her condition has improved. Assessment 7. Thrombocytopenia, worsened without evidence of bleeding Plan: We are unable to use Lovenox due to thrombocytopenia Assessment 8. Candidiasis, severe suspect related to hygiene Plan: Continue nystatin. Will check A1c to rule out diabetes X contributing factor. Will place her on probiotics Assessment 9. Hyperlipidemia Plan: Continue outpatient atorvastatin Assessment 10. Venous stasis changes, chronic with peripheral edema Plan: No evidence of wounds. Will give IV Lasix. Assessment 11. Troponinemia suspect related to a flutter with RVR Plan: Will treat RVR in a flutter. Will trend CK and troponin. Will do echo. Assessment 12. Depression Plan: Continue sertraline Assessment 13. History of coronary artery disease on isosorbide Plan: Continue the same. Assessment 14. Chronic pain syndrome Plan: Continue oxycodone. Will do x-ray of her left shoulder. Assessment 15. DVT prophylaxis. Lovenox contraindicated due to thrombocytopenia, severe Plan: SCDs Assessment 16. GI prophylaxis Plan: Continue Protonix Code status is DNR 75 minute spent with patient, discussing with physicians, nursing staff, [facility] chart and documenting and formulating a plan Time Spent With Patient Critical Care time: I spent a total of [] minutes of critical care time on this patient's care today; this time is exclusive of procedural time.
--- NOTE | 2022-04-03 09:10 | DI.RAD.S_ITS ---
PROCEDURE: XR SHOULDER LT MIN 2V INDICATIONS: fall and injury to left shoulder, r/t fx TECHNIQUE: 3 views of the shoulder were acquired. COMPARISON: [facility], , SHOULDER MINIMUM 2 VIEW LEFT, 12/05/2015, 18:24. FINDINGS: Bones: There is deformity from previous fracture. There is degenerative arthritis with large osteophyte off the humeral head. No obvious fracture. No dislocation. Soft tissues: No suspicious soft tissue calcifications. IMPRESSION: Remote fracture, degenerative arthritis. No obvious acute fracture. Comment: If clinically suspect acute fracture, consider CT. Dictated by: Deon Rouse M.D. on 04/03/2022 at 10:01 Approved by: Deon Rouse M.D. on 04/03/2022 at 10:04
[2022-04-03 09:29] LABS: Hemoglobin A1C% w Est Avg Glu 5.6 % (4.0-6.0)
[2022-04-03] MEDS: NYSTATIN POWDER 15GM 1 APPLIC TOP (09:33)
[2022-04-03] MEDS: PANTOPRAZOLE 40 MG VIAL IV (09:34)
[2022-04-03] MEDS: ISOSORBIDE MONONITRATE ER 30 MG TABLET 60 MG PO ×2 (09:34→17:31)
[2022-04-03] MEDS: FUROSEMIDE 40 MG/4 ML VIAL IV (09:34)
[2022-04-03] MEDS: POTASSIUM CHLORIDE 10 MEQ TAB 20 MEQ PO (09:34)
[2022-04-03] MEDS: METOPROLOL ER 50 MG TABLET PO (09:35)
[2022-04-03] MEDS: ERYTHROMYCIN OPHTH 1 GM OINT 1 APPLIC EYE-BOTH ×2 (09:35→21:07)
[2022-04-03] MEDS: SODIUM CHLORIDE 0.45% 1,000 ML 75 ML IV (10:03)
--- NOTE | 2022-04-03 10:26 | OT.IPNOTE ---
Per pt's nurse pt still a little short of breath and and agreed best to wait to do OT eval until tomorrow when more medically appropriate.
--- NOTE | 2022-04-03 12:20 | PT-IP ANOTE ---
PT alona received and EMR reviewed. pt is currently on active cardizem drip. talked with nurse and stated that she is starting to titrate pt down on the drip and possibly be off the drip this afternoon. Pt on hold for PT this morning and will f/u in the afternoon.
--- NOTE | 2022-04-03 12:47 | PC.NURSE ---
Addendum entered by Dianne Barker R.N. 04/03/22 17:52: I agree with all of Dory's assessments and interventions Original Note: Day shift note: A&Ox4, in atrial flutter HR 70's-120's with stable vital signs. Titrating diltiazem gtt per HR and provider order. Open area on sacrum with blanchable erythema. Barrier cream applied. PT/OT ordered; will work with patient once diltiazem gtt is discontinued. 2L NC O2. Able to make needs known and use call light. Bed alarm set, call like within reach. Will continue to monitor.
[2022-04-03] MEDS: dilTIAZem 30 MG TABLET PO ×2 (13:41→17:32)
--- NOTE | 2022-04-03 14:34 | CM.DANOTE ---
DCP Assessment Patient is 72 y/o female who presents to ED due to concern for confusion, hallucinations, lack of eating and rash. Patient was admitted to due to Acute UTI, Atrial flutter with rapid Ventricular response. Patient's labs show platlet count of 36. Patient currently prescribed diltiazem drip in ICU. Patient is inpatient status. Patient's PCP is Dr. Maria, patient also sees Oncologist Dr. Foreman at [facility]. Patient [facility] Advantage and Medicaid. Patient has hx of COPD, CHF, AFib, HLD and SIDNEY. Patient has 2 Liters of O2 at home. GRINDER SET UP OPERATOR UNIVERSAL enters room to meet with patient. Patient presents as A/O to self, person (at times). Patient presents as confused at times when responding to some of magazine writer questions and provides answers that are not related to the question. Patient endorses awareness that she was having hallucinations and seeing family members that have prior to coming to the ED. Patient endorses she is not having hallucinations currently. Per EMR Oncology notes, Oncologist does not believe hallucinations correlate with prescribed medication. Patient endorses her is her caregiver and that she has [facility]. Patient endorses she resides at home and endorses preference to return to home. Patient endorses that her assists her with cooking, cleaning and grocery shopping. Patient endorses her independence with toileting and hygiene. Patient provides consent for GRINDER SET UP OPERATOR [employer]IVERSAL to contact [facility] and patient's . GRINDER SET UP OPERATOR UNIVERSAL calls [facility] and leaves requesting return call. GRINDER SET UP OPERATOR UNIVERSAL calls patient's Alessio who reports that he is patient's caregiver and endorses he feeds her, assists her with getting into the bathtub, cleaning and shopping. confirms that patient has [facility] and receives RN and PT services. reports that patient only ambulates to get to the bathroom. GRINDER SET UP OPERATOR UNIVERSAL calls [facility] and confirms that patient has [facility] services with assigned dependency case manager Dory Nichols (Ph. # [phone]) it is reported that dependency case manager is on maternity leave and patient may have alternative SW in the meantime. [facility] reports that at last visit it was reported that they were looking for caregivers for patient. Plan: Patient pending OT/PT eval, Patient preference for Home with [facility] continued referral, f/u with [facility]. DCP to f/u with POC. MICHAEL Doe Discharge Planning/Care Management CM Discharge Assessment Start: 04/03/22 13:58 Freq: Status: Active Protocol: Document 04/03/22 13:58 LN (Rec: 04/03/22 14:34 LN [id number]) Discharge Planning Assessment Assigned Oracle Engineer MICHAEL Del Rio Advance Directives? Yes Advance Directives on File No History Provided By Patient,Medical Record Has Patient been admitted in last 30 No days? Prior Living Arrangements Apartment/Condo Comment [place] Household Members spouse Type of transporation used prior to Relies on Others admit Independent with ADL's No Is patient alert and oriented? Yes: A/O to self, others unclear Needs Assistance With Grooming,Meal Prep,Managing Medications,Home Chores / Shopping Community Services used prior to Oxygen Therapy,Home Health Aid admission: Comment Patient endorses she has [facility] services. GRINDER SET UP OPERATOR UNIVERSAL calls [facility] and leaves requesting return call. DME Already Rented / Owned Wheelchair,FWW / Walker,Oxygen Comment 02 at night Patient/Family Preference Home with Home Health Additional Comment Pending PT/OT eval Please Provide Date Initial DC 04/03/22 Assessment Was Performed
--- NOTE | 2022-04-03 16:10 | PT-IP ANOTE ---
checked with nurse and stated that pt is still on active diltiazem drip. PT on hold this afternoon. will f/u tomorrow.
[2022-04-03] MEDS: SERTRALINE 50 MG TABLET 25 MG PO (19:01)
[2022-04-03] MEDS: cefTRIAXone 1,000 MG in SODIUM CHLORIDE 0.9% 100 ML 200 MG IV (21:07)
[2022-04-04] VITALS (43 sets, daily range): BP systolic 88–134; BP diastolic 49–82; PULSE 62–139; RESP 16–32; TEMP 36.6–36.8; O2SAT 92–98
[2022-04-04] MEDS: dilTIAZem 30 MG TABLET PO ×2 (00:09→06:46)
[2022-04-04] MEDS: METOPROLOL ER 25 MG TABLET PO (02:19)
[2022-04-04 06:22] LABS: Add Manual Diff / Slide Review NO; Basophils Absolute Auto 0 /uL (0-100); Basophils Percent Auto 0.8 % (0-2); Eosinophils Absolute Auto 0 /uL (0-450); Hematocrit 29.8 % (36-46); Hemoglobin 9.7 g/dL (12.0-16.0); Lymphocytes Absolute Auto 1100 /uL (1100-4500); Lymphocytes Percent Auto 46.2 % (25-40); Mean Corpuscular HGB Conc 32.5 % (30-36); Mean Corpuscular Volume 95.2 fL (80-100); Monocytes Absolute Auto 100 /uL (0-900); Monocytes Percent Auto 5.9 % (3-14); Neutrophils Absolute Auto 1100 /uL (1500-7000); Neutrophils Percent Auto 46.1 % (50-75); Platelet Count 37 X10^3/uL (150-400); Red Blood Cell Count 3.13 X10^6/uL (4.0-5.2); Red Cell Distribution Width 21.2 % (11.6-14.8); White Blood Cell Count 2.5 X10^3/uL (4.5-11.0)
[2022-04-04 06:33] LABS: Creatine Kinase 43 U/L (30-135)
[2022-04-04 06:35] LABS: Alanine Aminotransferase 99 IU/L (<35); Albumin Globulin Ratio 1.1 (1.0-2.8); Alkaline Phosphatase 144 U/L (38-126); Aspartate Aminotransferase 37 IU/L (14-36); BUN Creatinine Ratio 20.7 (6-22); Bilirubin Total 0.5 mg/dL (0.2-1.3); Blood Urea Nitrogen 29 mg/dL (7-17); Calcium 8.1 mg/dL (8.4-10.2); Carbon Dioxide 35 mmol/L (22-32); Chloride 97 mmol/L (98-107); Estimated Glomerular Filt Rate 40 mL/min (>60); Globulin 2.7 g/dL (1.7-4.1); Glucose 130 mg/dL (80-110); HEMOLYSIS < 15 (0-50); Potassium 3.9 mmol/L (3.4-5.1); Sodium 138 mmol/L (137-145); Total Protein 5.7 g/dL (6.3-8.2)
[2022-04-04 06:42] LABS: NT-proBNP (BNP-Adult 18+) 8030 pg/mL (<125)
[2022-04-04 06:45] LABS: Troponin I 0.027 ng/mL (0.01-0.034)
[2022-04-04 06:55] LABS: Anisocytosis 2+
[2022-04-04 06:56] LABS: Platelet Estimate Decreased on smear
[2022-04-04] MEDS: IPRATROPIUM 0.5 MG/2.5 ML NEB INH ×4 (07:31→20:50)
[2022-04-04] MEDS: BUDESONIDE 0.5 MG/2 ML NEB INH ×2 (07:31→20:49)
[2022-04-04] MEDS: SERTRALINE 50 MG TABLET 25 MG PO ×2 (08:00→21:36)
[2022-04-04] MEDS: PANTOPRAZOLE 40 MG VIAL IV (08:00)
[2022-04-04] MEDS: ISOSORBIDE MONONITRATE ER 30 MG TABLET 60 MG PO ×2 (08:00→16:49)
[2022-04-04] MEDS: METOPROLOL ER 50 MG TABLET PO ×2 (08:01→21:35)
[2022-04-04] MEDS: ERYTHROMYCIN OPHTH 1 GM OINT 1 APPLIC EYE-BOTH ×2 (08:04→21:36)
[2022-04-04] MEDS: FUROSEMIDE 40 MG/4 ML VIAL IV (08:30)
[2022-04-04] MEDS: POTASSIUM CHLORIDE 10 MEQ TAB 20 MEQ PO (08:30)
--- NOTE | 2022-04-04 08:42 | P.PN_ITS ---
Subjective Subjective Date Patient Seen: 04/04/22 Time Patient Seen: 08:42 Interval history: Patient had an unremarkable night other than having elevated heart rate but really no significant symptoms. She did have blood pressures that were in the 90s to 120. She complains of some occasional dizziness and lightheadedness. She denies any chest pain. She denies any difficulty breathing. Her mentation is better but still not back to baseline. She has not had a bowel movement. She is a Bazan catheter in place. She is eating without any difficulty. She is overall feeling better. Twelve point review of systems is otherwise negative Exam Vital Signs (past 8 hours): - 04/04/22 01:00 04/04/22 01:00 04/04/22 02:00 Temperature Pulse Rate 137 H Respiratory Rate 26 H Blood Pressure 115/58 L 88/51 L Pulse Oximetry 95 Oxygen Delivery Method Oxygen Flow Rate 2 04/04/22 02:00 04/04/22 02:02 04/04/22 02:02 Temperature Pulse Rate 137 H 129 H Respiratory Rate 25 H 29 H Blood Pressure 95/52 L Pulse Oximetry 95 95 Oxygen Delivery Method Oxygen Flow Rate 2 04/04/22 02:19 04/04/22 02:20 04/04/22 02:20 Temperature Pulse Rate 124 H 125 H Respiratory Rate 21 Blood Pressure 102/58 L 102/58 L Pulse Oximetry 96 Oxygen Delivery Method Oxygen Flow Rate 04/04/22 03:00 04/04/22 03:00 04/04/22 04:00 Temperature Pulse Rate 124 H Respiratory Rate 22 Blood Pressure 106/57 L 100/58 L Pulse Oximetry 96 Oxygen Delivery Method Oxygen Flow Rate 2 04/04/22 04:00 04/04/22 05:00 04/04/22 05:00 Temperature 98.2 F Pulse Rate 128 H 127 H Respiratory Rate 23 26 H Blood Pressure 98/53 L Pulse Oximetry 96 93 Oxygen Delivery Method Oxygen Flow Rate 2 04/04/22 06:00 04/04/22 06:00 04/04/22 06:43 Temperature Pulse Rate 124 H 125 H Respiratory Rate 16 Blood Pressure 89/50 L 106/57 L Pulse Oximetry 96 Oxygen Delivery Method Oxygen Flow Rate 04/04/22 06:46 04/04/22 07:31 04/04/22 07:00 Temperature Pulse Rate 135 H 124 H 131 H Respiratory Rate 20 21 Blood Pressure 91/63 103/82 Pulse Oximetry 94 96 Oxygen Delivery Method Nasal Cannula Oxygen Flow Rate 1 2 04/04/22 08:01 04/04/22 07:36 04/04/22 07:00 Temperature Pulse Rate 125 H 116 H Respiratory Rate 20 Blood Pressure 117/55 L Pulse Oximetry 94 Oxygen Delivery Method Nasal Cannula Nasal Cannula Oxygen Flow Rate 1 04/04/22 08:00 04/04/22 08:35 Temperature Pulse Rate 119 H Respiratory Rate Blood Pressure 112/55 L Pulse Oximetry 95 Oxygen Delivery Method Nasal Cannula Oxygen Flow Rate 1 Oxygen Delivery Method Nasal Cannula Oxygen Flow Rate 1 Narrative Exam Narrative: Patient is alert and oriented x3. She is bright and interactive and talkative today. She is in no apparent distress. Neck: Supple Chest: Decreased breath sounds bibasilar but no wheezes rhonchi or crackles Cor: Irregularly irregular rhythm with a well-controlled rate in the 80s, distant S1-S2 Abdomen: Positive bowel sounds, obese, nontender Extremities: Decreased swelling trace to 1+ pitting edema bilateral lower extremities, pretibial Neurologic exam shows no focal abnormalities Skin exam shows excoriated plaques on her left anterior chest which are unchanged. Candidal rash under her left breast unchanged Objective Labs Result Diagrams: 04/04/22 05:54 04/04/22 05:54 Labs: Laboratory Results - last 24 hr 04/03/22 04/03/22 04/04/22 04:58 13:33 05:54 WBC 2.5 L RBC 3.13 L Hgb 9.7 L Hct 29.8 L MCV 95.2 MCH 31.0 MCHC 32.5 RDW 21.2 H Plt Count 37 L Neut % (Auto) 46.1 L Lymph % (Auto) 46.2 H Du[place] % (Auto) 5.9 Eos % (Auto) 1.0 L Baso % (Auto) 0.8 Neut # (Auto) 1100 L Lymph # (Auto) 1100 [place] # (Auto) 100 Eos # (Auto) 0 Baso # (Auto) 0 Platelet Estimate Decreased on smear RBC Morphology See below Anisocytosis 2+ H Sodium Potassium Chloride Carbon Dioxide BUN Creatinine Estimated GFR BUN/Creatinine Ratio Glucose Hemoglobin A1c 5.6 Calcium Total Bilirubin AST ALT Alkaline Phosphatase Total Creatine Kinase CK-MB (CK-2) CK-MB (CK-2) Rel Index Troponin I NT-Pro-B Natriuret Pep Total Protein Albumin Globulin Albumin/Globulin Ratio Nasal Screen MRSA (PCR) Negative for mrsa 04/04/22 04/04/22 04/04/22 05:54 05:54 05:54 WBC RBC Hgb Hct MCV MCH MCHC RDW Plt Count Neut % (Auto) Lymph % (Auto) Duval % (Auto) Eos % (Auto) Baso % (Auto) Neut # (Auto) Lymph # (Auto) Duval # (Auto) Eos # (Auto) Baso # (Auto) Platelet Estimate RBC Morphology Anisocytosis Sodium 138 Potassium 3.9 Chloride 97 L Carbon Dioxide 35 H BUN 29 H Creatinine 1.40 H Estimated GFR 40 L BUN/Creatinine Ratio 20.7 Glucose 130 H Hemoglobin A1c Calcium 8.1 L Total Bilirubin 0.5 AST 37 H ALT 99 H Alkaline Phosphatase 144 H Total Creatine Kinase 43 CK-MB (CK-2) TNP CK-MB (CK-2) Rel Index TNP Troponin I 0.027 NT-Pro-B Natriuret Pep 8030 H Total Protein 5.7 L Albumin 3.0 L Globulin 2.7 Albumin/Globulin Ratio 1.1 Nasal Screen MRSA (PCR) [facility] Medical History Anemia Atrial fibrillation with RVR CHF (congestive heart failure) COPD (chronic obstructive pulmonary disease) Encephalopathy Heart attack (~2013) History of UTI HLD (hyperlipidemia) Hypokalemia Kidney stones Myocardial infarction (01/2021) Obesity, morbid, BMI 50 or higher SIDNEY (obstructive sleep apnea) Presence of device (01/15/21) Retained ureteral stent Right ureteral calculus Sepsis Thrombocytopenia Surgical History History of appendectomy History of breast biopsy History of cholecystectomy Hx of cystoscopy (01/10/21) Family History Mother Cancer Social History marital status: number of children: 2 household members: spouse Smoking Status: Former smoker alcohol intake: never substance use type: does not use caffeine: Yes Assessment & Plan Assessment & Plan narrative: 72-year-old female admitted to the hospital for metabolic encephalopathy secondary to UTI with sepsis and atrial flutter with rapid ventricular rate Assessment 1. Metabolic encephalopathy due to UTI.? Patient seems to be improved. Plan:? Will continue with Rocephin 1 g Q 24 hours until we receive urine cultures and blood cultures. Will consult PT and OT and discharge services.? Assessment 2. Atrial flutter with rapid ventricular rate with recent echo that shows suppressed ejection fraction Plan:? Due to multiple comorbidities I think it would be a bad idea and patient declines as well for anticoagulation.? Diltiazem drip has been weaned. Reviewed echo which shows an EF of 25%. We will go ahead and stop diltiazem due to this. We will increase metoprolol to 50 mg XL b.i.d. and we will load with digoxin. Patient received 0.5 mg IV last night. We will do another 2 doses of digoxin 0.25 today and then start her on p.o. 0.125 tomorrow. We will check her digoxin level in 5 days. We will monitor her renal function closely. Assessment 3. Acute on chronic kidney disease with slight worsening Plan:? Will gently give IV fluids as we diurese and will continue to monitor.? Will watch closely for fluid overload Assessment 4.? Acute exacerbation of systolic heart failure. Reviewed the echo. Plan: Will give 40 mg of IV Lasix.? Will reassess in a.m..? Oxygen level stable. Assessment 5. COPD on chronic oxygen without increased requirements and actually oxygen requirement improved suspect this is in part treating her CHF exacerbation Plan:? Will continue the same.? Continue [place]ves[place].? Continue albuterol and RT is consulted. Assessment 6. Infiltrating lobular carcinoma of the breast, metastatic. Discussed with Dr. Copeland, her oncologist, and patient is currently being treated and apparently this type of cancer can be responsive to treatment and prognosis for the average functional person is 4-5 years. Agreed with holding chemoth erapy agents while she is in the hospital. Plan:? Will hold her chemotherapy agents until her condition has improved. Assessment 7. Thrombocytopenia, worsened without evidence of bleeding. Discussed with Dr. Copeland and he recommended giving platelets if her platelets fall below 20 or if she has bleeding associated with platelets under 50. Plan: We are unable to use Lovenox due to thrombocytopenia Will continue to monitor. Assessment 8. Candidiasis, severe suspect related to hygiene Plan:? Continue nystatin.? Will check A1c to rule out diabetes X contributing factor.? Will place her on probiotics Assessment 9. Hyperlipidemia Plan: Continue outpatient atorvastatin Assessment 10.? Venous stasis changes, chronic with peripheral edema Plan: No evidence of wounds.? Will give IV Lasix. Assessment 11. Troponinemia suspect related to a flutter with RVR, improved. Plan: Will treat RVR in a flutter.? Will trend CK and troponin.? Will do echo. Assessment 12. Depression Plan: Continue sertraline Assessment 13. History of coronary artery disease on isosorbide Plan:? Continue the same. Patient had mild elevation of her troponins which I think was related to a flutter with RVR and this has gone back to normal. Assessment 14. Chronic pain syndrome Plan: Continue oxycodone.? X-ray shows an old fracture does not show acute abnormality and shows or significant arthritis. Will continue with pain treatment and physical therapy. Assessment 15. DVT prophylaxis.? Lovenox contraindicated due to thrombocytopenia, severe Plan: SCDs Assessment 16.? GI prophylaxis Plan: Continue Protonix Disposition: Patient will require skilled care facility on discharge and she and her are in agreement. Code status is DNR 55 minute spent with patient, discussing with physicians, nursing staff, reviewing chart and documenting and formulating a plan Time Spent With Patient Critical Care time: I spent a total of [] minutes of critical care time on this patient's care today; this time is exclusive of procedural time. Time Spent With Patient Critical Care time: I spent a total of [] minutes of critical care time on this patient's care today; this time is exclusive of procedural time.
[2022-04-04] MEDS: DIGOXIN 500 MCG/2 ML AMPUL 250 MCG IV ×2 (09:21→15:42)
--- NOTE | 2022-04-04 12:00 | PT.IIE ---
Current Diagnoses Sepsis, unspecified organism (04/03/22) Surgical History (Last Reviewed 04/02/22 @ 23:39 by Radha Melvin DO) History of appendectomy History of breast biopsy History of cholecystectomy Hx of cystoscopy (01/10/21) Medical History (Last Reviewed 04/02/22 @ 23:39 by Radha Melvin DO) Anemia Atrial fibrillation with RVR CHF (congestive heart failure) COPD (chronic obstructive pulmonary disease) Encephalopathy Heart attack (~2013) History of UTI HLD (hyperlipidemia) Hypokalemia Kidney stones Myocardial infarction (01/2021) Obesity, morbid, BMI 50 or higher SDINEY (obstructive sleep apnea) Presence of device (01/15/21) Retained ureteral stent Right ureteral calculus Sepsis Thrombocytopenia Physical Therapy Inpatient Evaluation/Re-Eval M1 PT/OT-IP Prior Functional Status Start: 04/04/22 13:38 Freq: NEEDED Status: Active Protocol: Document 04/04/22 12:00 AB (Rec: 04/04/22 13:53 AB [id number]) Medical Review Prior Functional Status Medical History Reviewed Yes Communication able to make needs known; with confusion and ALUTIIQ Mobility and Gait pt stated that she is modified independent with all mobilities and ambulation indoors using 4WW but spouse provided SBA for safety; uses a manual w/c for outdoor mobility; uses O2 24/12 Social History Household Members spouse Living Arrangements Apartment/Condo Number of Floors (Floors) One Floor Number of Stairs To Enter/Railing? ramp to enter Home Environment High Toilet,Tub/Shower,Ramp, Bidet Home Equipment Four Wheel Walker,Manual Wheelchair,Tub Transfer Bench, Hand Held Shower,Lift Recliner ,Grab Bars Near Toilet,Grab Bars In Shower Additional Social History Comment pt sleeps on her lift chair recliner M2 PT-IP Current Condition Start: 04/04/22 13:38 Freq: NEEDED Status: Active Protocol: Document 04/04/22 12:00 AB (Rec: 04/04/22 13:53 AB [id number]) Physical Therapy Current Condition Current Condition Evaluation Date 04/04/22 Treatment Diagnosis UTI; A-fib; difficulty in walking Onset Date 04/03/22 M3 PT-IP Subjective Start: 04/04/22 13:38 Freq: NEEDED Status: Active Protocol: Document 04/04/22 12:00 AB (Rec: 04/04/22 13:53 [email or web address]) Subjective Physical Therapy Visit Type Type Initial Evaluation Visit Start Time 12:00 Visit Stop Time 12:40 Total Visit Minutes 40 Notes Talked with nurse and pt now off diltiazem drip and ok to do PT Number of AGER OPERATOR Visits 0 Physical Therapy Visit Comments Patient Comments pt is agreeable to do PT Therapy Pain Assessment Pain Present Pain Present Denied Pain M4 PT-IP Mobility and Gait Start: 04/04/22 13:38 Freq: NEEDED Status: Active Protocol: Document 04/04/22 12:00 AB (Rec: 04/04/22 13:53 [email or web address]) PT-Bed Mobility Assessment Supine to Sit Supine to Sit Maximum Assistance,2 Person Assistance,Head of Bed Elevated,Bedrails Scooting Scooting to Edge of Bed Dependent PT-Transfer Assessment Sit to and From Stand Sit to and from Stand Moderate Assistance,Maximum Assistance,1 Person Assistance ,Use of Upper Extremities Equipment Transfer Assistive Device Gait Belt,Front Wheeled Walker Orthotic/Prosthetic Devices or Brace: No Transfers Transfer Destination Chair Transfer Technique Stand Step Pivot Transfer Ability Level of Assist Moderate Assistance,Maximum Assistance,1 Person Assistance ,Use of Upper Extremities Comments Mobility Comments BP: 102/55 O2 sat 93%. completed supine to sit max A x 2 with HOB elevated and use of bed rail. able to sit on EOB CGA. total A x 2 for scooting to EOB. pt completed sit to stand mod to max A and max cues and step transfer to chair mod to max A using FWW. positioned pt on the chair. refused ambulation. set up for lunch. call light and table placed within reach. PT-Balance Assessment Sitting Balance and Reactions Static Sitting Balance Ability Good Dynamic Sitting Balance Ability Good Standing Balance and Reactions Static Standing Balance Ability Poor Dynamic Standing Balance Ability Poor Device Used FWW M5 PT-IP Objective Assessments Start: 04/04/22 13:38 Freq: NEEDED Status: Active Protocol: Document 04/04/22 12:00 AB (Rec: 04/04/22 13:53 [id number]) Orientation Orientation/Cognition Level of Alertness Confusional State Orientation Name,Situation Language Function Ability Hard of Hearing Safety Awareness Decreased Safety Awareness Memory Description Short Term Impaired Strength Lower Extremity Strength Assessment Bilaterally Impaired Hip 3-/5 Knee 3+/5 Muscle Tone Muscle Tone WNL Yes M6 PT-IP Treatment Start: 04/04/22 13:38 Freq: NEEDED Status: Active Protocol: Document 04/04/22 12:00 AB (Rec: 04/04/22 13:53 AB [id number]) Physical Therapy Treatment Education Education Provided Safety M7 PT-IP Assessment and Plan Start: 04/04/22 13:38 Freq: NEEDED Status: Active Protocol: Document 04/04/22 12:00 AB (Rec: 04/04/22 13:53 AB [id number]) PT Summary Assessment and Plan Potential Rehabilitation Potential Fair Status of Condition at Evaluation Evolving Summary Impairments Pain,ROM,Strength,Balance, Coordination,Sensation,Tone, Cognition,Bed Mobility, Transfers,Gait,Activity Tolerance Assessment Summary pt requiring mod to max A for transfers using FWW. unable to ambulate today and presents with decrease activity tolerance affecting mobility. pt needs to be more independent to safely go home and will require SNF rehab at this time. will continue to assess progress. Goals Transfer Goal Standby Assistance,Front Wheeled Walker,Four Wheeled Walker Gait Goal Standby Assistance,Front Wheel Walker,Four Wheel Walker Gait Distance 50 Other Goals improve ambulation using FWW/ 4WW SBA 100 ft Days to Meet Goals 10 Frequency of Treatment Frequency Of Treatment Once a Day Treatment Plan Physical Therapy Treatment Plan Bed Mobility Training,Transfer Training,Gait Training, Therapeutic Exercise,Balance Retraining,Discharge Planning, Neuromuscular Re-ed, Coordination Retraining Precautions Other Precautions [place], falls Recommendations To Nursing Amount of Assist Needed 1 Person Assist Discharge Recommendations PT Discharge Recommendations SNF Rehab Equipment Needed for Home Before FWW if pt goes home and not Discharge safe with 4WW Transportation Needs at Discharge Wheelchair/Cabulance
--- NOTE | 2022-04-04 14:43 | CM.DPC ---
DCP Cont: Attempted to meet with patient, but she is currently sleeping, some confusion. Dr. Maria had been in to see patient, in her notes, recommendation for [facility]. Attempted to reach spouse, Alessio, left him a message to call back, did not leave detailed message secondary to this being a generic voice mail. Wanted to discuss discharge planning for skilled facilities. It is noted by BRISEYDA Del Rio, who had seen patient yesterday, that she is currently under [facility] services, [facility], nursing, P.T, O.T. Did not yet get to discuss [facility] facility options with spouse, but left November a message to look at referral to start out. Patient does have [facility], and an auth will need to be obtained. Will need to discuss other skilled facility options with spouse as well, and it is unclear as to when she needs her chemo meds, as the cost can be the barrier. P: DCP to continue to follow. Have a message out to patient's spouse regarding skilled rehab facilities, have initiated first referral to November at [facility] to review. Other plan is home to resume [facility]. Viktoria Castellon RN/District Ranger
--- NOTE | 2022-04-04 15:59 | OT.IPNOTE ---
Pt getting a breathing treatment now and therefore to attempt to see pt for OT eval tomorrow.
[2022-04-04] MEDS: cefTRIAXone 1,000 MG in SODIUM CHLORIDE 0.9% 100 ML 200 MG IV (21:30)
[2022-04-04] MEDS: ATORVASTATIN 20 MG TABLET 10 MG PO (21:36)
[2022-04-04] MEDS: NYSTATIN POWDER 15GM 1 APPLIC TOP (21:49)
[2022-04-05] VITALS (14 sets, daily range): BP systolic 109–123; BP diastolic 48–60; PULSE 59–68; RESP 16–20; TEMP 36.2–37; O2SAT 95–98
[2022-04-05 05:56] LABS: Add Manual Diff / Slide Review NO; Basophils Absolute Auto 0 /uL (0-100); Basophils Percent Auto 0.7 % (0-2); Eosinophils Absolute Auto 0 /uL (0-450); Eosinophils Percent Auto 1.1 % (2-4); Hematocrit 30.4 % (36-46); Hemoglobin 9.8 g/dL (12.0-16.0); Lymphocytes Absolute Auto 1100 /uL (1100-4500); Lymphocytes Percent Auto 45.4 % (25-40); Mean Corpuscular HGB Conc 32.2 % (30-36); Monocytes Absolute Auto 100 /uL (0-900); Monocytes Percent Auto 6.1 % (3-14); Neutrophils Absolute Auto 1100 /uL (1500-7000); Neutrophils Percent Auto 46.7 % (50-75); Red Blood Cell Count 3.16 X10^6/uL (4.0-5.2); Red Cell Distribution Width 22.1 % (11.6-14.8); White Blood Cell Count 2.3 X10^3/uL (4.5-11.0)
[2022-04-05 05:57] LABS: Platelet Count 38 X10^3/uL (150-400)
[2022-04-05 06:03] LABS: Magnesium 1.8 mg/dL (1.6-2.3)
[2022-04-05 06:05] LABS: Alanine Aminotransferase 83 IU/L (<35); Albumin Globulin Ratio 1.1 (1.0-2.8); Alkaline Phosphatase 139 U/L (38-126); Aspartate Aminotransferase 31 IU/L (14-36); BUN Creatinine Ratio 21.2 (6-22); Bilirubin Total 0.4 mg/dL (0.2-1.3); Blood Urea Nitrogen 28 mg/dL (7-17); Carbon Dioxide 36 mmol/L (22-32); Chloride 96 mmol/L (98-107); Estimated Glomerular Filt Rate 43 mL/min (>60); Globulin 2.8 g/dL (1.7-4.1); Glucose 118 mg/dL (80-110); HEMOLYSIS < 15 (0-50); Potassium 3.8 mmol/L (3.4-5.1); Sodium 138 mmol/L (137-145); Total Protein 5.8 g/dL (6.3-8.2)
[2022-04-05 06:13] LABS: NT-proBNP (BNP-Adult 18+) 6050 pg/mL (<125)
[2022-04-05 06:18] LABS: Platelet Estimate Decreased on smear
[2022-04-05 06:19] LABS: Anisocytosis 2+
[2022-04-05] MEDS: DIGOXIN 0.125 MG TABLET PO ×2 (06:29→17:30)
[2022-04-05] MEDS: ISOSORBIDE MONONITRATE ER 30 MG TABLET 60 MG PO ×2 (06:30→17:30)
[2022-04-05] MEDS: BUDESONIDE 0.5 MG/2 ML NEB INH ×2 (07:53→17:38)
[2022-04-05] MEDS: IPRATROPIUM 0.5 MG/2.5 ML NEB INH ×2 (07:53→17:39)
[2022-04-05] MEDS: FAMOTIDINE 20 MG TABLET PO (09:30)
[2022-04-05] MEDS: SERTRALINE 50 MG TABLET 25 MG PO ×2 (09:30→21:17)
[2022-04-05] MEDS: METOPROLOL ER 50 MG TABLET PO ×2 (09:30→21:21)
[2022-04-05] MEDS: POTASSIUM CHLORIDE 10 MEQ TAB 20 MEQ PO (09:31)
[2022-04-05] MEDS: ERYTHROMYCIN OPHTH 1 GM OINT 1 APPLIC EYE-BOTH ×2 (09:31→21:16)
--- NOTE | 2022-04-05 09:45 | PM.PN.1 ---
Subjective Subjective Date Patient Seen: 04/05/22 Time Patient Seen: 09:45 Interval history: Patient seen for follow-up of UTI, encephalopathy, a flutter.Patient overall feeling better today. No other significant changes. Discussed with daughter. She feels as if her mom has had issues slow change in thinking over the last 6 months maybe longer. Unclear. Does not feel like there has been an acute change although she does feel was worse prior to her coming into the hospital. Patient herself is not complaining of any chest pain. Or other changes. Exam Vital Signs (past 8 hours): - 04/05/22 04:00 04/05/22 06:29 04/05/22 07:52 Temperature 97.2 F L Pulse Rate 62 62 64 Respiratory Rate 16 18 Blood Pressure 120/58 L 116/52 L Pulse Oximetry 97 95 Oxygen Delivery Method Nasal Cannula Oxygen Flow Rate 2 2 04/05/22 07:59 04/05/22 09:28 Temperature 97.9 F Pulse Rate 68 60 Respiratory Rate 20 18 Blood Pressure 123/60 Pulse Oximetry 96 Oxygen Delivery Method Nasal Cannula Oxygen Flow Rate 2 2 Oxygen Delivery Method Nasal Cannula Oxygen Flow Rate 2 Narrative Exam Narrative: Alert fatigued-appearing elderly female in no acute distress. Answering questions appropriately. Lungs are clear. Heart is regular rate and rhythm. Objective Labs Result Diagrams: 04/05/22 05:15 04/05/22 05:15 Labs: Laboratory Results - last 24 hr 04/05/22 04/05/22 04/05/22 05:15 05:15 05:15 WBC 2.3 L RBC 3.16 L Hgb 9.8 L Hct 30.4 L MCV 96.0 MCH 31.0 MCHC 32.2 RDW 22.1 H Plt Count 38 L Neut % (Auto) 46.7 L Lymph % (Auto) 45.4 H Atkinson % (Auto) 6.1 Eos % (Auto) 1.1 L Baso % (Auto) 0.7 Neut # (Auto) 1100 L Lymph # (Auto) 1100 Atkinson # (Auto) 100 Eos # (Auto) 0 Baso # (Auto) 0 Platelet Estimate Decreased on smear RBC Morphology See below Anisocytosis 2+ H Sodium 138 Potassium 3.8 Chloride 96 L Carbon Dioxide 36 H BUN 28 H Creatinine 1.32 H Estimated GFR 43 L BUN/Creatinine Ratio 21.2 Glucose 118 H Calcium 8.0 L Magnesium 1.8 Total Bilirubin 0.4 AST 31 ALT 83 H Alkaline Phosphatase 139 H NT-Pro-B Natriuret Pep 6050 H Total Protein 5.8 L Albumin 3.0 L Globulin 2.8 Albumin/Globulin Ratio 1.1 PFSH Medical History Anemia Atrial fibrillation with RVR CHF (congestive heart failure) COPD (chronic obstructive pulmonary disease) Encephalopathy Heart attack (~2013) History of UTI HLD (hyperlipidemia) Hypokalemia Kidney stones Myocardial infarction (01/2021) Obesity, morbid, BMI 50 or higher SIDNEY (obstructive sleep apnea) Presence of device (01/15/21) Retained ureteral stent Right ureteral calculus Sepsis Thrombocytopenia Surgical History History of appendectomy History of breast biopsy History of cholecystectomy Hx of cystoscopy (01/10/21) Family History Mother Cancer Social History marital status: number of children: 2 household members: spouse Smoking Status: Former smoker alcohol intake: never substance use type: does not use caffeine: Yes Assessment & Plan Assessment & Plan narrative: Atrial fibrillation. Converted last night 3:00 a.m.. Patient overall seems to be stable at this time. Will continue digoxin orally and beta-gabriella. Seems to be tolerating well. Will follow. Congestive heart failure. Systolic. Acute on chronic. Suspect potentially EF is affected by infection and atrial flutter. Unclear at this time. Will have to see how she responds over time. At this point will switch to oral Lasix for she seems to be doing well. Hopefully we can continue p.o. and follow completely. She seems to be doing pretty well. And hopefully will be able to transfer soon. Encephalopathy. Question whether it is acutely worse or whether she is had slow transition with possible dementia. CT scans reviewed. Shows no definitive abnormality. Could potentially in the future as an outpatient get an MRI. Will order B12 folate and TSH today. Will follow. See how things go. Will need workup as outpatient. Once we see how much resolves. But I suspect there is probably a more chronic part of this. Infectious disease. Positive culture. UTI. Question possible pneumonia. Seems to be improving clinically. Will continue IV Rocephin until discharge from hospital on then will discontinue antibiotics completely. Will follow. Acute on chronic renal failure. Probable combination of infection and dehydration. Congestive failure probably not helping. Will continue to follow. Re-evaluate with labs tomorrow. COPD. Longstanding chronic oxygen back down to 2 L which is her baseline. Seems to be trending in the right direction will follow. Infiltrating lobular carcinoma of the breast metastatic. Under treatment. Will be followed by oncologist once discharged from the hospital. Thrombocytopenia. Appears to be stable but will follow. Certainly unable to do Lovenox secondary to that. Will follow. No evidence of bleeding. Candidiasis. Continue nystatin. Hyperlipidemia. Continue atorvastatin. Venous stasis. Continue treatment for congestive heart failure and follow. Elevated troponin. Seems to be stable. Probably secondary to flutter. Depression. Continue sertraline. History of coronary artery disease appears to be stable. Do not believe that troponin elevation was acute NC. Probably more demand ischemia will follow. Patient really is not a candidate at this point for more aggressive therapy History of chronic pain issue. Continue oxycodone. DVT prophylaxis Lovenox contraindicated SCDs. GI prophylaxis on Protonix. Disposition. Discussed with family and with social service. Will work towards penitentiary placement. Not a candidate for home at this time. Hopefully we will work towards that. Patient understands questions answered. 38 minutes spent discussing with nursing social service examining and discussing with family notes and orders. Time Spent With Patient Critical Care time: I spent a total of [] minutes of critical care time on this patient's care today; this time is exclusive of procedural time.
--- NOTE | 2022-04-05 10:32 | PC.NURSE ---
Assess- Patient is alert and oriented x3 but has periods of forgetfulness. She has skin issues such as yeast under her folds, red bottom that is blanchable and she is being turned every couple of hours. She slept in this am, into see patient and changed her iv lasix to po. She takes her medications whole, one at a time. Patient bs cta, and she is on 2L of o2 in the high 90s. She is resting comfortably now with daugther in room.
--- NOTE | 2022-04-05 10:47 | PT.IPTN ---
Current Diagnoses Sepsis, unspecified organism (04/03/22) Physical Therapy Treatment Note M2 PT-IP Current Condition Start: 04/04/22 13:38 Freq: NEEDED Status: Active Protocol: Document 04/04/22 12:00 AB (Rec: 04/04/22 13:53 AB [id number]) Physical Therapy Current Condition Current Condition Evaluation Date 04/04/22 Treatment Diagnosis UTI; A-fib; difficulty in walking Onset Date 04/03/22 M3 PT-IP Subjective Start: 04/04/22 13:38 Freq: NEEDED Status: Active Protocol: Document 04/05/22 10:23 KS (Rec: 04/05/22 12:10 KS [id number]) Subjective Physical Therapy Visit Type Type Treatment Note Visit Start Time 10:23 Visit Stop Time 10:47 Total Visit Minutes 24 Notes Co-treat w/ OT Number of SPOOL MAKER Visits 1 Physical Therapy Visit Comments Patient Comments pt is agreeable to do PT, daughter present M4 PT-IP Mobility and Gait Start: 04/04/22 13:38 Freq: NEEDED Status: Active Protocol: Document 04/05/22 10:23 KS (Rec: 04/05/22 12:10 KS [id number]) PT-Bed Mobility Assessment Supine to Sit Supine to Sit Maximum Assistance,Total Assistance,2 Person Assistance ,Head of Bed Elevated,Bedrails Sit to Supine Sit to Supine Maximum Assistance,Total Assistance,2 Person Assistance Scooting Scooting to Edge of Bed Dependent PT-Transfer Assessment Sit to and From Stand Sit to and from Stand Minimal Assistance,1 Person Assistance,Use of Upper Extremities Equipment Transfer Assistive Device Gait Belt,Front Wheeled Walker Orthotic/Prosthetic Devices or Brace: No Transfers Transfer Destination Bed Transfer Technique Lateral steps w/ FWW Transfer Ability Level of Assist Maximum Assistance,2 Person Assistance,Use of Upper Extremities Comments Mobility Comments Pt in bed upon arrival and daughter in room. Pt agreeable to mobilizing with therapy - typically uses lift chair at home. She required Max to Total A x2 for sup<>Sit and scooting EOB. Mod A to maintain seated balance initially but improved to CGA w/ cues. Pt agreeable to try standing and required Min A from raised bed. She was then able to take 3 small lateral steps towards HOB and maintain standing balance w// FWW while nursing assessed skin. She then took seated rest break and performed additional sit<>stand w/ FWW Min A and took 3 more steps towards HOB for optimal positioning. She required Max-Total A x2 for sit<>sup for trunk control and LE elevation into bed. Pt left in bed w/ OT in room. Gait Assessment Gait Gait Assistance Required: Minimum Assistance,1 Person Assist Distance (Feet) 4 Assistive Devices Assistive Device Gait Belt,Front Wheeled Walker Orthotic/Prosthetic Devices or Brace: No Gait Deviations General Gait Pattern Antalgic,Decreased Stride Length,Decreased Feet Clearance,Flexed Trunk Factors Limiting Gait Function Factors Limiting Gait Function Decreased Activity Tolerance, Decreased Sensation,Decreased Strength,Incoordination, Limited Range of Motion,Poor Balance,Poor Safety Awareness Comments Gait Comments Lateral steps towards HOB w/ FWW only. Pt w/ quick approach to fatigue. PT-Balance Assessment Sitting Balance and Reactions Static Sitting Balance Ability Good Dynamic Sitting Balance Ability Fair Standing Balance and Reactions Static Standing Balance Ability Fair Dynamic Standing Balance Ability Poor Device Used FWW M5 PT-IP Objective Assessments Start: 04/04/22 13:38 Freq: NEEDED Status: Active Protocol: Document 04/04/22 12:00 AB (Rec: 04/04/22 13:53 AB [id number]) Orientation Orientation/Cognition Level of Alertness Confusional State Orientation Name,Situation Language Function Ability Hard of Hearing Safety Awareness Decreased Safety Awareness Memory Description Short Term Impaired Strength Lower Extremity Strength Assessment Bilaterally Impaired Hip 3-/5 Knee 3+/5 Muscle Tone Muscle Tone WNL Yes M6 PT-IP Treatment Start: 04/04/22 13:38 Freq: NEEDED Status: Active Protocol: Document 04/05/22 10:23 KS (Rec: 04/05/22 12:10 KS [id number]) Physical Therapy Treatment Education Education Provided Safety M7 PT-IP Assessment and Plan Start: 04/04/22 13:38 Freq: NEEDED Status: Active Protocol: Document 04/05/22 10:23 KS (Rec: 04/05/22 12:10 KS [id number]) PT Summary Assessment and Plan Potential Rehabilitation Potential Fair Summary Impairments Pain,ROM,Strength,Balance, Coordination,Sensation,Tone, Cognition,Bed Mobility, Transfers,Gait,Activity Tolerance Progress Towards Goals Slow Progress due to Medical Issues,Slow Progress due to Activity Tolerance Assessment Summary Pt still requires Max to Total A x2 for bed mobility, but was able to perform sit<>stand and take small lateral steps towards HOB w/ FWW Min A. She has low tolerance for activity and poor balance. At this time, she will require SNF to improve strength and functional mobility independence. Goals Transfer Goal Standby Assistance,Front Wheeled Walker,Four Wheeled Walker Gait Goal Standby Assistance,Front Wheel Walker,Four Wheel Walker Gait Distance 50 Other Goals improve ambulation using FWW/ 4WW SBA 100 ft Days to Meet Goals 10 Frequency of Treatment Frequency Of Treatment Once a Day Treatment Plan Physical Therapy Treatment Plan Bed Mobility Training,Transfer Training,Gait Training, Therapeutic Exercise,Balance Retraining,Discharge Planning, Neuromuscular Re-ed, Coordination Retraining Precautions Other Precautions [place], falls Recommendations To Nursing Amount of Assist Needed 1 Person Assist Discharge Recommendations PT Discharge Recommendations SNF Rehab Equipment Needed for Home Before FWW if pt goes home and not Discharge safe with 4WW Transportation Needs at Discharge Wheelchair/Cabulance
[2022-04-05] MEDS: FUROSEMIDE 40 MG TABLET PO (10:49)
--- NOTE | 2022-04-05 10:51 | CM.DPC ---
Addendum entered by Meg Kaufman R.N. 04/05/22 15:14: Spoke with [facility] and per November, they can accept the patient either tomorrow or saturday. DCP will know if they can take the patient tomorrow in the morning. DCP to continue to follow. ADJ Addendum entered by Meg Kaufman R.N. 04/05/22 13:54: DCP spoke to November. November requesting more information on pt home medications. Dr. Padilla was contacted by DCP and he states that the MD can address that in the morning. DCP also spoke with pt regarding the need to quarantine for 10 days at and pt agreeable. Pt also agreeable to providing her own cancer medications. All information provided to [facility]. Awaiting final decision. ADJ Addendum entered by Meg Kaufman R.N. 04/05/22 12:48: [facility] Auth# [id number] approved. Awaiting decision from [facility]. ADJ Original Note: DCP cont: DCP spoke with Dr. Padilla and pt is agreeable to [facility]. DCP spoke with pt and daughter and [facility] was agreed upon. DCP verbalized to provided two other options for backup. Daughter needs to talk with pt spouse. DCP contacted [facility] and it was made aware that pt is not covid vaccinated. November to look into isolation room. Clinicals faxed to [facility] for SNF auth. Celina @ [facility] made aware. DCP to continue to follow. Meg Kaufman RN/MARQUITA
--- NOTE | 2022-04-05 11:33 | OT.IP.EVAL ---
Current Diagnoses Sepsis, unspecified organism (04/03/22) Past Medical History (Last Reviewed 04/02/22 @ 23:39 by Radha Melvin DO) Anemia Atrial fibrillation with RVR CHF (congestive heart failure) COPD (chronic obstructive pulmonary disease) Encephalopathy Heart attack (~2013) History of UTI HLD (hyperlipidemia) Hypokalemia Kidney stones Myocardial infarction (01/2021) Obesity, morbid, BMI 50 or higher SIDNEY (obstructive sleep apnea) Presence of device (01/15/21) Retained ureteral stent Right ureteral calculus Sepsis Thrombocytopenia Surgical History (Last Reviewed 04/02/22 @ 23:39 by Radha Melvin DO) History of appendectomy History of breast biopsy History of cholecystectomy Hx of cystoscopy (01/10/21) Occupational Therapy Inpatient Evaluation/Re-Eval M1 PT/OT-IP Prior Functional Status Start: 04/04/22 13:38 Freq: NEEDED Status: Active Protocol: Document 04/05/22 10:23 [facility] (Rec: 04/05/22 12:29 [facility] [id number]) Medical Review Prior Functional Status Medical History Reviewed Yes Communication able to make needs known; with confusion and UPPER [place] Mobility and Gait pt stated that she is modified independent with all mobilities and ambulation indoors using 4WW but spouse provided SBA for safety; uses a manual w/c for outdoor mobility; uses O2 24/7 Activities of Daily Living and IADL's Pt states able to do her gown, grooming and oral care needs, toilets with use of bidet, and did her own medications prior. Social History Household Members spouse Living Arrangements Apartment/Condo Number of Floors (Floors) One Floor Number of Stairs To Enter/Railing? 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 Pt 's daughter has heart condition but able to provide supervision if needed 24/7. M2 OT-IP Current Condition Start: 04/05/22 12:05 Freq: Status: Active Protocol: Document 04/05/22 10:23 [facility] (Rec: 04/05/22 12:29 [facility] [id number]) Occupational Therapy Current Condition Current Condition Evaluation Date 04/05/22 Treatment Diagnosis Metabolic encephalopathy, UTI, sepsis Diagnosis Onset Date 04/03/22 M3 OT- IP Subjective and Pain Start: 04/05/22 12:05 Freq: Status: Active Protocol: Document 04/05/22 10:23 [facility] (Rec: 04/05/22 12:29 [facility] [id number]) OT- Subjective Occupational Therapy Visit Type Type Initial Evaluation Visit Start Time 10:23 Visit Stop Time 11:33 Total Visit Minutes 70 Occupational Therapy Visit Comments Patient Comments BUNDLE CLERK, OT, and nursing aid present for mobility needs. Pt 's initially in the room and pt's daughter present for the session. Patient/Caregiver Goals To go to skilled rehab. OT Pain Assessment Pain When Pain Assessed At Rest Pain Present Pain Present Pain Reported Location Left Shoulder Intensity 4 Scale Used Numeric (0 - 10) M4 OT- IP ADL's Start: 04/05/22 12:05 Freq: Status: Active Protocol: Document 04/05/22 10:23 [facility] (Rec: 04/05/22 12:29 [facility] [id number]) OT [id number] Comments OT Self-Feeding Comments Not at meal time. Noted coughing after brushing her teeth. Nursing notified and suggested pt to have a SCIENCE EDUCATION PROFESSOR eval. OT ADL-Grooming General Evaluation Grooming Ability Standby Assistance Comments OT Grooming Comments Pt able to wash her face after set-up of wash cloth. OT ADL-Oral Care General Eval Oral Care Ability Standby Assistance Areas of Assistance Retrieving/Set-Up of Items Comments Oral Care Comments Set-up assist while in bed. OT ADL-Dressing General Eval Lower Body Dressing Ability Total Assistance Comments OT Dressing Comments Total assist for brief and socks. OT ADL-Toileting General Evaluation Toileting Ability Total Assistance Comments OT Toileting Comments Bazan in place. Pt states has a bidet at home to use. OT ADL-Bathing Comments OT Bathing Comments Not performed, pt has a tub bench she uses with assist from home health OT for showers recently. M5 OT- IP IADL's Start: 04/05/22 12:05 Freq: Status: Active Protocol: Document 04/05/22 10:23 [facility] (Rec: 04/05/22 12:29 [facility] [id number]) OT-Instrumental Activities of Daily Living Deficits IADL Deficits Identified Deficits Home Safety Awareness Awareness of Need for Assistance at Home Decreased Awareness Ability to Problem Solve Emergency Unable to Problem Solve Situations Home Safety Comments Pt states would have her give out her credit card number if asked and pt not aware what to do in case the toilet were to flood. Pt' s daughter noted recently that her mother has not been thinking well and worried about her having dementia. Medication Management Medication Management Comments At this time would be best for someone to assist pt with all her needs due to decreased short term memory and problem solving skills at this time. Money Management Money Management Comments At this time would be best for someone to assist pt with all her needs due to decreased short term memory and problem solving skills at this time. Meal Preparation Meal Preparation Caregiver Provides Assist Decal Decorator Decal Decorator Caregiver Provides Assist M6 OT- IP Functional Cognition Start: 04/05/22 12:05 Freq: Status: Active Protocol: Document 04/05/22 10:23 [facility] (Rec: 04/05/22 12:29 [facility] [id number]) Cognitive Factors Limiting Selfcare Function Cognitive Ability Level of Alertness Alert Patient Orientation Name,Year,Place Attention Span Ability Capable of Focused Attention, Capable of Sustained Attention Ability to Follow Commands Able to Follow One Step Commands with Increased Time, Able to Follow One Step Commands with Repetition Memory Description Short Term Impaired,Working Impaired Problem Solving Ability Unable to Identify Errors, Needs Assist to Identify Solutions Executive Function Ability Unable to Filter Distractions, Unable to Remember Details Cognitive Tests SLUMS Pt scored 11/30 which implies dementia, however score may be affected as pt is very hard of hearing and also has an UTI. It would be good to re- test pt in a few days to see if there is an improvement. Pt unable to subtract 100-23, able to recall 13 animals in 1 minute, unable to recall any of the 5 objects after time passed, not able to write the numbers on the clock correctly , and able to answer 2/4 questions right after a paragraph read. Cognitive Comments Cognitive Assessment Comments Pt very hard of hearing and at times making it difficulty for her to follow commands. Loaned pt out Listed Aider from the front nurse's station so pt better able to hear and understanding commands. OT- Vision and Hearing OT- Hearing Assessment OT- Hearing Assessment Hearing Impaired OT- Vision Assessment Visual Acuity Glasses All The Time Occular Pursuits WFL Visual Convergence WFL Visual Lopez WFL M7 OT- IP Mobility and Balance Start: 04/05/22 12:05 Freq: Status: Active Protocol: Document 04/05/22 10:23 [facility] (Rec: 04/05/22 12:29 [facility] [id number]) OT- Bed Mobility Assessment Supine to Sit Supine to Sit Assist Maximum Assistance,Total Assistance,2 Person Assistance Sit to Supine Sit to Supine Assist Total Assistance,2 Person Assistance Scooting Scooting to Edge of Bed Maximum Assistance,2 Person Assistance OT-Transfer Assessment Sit to and From Stand Sit to and from Stand Minimal Assistance,1 Person Assistance Comments Mobility Comments MAX/total assist x2 with HOB up to get to the edge of the bed, pt normally uses a lift chair at home to assist to stand. TotalAx2 from sit to supine. Pt able to come to stand with ISABELLA x1 to fww and able to take a few lateral steps to the head of the bed before tiring and wanting to get back to bed. OT- Balance Assessment Sitting Balance and Reactions Static Sitting Balance Ability Fair Standing Balance and Reactions Static Standing Balance Ability Fair Dynamic Standing Balance Ability Poor M8 OT- IP Objective Assessments Start: 04/05/22 12:05 Freq: Status: Active Protocol: Document 04/05/22 10:23 [facility] (Rec: 04/05/22 12:29 [facility] [id number]) OT Gross Range of Motion Upper Extremity Range of Motion Assessment Left Impaired OT Strength Upper Extremity Strength Assessment Left Impaired Comments Strength Comments LUE 4-/5 from elbow to proximal. Pt unable to lift her arm up due to left shoulder pain and old injury form falling per her daughter. OT-Muscle Tone Assessment Muscle Tone WNL Yes OT Sensation Assessment Comments Summary Comments Intact for light touch M9 OT- IP Assessment and Plan Start: 04/05/22 12:05 Freq: Status: Active Protocol: Document 04/05/22 10:23 [facility] (Rec: 04/05/22 12:29 [facility] [id number]) OT Summary Assessment and Plan Potential Rehabilitation Potential Good Analytic Complexity at Evaluation Moderate Summary OT Impairments Pain,Range of Motion,Strength, Balance,Functional Cognition, Functional Mobility,Self- Feeding,Grooming,Dressing, Toileting,Bathing,Toilet Transfers,Shower Transfers, Activity Tolerance Progress Towards Goals Slow Progress due to Pain,Slow Progress due to Medical Issues,Slow Progress due to Activity Tolerance,Slow Progress due to Cognition Assessment Summary Pt MOD complexity and main barriers are decreased activity tolerance, decreased short term memory, executive thinking and now needing extensive assist for her needs of ADL and mobility needs. Pt scored 11/30 on the SLUMS which implies dementia, however pt score may also be affected by her UTI and that pt is very hard of hearing. Pt 's daughter states that her is only away from 5 minutes to 2 hours at a time due to doing maintenance at their living complex. Pt's daughter states she is able to just provide supervision due to her own cardiac issues. Pt will greatly benefit from skilled rehab when medically stable. Goals Self-Feeding Goal Standby Assistance Grooming Goal Standby Assistance Dressing Goal Minimal Assistance Toileting Goal Standby Assistance Bathing Goal Moderate Assistance Toilet Transfer Goal Standby Assistance Shower Transfer Goal Contact Guard Assistance Days to Meet Goals 20 Frequency of Treatment Frequency Of Treatment Once a Day Treatment Plan OT Treatment Plan ADL Training,Functional Cognition Training,Functional Mobility,Patient/Family Education,Discharge Planning Other Treatment Recommendations and Next Transfer [place] [facility] [place] ISABELLA x 1 Treatment Focus with FWW Discharge Recommendations OT Discharge Recommendations SNF Rehab Transportation Needs at Discharge Wheelchair/Cabulance
--- NOTE | 2022-04-05 16:31 | PC.NURSE ---
Pt codition remains essentially unchanged. Resting at intervals. Tele shows NSR per ICU staff. HL LAC & JULIANA intact/patent. Possible D/C tomorrow . Call light w/in reach, bed alarm on for pt safety, Daughter in room. Continue w/plan of care.
[2022-04-05] MEDS: ALBUTEROL 2.5 MG/3 ML NEB (ADULT) INH (17:38)
[2022-04-05] MEDS: cefTRIAXone 1,000 MG in SODIUM CHLORIDE 0.9% 100 ML 200 MG IV (21:15)
[2022-04-05] MEDS: ATORVASTATIN 20 MG TABLET 10 MG PO (21:16)
[2022-04-05] MEDS: NYSTATIN POWDER 15GM 1 APPLIC TOP (21:22)
[2022-04-06] VITALS (8 sets, daily range): BP systolic 100–123; BP diastolic 49–54; PULSE 55–62; RESP 16–18; TEMP 36.1–36.2; O2SAT 94–98
[2022-04-06 05:25] LABS: HEMOLYSIS < 15 (0-50)
[2022-04-06 05:30] LABS: Alanine Aminotransferase 66 IU/L (<35); Albumin Globulin Ratio 1.1 (1.0-2.8); Alkaline Phosphatase 152 U/L (38-126); Aspartate Aminotransferase 26 IU/L (14-36); BUN Creatinine Ratio 23.9 (6-22); Bilirubin Total 0.4 mg/dL (0.2-1.3); Blood Urea Nitrogen 28 mg/dL (7-17); Carbon Dioxide 35 mmol/L (22-32); Chloride 95 mmol/L (98-107); Estimated Glomerular Filt Rate 50 mL/min (>60); Globulin 2.8 g/dL (1.7-4.1); Glucose 112 mg/dL (80-110); Potassium 3.5 mmol/L (3.4-5.1); Sodium 136 mmol/L (137-145); Total Protein 5.8 g/dL (6.3-8.2)
[2022-04-06 05:36] LABS: Add Manual Diff / Slide Review NO; Basophils Absolute Auto 0 /uL (0-100); Eosinophils Absolute Auto 0 /uL (0-450); Eosinophils Percent Auto 0.8 % (2-4); Hematocrit 30.4 % (36-46); Hemoglobin 9.9 g/dL (12.0-16.0); Lymphocytes Absolute Auto 1400 /uL (1100-4500); Mean Corpuscular HGB Conc 32.5 % (30-36); Mean Corpuscular Hemoglobin 31.2 PG (26-34); Mean Corpuscular Volume 95.9 fL (80-100); Monocytes Absolute Auto 200 /uL (0-900); Monocytes Percent Auto 6.4 % (3-14); Neutrophils Absolute Auto 1100 /uL (1500-7000); Neutrophils Percent Auto 39.8 % (50-75); Red Blood Cell Count 3.18 X10^6/uL (4.0-5.2); Red Cell Distribution Width 21.7 % (11.6-14.8); White Blood Cell Count 2.7 X10^3/uL (4.5-11.0)
[2022-04-06 05:43] LABS: Platelet Count 38 X10^3/uL (150-400)
[2022-04-06 06:12] LABS: Thyroid Stimulating Hormone 5.43 uIU/mL (0.47-4.68)
[2022-04-06 06:24] LABS: Anisocytosis 3+; Hypochromasia 1+; Platelet Estimate Decreased on smear
[2022-04-06] MEDS: ISOSORBIDE MONONITRATE ER 30 MG TABLET 60 MG PO (06:44)
[2022-04-06 06:47] LABS: Folate 6.5 ng/mL (2.76-20.0); Vitamin B12 492 pg/mL (239-931)
--- NOTE | 2022-04-06 08:34 | PM.DS.1 ---
History of Present Illness History of Present Illness Date Patient Seen: 04/06/22 Time Patient Seen: 08:34 Chief complaint: Confusion, Hallucinations, Not eating, Rash Narrative: 72-year-old female who was brought to the ER by her who is her caregiver with progressive decreased mentation and hallucinations. Patient is a very poor historian and the majority of history is obtained from ER physician and patient's . Patient has had decreased mobility. Patient overall has had a significant decline in her health with a diagnosis of metastatic cancer of unknown primary in June. Bone marrow pointed to breast or ovarian primary and so she is being treated by Dr. Copeland. During workup in the emergency department, Patient was found to have a flutter with RVR and metabolic encephalopathy secondary to UTI. Also noted to have acute kidney disease and suspected congestive heart failure exacerbation. She was admitted for the same. She was started on a diltiazem drip. She did convert to sinus rhythm in the ER but then returned to a flutter and is currently on 10 of a diltiazem drip in the ICU. She is a chronically ill patient with chronic oxygen dependence at 2 L nasal cannula an hour. She has systolic congestive heart failure, morbid obesity, chronic pain, seizure disorder, chronic kidney disease, COPD and nephrolithiasis. Patient also with a history of coronary artery disease and hypertension. Today patient feels she is doing better. Her states that she is mentating better. She was able to eat her food without difficulty. She is a Bazan catheter. She is complaining of left shoulder pain which has been a chronic issue. Past medical history: 1. Coronary artery disease 2. Systolic congestive heart failure 3. Chronic kidney disease, stage III 4. Morbid obesity 5. Thrombocytopenia 6. Metastatic carcinoma of unclear etiology with previous history of breast cancer in the 7. Hypokalemia 8. Hyperlipidemia 9. Obstructive sleep apnea 10. Depression 11. Panic disorder Allergies: Promethazine causes hallucinations Past surgical history: Patient is a very poor historian and the majority of history is obtained from ER physician 1. 1954 patient had a tonsillectomy 2. 1957 patient had appendectomy 3. 1982 patient had abdominal hysterectomy with bilateral salpingo-oophorectomy Family history: Paternal grandmother of bilateral breast cancer Mother had breast cancer Father of a heart attack at age 63 Mother of a heart attack at 68 Social history: Patient is and lives with her Alessio who is her caregiver. Health her to behavior: Patient does not drink alcohol and does not smoke Review of systems: No recent falls. No fevers or rashes or worsening breathing Patient is having left shoulder pain. This is unchanged. Has been chronic. Patient denies chest pain or palpitations or lightheadedness or dizziness Otherwise 12 point review of systems is negative Discharge Providers Provider Date of admission: 04/03/22 00:45 Discharge Date: 04/06/22 Primary care physician: Susu Conner MD Consults: 04/03/22 02:16 Consult to Respiratory Therapy Evaluate & Treat Comment: Physician Instructions: Evaluate and treat 04/03/22 08:48 Consult to Physical Therapy Evaluate & Treat Comment: deconditioning Physician Instructions: Evaluate and Treat 04/03/22 08:56 Consult to Occupational Therapy Evaluate & Treat Comment: Physician Instructions: Evaluate and treat Discharge provider: María Elena Maria MD Summary Status at Discharge Cognitive/behavioral status at discharge: oriented and at baseline, confused Functional status at discharge: uses cane/walker Overall status at discharge: patient is progressing back to baseline Exam Vital Signs (past 8 hours): - 04/06/22 03:52 04/06/22 05:00 04/06/22 08:32 Temperature 97.1 F L Pulse Rate 62 60 Respiratory Rate 18 Blood Pressure 107/54 L Pulse Oximetry 98 94 94 Oxygen Delivery Method Nasal Cannula Oxygen Flow Rate 2 2 2 Oxygen Delivery Method Nasal Cannula Oxygen Flow Rate 2 Narrative Exam Narrative: Afebrile, vital signs are stable. Patient continues on 2 L nasal cannula oxygen which is her chronic oxygen. HEENT is unremarkable. No evidence of candidal rash Neck: Supple without adenopathy or thyromegaly Chest: No wheezes or rhonchi but diminished breath sounds in the bases Cor regular rate and rhythm without murmur Abdomen: Positive bowel sounds, soft, nontender, obese Extremities: No significant edema Patient with large bruising in her left upper extremity over the biceps related to her PICC line likely. No hematoma. No tenderness. No erythema Skin: Decreased rash under her left breast Skin breakdown sacral decubitus area, unchanged Objective Labs Result Diagrams: 04/06/22 05:11 04/06/22 05:11 Labs: Laboratory Results - last 24 hr 04/06/22 04/06/22 04/06/22 05:11 05:11 05:11 WBC 2.7 L RBC 3.18 L Hgb 9.9 L Hct 30.4 L MCV 95.9 MCH 31.2 MCHC 32.5 RDW 21.7 H Plt Count 38 L Neut % (Auto) 39.8 L Lymph % (Auto) 52.0 H [place] % (Auto) 6.4 Eos % (Auto) 0.8 L Baso % (Auto) 1.0 Neut # (Auto) 1100 L Lymph # (Auto) 1400 [place] # (Auto) 200 Eos # (Auto) 0 Baso # (Auto) 0 Platelet Estimate Decreased on smear RBC Morphology See below Hypochromasia 1+ H Anisocytosis 3+ H Sodium 136 L Potassium 3.5 Chloride 95 L Carbon Dioxide 35 H BUN 28 H Creatinine 1.17 H Estimated GFR 50 L BUN/Creatinine Ratio 23.9 H Glucose 112 H Calcium 8.0 L Total Bilirubin 0.4 AST 26 ALT 66 H Alkaline Phosphatase 152 H Total Protein 5.8 L Albumin 3.0 L Globulin 2.8 Albumin/Globulin Ratio 1.1 Vitamin B12 492 Folate 6.5 TSH 5.43 H PFSH Medical History Anemia Atrial fibrillation with RVR CHF (congestive heart failure) COPD (chronic obstructive pulmonary disease) Encephalopathy Heart attack (~2013) History of UTI HLD (hyperlipidemia) Hypokalemia Kidney stones Myocardial infarction (01/2021) Obesity, morbid, BMI 50 or higher SIDNEY (obstructive sleep apnea) Presence of device (01/15/21) Retained ureteral stent Right ureteral calculus Sepsis Thrombocytopenia Surgical History History of appendectomy History of breast biopsy History of cholecystectomy Hx of cystoscopy (01/10/21) Family History Mother Cancer Social History marital status: number of children: 2 household members: spouse Smoking Status: Former smoker alcohol intake: never substance use type: does not use caffeine: Yes Discharge Assessment & Plan Assessment and Plan Assessment: 72-year-old female admitted to the hospital for metabolic encephalopathy secondary to UTI with sepsis and atrial flutter with rapid ventricular rate Assessment 1. Metabolic encephalopathy due to UTI.? Patient seems to be improved. I suspect patient is at her baseline now. We will give her a dose of Rocephin now and she will not need further antibiotics. Patient will be transferred to skilled care facility for ongoing PT and OT in hopes to improve her mobility. At this point due to her immobility and skin breakdown we will leave a Bazan catheter in place. Plan:? Will consult PT and OT and discharge services.? Assessment 2. Atrial flutter with rapid ventricular rate with recent echo that shows suppressed ejection fraction Plan:? Due to multiple comorbidities I think it would be a bad idea and patient declines as well for anticoagulation.? Diltiazem drip has been weaned.? Reviewed echo which shows an EF of 25%.? Will continue with metoprolol 50 mg twice daily and digoxin 0.125 mcg daily. We will check her digoxin level in 5 days.? We will monitor her renal function closely. Assessment 3. Acute on chronic kidney disease with acute exacerbation now improved Plan:? Will continue to monitor closely. Assessment 4.? Acute exacerbation of systolic heart failure.? Reviewed the echo. Plan: Patient had excellent diuresis and now continues to be stable on p.o. Lasix. Suspect decreased ejection fraction may in part be related to flutter with RVR. We will repeat echo in a month. Assessment 5. COPD on chronic oxygen without increased requirements and actually oxygen requirement improved suspect this is in part treating her CHF exacerbation Plan:? Will continue the same.? Continue Alvesco, Spiriva.? Continue albuterol and RT is consulted. Assessment 6.? Infiltrating lobular carcinoma of the breast, metastatic.? Discussed with Dr. Copeland, her oncologist, and patient is currently being treated and apparently this type of cancer can be responsive to treatment and prognosis for the average functional person is 4-5 years.? Agreed with holding chemotherapy agents while she is in the hospital. Plan:? Will hold her chemotherapy agents until her condition has improved. Assessment 7. Thrombocytopenia, continues to be stable..? Discussed with Dr. Copeland and he recommended giving platelets if her platelets fall below 20 or if she has bleeding associated with platelets under 50. Plan: We are unable to use Lovenox due to thrombocytopenia Will continue to monitor. Assessment 8. Candidiasis, severe suspect related to hygiene Plan:? Continue nystatin, probiotics. Hemoglobin A1c was normal. Assessment 9. Hyperlipidemia Plan: Continue outpatient atorvastatin Assessment 10.? Venous stasis changes, chronic with peripheral edema Plan: Improved Assessment 11. Troponinemia suspect related to a flutter with RVR, improved. Plan: Suspect related to AF flutter with RVR. Resolved Assessment 12. Depression Plan: Continue sertraline Assessment 13. History of coronary artery disease on isosorbide Plan:? Continue the same.? Troponins returned to normal. Suspect elevated troponin related to a flutter with RVR and demand ischemia. Assessment 14. Chronic pain syndrome Plan: Continue oxycodone.? X-ray shows an old fracture does not show acute abnormality and shows or significant arthritis.? Will continue with pain treatment and physical therapy. Assessment 15. DVT prophylaxis.? Lovenox contraindicated due to thrombocytopenia, severe Plan: SCDs Assessment 16.? GI prophylaxis Plan: Discontinued because suspected this is contributing to thrombocytopenia Disposition:? Patient will require skilled care facility on discharge and she and her are in agreement. Code status is DNR Discharge Plan Discharge Plan Patient Disposition: SNF Transfer to: [facility] Consult as needed: Dental, Hearing, Mental health, Podiatry and Vision Discharge orders & Medications Prescriptions: New famotidine [Pepcid AC] 20 mg Tablet 20 mg PO DAILY Qty: 30 0RF digoxin 125 mcg (0.125 mg) Tablet 125 mcg PO DAILY@1700 Qty: 30 0RF Continued letrozole [Femara] 2.5 mg Tablet 2.5 mg PO DAILY 90 Days Qty: 90 3RF palbociclib 125 mg Tablet 125 mg PO DIRECTED Qty: 21 11RF Rx Instructions: administer on days 1 through 21 of a 28-day treatment cycle oxycodone 5 mg tablet 5 mg PO Q4H PRN (Reason: pain) Qty: 60 0RF potassium chloride 10 mEq Capsule, Extended Release 20 meq PO DAILY atorvastatin 10 mg Tablet 10 mg PO DAILY Label Comments: pt had 6 days remaining when she was admitted to the hospital. sertraline 25 mg Tablet 25 mg PO BID albuterol sulfate [Ventolin HFA] 90 mcg/actuation Hfa Aerosol Inhaler 2 puff INHALATION Q4-6H PRN (Reason: copd) Alvesco 160 mcg/actuation HFA aerosol inhaler 160 mcg INHALATION BID Rx Instructions: 1 puff, twice a day isosorbide mononitrate 30 mg tablet extended release 24 hr 60 mg PO BID Rx Instructions: ran out of prescription meclizine 25 mg tablet 25 mg PO Q8HR PRN (Reason: for dizziness) Label Comments: pt last took approximately September 2020 Spiriva Respimat 2.5 mcg/actuation mist See Rx Instructions .ROUTE .COMPLEX Rx Instructions: two puffs, as directed, once a day nitroglycerin [Nitrostat] 0.4 mg Tablet, Sublingual 0.4 mg sublingual [id number] PRN (Reason: Chest Pain) Qty: 10 3RF Label Comments: also uses for 'really, really bad heartburn and it helps nystatin [Nyamyc] 100,000 unit/gram powder 100,000 applic TOPICAL BID PRN (Reason: rash) Qty: 0 0RF Rx Instructions: Apply topically to affected area twice a daily as needed, rash furosemide 40 mg tablet 20 mg PO Q OTHER DAY aspirin 81 mg Tablet 81 mg PO DAILY Changed oxycodone-acetaminophen 5-325 mg tablet 5 - 325 tab PO Q6-8H PRN (Reason: Pain, Moderate) Qty: 60 0RF metoprolol succinate 50 mg tablet extended release 24 hr 50 mg PO BID Qty: 30 0RF Label Comments: TAKE 1 TABLET (50 MG TOTAL) BY MOUTH DAILY Discontinued omeprazole 20 mg capsule,delayed release(DR/EC) 20 mg PO DAILY Rx Instructions: Take one capsule by mouth once a day 30 minutes before first meal of the day albuterol sulfate 0.63 mg/3 mL Solution For Nebulization 0.083 mg INHALATION BID PRN (Reason: dypsnea) Qty: 0 0RF Follow up/Referrals: Susu Conner MD [Primary Care Provider] - Discharge Health Status Multidrug resistant organism: No MDRO Precautions: [place] Diet/Activity/Treatments Diet: Diet as Tolerated and Regular Liquid consistency: Normal/Thin Food texture: Regular Catheter: 2-way [facility] Rehab type: Physical therapy and Occupational therapy Discharge Data Primary Care Provider: Susu Conner
--- NOTE | 2022-04-06 09:01 | CM.DPC ---
Addendum entered by Meg Kaufman R.N. 04/06/22 11:34: Updated [facility] regarding pt current status. They verbalized understanding and thankful for the call. ADJ Original Note: DCP Cont: DCP spoke with Carrie @ this morning and they have accepted the patient today for an 1100 transport. DCP to fax over all required documents to for discharge. RN and coordinator made aware. COVID swab ordered. Meg Kaufman RN/JEMP
[2022-04-06] MEDS: BUDESONIDE 0.5 MG/2 ML NEB INH (09:10)
[2022-04-06] MEDS: IPRATROPIUM 0.5 MG/2.5 ML NEB INH (09:10)
[2022-04-06 09:21] LABS: COVID19 -Nasal RAPID Negative (Negative)
[2022-04-06] MEDS: FAMOTIDINE 20 MG TABLET PO (09:27)
[2022-04-06] MEDS: ERYTHROMYCIN OPHTH 1 GM OINT 1 APPLIC EYE-BOTH (09:28)
[2022-04-06] MEDS: SERTRALINE 50 MG TABLET 25 MG PO (09:28)
[2022-04-06] MEDS: FUROSEMIDE 40 MG TABLET PO (09:28)
[2022-04-06] MEDS: POTASSIUM CHLORIDE 10 MEQ TAB 20 MEQ PO (09:28)
--- NOTE | 2022-04-06 11:59 | PC.NURSE ---
08:[address] Maria in person, she states, pt discharging today to [facility], will put orders in, woodard will stay in because of limited mobility and sacral skin breakdown.
--- NOTE | 2022-04-06 12:09 | PC.NURSE ---
Addendum entered by Rosy Hughes R.N. 04/06/22 12:16: 11:35 Pt taken out via wheel chair with all belongings by TIER OVER and facility staff. Original Note: 10:55 Pt ready for d/c to [facility] via facility vehicle with facility staff. Pt IV removed and tele removed. Pt denies having valuables being held in the safe and denies having medications being held at the pharmacy. D/C packet given to facility staff. Spoke to nurse Naylor at [facility] and report about pt given also, notified that Dr. Maria states, keep woodard in because of sacral skin breakdown and limited mobility.
== END 2022-04-06 11:35 | DRG 871 ==
LOC: ED 23:43 → ICU 04-03 00:49 → AC 04-04 17:09
PROVIDERS: Family Medicine; Admitting Provider Family Medicine; Emergency Provider Emergency Medicine; PCP Student in an Organized Health Care Education/Training Program; Referring Provider Emergency Medicine; Visit Provider Family Medicine
DX: A41.9 Sepsis, unspecified organism (principal); G93.41 Metabolic encephalopathy; I50.21 Acute systolic (congestive) heart failure; N39.0 Urinary tract infection, site not specified; I48.92 Unspecified atrial flutter; Z68.43 Body mass index [BMI] 50.0-59.9, adult; I13.0 Hypertensive heart and chronic kidney disease with heart failure and stage 1 through stage 4 chronic kidney disease, or unspecified chronic kidney disease; E66.01 Morbid (severe) obesity due to excess calories; J44.9 Chronic obstructive pulmonary disease, unspecified; D69.6 Thrombocytopenia, unspecified; B37.9 Candidiasis, unspecified; E78.5 Hyperlipidemia, unspecified; F32.A Depression, unspecified; I25.10 Atherosclerotic heart disease of native coronary artery without angina pectoris; G89.4 Chronic pain syndrome; N18.9 Chronic kidney disease, unspecified; C50.912 Malignant neoplasm of unspecified site of left female breast; Z99.81 Dependence on supplemental oxygen; Z17.0 Estrogen receptor positive status [ER+]; Z20.822 Contact with and (suspected) exposure to COVID-19; Z66 Do not resuscitate; Z87.891 Personal history of nicotine dependence
CPT/HCPCS: 36415; 70450; 71045; 73020; 80053; 81001; 82550; 82553; 82607; 82746; 83036; 83605; 83735; 83880; 84145; 84443; 84484; 85025; 85610; 85730; 87040; 87077; 87086; 87186; 87635; 87797; 93005; 93307; 94640; 94760; 94762; 96365; 96366; 96368; 96375; 97162; 97166; 97530; 99285; C9803; A9270; C9113; J0696; J1160; J1940; J7050; J7613; Q9957

== ENCOUNTER 2022-05-08 21:15 | Emergency (ER) | payer OTHER, MEDICAID, SELFPAY ==
[2022-04-03 01:30] VITALS: BMI 51.4
[2022-05-08] VITALS (11 sets, daily range): BP systolic 77–158; BP diastolic 55–98; PULSE 69–79; RESP 10–47; TEMP 36.1; O2SAT 87–98
--- NOTE | 2022-05-08 21:22 | DI.CT.S_ITS ---
PROCEDURE: CT HEAD/BRAIN WO CON INDICATIONS: acutely altered mental status, know breast CA mets to brain TECHNIQUE: Noncontrast 4.5 mm thick angled axial sections acquired from the foramen magnum to the vertex, with coronal and sagittal reformats. For radiation dose reduction, the following was used: automated exposure control, adjustment of mA and/or kV according to patient size. COMPARISON: [facility], CT, CT HEAD/BRAIN WO CON, 04/02/2022, 22:39. FINDINGS: Image quality: Excellent. CSF spaces: Basal cisterns are patent. No extra-axial fluid collections. There is moderate cerebral volume loss, with resultant ventricular and sulcal prominence. Brain: No intracranial hemorrhage, discrete mass, or mass effect. There are subcortical, periventricular and deep white matter hypodensities consistent with moderate chronic small vessel ischemic changes. The clark-white matter junction appears preserved. There is intracranial internal carotid artery atherosclerosis. Skull and face: Calvarium and visualized facial bones appear intact, without suspicious lesions. Sinuses: Visualized sinuses demonstrate moderate to severe mucosal thickening within the right maxillary sinus. Mastoid air cells are clear. IMPRESSION: 1. No definite acute intracranial abnormality. 2. Moderate cerebral volume loss and chronic white matter small vessel ischemic changes. 3. If clinical concern persists for metastatic disease, recommend further evaluation with a contrast enhanced MRI. Dictated by: Geronimo Cr M.D. on 05/08/2022 at 22:09 Approved by: Geronimo Cr M.D. on 05/08/2022 at 22:13
--- NOTE | 2022-05-08 21:24 | ED.GENADULT ---
HPI - General Adult General Chief complaint: Unresponsive Stated complaint: Change in mental status Time Seen by Provider: 05/08/22 21:21 History of Present Illness HPI narrative: 72-year-old woman currently at [facility] rehab, DNR with limited considered interventions and a complicated medical history including metastatic breast cancer, has a nephrostomy drain as well as Bazan catheter, congestive heart failure, coronary artery disease, morbid obesity, sleep apnea, who was last seen around dinnertime and noted to not have much of an appetite. When evening staff checked on her they found her minimally responsive and called 911. On arrival she is pale cool extremities hypotensive, mumbling only, nonpurposeful movement of all extremities. Related Data Home Medications Medication Instructions Recorded Confirmed albuterol sulfate 90 mcg/actuation 2 puff inhalation Q4-6H PRN copd 01/23/19 04/03/22 aerosol inhaler (Ventolin HFA) atorvastatin 10 mg tablet 10 mg PO DAILY infection 01/23/19 04/03/22 potassium chloride 10 mEq 20 meq PO DAILY 01/23/19 04/03/22 capsule,extended release sertraline 25 mg tablet 25 mg PO BID 01/23/19 04/03/22 ciclesonide 160 mcg/actuation 160 mcg inhalation BID resp 01/11/21 04/03/22 aerosol inhaler (Alvesco) isosorbide mononitrate 30 mg 60 mg PO BID 01/11/21 04/03/22 tablet,extended release 24 hr meclizine 25 mg tablet 25 mg PO Q8HR PRN for dizziness 01/11/21 04/03/22 tiotropium bromide 2.5 See Rx Instructions .Route .COMPLEX 01/11/21 04/03/22 mcg/actuation mist for inhalation (Spiriva Respimat) aspirin 81 mg tablet 81 mg PO DAILY 01/27/21 04/03/22 furosemide 40 mg tablet 20 mg PO Q OTHER DAY 01/27/21 04/03/22 Previous Rx's Medication Instructions Recorded nitroglycerin 0.4 mg sublingual 0.4 mg sublingual [id number] PRN 01/18/21 tablet (Nitrostat) Chest Pain #10 tabs nystatin 100,000 unit/gram topical 100,000 applic topical BID PRN 01/18/21 powder (Nyamyc) rash #0 grams letrozole 2.5 mg tablet (Femara) 2.5 mg PO DAILY breast cancer 90 08/14/21 days #90 tabs palbociclib 125 mg tablet 125 mg PO DIRECTED #21 tabs 08/14/21 digoxin 125 mcg (0.125 mg) tablet 125 mcg PO DAILY@1700 #30 tabs 04/06/22 famotidine 20 mg tablet (Pepcid AC) 20 mg PO DAILY #30 tabs 04/06/22 metoprolol succinate 50 mg 50 mg PO BID #30 tabs 04/06/22 tablet,extended release 24 hr oxycodone 5 mg tablet 5 mg PO Q4H PRN pain #60 tabs 04/06/22 oxycodone-acetaminophen 5 mg-325 5 - 325 tab PO Q6-8H PRN Pain, 04/06/22 mg tablet Moderate #60 tabs Allergies Allergy/AdvReac Type Severity Reaction Status Date / Time promethazine Allergy Unknown HALLUCINATI Verified 02/08/21 10:10 ONS Review of Systems Review of Systems ROS Unobtainable: Unobtainable due to medical condition Patient History Medical History Anemia Atrial fibrillation with RVR CHF (congestive heart failure) COPD (chronic obstructive pulmonary disease) Encephalopathy Heart attack (~2013) History of UTI HLD (hyperlipidemia) Hypokalemia Kidney stones Myocardial infarction (01/2021) Obesity, morbid, BMI 50 or higher SIDNEY (obstructive sleep apnea) Presence of device (01/15/21) Retained ureteral stent Right ureteral calculus Sepsis Thrombocytopenia Surgical History History of appendectomy History of breast biopsy History of cholecystectomy Hx of cystoscopy (01/10/21) Family History Mother Cancer Social History marital status: number of children: 2 household members: spouse Smoking Status: Former smoker alcohol intake: never substance use type: does not use caffeine: Yes Smoking Status: Former smoker Substance Use Type: does not use Exam Initial Vital Signs Initial Vital Signs: Vital Signs Pulse Rate 78 05/08/22 21:18 Pulse Oximetry 87 L 05/08/22 21:18 General: Chronically ill-appearing with acute obvious deterioration, minimally responsive, shallow breathing, hypotensive HEENT: Moist mucous membranes, normal sclera with reactive pupils, Neck: No JVD, supple Respiratory: Shallow breathing, poor overall air movement and difficult to fully assess breath sounds but no obvious wheezes or rhonchi are appreciated Cardiac: Regular rate and rhythm no murmurs no bruits Abdomen: Soft, obese, nontender, no flank pain Skin: Frail, multiple bruises. No obvious cellulitis Neurologic: Minimally responsive with nonpurposeful movement of all extremities Extremities: Significant lymphedema to the upper extremities with quite a bit of bruising. One to 2+ edema of the lower extremities bilaterally. Psych: Obtunded Course Orders Ordered: ED Orders 05/08/22 21:22 CT head/brain wo con Stat 05/08/22 21:30 Complete Blood Count AUTO DIFF Stat 05/08/22 21:35 Comprehensive Metabolic Panel Stat Respiratory Panel (Film Array) Stat 05/08/22 21:40 EKG-12 Lead Stat Discontinued Medications Albuterol/Ipratropium (Albuterol/Ipratropium 3 Ml Ampul) 3 ml INH NOW ONE Stop: 05/08/22 21:42 Last Admin: 05/08/22 21:52 Dose: 3 ml Documented By: JAILENE Diphenhydramine HCl (Diphenhydramine 50 Mg/Ml Vial) 25 mg IV NOW ONE Stop: 05/08/22 21:41 Last Admin: 05/08/22 21:45 Dose: Not Given Documented By: JASPER Vital Signs Vital signs: Vital Signs - 8 hr 05/08/22 21:23 05/08/22 21:18 05/08/22 21:21 Temperature 97 F L Pulse Rate 79 78 Respiratory Rate 10 L Blood Pressure 77/55 L 77/55 L Pulse Oximetry 87 L 87 L Oxygen Delivery Method Room Air 05/08/22 21:21 05/08/22 21:31 05/08/22 21:38 Temperature Pulse Rate 79 72 Respiratory Rate 29 H Blood Pressure 127/59 L Pulse Oximetry 87 L Oxygen Delivery Method 05/08/22 21:38 05/08/22 22:00 05/08/22 22:01 Temperature Pulse Rate 74 70 Respiratory Rate 38 H 47 H Blood Pressure 158/98 H Pulse Oximetry 89 L 96 Oxygen Delivery Method 05/08/22 22:01 05/08/22 22:30 05/08/22 23:00 Temperature Pulse Rate 69 77 75 Respiratory Rate 43 H 39 H 46 H Blood Pressure Pulse Oximetry 97 98 96 Oxygen Delivery Method 05/08/22 23:30 05/08/22 23:31 05/08/22 23:31 Temperature Pulse Rate 79 78 Respiratory Rate 37 H 37 H Blood Pressure 114/80 Pulse Oximetry 92 92 Oxygen Delivery Method 05/09/22 00:00 05/09/22 00:01 05/09/22 00:01 Temperature Pulse Rate 81 80 Respiratory Rate 51 H 44 H Blood Pressure 134/63 Pulse Oximetry 91 91 Oxygen Delivery Method Medical Decision Making Lab Data Result diagrams: 05/08/22 21:30 05/08/22 21:35 Labs: Lab Results 05/08/22 05/08/22 Range/Units 21:35 21:35 Sodium 138 (137-145) mmol/L Potassium 4.5 (3.4-5.1) mmol/L Chloride 100 (98-107) mmol/L Carbon Dioxide 29 (22-32) mmol/L BUN 25 H (7-17) mg/dL Creatinine 1.32 H (0.52-1.04) mg/dL Estimated GFR 43 L (>60) mL/min BUN/Creatinine Ratio 18.9 (6-22) Glucose 121 H (80-110) mg/dL Calcium 8.7 (8.4-10.2) mg/dL Total Bilirubin 1.5 H (0.2-1.3) mg/dL AST 44 H (14-36) IU/L ALT 21 (<35) IU/L Alkaline Phosphatase 150 H (38-126) U/L Total Protein 6.8 (6.3-8.2) g/dL Albumin 3.6 (3.5-5.0) g/dL Globulin 3.2 (1.7-4.1) g/dL Albumin/Globulin Ratio 1.1 (1.0-2.8) Chlamy pneumoniae PCR Not detected (Not Detect) Adenovirus (PCR) Not detected (Not Detect) B. pertussis DNA (PCR) Not detected (Not Detecte) B.parapertussis DNA PCR Not detected (Not Detecte) Coronavirus OC43 (PCR) Not detected (Not Detect) Coronavirus HKU1 (PCR) Not detected (Not Detect) Coronavirus 229E (PCR) Not detected (Not Detect) SARS-CoV-2 (PCR) Not detected (Not Detecte) Coronavirus NL63 (PCR) Not detected (Not Detect) Human Metapneumovir PCR Not detected (Not Detect) Influenza Type A (PCR) Not detected (Not Detect) Influenza Type B (PCR) Not detected (Not Detect) M. pneumoniae (PCR) Not detected (Not Detect) Parainfluenza 1 (PCR) Not detected (Not Detect) Parainfluenza 2 (PCR) Not detected (Not Detect) Parainfluenza 3 (PCR) Not detected (Not Detect) Parainfluenza 4 (PCR) Not detected (Not Detect) RSV (PCR) Not detected (Not Detect) Entero/Rhino (PCR) Not detected (Not Detect) Imaging Data CT scan - head: Radiologist's Impression: FINDINGS:? Image quality:? Excellent.? ? CSF spaces:? Basal cisterns are patent.? No extra-axial fluid collections.? There is moderate cerebral volume loss, with resultant ventricular and sulcal prominence.? ? Brain:? No intracranial hemorrhage, discrete mass, or mass effect.? There are subcortical, periventricular and deep white matter hypodensities consistent with moderate chronic small vessel ischemic changes.? The clark-white matter junction appears preserved. ?There is intracranial internal carotid artery atherosclerosis.? ? Skull and face:? Calvarium and visualized facial bones appear intact, without suspicious lesions.? ? Sinuses:? Visualized sinuses demonstrate moderate to severe mucosal thickening within the right maxillary sinus.? Mastoid air cells are clear. ? IMPRESSION:? ? 1. No definite acute intracranial abnormality. ? 2. Moderate cerebral volume loss and chronic white matter small vessel ischemic changes. ? 3. If clinical concern persists for metastatic disease, recommend further evaluation with a contrast enhanced MRI. ? ? Dictated by: Geronimo Cr M.D. on 05/08/2022 at 22:09 ? ? ECG Data Interpretation: Sinus rhythm at a rate of [address] depression Overall poor quality tracing MDM Narrative Medical decision making narrative: 72-year-old woman with metastatic breast cancer multiple comorbidities, acute deterioration from sound View. Reviewed care with her and, per - sick for awhile, dementia getting worse and has told that she is ?ready to go to heaven?. She does have a pulsed form indicating the same. We reviewed plan of care for the emergency department and agreed that making sure that she remains quite comfortable in doing the minimal amount required is going to be most appropriate. I explained that she looked sick enough that she may well this evening. He was accepting of that and will come to the ER to visit at this time. Urgent CT of the head was obtained, I will do basic blood work as well as respiratory panel, oxygen support and warming and will re-evaluate CT scan was not dramatically change in certainly did not explain the significant altered mental status. We are only able to obtain a chemistry panel and did not feel that additional blood work and pokes for the patient was going to change care or management. Chemistry panel is reassuring. With warming she is much more alert, her blood pressure has come from 77/55 up to 134/63. Her heart rate has come from a low of 40 up to 80. Oxygen saturations are currently in the low 90s on her usual amount of oxygen. With family at bedside including her who has [id number] and all 3 adult children in coordination with the patient who is alert enough to at least fully agree and try to sign papers we would like to shift her care over to full comfort. I spoke with the nurse on staff tonight at the rehab facility and they are willing to have her back. Daytime providers tomorrow will need to re-evaluate and hopefully she can move to a private room. New POLST form is filled out and copy is kept for the hospital and the original form is being sent back to the nursing facility with the patient. She will be transferred back via BLS. Critical Care Time Critical Care Time Critical Care Time: Yes Total Critical Care Time: 33 Attestation: Critical care time is separate from other billable procedures. There is a high probability of a significant, sudden or life-threatening deterioration that requires my full and direct attention, intervention and personal management. This critical care time includes consultation with family and other consulting doctors, review of records, and interpretation of data from labs, EKGs and imaging as well as managements of acutely altered mental status, hypotension, bradycardia and extensive family discussion regarding code status Discharge Plan Departure Patient Disposition: Home Clinical Impression: Acute alteration in mental status, Need for comfort care, Congestive heart failure, COPD (chronic obstructive pulmonary disease) Activity Restrictions/Additional Instructions: Thank you for coming in tonight On arrival your significantly altered with very low blood pressure and heart rate dropping. We had a nice discussion with your and reviewed your POLST form. According to your wishes we did minimal intervention and did not actually find any acute issue. You are quite cold on arrival and with a warming blanket you were increasingly alert with increased blood pressure and heart rate. With you, your and your 3 adult children we discussed goals of care for you and it sounds like everybody is in agreement that we would like to move toward full comfort care and that you have stated that you are ready for [facility]. Tomorrow, will have the doctor who is caring for you at the care home talk with you, review the POLST form that we updated here in the emergency department and will forward with any additional plans to make sure that we are focusing on helping you live as comfortably as you are able to for as long as you are able to without extensive medical intervention. I wish you the very best Prescriptions: No Action letrozole [Femara] 2.5 mg Tablet 2.5 mg PO DAILY 90 Days Qty: 90 3RF palbociclib 125 mg Tablet 125 mg PO DIRECTED Qty: 21 11RF Rx Instructions: administer on days 1 through 21 of a 28-day treatment cycle famotidine [Pepcid AC] 20 mg Tablet 20 mg PO DAILY Qty: 30 0RF digoxin 125 mcg (0.125 mg) Tablet 125 mcg PO DAILY@1700 Qty: 30 0RF metoprolol succinate 50 mg tablet extended release 24 hr 50 mg PO BID Qty: 30 0RF Label Comments: TAKE 1 TABLET (50 MG TOTAL) BY MOUTH DAILY oxycodone 5 mg tablet 5 mg PO Q4H PRN (Reason: pain) Qty: 60 0RF oxycodone-acetaminophen 5-325 mg tablet 5 - 325 tab PO Q6-8H PRN (Reason: Pain, Moderate) Qty: 60 0RF potassium chloride 10 mEq Capsule, Extended Release 20 meq PO DAILY atorvastatin 10 mg Tablet 10 mg PO DAILY Label Comments: pt had 6 days remaining when she was admitted to the hospital. sertraline 25 mg Tablet 25 mg PO BID albuterol sulfate [Ventolin HFA] 90 mcg/actuation Hfa Aerosol Inhaler 2 puff INHALATION Q4-6H PRN (Reason: copd) Alvesco 160 mcg/actuation HFA aerosol inhaler 160 mcg INHALATION BID Rx Instructions: 1 puff, twice a day isosorbide mononitrate 30 mg tablet extended release 24 hr 60 mg PO BID Rx Instructions: ran out of prescription meclizine 25 mg tablet 25 mg PO Q8HR PRN (Reason: for dizziness) Label Comments: pt last took approximately September 2020 Spiriva Respimat 2.5 mcg/actuation mist See Rx Instructions .ROUTE .COMPLEX Rx Instructions: two puffs, as directed, once a day nitroglycerin [Nitrostat] 0.4 mg Tablet, Sublingual 0.4 mg sublingual [id number] PRN (Reason: Chest Pain) Qty: 10 3RF Label Comments: also uses for 'really, really bad heartburn and it helps nystatin [Nyamyc] 100,000 unit/gram powder 100,000 applic TOPICAL BID PRN (Reason: rash) Qty: 0 0RF Rx Instructions: Apply topically to affected area twice a daily as needed, rash furosemide 40 mg tablet 20 mg PO Q OTHER DAY aspirin 81 mg Tablet 81 mg PO DAILY Referrals: Susu Conner MD [Primary Care Provider] - Stand Alone Forms: Naloxone Standing Order TAYLOR
--- NOTE | 2022-05-08 21:25 | PC.NURSE ---
to ct per stretcher with RN
[2022-05-08] MEDS: ALBUTEROL/IPRATROPIUM 3 ML AMPUL INH (21:52)
[2022-05-08 22:15] LABS: Alanine Aminotransferase 21 IU/L (<35); Albumin 3.6 g/dL (3.5-5.0); Albumin Globulin Ratio 1.1 (1.0-2.8); BUN Creatinine Ratio 18.9 (6-22); Bilirubin Total 1.5 mg/dL (0.2-1.3); Blood Urea Nitrogen 25 mg/dL (7-17); Calcium 8.7 mg/dL (8.4-10.2); Carbon Dioxide 29 mmol/L (22-32); Chloride 100 mmol/L (98-107); Estimated Glomerular Filt Rate 43 mL/min (>60); Globulin 3.2 g/dL (1.7-4.1); Glucose 121 mg/dL (80-110); Sodium 138 mmol/L (137-145); Total Protein 6.8 g/dL (6.3-8.2)
[2022-05-08 22:18] LABS: HEMOLYSIS 99 (0-50)
[2022-05-08 22:20] LABS: Potassium 4.5 mmol/L (3.4-5.1)
[2022-05-08 22:21] LABS: Alkaline Phosphatase 150 U/L (38-126); Aspartate Aminotransferase 44 IU/L (14-36)
[2022-05-09] VITALS (16 sets, daily range): BP systolic 83–178; BP diastolic 58–86; PULSE 80–109; RESP 27–55; O2SAT 85–99
[2022-05-09 00:36] LABS: Adenovirus Not Detected (Not Detect); B. parapertussis Not Detected (Not Detecte); Bordetella pertussis Not Detected (Not Detecte); Chlamydophila pneumoniae Not Detected (Not Detect); Coronavirus 229E Not Detected (Not Detect); Coronavirus HKU1 Not Detected (Not Detect); Coronavirus NL 63 Not Detected (Not Detect); Coronavirus OC43 Not Detected (Not Detect); Human Metapneumovirus Not Detected (Not Detect); Human Rhinovirus/Enterovirus Not Detected (Not Detect); Influenza A Not Detected (Not Detect); Influenza B Not Detected (Not Detect); Mycoplasma pneumoniae Not Detected (Not Detect); Parainfluenza Virus 1 Not Detected (Not Detect); Parainfluenza Virus 2 Not Detected (Not Detect); Parainfluenza Virus 3 Not Detected (Not Detect); Parainfluenza Virus 4 Not Detected (Not Detect); Respiratory Syncytial Virus Not Detected (Not Detect); SARS- CoV-2 Not Detected (Not Detecte)
[2022-05-09 16:22] LABS: Basophils Absolute Auto 0 /uL (0-100); Basophils Percent Auto 1.3 % (0-2); Eosinophils Absolute Auto 100 /uL (0-450); Eosinophils Percent Auto 2.6 % (2-4); Hematocrit 42.5 % (36-46); Hemoglobin 13.8 g/dL (12.0-16.0); Lymphocytes Absolute Auto 1300 /uL (1100-4500); Lymphocytes Percent Auto 48.3 % (25-40); Mean Corpuscular HGB Conc 32.6 % (30-36); Mean Corpuscular Hemoglobin 31.8 PG (26-34); Mean Corpuscular Volume 97.7 fL (80-100); Monocytes Absolute Auto 200 /uL (0-900); Monocytes Percent Auto 5.6 % (3-14); Neutrophils Absolute Auto 1200 /uL (1500-7000); Neutrophils Percent Auto 42.2 % (50-75); Platelet Count 39 X10^3/uL (150-400); Red Blood Cell Count 4.35 X10^6/uL (4.0-5.2); Red Cell Distribution Width 25.1 % (11.6-14.8); White Blood Cell Count 2.7 X10^3/uL (4.5-11.0)
[2022-05-09 17:18] LABS: Add Manual Diff / Slide Review SLIDE REVIEW
[2022-05-09 17:29] LABS: Anisocytosis 3+; Macrocytosis 1+; Platelet Estimate Decreased on smear
== END 2022-05-09 04:15 | disposition home or self-care (01) ==
PROVIDERS: Emergency Provider Emergency Medicine; PCP Student in an Organized Health Care Education/Training Program
DX: R41.82 Altered mental status, unspecified (principal); I50.9 Heart failure, unspecified; J44.9 Chronic obstructive pulmonary disease, unspecified; Z79.899 Other long term (current) drug therapy; Z20.822 Contact with and (suspected) exposure to COVID-19
CPT/HCPCS: 70450; 80053; 85025; 87633; 93005; 93010; 94640; 99283; 99285; 99291